=== PATIENT | female | born 1965 | race African-American/Black ===

== ENCOUNTER 2020-02-02 22:46 | Emergency (ER) | payer BC ==
--- OUTSIDE RECORDS SUMMARY | 2020-02-02 22:48 | XMS REPORT ---
:1965 Author Organization [employer] Care Team Providers Name Role Phone Bebeto Hamzah Provider Role Unavailable Allergies No Known Allergies Problems Problem Type Condition Code Onset Dates Condition Statu s Assessment Mixed hyperlipidemia E78.2 Active Problem History of kidney stones Z87.442 Act luís Assessment Subclinical hyperthyroidism E05.90 Active Assessment Type 2 diabetes mellitus without E11.9 Active complication, without long-term current use of insulin Problem Allergic rhinitis, unspecified J30.9 Active seasonality, unspecified trigger Problem Subclinical hyperthyroidism E05.90 Active Problem Adult BMI 31.0-31.9 kg/sq m Z68.31 Active Problem Type 2 diabetes mellitus without E11.9 Active complication, without long-term current use of insulin Problem Mixed hyperlipidemia E78.2 Active Problem Adult BMI 30.0-30.9 kg/sq m Z68.30 Active Problem HTN, goal below 130/80 I10 Activ e Medications No Known Medications Results No Known Results Summary Purpose [facility] [employer] [facility] Submission
--- OUTSIDE RECORDS SUMMARY | 2020-02-02 22:48 | XMS REPORT ---
:1965 Author Organization [employer]Works Care Team Providers Name Role Phone Beebto Hamzah Provider Role Unavailable Allergies, Adverse Reactions, Alerts Substance Reaction Event Type N.K.D.A. Info Not Available Non Drug Allergy Problems Problem Type Condition Code Onset Dates Condition Statu s Assessment Acute streptococcal pharyngitis J02.0 Active Problem History of kidney stones Z87.442 Act luís Assessment Laryngitis J04.0 Active Assessment Upper respiratory tract infection, J06.9 Active unspecified type Assessment Acute non-recurrent maxillary J01.00 Active sinusitis Problem Allergic rhinitis, unspecified J30.9 Active seasonality, unspecified trigger Problem Subclinical hyperthyroidism E05.90 Active Problem Adult BMI 31.0-31.9 kg/sq m Z68.31 Active Problem Type 2 diabetes mellitus without E11.9 Active complication, without long-term current use of insulin Problem Mixed hyperlipidemia E78.2 Active Problem Adult BMI 30.0-30.9 kg/sq m Z68.30 Active Problem HTN, goal below 130/80 I10 Activ e Medications Medication Code Code Instructions Start End Status Dosage System Date Date Amoxicillin-Pot [facility] 43162195684 875-125 MG Aug 08, Aug 18, Active 1 tablet Clavulanate Orally every 12 2018 2019 hrs Losartan [facility] 97356724748 100 MG Orally Active 1 tab let Potassium Once a day Jardiance [facility] 01959812136 25 MG Orally Sep 21, Active 1 tab let Once a day 2019 Januvia [facility] 24103661563 100 MG Orally Active 1 tabl et Once a day Atorvastatin ND 90918439640 40 MG Orally Active 1 tablet Calcium Once a day MetFORMIN HCl ER ND 10619497478 500 MG Orally Activ e 2 tablet twice a day with evening meal Results No Known Results Summary Purpose eClinicalWorks Submission
--- OUTSIDE RECORDS SUMMARY | 2020-02-02 22:48 | XMS REPORT ---
:1965 Author Organization [facility] t Address [address] [place] [address] Care Team Providers Name Role Phone Unavailable Unavailable Unavailable Problems Condition Condition Condition Status Onset Resolution Last Treatin g Comments Name Details Category Date Date Treatment Clinician Date History of History of Problem Active kidney kidney stones stones Type 2 Type 2 Problem Active diabetes diabetes mellitus mellitus without without complicatio complicatio n, without n, without long-term long-term current use current use of insulin of insulin Mixed Mixed Problem Active hyperlipide hyperlipide alma rosa alma rosa HTN, goal HTN, goal Problem Active below below 130/80 130/80 Allergic Allergic Problem Active rhinitis, rhinitis, unspecified unspecified seasonality seasonality , , unspecified unspecified trigger trigger Adult BMI Adult BMI Problem Active 30.0-30.9 30.0-30.9 kg/sq m kg/sq m Subclinical Subclinical Problem Active hyperthyroi hyperthyroi dism dism Adult BMI Adult BMI Problem Active 31.0-31.9 31.0-31.9 kg/sq m kg/sq m Abnormal Abnormal Problem Active laboratory laboratory test result test result Abnormal Abnormal Problem Active laboratory laboratory results for results for respiratory respiratory system system Enlarged Enlarged Problem Active thyroid thyroid gland gland Allergies, Adverse Reactions, Alerts This patient has no known allergies or adverse reactions. Medications Ordered Filled Start Stop Current Ordering Indication Dosage Frequency Signature Comments Components Medication Medication Date Date Medication? Clinician (SIG) Name Name Kacie Hester 0 Yes Hamzah 1 tablet 3-13 Tate 00:00: 00 Jardiance Jardiance 2017-10- No Hamzah TK 1 T PO 2-13 03-12 Tate QD 00:00: 00:00 00 :00 MetFORMIN MetFORMIN Yes Hamzah 2 tablet HCl ER HCl ER Tate with evening meal Atorvastati Atorvastati Yes Hamzah 1 table t n Calcium n Calcium Tate Losartan Losartan Yes Hamzah 1 tablet Potassium Potassium Tate Atenolol Atenolol Yes Hamzah TK 1 T PO Tate D Immunizations Ordered Immunization Name Filled Immunization Name Date Sta tus Comments TDAP > 7 Years-Adacel TDAP > 7 Years-Adacel 2019-01-18 Completed 00:00:00 Encounters Start End Encounter Admission Attending Care Care Encounter Date/Time Date/Time Type Type Clinicians Facility Department ID 2020-01-15 2020-01-15 [facility] [id number] 13:52:00 13:52:00 [facility] 2019-12-25 2019-12-25 [facility] [id number] 13:30:00 13:30:00 [facility] 2019-09-27 2019-09-27 [facility] [id number] 09:00:00 09:00:00 Today [facility] 2019-09-22 2019-09-22 [facility] [id number] 10:30:00 10:30:00 Today [facility] 2019-09-15 2019-09-15 [facility] [id number] 08:21:00 08:21:00 Today [facility] 2019-09-06 2019-09-06 [facility] [id number] 08:11:00 08:11:00 Today [facility] 2019-09-04 2019-09-04 [facility] [id number] 08:03:00 08:03:00 Today [facility] 2019-08-08 2019-08-08 [facility] [id number] 11:00:00 11:00:00 Today [facility] 2019-06-23 2019-06-23 [facility] [id number] 09:30:00 09:30:00 Today [facility] 2019-03-23 2019-03-23 [facility] [id number] 09:00:00 09:00:00 Today [facility] 2019-01-18 2019-01-18 [facility] [id number] 11:00:00 11:00:00 Today [facility] 2019-01-11 2019-01-11 [facility] [id number] 10:00:00 10:00:00 Today [facility] 2018-12-21 2018-12-21 [facility] [id number] 13:15:00 13:15:00 Today [facility] 2018-09-28 2018-09-28 [facility] [id number] 11:18:00 11:18:00 Today [facility] 2018-09-22 2018-09-22 [facility] [id number] 14:45:00 14:45:00 [facility]
--- OUTSIDE RECORDS SUMMARY | 2020-02-02 22:49 | XMS REPORT ---
:1965 Author Organization [employer]Works Care Team Providers Name Role Phone Hamzah Tate Provider Role Unavailable Allergies, Adverse Reactions, Alerts Substance Reaction Event Type N.K.D.A. Info Not Available Non Drug Allergy Problems Problem Type Condition Code Onset Dates Condition Statu s Problem History of kidney stones Z87.442 Act luís Problem HTN, goal below 130/80 I10 Activ e Problem Type 2 diabetes mellitus without E11.9 Active complication, without long-term current use of insulin Problem Abnormal laboratory results for R84.9 Active respiratory system Problem Enlarged thyroid gland E04.9 Activ e Problem Abnormal laboratory test result R89.9 Active Problem Subclinical hyperthyroidism E05.90 Active Problem Adult BMI 30.0-30.9 kg/sq m Z68.30 Active Problem Adult BMI 31.0-31.9 kg/sq m Z68.31 Active Problem Allergic rhinitis, unspecified J30.9 Active seasonality, unspecified trigger Assessment History of kidney stones Z87.442 Act luís Assessment HTN, goal below 130/80 I10 Activ e Assessment Adult BMI 31.0-31.9 kg/sq m Z68.31 Active Assessment Subclinical hyperthyroidism E05.90 Active Assessment Type 2 diabetes mellitus without E11.9 Active complication, without long-term current use of insulin Assessment Mixed hyperlipidemia E78.2 Active Assessment Enlarged thyroid gland E04.9 Activ e Problem Mixed hyperlipidemia E78.2 Active Medications Medication Code Code Instructions Start End Date Status Dosage System Date [facility] 61521217960 100 MG Orally Active 1 tabl et Once a day Losartan ND 59330006314 100 MG Orally Active 1 tab let Potassium Once a day MetFORMIN HCl ER ND 57469073598 500 MG Orally Activ e 2 tablet twice a day with evening meal Jardiance [facility] 86829242653 25 MG Orally March Active 1 tab let Once a day 2019 Atorvastatin ND 29800881016 40 MG Orally Active 1 tablet Calcium Once a day Results No Known Results Summary Purpose [employer]ClinicalWorks Submission
--- OUTSIDE RECORDS SUMMARY | 2020-02-02 22:49 | XMS REPORT ---
:1965 Author Organization [employer]ClinicalWorks Care Team Providers Name Role Phone Hamzah Tate Provider Role Unavailable Allergies No Known Allergies Problems Problem Type Condition Code Onset Dates Condition Statu s Problem Mixed hyperlipidemia E78.2 Active Problem Type 2 diabetes mellitus without E11.9 Active complication, without long-term current use of insulin Problem History of kidney stones Z87.442 Act luís Problem Abnormal laboratory results for R84.9 Active respiratory system Problem Adult BMI 31.0-31.9 kg/sq m Z68.31 Active Problem Abnormal laboratory test result R89.9 Active Problem Adult BMI 30.0-30.9 kg/sq m Z68.30 Active Problem HTN, goal below 130/80 I10 Activ e Problem Allergic rhinitis, unspecified J30.9 Active seasonality, unspecified trigger Problem Subclinical hyperthyroidism E05.90 Active Medications No Known Medications Results No Known Results Summary Purpose [employer]ClinicalWorks Submission
--- OUTSIDE RECORDS SUMMARY | 2020-02-02 22:49 | XMS REPORT | Summary of Care ---
:1965 Author Organization [facility] [place] [address] Care Team Providers Name Role Phone Hamzah Tate Primary Care Provider [phone] Reason for Visit Reason Comments Follow Up Swollen thyroid. Pt reports burning sensation at sight of swelling. Reccent snoring issues. Consult, Test & Treat (Routine) Status Reason Specialty Diagnoses / Referred By Referred To Procedures Contact Contact Authorized Endocrinology Diagnoses thyroid swollen Referral, Self Eloise Bonilla MD Procedures NEW PATIENT [address] [facility] [address] [place], [place] [address] Fax: Encounter Details Date Type Department Care Team Description [facility] ([facility] Tariq L [address] [facility] thyroid. Pt reports [facility] [address] burning sensation [place] [address] sight of swelling. [address] [facility] [phone] Reccent snoring [address], [address] issues. ) [place] [address] Allergies No Known Allergiesdocumented as of this encounter (statuses as of 11/08/2019) Medications Medication Sig Dispensed Refills Start Date End Date Status metformin Take 500 mg by 0 Activ e (GLUCOPHAGE-XR) 500 MG mouth. XR tablet Empagliflozin Take 25 mg by 0 Ac tive (JARDIANCE) 25 MG TABS mouth daily. Sitagliptin Phosphate Take 100 mg by 0 Active (JANUVIA) 100 MG TABS mouth daily. losartan (COZAAR) 100 MG Take 100 mg by 0 Active tablet mouth daily. atorvastatin (LIPITOR) Take 40 mg by 0 Active 40 MG tablet mouth daily. documented as of this encounter (statuses as of 11/08/2019) Active Problems Not on filedocumented as of this encounter (statuses as of 11/08/2019) Social History Tobacco Use Types Packs/Day Years Used Date Never Smoker Smokeless Tobacco: Never Used Alcohol Use Drinks/Week oz/Week Comments Yes Alcohol Habits Answer Date Recorded How often do you have a drink containing alcohol? Monthly or less 11/08/2019 How many drinks containing alcohol do you have on a 1 or 2 11/08/2019 typical day when you are drinking? How often do you have six or more drinks on one Never 11/08/2019 occasion? Sex Assigned at Date Recorded Not on file Job Start Date Occupation Industry Not on file Not on file Not on file Travel History Travel Start Travel End No recent travel history available. documented as of this encounter Last Filed Vital Signs Vital Sign Reading Time Taken Comments Blood Pressure 151/94 11/08/2019 9:21 AM [employer] Pulse 84 11/08/2019 9:21 AM [employer]PERATOR Temperature - - Respiratory Rate 16 11/08/2019 9:21 AM [employer]OMER [employer]ICATION OPERATOR Oxygen Saturation - - Inhaled Oxygen Concentration - - Weight 96.2 kg (212 lb) 11/08/2019 9:21 AM [employer]OMER [employer]ICATION OPERATOR Height 172.7 cm (5' 8") 11/08/2019 9:21 AM [employer]OMER [employer]ICATION OPERATOR Body Mass Index 32.23 11/08/2019 9:21 AM [employer] OPERATOR documented in this encounter Progress Notes Eloise Bonilla MD - 11/08/2019 9:30 AM CST Patient: Petra Santos Age: 54 y.o. Sex: female Date: 11/08/2019 Clinic: Thyroid Clinic Time: 9:17 AM Chief Complaint: Thyroid swelling Referred by Referral, Self HPI: 54 year old Afro greek female with H/o well controlled Type 2 DM (on metformin, Jardiance and Januvia, last A1c 7.3%), hyperlipidemia, hypertension, kidney stone and subclinical hyperthyroidismwith goitre, here for further evaluation for the same. In Nov last year, found to have suppressed TSH 0.006 with normal FT4, T3 uptake and FTI levels. T3 not checked. Repeated again in Sep and similar labs found. TrAB elevated to 7.89. US thyroid- enlargedheterogenous gland consistent with thyroiditis. No nodules noted. Symptom vise- off and on heat intolerance. Weight stable, no palpitations, no anxiety or diarrhea. Does have mild compressive symptoms- difficulty breathing on right side and dysphonia. No dysphagia orsticky sensation in neck as such. No watering /grittiness/ blurry vision/double vision in eyes. FH: mother and father with DM, brother with hyperthyroidism SH: Non smoker, non drinker PMH: as above Review of Systems: Constitutional: negative for weight loss. Positive for fatigue + Eyes: negative for visual disturbance Ears, nose, mouth, throat, and face: negative for voice change, hoarseness Respiratory: negative for Cough, chest pain, dyspnea Cardiovascular: negative for palpitations, lower extremity swelling Gastrointestinal: negative for dyspepsia, nausea, vomiting, abdominal pain, change in bowel habits Genitourinary:negative for frequency Musculoskeletal:negative for muscle weakness Neurological: negative for headache Behavioral/Psych: negative for behavioral problems, bipolar, depression Physical Exam: Vitals 11/08/2019 SYSTOLIC 151 DIASTOLIC 94 PULSE 84 RESPIRATIONS 16 WEIGHT 212 HEIGHT 5' 8" BODY MASS INDEX 32.23 BODY SURFACE AREA 2.15 Const: No acute distress. Eyes:PERRLA. Conjugate gaze. No watering or proptosis/diplopia or lid lag. Redness B/L + HEENT: 40 gm gland firm smooth L>R. No palpable nodules.No lymphadenopathy. CVS: S1 S2 with no murmers . No rubs or gallops. Tachycardia + Resp: B/L Equal breath sounds.Clear to Auscultation. No wheezes or rhonchi Abd: Bowel sounds present, Non-tender, Non distended. No organomegaly Neuro: 5/5 Proximal Muscle strength. 2+ DTRs at biceps.CN grossly intact.Sensations intact Extremities: No lower extremity pitting edema. No tremors. Psych: Normal affect and attention. 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 Mild eye ds. Plan: Check TSH, Ft4 and Total T3 levels Check CBC and LFTs Consider to start MMI 5 mg every other day to get TSH in normal range Discussed definitve treatment options- iodine vrs surgery, she is interested in iodine- risks and benefits explained in detail. Will call with results and decide final plan- MMI or iodine. She will think about it. F/U 4 weeks Eloise Bonilla MD Endocrinology, Diabetes, and Metabolism [facility] documented in this encounter Plan of Treatment Name Type Priority Associated Diagnoses Order S chedule TSH Lab Routine Hyperthyroidism Ordered: T4 FREE Lab Routine Hyperthyroidism Ordered: T3 Lab Routine Hyperthyroidism Ordered: CBC W/AUTO DIFF WITH PLATELETS Lab Routine Hyperthyro idism Ordered: 11/08/2019 HEPATIC FUNCTION PANEL Lab Routine Hyperthyroidism Or dered: 11/08/2019 Health Maintenance Due Date Last Done Comments COLON CANCER SCREENING: COLONOSCOPY 1965 MAMMOGRAM ANNUAL 1965 TETANUS SHOT (ADULT) 1978 HEPATITIS C SCREENING 1981 HIV SCREENING 1981 CERVICAL CANCER SCREENING 3 YEAR FOLLOW UP 1984 FLU VACCINE > 6 MONTHS 05/11/2019 documented as of this encounter Results Not on filedocumented in this encounter Visit Diagnoses Diagnosis Hyperthyroidism - Primary Thyrotoxicosis without mention of goiter or other cause, without mention of thyrotoxic crisis or storm documented in this encounter Insurance Payer Benefit Plan / Subscriber ID Effective Dates Phone Addre ss Type Group [facility] x[facility]xxx 2017-Presen [address] POS [employer] [facility] POS - [place] [phone] documented as of this encounter
--- OUTSIDE RECORDS SUMMARY | 2020-02-02 22:49 | XMS REPORT ---
:1965 Author Organization [employer]ClinicalWorks Care Team Providers Name Role Phone Bebeto Hamzah Provider Role Unavailable Allergies, Adverse Reactions, [...] goal below 130/80 I10 Activ e Assessment Tachycardia R00.0 Active Assessment Adult BMI 31.0-31.9 kg/sq m Z68.31 Active Assessment Subclinical hyperthyroidism E05.90 Active Assessment Type 2 diabetes mellitus without E11.9 Active complication, without long-term current use of insulin Assessment Mixed hyperlipidemia E78.2 Active Assessment Enlarged thyroid gland E04.9 Activ e Problem Mixed hyperlipidemia E78.2 Active Medications Medication Code Code Instructions Start End Status Dosage System Date [facility] 82494709266 100 MG Orally Active 1 tabl et Once a day Atorvastatin [facility] 50260007887 40 MG Orally Active 1 tablet Calcium Once a day MetFORMIN HCl ER ND 02444038897 500 MG Orally Activ e 2 tablet twice a day with evening meal Losartan ND 10705649883 100 MG Orally Active 1 tab let Potassium Once a day Atenolol [facility] 64267756913 25 MG Oral Active TK 1 T P O D Jardiance [facility] 08645807108 25 MG Oral Active TK 1 T PO QD Results No Known Results Summary Purpose [employer]ClinicalWorks Submission
--- OUTSIDE RECORDS SUMMARY | 2020-02-02 22:49 | XMS REPORT | Summary of Care ---
:1965 Author Organization [facility] [place] [address] Care Team Providers Name Role Phone Hamzah Tate Primary Care Provider [phone] Reason for Referral Radiology Services (Routine) Status Reason Specialty Diagnoses / Referred By Referred To Procedures Contact Contact E-Auth Not Radiology Diagnoses Hyperthyroidism Main location aware Arrive 15 min prior Eloise Bonilla MD Bc Nm Imaging Needed Procedures NM THERAPY ABLATION THYROID CANCER [address] [facility] [address] [facility], [address] [address] [address] [place], [place] Phone: [phone] Phone: Radiology Services (Routine) Status Reason Specialty Diagnoses / Referred By Referred To Procedures Contact Contact E-Auth Not Radiology Diagnoses Hyperthyroidism Main location aware Arrive 15 min prior NPO 2 hrs prior Eloise Bonilla MD Bc Nm Imaging Needed Procedures NM THYROID UPTAKE AND SCAN MULITPLE CHG THYROID UPTAKE W/BLOOD FLOW SNGLE/MULT KIKE WILLY MT IODINE I-123 SOD IODIDE ADITYA [address] [place], [place] [address] [place] Phone: [phone] Phone: Reason for Visit Reason Comments Follow Up hyperthyroidism Consult, Test & Treat (Routine) Status Reason Specialty Diagnoses / Referred By Referred To Procedures Contact Contact Authorized Endocrinology Diagnoses thyroid f/u Eloise Bonilla MD Gaba, Ruchi, MD Procedures ESTABLISHED OFFICE VISIT [address] [place], [place] [address] [place] [address] Phone: Fax: Encounter Details Date Type Department Care Team Description 11/23/2019 Office Visit [facility] Eloise Bonilla MD Follow Up Medicine [address] (hyperthyroidism) Endocrinology [address] [facility] [place] [address] 8th Floor; [address] [phone] [place] [address] Allergies No Known Allergiesdocumented as of this encounter (statuses as of 11/23/2019) Medications Medication Sig Dispensed Refills Start Date [...] 0 Active 40 MG tablet mouth daily. atenolol (TENORMIN) 25 Take 1 Tab by 30 Tab 4 11/23/2019 Active MG tablet mouth daily. documented as of this encounter (statuses as of 11/23/2019) Active Problems Not on filedocumented as of this encounter (statuses as of 11/23/2019) Social History Tobacco Use Types Packs/Day Years [...] Sign Reading Time Taken Comments Blood Pressure 122/74 11/23/2019 1:44 PM TELEPHONE [employer]INTENA[employer]CE [employer]CH[employer]IC Pulse 114 11/23/2019 1:44 PM TELEPHONE MAINTENANCE MECHANIC Temperature - - Respiratory Rate 18 11/23/2019 1:44 PM TELEPHONE MAINTENANCE MECHANIC Oxygen Saturation - - Inhaled Oxygen Concentration - - Weight 94.8 kg (209 lb) 11/23/2019 1:44 PM TELEPHONE MAINTENANCE MECHANIC Height 172.7 cm (5' 8") 11/23/2019 1:44 PM TELEPHONE MAINTENANCE MECHANIC Body Mass Index 31.78 11/23/2019 1:44 PM TELEPHONE MAINTENANCE MECHANIC documented in this encounter Progress Notes Eloise Bonilla MD - 11/23/2019 2:00 PM CST Patient: Petra Santos Age: 54 y.o. Sex: female Date: 11/23/2019 Clinic: Thyroid Clinic Time: 1:58 PM Chief Complaint: F/U Hyperthyroidism HPI: 54 year old Afro sudanese female with H/o well controlled Type 2 DM (on metformin, Jardiance and Januvia, last A1c 7.3%), hyperlipidemia, hypertension, kidney stone and subclinical hyperthyroidismwith goitre, last seen in clinic 11/08/2019 , here to discuss results and next steps. In Aug last year, found to have suppressed TSH 0.006 with normal FT4, T3 uptake and FTI levels. T3 not checked. Repeated again in Sep and similar labs found. TrAB elevated to 7.89. US thyroid- enlargedheterogenous gland consistent with thyroiditis. No nodules noted. Repeat labs at [facility]- overt hyperthyroidism with elevated FT4 1.91. Baseline CBC and LFTs normal. Symptom vise- off and on heat intolerance. Weight stable, no palpitations, no anxiety or diarrhea. Does have mild compressive symptoms- difficulty breathing on right side and dysphonia. No dysphagia or sticky sensation in neck as such. No watering [...] behavioral problems, bipolar, depression Physical Exam: Vitals 11/23/2019 SYSTOLIC 122 DIASTOLIC 74 PULSE 114 RESPIRATIONS 18 WEIGHT 209 HEIGHT 5' 8" BODY MASS INDEX 31.78 BODY SURFACE AREA 2.13 Const: No acute distress. Eyes:PERRLA. Conjugate gaze. [...] pink, No rash Laboratory, Radiographic, Cytopathologic Data Ref. Range 11/08/2019 09:49 TSH REFLEX Latest Ref Range: 0.400 - 4.100 UIU/ML <0.010 (L) FREE T4 Latest Ref Range: 0.80 - 1.90 NG/DL 1.93 (H) T3 TOTAL Latest Ref Range: 80 - 200 NG/DL 184 Diagnoses: Auto immune thyroid ds causing Hyperthyroidism + 40 gm goitre Clinically hyperthyroid, mild compressive symptoms. Mild eye ds. Plan: She prefers to do radioactive iodine treatment rather than MMI or surgery NM scan and then radioactive treatment. Risks and benefits explained at length. Will also start atenolol 12.5 mg PO daily at night, ok to titrate upto 25 mg PO daily to help with symptoms. F/U 4 weeks Eloise Bonilla MD Endocrinology, Diabetes, and Metabolism [facility] documented in this encounter Plan of Treatment Date Type Specialty Care Team Description 12/12/2019 Ancillary Procedure Radiology 12/12/2019 Ancillary Procedure Radiology 12/13/2019 Ancillary Procedure Radiology 12/20/2019 Ancillary Procedure Radiology 01/25/2020 Office Visit Endocrinology Eloise Bonilla MD [address] [place], [place] [address] [phone] Name Type Priority Associated Diagnoses Order S chedule NM THYROID UPTAKE AND Imaging Routine Hyperthyroidism Exp ected: 11/30/2019, SCAN MULITPLE Expires: 11/22 NM THERAPY ABLATION Imaging Routine Hyperthyroidism Expec joshua: 11/30/2019, THYROID CANCER Expires: 05/11 Health Maintenance Due Date Last Done Comments COLON CANCER SCREENING: COLONOSCOPY 1965 MAMMOGRAM ANNUAL 1965 TETANUS SHOT (ADULT) 1978 BMI FOLLOW UP PLAN 1981 HEPATITIS C SCREENING 1981 HIV SCREENING 1981 [...] Effective Dates Phone Addre ss Type Group [facility] [place] x[facility] [id number] POS BLUE SHIELD IN-AREA POS - [place] [phone] documented as of this encounter
--- OUTSIDE RECORDS SUMMARY | 2020-02-02 22:49 | XMS REPORT ---
[...] of kidney stones Z87.442 Act luís Assessment Abnormal laboratory test result R89.9 Active Assessment Subclinical hyperthyroidism E05.90 Active Problem Abnormal laboratory results for R84.9 Active [...]
--- OUTSIDE RECORDS SUMMARY | 2020-02-02 22:49 | XMS REPORT ---
[...] without long-term current use of insulin Assessment Enlarged thyroid gland E04.9 Activ e Problem Mixed hyperlipidemia E78.2 Active Problem Abnormal laboratory results for R84.9 Active respiratory system Problem Enlarged thyroid gland E04.9 Activ e Problem Abnormal laboratory test result R89.9 Active Problem Subclinical hyperthyroidism E05.90 Active Problem Adult BMI 30.0-30.9 kg/sq m Z68.30 Active Problem Adult BMI 31.0-31.9 kg/sq m Z68.31 Active Problem Allergic rhinitis, unspecified J30.9 Active seasonality, unspecified trigger Medications No Known Medications Results No Known Results Summary Purpose eClinicalWorks Submission
--- OUTSIDE RECORDS SUMMARY | 2020-02-02 22:49 | XMS REPORT ---
[...] insulin Problem Mixed hyperlipidemia E78.2 Active Problem Abnormal [...]
[2020-02-02] MEDS ORDERED: METHYLPREDNISOLONE 125 MG INJ ONE (23:45)
[2020-02-02] MEDS ORDERED: hydrOXYzine HCL 25 MG TAB ONE (23:46)
[2020-02-02] MEDS ORDERED: FAMOTIDINE 20 MG/2 ML VIAL IV ONE (23:46)
--- NOTE | 2020-02-03 00:21 | EDPHYS ---
Physician Documentation [facility] Name: Petra Santos Age: 54 yrs Sex: Female : 1965 Arrival Date: 02/02/2020 Time: 22:47 Bed 5 Private MD: Bebeto [facility] ED Physician Jareth Cowan HPI: 02/02 00:18 This 54 yrs old Black Female presents to ER via Ambulatory with complaints of Hives. kdr 00:27 The patient presents with itching, rash, that is diffuse. kdr Historical: - Allergies: 02/01 22:57 No Known Allergies; sg - Home Meds: 22:57 losartan 100 mg oral tab 1 tab once daily [Active]; atenolol 25 mg Oral tab 1 tab once sg daily [Active]; methimazole 5 mg Oral tab 1 tab once daily [Active]; Jardiance 10 mg oral tab 1 tab once daily [Active]; metformin 500 mg Oral tab 2 tabs 2 times per day [Active]; - PMHx: 22:57 Diabetes - NIDDM; Hypertension; sg - PSHx: 22:57 Cholecystectomy; ; Hysterectomy; Tonsillectomy; sg - Immunization history:: Adult Immunizations up to date. - Social history:: Smoking status: Patient denies any tobacco usage or history of. ROS: 02/02 00:27 Constitutional: Negative for fever, chills, and weight loss, Eyes: Negative for injury, kdr pain, redness, and discharge, ENT: Negative for injury, pain, and discharge, Neck: Negative for injury, pain, and swelling, Cardiovascular: Negative for chest pain, palpitations, and edema, Respiratory: Negative for shortness of breath, cough, wheezing, and pleuritic chest pain, Abdomen/GI: Negative for abdominal pain, nausea, vomiting, diarrhea, and constipation, Back: Negative for injury and pain, : Negative for injury, bleeding, discharge, and swelling, MS/Extremity: Negative for injury and deformity, Neuro: Negative for headache, weakness, numbness, tingling, and seizure activity. Psych: Negative for depression, anxiety, suicide ideation, homicidal ideation, and hallucinations, Allergy/Immunology: Negative for hives, rash, and allergies, Endocrine: Negative for neck swelling, polydipsia, polyuria, polyphagia, and marked weight changes, Hematologic/Lymphatic: Negative for swollen nodes, abnormal bleeding, and unusual bruising. Skin: Positive for rash, diffusely. Exam: 00:27 Constitutional: This is a well developed, well nourished patient who is awake, alert, kdr and in no acute distress. Head/Face: Normocephalic, atraumatic. Eyes: Pupils equal round and reactive to light, extra-ocular motions intact. Lids and lashes normal. Conjunctiva and sclera are non-icteric and not injected. Cornea within normal limits. Periorbital areas with no swelling, redness, or edema. Neck: Trachea midline, no thyromegaly or masses palpated, and no cervical lymphadenopathy. Supple, full range of motion without nuchal rigidity, or vertebral point tenderness. No Meningismus. Chest/axilla: Normal chest wall appearance and motion. Nontender with no deformity. No lesions are appreciated. Cardiovascular: Regular rate and rhythm with a normal S1 and S2. No gallops, murmurs, or rubs. Normal PMI, no JVD. No pulse deficits. Respiratory: Lungs have equal breath sounds bilaterally, clear to auscultation and percussion. No rales, rhonchi or wheezes noted. No increased work of breathing, no retractions or nasal flaring. Abdomen/GI: Soft, non-tender, with normal bowel sounds. No distension or tympany. No guarding or rebound. No evidence of tenderness throughout. Back: No spinal tenderness. No costovertebral tenderness. Full range of motion. MS/ Extremity: Pulses equal, no cyanosis. Neurovascular intact. Full, normal range of motion. Neuro: Awake and alert, GCS 15, oriented to person, place, time, and situation. Cranial nerves II-XII grossly intact. Motor strength 5/5 in all extremities. Sensory grossly intact. Cerebellar exam normal. Normal gait. Psych: Awake, alert, with orientation to person, place and time. Behavior, mood, and affect are within normal limits. 00:27 Skin: rash a mild rash is noted. Vital Signs: 02/01 22:56 BP 138 / 93; Pulse 95; Resp 20; Temp 97.4; Pulse Ox 99% on R/A; Weight 97.52 kg; Height vc 5 ft. 8 in. (172.72 cm); Pain 0/10; 02/02 00:00 BP 118 / 85; Pulse 79; Resp 18; Pulse Ox 98% on R/A; rv 02/01 22:56 Body Mass Index 32.69 (97.52 kg, 172.72 cm) vc MDM: 00:20 Patient medically screened. kdr 00:42 Data reviewed: vital signs, nurses notes, lab test result(s), radiologic studies. kdr Counseling: I had a detailed discussion with the patient and/or guardian regarding: the historical points, exam findings, and any diagnostic results supporting the discharge/admit diagnosis, lab results, radiology results, the need for outpatient follow up. Administered Medications: 02/01 23:46 Drug: Pepcid 20 mg Route: IVP; Site: right antecubital; vc 02/02 00:21 Follow up: Response: No adverse reaction vc 02/01 23:46 Drug: Atarax 50 mg Route: PO; vc 02/02 00:21 Follow up: Response: No adverse reaction vc 02/01 23:47 Drug: SOLU-Medrol 125 mg Route: IVP; Site: right antecubital; vc 02/02 00:22 Follow up: Response: No adverse reaction vc Disposition: 02/03/20 00:20 Discharged to Home. Impression: Acute allergic reaction. - Condition is Stable. - Discharge Instructions: Allergies, [id number]-Gqtb. - Prescriptions for Hydroxyzine HCl 25 mg Oral Tablet - take 1 tablet by ORAL route every 6 hours As needed; 16 tablet. Medrol (Jad) 4 mg Oral Tablets, Dose Pack - take 1 tablet by ORAL route as directed - follow package instructions; 1 packet. Pepcid 20 mg Oral Tablet - take 1 tablet by ORAL route every 12 hours; 20 tablet. - Medication Reconciliation Form, Thank You Letter form. - Follow up: Hamzah Tate, DO; When: 2 - 3 days; Reason: If symptoms return, Further diagnostic work-up, Recheck today's complaints, Continuance of care, Re-evaluation by your physician. - Problem is an ongoing problem. - Symptoms have improved. Signatures: Jaguar Griggs RN RN sg Jareth Cowan MD MD kdr Sarah Alarcon RN RN vc Corrections: (The following items were deleted from the chart) 00:42 00:20 02/03/2020 00:20 Discharged to Home. Impression: Acute allergic reaction. vc Condition is Stable. Forms are Medication Reconciliation Form, Thank You Letter, Antibiotic Education, Prescription Opioid Use. Follow up: Hamzah Tate; When: 2 - 3 days; Reason: If symptoms return, Further diagnostic work-up, Recheck today's complaints, Continuance of care, Re-evaluation by your physician. Problem is an ongoing problem. Symptoms have improved. kdr
--- NOTE | 2020-02-03 00:21 | ER ---
Nurse's Notes [facility] Name: Petra Santos Age: 54 yrs Sex: Female : 1965 Arrival Date: 02/02/2020 Time: 22:47 Bed 5 Private MD: Hamzah Tate Diagnosis: Acute allergic reaction Presentation: 02/01 22:53 Chief complaint: Patient states: Hives and itching on entire body that began two days sg ago, pt reports taking benadryl with the last dose at 1999 this evening, denies any new prescriptions, denies new soaps/detergents/body products, reports the itching has just gotten more severe this evening. Coronavirus screen: Proceed with normal triage. Ebola Screen: Patient negative for fever greater than or equal to 101.5 degrees Fahrenheit, and additional compatible Ebola Virus Disease symptoms Patient denies exposure to infectious person. Patient denies travel to an Ebola-affected area in the 21 days before illness onset. No symptoms or risks identified at this time. Onset: The symptoms/episode began/occurred yesterday, and became worse today. Anaphylaxis evaluation, no signs or symptoms of anaphylaxis were noted. Initial Sepsis Screen: Does the patient meet any 2 criteria? No. Patient's initial sepsis screen is negative. Does the patient have a suspected source of infection? No. Patient's initial sepsis screen is negative. Risk Assessment: Do you want to hurt yourself or someone else? Patient reports no desire to harm self or others. Onset of symptoms was February 02, 2020. Care prior to arrival: None. 22:53 Method Of Arrival: Ambulatory sg 22:53 Acuity: MARKIE 3 sg Triage Assessment: 23:00 General: Appears in no apparent distress. uncomfortable, Behavior is calm, cooperative, vc appropriate for age. Historical: - Allergies: 22:57 No Known Allergies; sg - Home Meds: 22:57 losartan 100 mg oral tab 1 tab once daily [Active]; atenolol 25 mg Oral tab 1 tab once sg daily [Active]; methimazole 5 mg Oral tab 1 tab once daily [Active]; Jardiance 10 mg oral tab 1 tab once daily [Active]; metformin 500 mg Oral tab 2 tabs 2 times per day [Active]; - PMHx: 22:57 Diabetes - NIDDM; Hypertension; sg - PSHx: 22:57 Cholecystectomy; ; Hysterectomy; Tonsillectomy; sg - Immunization history:: Adult Immunizations up to date. - Social history:: Smoking status: Patient denies any tobacco usage or history of. Screenin:59 Abuse screen: Denies threats or abuse. Nutritional screening: No deficits noted. vc Tuberculosis screening: No symptoms or risk factors identified. Fall Risk None identified. Assessment: 22:59 Pain: Denies pain. Respiratory: Airway is patent Respiratory effort is even, unlabored, vc Respiratory pattern is regular, symmetrical, Breath sounds are clear bilaterally. 23:00 General: Appears in no apparent distress. Behavior is calm, cooperative, appropriate vc for age. Neuro: Level of Consciousness is awake, alert, obeys commands, Oriented to person, place, time, situation. Cardiovascular: Capillary refill < 3 seconds Patient's skin is warm and dry. GI: No signs and/or symptoms were reported involving the gastrointestinal system. : No signs and/or symptoms were reported regarding the genitourinary system. EENT: No deficits noted. Derm: Rash noted that is itchy, urticaria, on generalized. Musculoskeletal: Circulation, motion, and sensation intact. Range of motion: intact in all extremities. Vital Signs: 22:56 BP 138 / 93; Pulse 95; Resp 20; Temp 97.4; Pulse Ox 99% on R/A; Weight 97.52 kg; Height vc 5 ft. 8 in. (172.72 cm); Pain 0/10; 02/02 00:00 BP 118 / 85; Pulse 79; Resp 18; Pulse Ox 98% on R/A; rv 02/01 22:56 Body Mass Index 32.69 (97.52 kg, 172.72 cm) vc ED Course: 02/01 22:47 Patient arrived in ED. ag3 22:55 Triage completed. sg 22:55 Sarah Alarcon RN is Primary Nurse. vc 22:55 Arm band placed on. sg 22:56 Jareth Cowan MD is Attending Physician. kdr 22:58 Hamzah Tate DO is Private Physician. sg 23:00 Patient has correct armband on for positive identification. Bed in low position. Call vc light in reach. Pulse ox on. NIBP on. 23:38 Inserted saline lock: 20 gauge in right antecubital area, using aseptic technique. vc 02/02 00:18 Hamzah Tate DO is Referral Physician. kdr 00:42 No provider procedures requiring assistance completed. IV discontinued, intact, vc bleeding controlled, No redness/swelling at site. Pressure dressing applied. Administered Medications: 02/01 23:46 Drug: Pepcid 20 mg Route: IVP; Site: right antecubital; vc 02/02 00:21 Follow up: Response: No adverse reaction vc 02/01 23:46 Drug: Atarax 50 mg Route: PO; vc 02/02 00:21 Follow up: Response: No adverse reaction vc 02/01 23:47 Drug: SOLU-Medrol 125 mg Route: IVP; Site: right antecubital; vc 02/02 00:22 Follow up: Response: No adverse reaction vc Outcome: 00:20 Discharge ordered by . kdr 00:42 Discharged to home ambulatory. vc 00:42 Condition: good 00:42 Discharge instructions given to patient, Instructed on discharge instructions, follow up and referral plans. medication usage, Demonstrated understanding of instructions, follow-up care, medications, Prescriptions given X 3. 00:42 Patient left the ED. vc Signatures: Jaguar Griggs RN Jareth Linn MD MD kdr Vicente, Ronaldo RN RN Clara Watts 3 Sarah Alarcon RN RN vc
[2020-02-03 01:13] VITALS: TEMP 97.4
[2020-02-03 01:14] VITALS: BP 118/85; O2SAT 98
== END 2020-02-03 00:42 | disposition home or self-care (01) ==
LOC: ER 22:46
DX: R21 Rash and other nonspecific skin eruption (principal); I10 Essential (primary) hypertension; E11.9 Type 2 diabetes mellitus without complications
CPT/HCPCS: 96375; 96374; 99284; J2930

== ENCOUNTER 2020-09-06 20:20 | Inpatient (IN) | payer BC ==
--- OUTSIDE RECORDS SUMMARY | 2020-09-06 20:22 | XMS REPORT | Continuity of Care Document ---
:1965 Author Organization [facility] t Address [address] [place] [address] Care Team Providers Name Role Phone Irene KIDD Attending Clinician Problems Condition Condition Condition Status Onset Resolution Last Treating Co mments Source Name Details Category Date Date Treatment Clinician Date History of History of Diagnosis Active [facility] Type 2 Type [address] [facility] diabetes diabetes [facility] - mellitus mellitus Memori a without without l complicati complicati Ou tpati on, on, ent without without Clinics long-term long-term current current use of use of insulin insulin Mixed Mixed Diagnosis Active [facility] hyperlipid hyperlipid Hanna kes - emia emia [facility] HTN, goal HTN, goal Problem Active [facility] below below [facility] - 130/80 130/80 [facility] Allergic Allergic Problem [facility] rhinitis, rhinitis, [facility] - unspecifie unspecifie Me moria d d l seasonalit seasonalit Ou tpati y, y, ent unspecifie unspecifie Cl inics d trigger d trigger Adult BMI Adult BMI Diagnosis Active [facility] 30.0-30.9 30.0-30.9 [facility] - kg/sq m kg/sq m [facility] Subclinica Subclinica Diagnosis Active [facility] - hyperthyro hyperthyro Me moria idism idism l [facility] Adult BMI Adult BMI Problem Active [facility] 31.0-31.9 31.0-31.9 [facility] - kg/sq m kg/sq m [facility] Abnormal Abnormal Problem [facility] Hanna kes - test test [facility] result result [facility] Abnormal Abnormal Problem Active [facility] Hanna kes - results results Memoria for for l respirator respirator Ou tpati y system y system ent Clinics Enlarged Enlarged Diagnosis Active [facility] thyroid thyroid [facility] gland gland [facility] Abnormal Abnormal Problem Active [facility] mammogram [facility] Bone spur Bone spur Diagnosis Active [facility] of left of left [facility] foot foot [facility] Left foot Left foot Diagnosis Active [facility] pain pain [facility] Tachycardi Tachycardi Diagnosis Active [facility] Graves' Graves' Diagnosis Active [facility] disease disease [facility] Allergies, Adverse Reactions, Alerts This patient has no known allergies or adverse reactions. Medications Ordered Filled Start Stop Current Ordering Indication Dosage Frequency Signature Comments Components Source Medication Medication Date Date Medication? Clinician (SIG) Name Name Jasonálvaromarianna Gomezdayne Yes Hamzah [address] 3-13 [facility] Jardiance Jardiance 2017-10- No Hamzah TK [address] [facility] 2-13 03-12 Tate QD [facility] - 00:00: 00:00 [facility] MetFORMIN MetFORMIN Yes Hamzah [address] [facility] HCl ER HCl ER Tate with [facility] - evening [facility] meal [facility] Atorvastati Atorvastati Yes Hamzah [address] [facility] n Calcium n Calcium Tate [facility] Losartan Losartan Yes Hamzah [address] Potassium Potassium Tate [facility] Atenolol Atenolol Yes Hamzah TK [address] [facility] D [facility] Losartan Losartan Yes Hamzah [address] Potassium Potassium Tate [facility] Methimazole Methimazole Yes Hamzah [address] [facility] Tate with food [facility] Kacie Hester Yes Hamzah [address] [facility] Immunizations Ordered Filled Immunization Date Status Comments Sour e Immunization Name Name TDAP > 7 TDAP > 7 2019-01-[address] [facility] - Years-Adacel Years-Adacel 00:00:00 [facility] Procedures This patient has no known procedures. Encounters Start End Encounter Admission Attending Care Care Encounter Source Date/Time Date/Time Type Type Clinicians Facility Department ID 2020-06-21 2020-06-21 [facility] [id number] [facility] 11:20:00 11:20:00 [facility] Medicine Outpati ent Clinics 2020-05-06 2020-05-06 [facility] [id number] [address] 10:35:00 10:35:00 [facility] Medicine Outpati ent Clinics 2020-04-23 2020-04-23 [facility] [id number] 13:40:00 13:40:00 [facility] Outpat[facility] Clinics 2020-04-22 2020-04-22 [facility] [id number] [address] 13:34:00 13:34:00 [facility] Medicine Outpati ent Clinics 2020-03-26 2020-03-26 [facility] [id number] [facility] [address] 14:00:00 14:00:00 [facility] Medicine Outpati ent Clinics 2020-03-14 2020-03-14 [facility] [id number] [address] 16:13:00 16:13:00 [facility] Medicine Outpati ent Clinics 2020-01-15 2020-01-15 [facility] [id number] [address] 13:52:00 13:52:00 [facility] Medicine Outpati ent Clinics 2019-12-25 2019-12-25 [facility] [id number] [address] 13:30:00 13:30:00 [facility] Medicine Outpati ent Clinics 2019-11-23 2019-11-23 Office Eloise Bonilla [facility] [id number] 13:40:01 14:25:13 Visit AMBULATOR [id number] 2019-11-08 2019-11-08 Office Eloise Bonilla [facility] [id number] 09:15:27 09:45:27 Visit Joshua [id number] 2019-09-27 2019-09-27 [facility] [id number] [address] 09:00:00 09:00:00 [place] [employer] [facility] [employer] [facility] Medicine Outpati ent Clinics 2019-09-22 2019-09-22 [facility] [id number] [address] 10:30:00 10:30:00 [place] [employer] [facility] [employer] [facility] Medicine Outpati ent Clinics 2019-09-15 2019-09-15 [facility] [id number] [address] 08:21:00 08:21:00 [place] [employer] [facility] Medicine l Medicine Outpati ent Clinics 2019-09-06 2019-09-06 [facility] [id number] [address] 08:11:00 08:11:00 [place] [employer] [facility] [employer] [facility] Medicine Outpati ent Clinics 2019-09-04 2019-09-04 [facility] [id number] 08:03:00 08:03:00 [place] [employer] [facility] Medicine Outpati ent Clinics 2019-08-08 2019-08-08 [facility] [id number] 11:00:00 11:00:00 t [place] [employer] [facility] [employer] [facility] Medicine Outpati ent Clinics 2019-06-23 2019-06-23 [facility] [id number] [address] 09:30:00 09:30:00 t [place] [employer] [facility] [employer] [facility] 2019-03-23 2019-03-23 [facility] [id number] 09:00:00 09:00:00 t [place] [employer] [facility] Medicine Outpati ent Clinics 2019-01-18 2019-01-18 [facility] [id number] 11:00:00 11:00:00 t [place] [employer] - [facility] Medicine Outpati ent Clinics 2019-01-11 2019-01-11 [facility] [id number] 10:00:00 10:00:00 t [employer] [facility] [employer] [facility] Medicine Outpati ent Clinics 2018-12-21 2018-12-21 [facility] [id number] 13:15:00 13:15:00 t [employer] [facility] [employer] [facility] Medicine Outpati ent Clinics 2018-09-28 2018-09-28 [facility] [id number] [facility] 11:18:00 11:18:00 t [employer] [facility] [employer] [facility] Medicine Outpati ent Clinics 2018-09-22 2018-09-22 [facility] [id number] 14:45:00 14:45:00 t [employer] [facility] [employer] [facility] Medicine Outpati ent Clinics Results This patient has no known results.
--- OUTSIDE RECORDS SUMMARY | 2020-09-06 20:22 | XMS REPORT ---
:1965 Author Organization [employer] Care Team Providers Name Role Phone Hamzah Tate Provider Role Unavailable Allergies, Adverse Reactions, Alerts Substance Reaction Event Type N.K.D.A. Info Not Available Non Drug Allergy Problems Problem Type Condition Code Onset Dates Condition Statu s Assessment Bone spur of left foot M77.52 Activ e Problem Type 2 diabetes mellitus without E11.9 Active complication, without long-term current use of insulin Assessment Left foot pain M79.672 Active Problem Mixed hyperlipidemia E78.2 Active Assessment Tachycardia R00.0 Active Problem History of kidney stones Z87.442 Act luís Problem Subclinical hyperthyroidism E05.90 Active Problem Adult BMI 30.0-30.9 kg/sq m Z68.30 Active Problem Graves' disease E05.00 Active Problem Abnormal laboratory test result R89.9 Active Assessment HTN, goal below 130/80 I10 Activ e Assessment History of kidney stones Z87.442 Act luís Problem Abnormal mammogram R92.8 Active Assessment Adult BMI 31.0-31.9 kg/sq m Z68.31 Active Problem Adult BMI 31.0-31.9 kg/sq m Z68.31 Active Problem Allergic rhinitis, unspecified J30.9 Active seasonality, unspecified trigger Problem Abnormal laboratory results for R84.9 Active respiratory system Problem Enlarged thyroid gland E04.9 Activ e Assessment Enlarged thyroid gland E04.9 Activ e Assessment Type 2 diabetes mellitus without E11.9 Active complication, without long-term current use of insulin Assessment Mixed hyperlipidemia E78.2 Active Assessment Adult BMI 30.0-30.9 kg/sq m Z68.30 Active Problem HTN, goal below 130/80 I10 Activ e Assessment Subclinical hyperthyroidism E05.90 Active Assessment Graves' disease E05.00 Active Medications Medication Code Code Instructions Start End Status Dosage System Date Date Jardiance [facility] 63278277280 25 MG Orally Active 1 tab let Once a day Losartan ND 00596952102 100 MG Orally Active 1 tab let Potassium Once a day Losartan ND 54881712412 100 MG Orally Active 1 tab let Potassium Once a day Methimazole [facility] 30259312470 10 MG Orally Active 1 t ablet Once a day with food Atorvastatin [facility] 44125103123 40 MG Orally Active 1 tablet Calcium Once a day Januvia [facility] 76965578912 100 MG Orally Active 1 tabl et Once a day Atenolol [facility] 08671082945 25 MG Oral Once Active TK 1 T PO a day D Jardiance [facility] 10229708621 25 MG Oral Once Active TK 1 T PO a day QD Januvia [facility] 51304529444 100 MG Orally Active 1 tabl et Once a day MetFORMIN HCl ER [facility] 75054210603 500 MG Orally Activ e 2 tablet twice a day with evening meal Results No Known Results Summary Purpose [employer] Submission
[2020-09-06 21:05] LABS: Absolute Lymphocytes (CBC) 0.7 K/uL (0.7-4.9); Basophils % 0.1 % (0-1.3); Hematocrit 41.2 % (36.0-45.0); Lymphocytes % 9.4 % (15.3-44.8); MPV 9.7 fL (7.6-11.3); Protime INR 1.01; RBC Red Blood Cell Count 4.59 M/uL (3.86-4.86)
[2020-09-06] MEDS ORDERED: ACETAMINOPHEN 500 MG TAB ONE (21:08)
[2020-09-06] MEDS ORDERED: CEFTRIAXONE/SWI 1gm 1 GM/10 ML SYR ONE (21:09)
[2020-09-06] MEDS ORDERED: NA CHLORIDE 0.9% 3,000 ML ONE (21:09)
[2020-09-06 21:21] LABS: ALT/SGPT 19 U/L (12-78); AST/SGOT 12 U/L (15-37); Albumin 3.9 g/dL (3.4-5.0); Alkaline Phosphatase 108 U/L (45-117); BUN Blood Urea Nitrogen 9 mg/dL (7-18); Bicarbonate 21 mmol/L (21-32); Bilirubin Direct < 0.1 mg/dL (0-0.2); Bilirubin Total 0.2 mg/dL (0.2-1.0); Glucose Level 163 mg/dL (74-106); Lipase 186 U/L (73-393); Magnesium 2.1 mg/dL (1.8-2.4); NT PRO-BNP 17 pg/mL (<125); Potassium 3.7 mmol/L (3.5-5.1); Sodium Level 140 mmol/L (136-145); Troponin (Emerg Dept Use Only) < 0.02 ng/mL (0.0-0.045)
--- NOTE | 2020-09-06 22:07 | RAD REPORT ---
EXAM DESCRIPTION: Murali Single View09/06/2020 9:17 pm CLINICAL HISTORY: Abdominal pain COMPARISON: 2011 FINDINGS: The lungs appear clear of acute infiltrate. The heart is normal size IMPRESSION: No acute abnormalities displayed
--- NOTE | 2020-09-06 22:12 | ER ---
Nurse's Notes [facility] Name: Petra Santos Age: 55 yrs Sex: Female : 1965 Arrival Date: 09/06/2020 Time: 20:24 Bed 19 Private MD: Diagnosis: Vomiting;Diarrhea, unspecified;Dehydration;Severe sepsis without septic shock;Type 2 diabetes mellitus Presentation: 09/06 20:33 Chief complaint: Patient states: pt reports N/V/D that started today, pt reports fever em and took Aleve today around 2 PM, pt denies belly pain, code sepsis called. Coronavirus screen: Client denies travel out of the [place] in the last 14 days. diarrhea, nausea, vomiting. Ebola Screen: Patient negative for fever greater than or equal to 101.5 degrees Fahrenheit, and additional compatible Ebola Virus Disease symptoms Patient denies exposure to infectious person. Patient denies travel to an Ebola-affected area in the 21 days before illness onset. No symptoms or risks identified at this time. Initial Sepsis Screen: Does the patient meet any 2 criteria? Temp <36.0*C (96.8*F)) or > 38.3*C (100.9*F). HR > 90 bpm. Yes Does the patient have a suspected source of infection? No. Patient's initial sepsis screen is negative. If YES to both, name of provider notified: Casey Golden MD. Risk Assessment: Do you want to hurt yourself or someone else? Patient reports no desire to harm self or others. Onset of symptoms was September 06, 2020. 20:33 Method Of Arrival: Ambulatory em 20:33 Acuity: MARKIE 2 em Historical: - Allergies: 20:37 No Known Allergies; em - PMHx: 20:37 Hypertension; Diabetes - NIDDM; em - PSHx: 20:37 Cholecystectomy; ; Hysterectomy; Tonsillectomy; em - Immunization history:: Adult Immunizations up to date. - Social history:: Smoking status: Patient denies any tobacco usage or history of. Screenin:35 Abuse screen: Denies threats or abuse. Denies injuries from another. Nutritional ca1 screening: No deficits noted. Tuberculosis screening: No symptoms or risk factors identified. Fall Risk IV access (20 points). Assessment: 20:35 General: Appears in no apparent distress. comfortable, Behavior is calm, cooperative, ca1 appropriate for age, Reports chills for fever for 12-24 hours, feeling ill for. Pain: Denies pain. Neuro: Level of Consciousness is awake, alert, obeys commands, Oriented to person, place, time, situation. Cardiovascular: Heart tones S1 S2 present Capillary refill < 3 seconds Patient's skin is warm and dry. Rhythm is sinus tachycardia. Respiratory: Airway is patent Respiratory effort is even, unlabored, Respiratory pattern is regular, symmetrical, Breath sounds are clear bilaterally. GI: Abdomen is round non-distended, Bowel sounds present X 4 quads. Abd is soft and non tender X 4 quads. Reports diarrhea, nausea, vomiting, since today. : No signs and/or symptoms were reported regarding the genitourinary system. EENT: No signs and/or symptoms were reported regarding the EENT system. Derm: Skin is intact, is healthy with good turgor, Skin is pink, warm \T\ dry. Musculoskeletal: Circulation, motion, and sensation intact. Capillary refill < 3 seconds. 21:30 Reassessment: Patient appears in no apparent distress at this time. Patient and/or ca1 family updated on plan of care and expected duration. Pain level reassessed. Patient is alert, oriented x 3, equal unlabored respirations, skin warm/dry/pink. 22:30 Reassessment: Patient appears in no apparent distress at this time. Patient and/or ca1 family updated on plan of care and expected duration. Pain level reassessed. Patient is alert, oriented x 3, equal unlabored respirations, skin warm/dry/pink. 23:30 Reassessment: Patient appears in no apparent distress at this time. Patient and/or ca1 family updated on plan of care and expected duration. Pain level reassessed. Patient is alert, oriented x 3, equal unlabored respirations, skin warm/dry/pink. 09/07 00:46 Reassessment: Patient appears in no apparent distress at this time. Patient and/or jb4 family updated on plan of care and expected duration. Pain level reassessed. Patient is alert, oriented x 3, equal unlabored respirations, skin warm/dry/pink. Vital Signs: 09/06 20:33 BP 115 / 78; Pulse 133; Resp 22; Temp 103.2(O); Pulse Ox 95% on R/A; Weight 97.52 kg em (R); Height 5 ft. 9 in. (175.26 cm); Pain 0/10; 21:30 BP 120 / 74; Pulse 116; Resp 19 S; Temp 102; Pulse Ox 98% on R/A; ca1 22:30 BP 116 / 69; Pulse 106; Resp 20; Temp 99.5(O); Pulse Ox 100% on R/A; ca1 23:30 BP 102 / 53; Pulse 106; Resp 16 S; Pulse Ox 100% on R/A; ca1 09/07 00:46 BP 114 / 74; Pulse 104; Resp 19; Temp 98.6(O); Pulse Ox 98% on R/A; jb4 09/06 20:33 Body Mass Index 31.75 (97.52 kg, 175.26 cm) em ED Course: 09/06 20:24 Patient arrived in ED. cf2 20:32 Magdalena Brownlee RN is Primary Nurse. ca1 20:33 Casey Golden MD is Attending Physician. lor 20:35 Patient has correct armband on for positive identification. Placed in gown. Bed in low ca1 position. Call light in reach. Side rails up X2. environmental monitoring specialist on. Pulse ox on. NIBP on. 20:36 Triage completed. em 20:37 Arm band placed on. em 20:45 Inserted saline lock: 20 gauge in right antecubital area, using aseptic technique. ca1 Blood collected. 20:45 Initial lab(s) drawn, by me, sent to lab. First set of blood cultures drawn by me. ca1 20:49 Second set of blood cultures drawn by lab staff. ca1 21:17 XRAY Chest (1 view) In Process Unspecified. EDMS 22:10 Jordan Rader MD is Hospitalizing Provider. lor 23:18 Stool Culture Sent. ca1 23:18 Fecal Leukocyte Stain Sent. ca1 23:18 Urine Culture Sent. ca1 23:51 No provider procedures requiring assistance completed. Patient admitted, IV remains in ca1 place. 09/07 00:03 Report given to CHACHA Kemp. ca1 00:43 CT Abd/Pelvis - IV Contrast Only In Process Unspecified. EDMS Administered Medications: 09/06 20:55 Drug: Tylenol 1000 mg Route: PO; em 23:20 Follow up: Response: No adverse reaction; Temperature is decreased ca1 20:57 Drug: Rocephin 1 grams Route: IV; Rate: per protocol; Site: right antecubital; em 21:10 Follow up: Response: No adverse reaction; IV Status: Completed infusion ca1 21:00 Drug: NS 0.9% (30 ml/kg) 30 ml/kg {Note: Dr. Golden wants 3 L NS bolus.} Route: IV; em Rate: bolus; Site: right antecubital; 23:30 Follow up: Response: No adverse reaction; IV Status: Completed infusion; IV Intake: ca1 3000ml 22:15 Drug: Motrin 800 mg Route: PO; ca1 23:21 Follow up: Response: No adverse reaction; Temperature is decreased ca1 22:16 Drug: Pepcid 20 mg Route: IVP; Site: right antecubital; ca1 23:21 Follow up: Response: No adverse reaction ca1 23:45 Drug: NS 0.9% 1000 ml Route: IV; Rate: 125 ml/hr; Site: right antecubital; ca1 23:49 Follow up: Response: No adverse reaction; IV Status: Infusion continued upon admission ca1 Intake: 23:30 IV: 3000ml; Total: 3000ml. ca1 Outcome: 22:11 Decision to Hospitalize by Provider. lor 09/07 01:07 Admitted to Med/surg accompanied by tech, via wheelchair, room 209, with chart, Report jb4 called to CHACHA De La Cruz Condition: stable Discharge instructions given to patient, Instructed on the need for admit, Demonstrated understanding of instructions. 01:08 Patient left the ED. jb4 Signatures: Dispatcher [employer] Casey Lerma MD MD cha Munoz, Edgar, RN RN em Bryson, James, RN RN jb4 Magdalena Brownlee RN RN ca1 Rasheed Bradford cf2 Corrections: (The following items were deleted from the chart) 09/06 22:11 21:30 BP 120 / 74; Pulse 116bpm; Resp 19bpm; Spontaneous; Pulse Ox 98% RA; ca1 ca1
--- NOTE | 2020-09-06 22:12 | EDPHYS ---
Physician Documentation [facility] Name: Petra Santos Age: 55 yrs Sex: Female : 1965 Arrival Date: 09/06/2020 Time: 20:24 Bed 19 Private MD: ED Physician Casey Golden HPI: 09/06 21:07 This 55 yrs old Black Female presents to ER via Ambulatory with complaints of lor Vomiting/Diarrhea. 21:07 The patient presents to the emergency department with nausea, vomiting, diarrhea, that lor is continuous. Onset: The symptoms/episode began/occurred this morning. Possible causes: unknown. The symptoms are aggravated by nothing. food , The symptoms are alleviated by nothing. Associated signs and symptoms: Pertinent positives: diarrhea, nausea, vomiting. Severity of symptoms: At their worst the symptoms were moderate in the emergency department the symptoms are unchanged. The patient has not experienced similar symptoms in the past. Historical: - Allergies: 20:37 No Known Allergies; em - PMHx: 20:37 Hypertension; Diabetes - NIDDM; em - PSHx: 20:37 Cholecystectomy; ; Hysterectomy; Tonsillectomy; em - Immunization history:: Adult Immunizations up to date. - Social history:: Smoking status: Patient denies any tobacco usage or history of. ROS: 21:08 Eyes: Negative for injury, pain, redness, and discharge, ENT: Negative for injury, lor pain, and discharge, Neck: Negative for injury, pain, and swelling, Cardiovascular: Negative for chest pain, palpitations, and edema, Respiratory: Negative for shortness of breath, cough, wheezing, and pleuritic chest pain, Back: Negative for injury and pain, : Negative for injury, bleeding, discharge, and swelling, MS/Extremity: Negative for injury and deformity, Skin: Negative for injury, rash, and discoloration, Neuro: Negative for headache, weakness, numbness, tingling, and seizure, Psych: Negative for depression, anxiety, suicide ideation, homicidal ideation, and hallucinations, Allergy/Immunology: Negative for hives, rash, and allergies, Endocrine: Negative for neck swelling, polydipsia, polyuria, polyphagia, and marked weight changes, Hematologic/Lymphatic: Negative for swollen nodes, abnormal bleeding, and unusual bruising. 21:08 Constitutional: Positive for body aches, chills, fatigue, fever, malaise. 21:08 Abdomen/GI: Positive for nausea and vomiting, diarrhea. Exam: 21:08 Head/Face: Normocephalic, atraumatic. Eyes: Pupils equal round and reactive to light, lor extra-ocular motions intact. Lids and lashes normal. Conjunctiva and sclera are non-icteric and not injected. Cornea within normal limits. Periorbital areas with no swelling, redness, or edema. ENT: Nares patent. No nasal discharge, no septal abnormalities noted. Tympanic membranes are normal and external auditory canals are clear. Oropharynx with no redness, swelling, or masses, exudates, or evidence of obstruction, uvula midline. Mucous membranes moist. Neck: Trachea midline, no thyromegaly or masses palpated, and no cervical lymphadenopathy. Supple, full range of motion without nuchal rigidity, or vertebral point tenderness. No Meningismus. Chest/axilla: Normal chest wall appearance and motion. Nontender with no deformity. No lesions are appreciated. Cardiovascular: Regular rate and rhythm with a normal S1 and S2. No gallops, murmurs, or rubs. Normal PMI, no JVD. No pulse deficits. Respiratory: Lungs have equal breath sounds bilaterally, clear to auscultation and percussion. No rales, rhonchi or wheezes noted. No increased work of breathing, no retractions or nasal flaring. Back: No spinal tenderness. No costovertebral tenderness. Full range of motion. Female : Normal external genitalia. Skin: Warm, dry with normal turgor. Normal color with no rashes, no lesions, and no evidence of cellulitis. MS/ Extremity: Pulses equal, no cyanosis. Neurovascular intact. Full, normal range of motion. Neuro: Awake and alert, GCS 15, oriented to person, place, time, and situation. Cranial nerves II-XII grossly intact. Motor strength 5/5 in all extremities. Sensory grossly intact. Cerebellar exam normal. Normal gait. Psych: Awake, alert, with orientation to person, place and time. Behavior, mood, and affect are within normal limits. 21:08 Constitutional: The patient appears febrile. 21:08 Abdomen/GI: Inspection: abdomen appears normal, Bowel sounds: normal, Palpation: abdomen is soft and non-tender, Liver: no appreciated palpable abnormalities, Hernia: not appreciated. Vital Signs: 20:33 BP 115 / 78; Pulse 133; Resp 22; Temp 103.2(O); Pulse Ox 95% on R/A; Weight 97.52 kg em (R); Height 5 ft. 9 in. (175.26 cm); Pain 0/10; 21:30 BP 120 / 74; Pulse 116; Resp 19 S; Temp 102; Pulse Ox 98% on R/A; ca1 22:30 BP 116 / 69; Pulse 106; Resp 20; Temp 99.5(O); Pulse Ox 100% on R/A; ca1 23:30 BP 102 / 53; Pulse 106; Resp 16 S; Pulse Ox 100% on R/A; ca1 09/07 00:46 BP 114 / 74; Pulse 104; Resp 19; Temp 98.6(O); Pulse Ox 98% on R/A; jb4 09/06 20:33 Body Mass Index 31.75 (97.52 kg, 175.26 cm) em MDM: 09/06 20:33 Patient medically screened. [facility] 21:09 Differential diagnosis: Nonspecific abd pain, cholecystitis, pancreatitis, viral lor gastroenteritis, gastroenteritis, viral Infection, bacterial infection, pneumonia gastroenteritis. Differential Diagnosis sepsis. Data reviewed: vital signs, nurses notes, lab test result(s), EKG, radiologic studies, plain films. Data interpreted: pvc monitor: rate is 133 beats/min, rhythm is regular, Pulse oximetry: is not applicable for this patient encounter. Test interpretation: by ED physician or midlevel provider: ECG, plain radiologic studies. Counseling: I had a detailed discussion with the patient and/or guardian regarding: the historical points, exam findings, and any diagnostic results supporting the discharge/admit diagnosis, lab results, radiology results. 09/06 20:51 Order name: Basic Metabolic Panel [facility] 09/06 20:51 Order name: CBC with Diff [facility] 09/06 20:51 Order name: LFT's lor 09/06 20:51 Order name: Magnesium; Complete Time: 21:28 [facility] 09/06 20:51 Order name: NT PRO-BNP; Complete Time: 21:28 [facility] 09/06 20:51 Order name: PT-INR; Complete Time: 21:28 [facility] 09/06 20:51 Order name: Troponin (emerg Dept Use Only); Complete Time: 21:28 [facility] 09/06 20:51 Order name: Lipase; Complete Time: 21:28 [facility] 09/06 20:51 Order name: Urine Culture [facility] 09/06 20:51 Order name: Lactate; Complete Time: 21:28 [facility] 09/06 20:51 Order name: Flu; Complete Time: 22:04 [facility] 09/06 20:51 Order name: Basic Metabolic Panel; Complete Time: 21:28 [facility] 09/06 20:51 Order name: CBC with Automated Diff; Complete Time: 21:28 [facility] 09/06 20:51 Order name: XRAY Chest (1 view); Complete Time: 23:30 [facility] 09/06 20:51 Order name: EKG; Complete Time: 20:52 [facility] 09/06 20:51 Order name: Liver (Hepatic) Function; Complete Time: 21:28 [facility] 09/06 20:59 Order name: Blood Culture Adult (2) [facility] 09/06 21:29 Order name: Stool Culture [facility] 09/06 21:29 Order name: Fecal Leukocyte Stain [facility] 09/06 22:16 Order name: SARS-COV-2 RT PCR; Complete Time: 23:30 [facility] 09/06 23:18 Order name: Urine Dipstick--Ancillary (enter results); Complete Time: 00:54 tt3 09/06 23:33 Order name: CT Abd/Pelvis - IV Contrast Only [facility] 09/07 00:12 Order name: Lactate Sepsis 2 HR Follow-up; Complete Time: 00:54 [facility] 09/06 20:51 Order name: Cardiac monitoring; Complete Time: 21:05 [facility] 09/06 20:51 Order name: EKG - Nurse/Tech; Complete Time: 21:05 [facility] 09/06 20:51 Order name: IV Saline Lock; Complete Time: 21:05 [facility] 09/06 20:51 Order name: Labs collected and sent; Complete Time: 21:05 [facility] 09/06 20:51 Order name: O2 Per Protocol; Complete Time: 21:06 [facility] 09/06 20:51 Order name: O2 Sat Monitoring; Complete Time: 21:06 [facility] 09/06 20:51 Order name: Urine Dipstick-Ancillary (obtain specimen); Complete Time: 23:18 [facility] Administered Medications: 20:55 Drug: Tylenol 1000 mg Route: PO; em 23:20 Follow up: Response: No adverse reaction; Temperature is decreased ca1 20:57 Drug: Rocephin 1 grams Route: IV; Rate: per protocol; Site: right antecubital; em 21:10 Follow up: Response: No adverse reaction; IV Status: Completed infusion ca1 21:00 Drug: NS 0.9% (30 ml/kg) 30 ml/kg {Note: Dr. Golden wants 3 L NS bolus.} Route: IV; em Rate: bolus; Site: right antecubital; 23:30 Follow up: Response: No adverse reaction; IV Status: Completed infusion; IV Intake: ca1 3000ml 22:15 Drug: Motrin 800 mg Route: PO; ca1 23:21 Follow up: Response: No adverse reaction; Temperature is decreased ca1 22:16 Drug: Pepcid 20 mg Route: IVP; Site: right antecubital; ca1 23:21 Follow up: Response: No adverse reaction ca1 23:45 Drug: NS 0.9% 1000 ml Route: IV; Rate: 125 ml/hr; Site: right antecubital; ca1 23:49 Follow up: Response: No adverse reaction; IV Status: Infusion continued upon admission ca1 Disposition: 09/06/20 22:11 Hospitalization ordered by Jordan Rader for Inpatient Admission. Preliminary diagnosis are Vomiting, Diarrhea, unspecified, Dehydration, Severe sepsis without septic shock, Type 2 diabetes mellitus. - Bed requested for Telemetry/MedSurg (Inpatient). - Status is Inpatient Admission. jb4 - Condition is Fair. - Problem is new. - Symptoms have improved. Signatures: Dispatcher [employer] EDKY Michelle Moreno RN RN mw Anderson, Corey, MD MD cha Munoz, Edgar RN RN Matthew Aquino PA PA [id number] Bryson, James, RN RN jb4 Magdalena Brownlee RN RN ca1 Corrections: (The following items were deleted from the chart) 21:18 20:52 CORONAVIRUS+MR.LAB.BRZ ordered. [facility] 09/07 00:58 09/06 22:11 Hospitalization Ordered by Jordan Rader MD for Observation. Preliminary diagnosis is Vomiting; Diarrhea, unspecified; Dehydration; Severe sepsis without septic shock; Type 2 diabetes mellitus. Bed requested for Telemetry/MedSurg (observation). Status is Observation. Condition is Fair. Problem is new. Symptoms have improved. [facility] 09/07 01:06 00:58 09/06/2020 22:11 Hospitalization Ordered by Jordan Rader MD for Observation. [facility] Preliminary diagnosis is Vomiting; Diarrhea, unspecified; Dehydration; Severe sepsis without septic shock; Type 2 diabetes mellitus. Bed requested for Telemetry/MedSurg (observation). Status is Observation. Condition is Fair. Problem is new. Symptoms have improved. mw 01:07 01:06 09/06/2020 22:11 Hospitalization Ordered by Jordan Rader MD for Inpatient mw Admission. Preliminary diagnosis is Vomiting; Diarrhea, unspecified; Dehydration; Severe sepsis without septic shock; Type 2 diabetes mellitus. Bed requested for Telemetry/MedSurg (Inpatient). Status is Inpatient Admission. Condition is Fair. Problem is new. Symptoms have improved. lor 01:08 01:07 09/06/2020 22:11 Hospitalization Ordered by Jordan Rader MD for Inpatient jb4 Admission. Preliminary diagnosis is Vomiting; Diarrhea, unspecified; Dehydration; Severe sepsis without septic shock; Type 2 diabetes mellitus. Bed requested for Telemetry/MedSurg (Inpatient). Status is Inpatient Admission. Condition is Fair. Problem is new. Symptoms have improved.
[2020-09-06] MEDS ORDERED: FAMOTIDINE 20 MG/2 ML VIAL IV ONE (22:27)
[2020-09-06] MEDS ORDERED: IBUPROFEN 400 MG TAB ONE (22:27)
[2020-09-06] MEDS ORDERED: NA CHLORIDE 0.9% 1,000 ML ONE (22:27)
[2020-09-06 23:45] LABS: Urine Blood NEGATIVE (NEG); Urine Glucose 2+ (NEG); Urine Protein NEGATIVE (NEG)
--- NOTE | 2020-09-07 01:19 | P.INFCA ---
Sepsis Focused Assessment - Focused Assessment Complete? Sepsis Focused Assessment Completed?: Yes - Sepsis Screen Result Severe Sepsis: Positive - Evaluation Current stage of sepsis: Severe sepsis - Vital Signs Reviewed: Yes Temperature: 98.6 F Heart rate: 104 Blood Pressure: 114/74 Respiratory Rate: 19 O2 Sat by Pulse Oximetry: 98 (RA) - Examination Date exam was performed: 09/07/20 Time exam was performed: 01:19 Heart: Irregular rhythm (Sinus Tachycardia ), S1, S2 Lungs: Clear bilaterally Peripheral pulses: 2+ Slightly diminished Peripheral pulse location: Radial Capillary refill: <2 Seconds Skin examination: Normal turgor
[2020-09-07 01:29] VITALS: BMI 34.2
[2020-09-07] MEDS ORDERED: GLUCAGON 1 MG/VIAL IM PRN (01:44)
[2020-09-07] MEDS ORDERED: D50W 25 GM/50 ML SYRINGE IV PRN (01:44)
[2020-09-07] MEDS: ACETAMINOPHEN 500 MG TAB PO PRN ×4 (02:12→22:07)
[2020-09-07] MEDS: METRONIDAZOLE 500mg IVPB 500 MG/100 ML BAG IV SCH ×3 (02:13→16:30)
[2020-09-07] MEDS: NA CHLORIDE 0.9% 1,000 ML IV SCH ×6 (02:14→23:18)
--- NOTE | 2020-09-07 02:39 | P.HP ---
Certification for Inpatient Patient admitted to: Inpatient With expected LOS: >2 Midnights Patient will require the following post-hospital care: None Practitioner: I am a practitioner with admitting privileges, knowledge of patient current condition, hospital course, and medical plan of care. Services: Services provided to patient in accordance with Admission requirements found in Title 42 Section 412.3 of the Code of Federal Regulations <Mikey Marie - Last Filed: 09/07/20 02:32> Patient History Date of Service: 09/07/20 Primary Care Provider: Dr. Tate Reason for admission: Severe Sepsis, Colitis History of Present Illness: This is a 55-year-old female that presented to the emergency room today for complaints of nausea, vomiting, diarrhea that started abruptly this morning. Patient was noted to have fever of 103.2 with a heart rate of 133 and a respiratory rate of 22 upon arrival to emergency room but with normal blood pressure of 115/78. Patient was worked up for sepsis at that time. Patient was found to have a lactate of 2.3 with a normal white cell count at 7.8 and no acute electrolyte findings. CT scan was completed along with chest x-ray and urine. CT of the abdomen and pelvis shows a ascending and transverse nonspecific colitis. Normal chest x-ray and no acute findings in the urine. Medicine was consulted for admission Home medications list reviewed: Yes - Past Medical/Surgical History Has patient received pneumonia vaccine in the past: No Diabetic: Yes -: -: hysterectomy -: Tonsillectomy -: Carpal Tunnel sherron -: Cholecysrectomy - Family History Father -: Heart disease, Diabetes Mother Notes: no abnormal hx - Social History Smoking Status: Never smoker Smoking therapy provided: No Alcohol use: Yes CD- Drugs: No Caffeine use: Yes Place of Residence: Home <Mikey Marie - Last Filed: 09/07/20 02:32> Date of Service: 09/07/20 <Jordan Rader - Last Filed: 09/07/20 09:47> Allergies No Known Allergies Allergy (Unverified 03/24/12 09:34) Review of Systems General: Fever, Malaise Eyes: Unremarkable ENT: Unremarkable Respiratory: Unremarkable Cardiovascular: Unremarkable Gastrointestinal: Nausea, Vomiting, Diarrhea Genitourinary: Unremarkable Musculoskeletal: Unremarkable Integumentary: Unremarkable Neurological: Unremarkable Lymphatics: Unremarkable <Mikey Marie - Last Filed: 09/07/20 02:32> Physical Examination - Vital Signs Temperature: 98.5 F Blood Pressure: 119/73 Pulse: 107 Respirations: 16 Pulse Ox (%): 97 - Physical Exam General: Alert, In no apparent distress, Oriented x3, Cooperative HEENT: PERRLA, Mucous membr. moist/pink, EOMI Neck: Supple, 2+ carotid pulse no bruit, JVD not distended, No Thyromegaly Respiratory: Clear to auscultation bilaterally, Normal air movement Cardiovascular: No edema, Normal pulses, Normal S1 S2, No gallops, No rubs, No murmurs, Irregular heart rate/rhythm (Tachycardic) Capillary refill: <2 Seconds Gastrointestinal: Normal bowel sounds, Soft and benign, Non-distended, No ascites, No tenderness, No masses, No rebound, No guarding Musculoskeletal: No clubbing, No swelling, No contractures, No erythema, No tenderness Integumentary: No rashes, No breakdown, No significant lesion, No tenderness/swelling, No erythema, No warmth, No cyanosis Neurological: Normal speech, Normal strength at 5/5 x4 extr, Normal tone, Sensation intact, Cranial nerves 3-12 intact, Normal affect Lymphatics: No axilla or inguinal lymphadenopathy - Studies Laboratory Data (last 24 hrs) 09/06/20 20:45: PT 11.9, INR 1.01 09/06/20 20:45: WBC 7.8, Hgb 14.1, Hct 41.2, Plt Count 145 L 09/06/20 20:45: Sodium 140, Potassium 3.7, BUN 9, Creatinine 0.94, Glucose 163 H, Magnesium 2.1, Total Bilirubin 0.2, AST 12 L, ALT 19, Alkaline Phosphatase 108, Lipase 186 Microbiology Data (last 24 hrs): 09/06/20 20:56 Nasopharnyx Influenza Type A Antigen Screen - Final 09/06/20 20:56 Nasopharnyx Influenza Type B Antigen Screen - Final <Mikey Marie - Last Filed: 09/07/20 02:32> - Studies Laboratory Data (last 24 hrs) 09/06/20 20:45: PT 11.9, INR 1.01 09/06/20 20:45: WBC 7.8, Hgb 14.1, Hct 41.2, Plt Count 145 L 09/06/20 20:45: Sodium 140, Potassium 3.7, BUN 9, Creatinine 0.94, Glucose 163 H, Magnesium 2.1, Total Bilirubin 0.2, AST 12 L, ALT 19, Alkaline Phosphatase 108, Lipase 186 Microbiology Data (last 24 hrs): 09/06/20 23:13 Stool Fecal Leukocyte Stain - Final 09/06/20 20:56 Nasopharnyx Influenza Type A Antigen Screen - Final 09/06/20 20:56 Nasopharnyx Influenza Type B Antigen Screen - Final <Jordan Rader - Last Filed: 09/07/20 09:47> Assessment and Plan - Problems (Diagnosis) (1) Severe sepsis Current Visit: Yes Status: Acute (2) Colitis Current Visit: Yes Status: Acute (3) Hypertension Current Visit: Yes Status: Chronic Qualifiers: Hypertension type: essential hypertension Qualified Code(s): I10 - Essential (primary) hypertension (4) Non-insulin dependent diabetes mellitus Current Visit: Yes Status: Chronic - Plan 1. Patient will be admitted to the telemetry floor. Vital signs will be rechecked throughout the night and throughout admission for hemodynamic stability to ensure they normalize. Patient will be given antipyretics for fever. 2. Patient placed on antibiotics for colitis. We will continue antibiotic therapy wall admitted and most likely will be sent home on antibiotics 3. We will continue to hydrate patient as patient does have severe sepsis 4. DVT prophylaxis 5. Blood sugars will be monitored with mild insulin scale at this time 6. Although patient is not hypertensive during this admission we will continue to monitor blood pressure and will treat blood pressure for systolic greater than 160 diastolic greater than 110 7. Reassess blood work daily Discharge Plan: Home Plan to discharge in: Greater than 2 days - Advance Directives Does patient have a Living Will: No Does patient have a Durable POA for Healthcare: No - Code Status/Comfort Care Code Status Assessed: Yes Code Status: Full Code Critical Care: Yes (30) Time Spent Managing Pts Care (In Minutes): 70 <Mikey Marie - Last Filed: 09/07/20 02:32> - Plan Plan of care discussed with Mikey Marie, and I agree with the management plan as noted above. <Jordan Rader - Last Filed: 09/07/20 09:47>
[2020-09-07] MEDS: INSULIN -REGULAR HUMAN 50 UNIT/0.5 ML ML SQ SCH ×4 (07:30→20:13)
[2020-09-07] MEDS: CIPROFLOXACIN 400mg IV 400 MG/200 ML BAG IV SCH ×2 (08:37→20:15)
[2020-09-07] MEDS: MORPHINE 2 MG/ML SYR IV PRN (08:45)
[2020-09-07] MEDS: ONDANSETRON 4 MG/2 ML VIAL IV PRN (08:50)
[2020-09-07 10:12] LABS: C.diff Antigen/Toxin Ag neg : Tox neg (NEG : NEG)
[2020-09-07] MEDS ORDERED: NA CHLORIDE 0.9% 500 ML IV ONE (14:50)
--- NOTE | 2020-09-07 15:50 | P.PN ---
Subjective Date of Service: 09/07/20 Primary Care Provider: Dr. Tate Chief Complaint: Severe Sepsis, Colitis Subjective: Worsening (Patient reports feeling okay this morning, the nausea/vomiting, continued with some diarrhea. [place] her pain was getting a little bit better. Re-examined in the afternoon, patient appears more uncomfortable, denies nausea/vomiting, febrile to 102. Feels slightly more bloated) Review of Systems 10-point ROS is otherwise unremarkable Physical Examination - Vital Signs Temperature: 99.3 F Blood Pressure: 114/73 Pulse: 110 Respirations: 18 Pulse Ox (%): 96 - Physical Exam General: Alert, Moderate distress HEENT: Sclerae nonicteric Respiratory: Clear to auscultation bilaterally Cardiovascular: Regular rate/rhythm, No murmurs Gastrointestinal: Other (soft, but with mild distention), Tenderness (diffuse, most significant in upper abdomen.), Rebound Musculoskeletal: No tenderness Integumentary: No rashes - Studies Laboratory Data (last 24 hrs) 09/06/20 20:45: PT 11.9, INR 1.01 09/06/20 20:45: WBC 7.8, Hgb 14.1, Hct 41.2, Plt Count 145 L 09/06/20 20:45: Sodium 140, Potassium 3.7, BUN 9, Creatinine 0.94, Glucose 163 H, Magnesium 2.1, Total Bilirubin 0.2, AST 12 L, ALT 19, Alkaline Phosphatase 108, Lipase 186 Microbiology Data (last 24 hrs): 09/06/20 23:13 Stool Fecal Leukocyte Stain - Final 09/06/20 20:56 Nasopharnyx Influenza Type A Antigen Screen - Final 09/06/20 20:56 Nasopharnyx Influenza Type B Antigen Screen - Final Assessment & Plan Physician Review Additional Text: Severe sepsis secondary to colitis Hypertension [id number] DM2 -continue IV Cipro and Flagyl, keep NPO, continue IV fluids. -given worsening of her exam, concern for developing peritonitis -consulted General Surgery, to see patient today -will recheck lactate -will consider repeating imaging dependent on patient's clinical status/exam -continue serial abdominal exams Dispo: patient's exam worsening and remains with high fevers, pending further evaluation Time Spent Managing Pts Care (In Minutes): 35
[2020-09-07] MEDS ORDERED: ENOXAPARIN 40 MG/0.4 ML SQ SCH (17:00)
--- NOTE | 2020-09-07 18:58 | CON ---
Date of Consultation: 09/07/2020 Diagnosis: Colitis. History Of Present Illness: This is the case of a 55-year-old person, yesterday was celebrating Than and was eating with a group of friends and then last night she developed abdominal pain and come to the ER immediately. The patient stated that after eating that food, the patient felt nauseou s, vomiting, and also have diarrhea. She does not remember having this before. She states she had a colonoscopy done in 2014 and she was told by the GI doctor not to have it done in 10 years since it was negative. No other family member sick at home, even though they were in the same [place]. She sta joshua nausea, vomiting, and diarrhea. She denied any melena, any hematochezia. Denies any shortness o f breath, any chest pain. Allergies: NONE. Past Medical History: Hypertension, diabetes. Past Surgical History: Include hysterectomy, tonsillectomy, cholecystectomy, and . Social History: She does not smoke. She does not drink alcohol. Review of Systems: See H and P. Physical Examination: General: The patient is awake, alert, no distress. HEENT: Pupils equal and reactive. Anicteric. Neck: Supple. Chest: Clear. Abdomen: Mild generalized tenderness on the right abdomen. No rebound tenderness at this moment. Pelvic: Deferred. Rectal: Deferred. Extremities: Good capillary refill. Laboratory Data: Blood work shows a WBC count of 7.8, hemoglobin of 14.1, and platelets of 145. INR is 1.01. Lactic acid 2.8, it come initially 2.3. UA showed blood negative, nitrite negative. CAT scan of the abdomen and pelvis, official report is still pending, although preliminary report shows e vidence of colitis in the ascending and transverse colon. No pneumatosis. Assessment: This is a 55-year-old patient with colitis after eating with a group of people yesterday for . The tried to give her some diet this morning. She did not improve, so I advised to be keep the patient n.p.o. We need bowel rest, hydration. She is currently on antibiotics, which call for Cipro and Flagyl. Bicarb was 21 with chloride 109, lipase 186. We will continue with sanjay l rest, IV hydration. She understands the options that we do not see any improvement and colitis det eriorate, then we might have to do a laparotomy. She understands the benefits, alternatives, and ris ks, which include, but not limited to infection, bleeding, damage to adjacent structures, negative ex ploration. She was advised the importance of being n.p.o. She want to get some liquid. I advised h er not to do so. We are going to set up for ice chips on her lips because she want to moist her lips . I will follow the patient with you. We can also obtain stool cultures. ABDIRASHID/RALPH Voice ID: [id number] Report ID: [id number]
[2020-09-08] MEDS: METRONIDAZOLE 500mg IVPB 500 MG/100 ML BAG IV SCH (01:08)
[2020-09-08] MEDS: ACETAMINOPHEN 500 MG TAB PO PRN ×3 (04:10→20:38)
[2020-09-08] MEDS: ONDANSETRON 4 MG/2 ML VIAL IV PRN ×2 (04:15→10:28)
[2020-09-08] MEDS: MORPHINE 2 MG/ML SYR IV PRN (04:15)
[2020-09-08 06:06] LABS: Absolute Lymphocytes (CBC) 0.9 K/uL (0.7-4.9); Basophils % 0.2 % (0-1.3); Hematocrit 35.1 % (36.0-45.0); Lymphocytes % 11.5 % (15.3-44.8); MPV 9.7 fL (7.6-11.3); RBC Red Blood Cell Count 3.85 M/uL (3.86-4.86)
[2020-09-08 06:16] LABS: ALT/SGPT 20 U/L (12-78); AST/SGOT 19 U/L (15-37); Alkaline Phosphatase 62 U/L (45-117); BUN Blood Urea Nitrogen 6 mg/dL (7-18); Bicarbonate 20 mmol/L (21-32); Bilirubin Direct < 0.1 mg/dL (0-0.2); Bilirubin Total 0.3 mg/dL (0.2-1.0); Glucose Level 154 mg/dL (74-106); Potassium 3.2 mmol/L (3.5-5.1); Sodium Level 138 mmol/L (136-145)
[2020-09-08 06:17] LABS: Albumin 2.6 g/dL (3.4-5.0); Lipase 123 U/L (73-393); Protein, Total 6.2 g/dL (6.4-8.2)
[2020-09-08] MEDS: INSULIN -REGULAR HUMAN 50 UNIT/0.5 ML ML SQ SCH ×3 (07:30→16:30)
[2020-09-08] MEDS ORDERED: MORPHINE 4 MG/ML SYR IV PRN (07:45)
[2020-09-08] MEDS: NA CHLORIDE 0.9% 1,000 ML IV SCH ×2 (09:44→17:44)
--- NOTE | 2020-09-08 10:12 | RAD REPORT ---
EXAM DESCRIPTION: CT - Abdomen Pelvis Wo Contrast - 09/08/2020 9:39 am CLINICAL HISTORY: worsening upper abdominal pain, colitis COMPARISON: Abdomen Pelvis W Contrast dated 09/07/2020 TECHNIQUE: Axial [address] imaging of the abdomen and pelvis was performed without IV contrast. No IV contrast was given because of allergy, abnormal renal function, patient refusal or physician re quest. No oral contrast administered. All CT scans are performed using dose optimization technique as appropriate and may include automated exposure control or mA/KV adjustment according to patient size. FINDINGS: No suspicious findings in the lung bases. The solid abdominal viscera show no changes from prior day imaging. Cholecystectomy clips are present with normal size biliary tree. Isodense renal masses and pyelonephritis cannot be excluded in the absence of IV contrast. The urina ry bladder is without significant finding. No new stomach or small bowel finding. No appendicitis findings. Wall thickening of the ascending and transverse colon have progressed from the prior day study. There is more stranding in the adjacent f at. A small amount of reactive free fluid has developed and pools in the dependent portion of the pel vis. No free air or pneumatosis. Findings remain most likely a nonspecific colitis. Typhlitis is poss ible if there is any supporting history. Ischemic bowel is unlikely. Patient has very little atherosc lerotic calcifications and no calcifications near the mesenteric artery origins. Nonspecific right lo wer abdomen and central mesenteric lymph nodes seen. No bulky lymphadenopathy. IMPRESSION: Worsening colitis findings from cecum through transverse colon. Reactive free fluid has developed but no free air, pneumatosis or surgically emergent finding. Appearance remains nonspecific colitis. Typhlitis is possible if there are is a supporting history. I schemic etiology is unlikely given the near absence of atherosclerotic calcifications.
[2020-09-08] MEDS: KCL 20 MEQ/100 mL IVPB 20 MEQ/100 ML BAG IV SCH ×2 (10:24→13:02)
[2020-09-08] MEDS: PIPER/TAZO/NS 3.375gm 3.375 GM/100 ML BAG IVPB SCH ×3 (10:27→18:48)
--- NOTE | 2020-09-08 12:16 | P.PN ---
Subjective Date of Service: 09/08/20 Primary Care Provider: Dr. Tate Chief Complaint: Severe Sepsis, Colitis Subjective: Worsening (The patient reports worse abdominal pain, difficult to get comfortable, continues with diarrhea. Denies nausea/vomiting. Continues to spike fevers) Review of Systems 10-point ROS is otherwise unremarkable Physical Examination - Vital Signs Temperature: 100.2 F Blood Pressure: 118/75 Pulse: 97 Respirations: 18 Pulse Ox (%): 99 - Physical Exam General: Alert, Moderate distress HEENT: Sclerae nonicteric Respiratory: Clear to auscultation bilaterally Cardiovascular: Regular rate/rhythm Gastrointestinal: Soft and benign, Tenderness (Severe, upper abdomen, positive rebound tenderness) Integumentary: No rashes Neurological: Normal speech, Normal affect - Studies Laboratory Data (last 24 hrs) 09/08/20 05:32: Magnesium 2.1 09/08/20 05:32: Sodium 138, Potassium 3.2 L, BUN 6 L, Creatinine 0.58, Glucose 154 H, Total Bilirubin 0.3, AST 19, ALT 20, Alkaline Phosphatase 62, Lipase 123 09/08/20 05:32: WBC 8.2, Hgb 11.7 L, Hct 35.1 L, Plt Count 135 L Microbiology Data (last 24 hrs): 09/06/20 23:13 Stool Fecal Leukocyte Stain - Final Assessment & Plan Physician Review Additional Text: Severe sepsis secondary to colitis Hypertension Hft-yfqfote-oestjvgod DM2 -worsening pain, patient having much difficulty getting comfortable -will switch Cipro and Flagyl to Zosyn. Continue NPO, continue IV fluids -will obtain CT abdomen/pelvis this morning for further evaluation, increased pain medication -general surgery was consulted, saw the patient yesterday -recheck lactate -continue serial abdominal exams Dispo: patient's exam worsening and remains with high fevers, pending CT abdomen/pelvis Anticipate discharge home in ~48-72hr Time Spent Managing Pts Care (In Minutes): 35
--- NOTE | 2020-09-08 12:42 | PN ---
Date of Progress Note: 09/08/2020 Diagnosis: Ascending colitis. Subjective: This is the case of a 55-year-old patient, comes to us with ascending colitis, unknown o rigin and that we suspect could be infectious. The patient states she feels better. She had a CAT s can today that shows persistent inflammation of the ascending and transverse colon, although she clai med better with less pain. She feels better with less pain. She is passing flatus. Abdomen, no per itonitis, although right-sided tenderness. Blood work shows WBC count of 8.2. Stool cultures still pending. Bicarb is 20. Glucose 149. CAT scan of the abdomen and pelvis discussed with the patient, interpreted by Dr. Carrizales as colitis from the cecum to transverse colon. The appearance remains no nspecific for colitis. Ischemic etiology is unlikely. Interpretation by radiologist. Plan: A 55-year-old patient with what it could be a bacterial colitis of unknown origin. Cultures s till pending. I believe we should get Infectious Disease doctor involved in the case. Also, a gastr oenterologist will be helpful. If this is deteriorated, then she may need emergent colon resection. She understands that. Keep the patient on bowel rest, IV hydration, and IV antibiotics. HM/MODL Voice ID: [id number] Report ID: [id number]
[2020-09-09] MEDS: PIPER/TAZO/NS 3.375gm 3.375 GM/100 ML BAG IVPB SCH ×4 (00:37→16:54)
[2020-09-09] MEDS: KCL 20 MEQ/100 mL IVPB 20 MEQ/100 ML BAG IV SCH ×2 (00:38→03:41)
[2020-09-09] MEDS: NA CHLORIDE 0.9% 1,000 ML IV SCH ×4 (00:39→17:44)
[2020-09-09 04:19] LABS: Absolute Lymphocytes (CBC) 1.5 K/uL (0.7-4.9); Basophils % 0.3 % (0-1.3); Hematocrit 34.7 % (36.0-45.0); Lymphocytes % 20.7 % (15.3-44.8); MPV 9.2 fL (7.6-11.3); RBC Red Blood Cell Count 3.84 M/uL (3.86-4.86)
[2020-09-09 04:34] LABS: ALT/SGPT 19 U/L (12-78); AST/SGOT 20 U/L (15-37); Albumin 2.7 g/dL (3.4-5.0); Alkaline Phosphatase 61 U/L (45-117); BUN Blood Urea Nitrogen 7 mg/dL (7-18); Bicarbonate 24 mmol/L (21-32); Bilirubin Total 0.4 mg/dL (0.2-1.0); Glucose Level 122 mg/dL (74-106); Magnesium 2.2 mg/dL (1.8-2.4); Potassium 3.7 mmol/L (3.5-5.1); Protein, Total 6.4 g/dL (6.4-8.2); Sodium Level 140 mmol/L (136-145)
[2020-09-09] MEDS: INSULIN -REGULAR HUMAN 50 UNIT/0.5 ML ML SQ SCH ×5 (06:00→21:00)
[2020-09-09] MEDS: ACETAMINOPHEN 500 MG TAB PO PRN (06:01)
--- NOTE | 2020-09-09 08:27 | P.PN ---
Subjective Date of Service: 09/09/20 Primary Care Provider: Dr. Tate Chief Complaint: Severe Sepsis, Colitis Subjective: Improving (overall feeling better; abdominal pain has improved, only with mild pain, no nausea/vomiting, feeling slightly hungry today febrile still last night) Review of Systems 10-point ROS is otherwise unremarkable Physical Examination - Vital Signs Temperature: 99.6 F Blood Pressure: 128/82 Pulse: 81 Respirations: 16 Pulse Ox (%): 97 - Physical Exam General: Alert, In no apparent distress HEENT: Sclerae nonicteric Respiratory: Clear to auscultation bilaterally, Normal air movement Cardiovascular: No edema, Regular rate/rhythm Gastrointestinal: Soft and benign, Non-distended, No rebound, No guarding, Tenderness (mild upper abdomen) Musculoskeletal: No tenderness Integumentary: No rashes Neurological: Normal speech, Normal affect - Studies Microbiology Data (last 24 hrs): 09/06/20 23:13 Stool Culture & Sensitivity - Final 09/06/20 23:13 Catheterized Urine [place] Count - Final <10,000 CFU/ML. 09/06/20 23:13 Catheterized Urine - Final MIXED JOVITA. Assessment & Plan Physician Review Additional Text: Severe sepsis secondary to colitis Hypertension Zjs-ljxaamj-xyskslokf DM2 -repeat CT abd/pelvis yesterday with slightly progressed colitis, no perforation -stool negative for c.diff, culture negative, negative fecal leukocytes -continue Zosyn, NPO, IVF for now -febrile last night, but clinically improving now -general surgery following; ID consulted -continue serial abdominal exams Dispo: anticipate dc home in the next 24-48hrs, needs to at least be afebrile x 24 hrs Time Spent Managing Pts Care (In Minutes): 35
--- NOTE | 2020-09-09 11:15 | RAD REPORT ---
EXAM DESCRIPTION: CT ABDOMEN AND PELVIS WITH CONTRAST CLINICAL HISTORY: ABD PAIN COMPARISON: None Available. TECHNIQUE: CT of the abdomen and pelvis performed following IV administration of iodinated contras t. FINDINGS: Lung Bases: The visualized lung bases are clear. Bones: Mild endplate spondylosis and facet arthropathy. Mild bilateral hip joint space narrowing and osteophytic spurring. Abdomen: Liver: The liver has normal size and density. No intrahepatic biliary dilatation. Gallbladder: Prior cholecystectomy. Spleen, Pancreas, and Adrenal Glands: The spleen, pancreas, and adrenal glands are unremarkable. Kidneys: No hydronephrosis or obstructing calculus. Small left renal cyst. Vasculature: Aortoiliac atherosclerosis. IVC is normal caliber. The portal vein is patent. The prox imal visceral and renal arteries are patent. Stomach: The stomach and duodenum have normal course. Other: No free intraperitoneal air. No free fluid or lymphadenopathy. Pelvis: Bladder: Urinary bladder is unremarkable. Bowel: No dilated loops of large or small bowel. Wall thickening of the ascending and transverse co mandi. Appendix: Normal appendix. Pelvis: Uterus is not enlarged. IMPRESSION: 1. Findings suggest acute nonspecific colitis involving the ascending and transverse col on. This exam was performed according to our departmental dose-optimization program, which includes autom ated exposure control, adjustment of the mA and/or kV according to patient size and/or use of iterati ve reconstruction technique. Electronically signed by: Jigar Norris 09/07/2020 12:58 AM MACHINE SIGN WRITER Due to temporary technical issues with the PACS/Fluency reporting system, reports are being signed by the in house radiologist without review as a courtesy to ensure prompt reporting. The interpreting r adiologist is fully responsible for the content of the report.
--- NOTE | 2020-09-09 12:22 | PN ---
Date of Progress Note: 09/09/2020 Diagnosis: Colitis. Subjective: The patient is feeling better. No shortness of breath. No chest pain. No abdominal pa in today. Abdomen is benign. She is passing flatus. Blood work last time was done. WBC count of 7 .2 and that was today. Hemoglobin is 11.8. Microbiology; stool culture shows no salmonella, no shig rehana, no Campylobacter. Assessment: A 55-year-old patient with colitis, clinically improving. We are going to try clear liq uid diet today and proceed accordingly and she was fully explained the importance of colonoscopies an d following up with her GI doctor as soon as possible. ABDIRASHID/RALPH Voice ID: [id number] Report ID: [id number]
--- NOTE | 2020-09-09 14:52 | CON ---
History Of Present Illness: This is a 55-year-old female. I was consulted for diarrhea, vomiting, a nd abdominal pain with fevers 3 days ago. The patient is doing much better today, was able to eat so me clear liquid food. Denies any other significant history of medical problems, except the patient h ad , hysterectomy, tonsillectomy, carpal tunnel surgery, and cholecystectomy. Currently stepan ng treated with Zosyn. See MAR for other medications. Past Medical History: As per HPI. Social History: Nonsmoker, nondrinker. Family History: Noncontributory. Medications: Zosyn. See MAR for other medications. Allergies: NO KNOWN DRUG ALLERGIES. Review of Systems: A 10-point review was performed. Physical Examination: General: This is a 55-year-old female, sitting in bed, not in any acute cardiopulmonary distress. Vital Signs: Temperature 98, pulse 57, respirations 17, blood pressure 133/83. HEENT: Unremarkable. Neck: Supple. Lungs: Basal crackles. Heart: S1, S2. Regular. Abdomen: Soft, nontender. Bowel sounds present. Extremities: No edema. Laboratory Data: WBC 7.2, hemoglobin 11.8, platelets are 140. Chemistry shows sodium 140, potassium 3.7, chloride 110, bicarb 24, BUN 7, creatinine 0.5, glucose 122. Albumin is 2.7. Chest x-ray done on 09/06 shows no acute abnormalities. Abdominal CT scan done on 09/08 shows the patient has worsen ing colitis finding from cecum through transverse colon. Reactive free fluid has developed, but no f ree air. Micro data shows fecal leukocytes negative. Fecal cultures are negative for Salmonella, Sh igella and Campylobacter. Blood cultures are done on 09/06, negative for growth. Assessment And Plan: Severe ascending and transverse colitis according to CT scan. The patient is d oing better on Zosyn. We will continue current treatment. Consider switching to Levaquin and Flagyl on discharge, total course of 2 weeks. Consider following up with GI team as outpatient for possibl e colonoscopy. Continue supportive care and hydration. We will follow the patient closely. The pat ient also moderate protein-calorie malnourishment. Also, has anemia and thrombocytopenia. Continue supportive care and we will follow the patient as needed. Thank you for consult. NF/MODL Voice ID: [id number] Report ID: [id number]
[2020-09-09] MEDS ORDERED: POTASSIUM CL SA 10 MEQ TAB PO ONE (18:00)
[2020-09-10] MEDS: ACETAMINOPHEN 500 MG TAB PO PRN (00:13)
[2020-09-10] MEDS: PIPER/TAZO/NS 3.375gm 3.375 GM/100 ML BAG IVPB SCH ×2 (00:16→08:52)
[2020-09-10] MEDS: NA CHLORIDE 0.9% 1,000 ML IV SCH ×2 (01:44→06:53)
[2020-09-10 03:00] VITALS: O2SAT 100
[2020-09-10 04:38] LABS: Absolute Lymphocytes (CBC) 1.9 K/uL (0.7-4.9); Basophils % 0.3 % (0-1.3); Hematocrit 34.8 % (36.0-45.0); Lymphocytes % 33.7 % (15.3-44.8); MPV 8.8 fL (7.6-11.3); RBC Red Blood Cell Count 3.91 M/uL (3.86-4.86)
[2020-09-10 04:47] LABS: BUN Blood Urea Nitrogen 5 mg/dL (7-18); Bicarbonate 25 mmol/L (21-32); Glucose Level 150 mg/dL (74-106); Magnesium 2.2 mg/dL (1.8-2.4); Potassium 3.8 mmol/L (3.5-5.1); Sodium Level 141 mmol/L (136-145)
[2020-09-10] MEDS: INSULIN -REGULAR HUMAN 50 UNIT/0.5 ML ML SQ SCH ×2 (07:30→11:30)
[2020-09-10] MEDS ORDERED: POTASSIUM 25 MEQ EFFERV TAB PO ONE (09:00)
--- NOTE | 2020-09-10 09:28 | P.DS ---
Admission Date: 09/08/20 Discharge Date: 09/10/20 Primary Care Provider: Dr. Tate Disposition: ROUTINE DISCHARGE Discharge Condition: FAIR Reason for Admission: Severe Sepsis, Colitis Consultations: Infectious disease - Problems (1) Colitis Current Visit: Yes Status: Acute (2) Severe sepsis Current Visit: Yes Status: Acute (3) Hypertension Current Visit: Yes Status: Chronic Qualifiers: Hypertension type: essential hypertension Qualified Code(s): I10 - Essential (primary) hypertension (4) Non-insulin dependent diabetes mellitus Current Visit: Yes Status: Chronic Brief History of Present Illness: 55-year-old woman with a history of diabetes mellitus type 2, presents to the emergency department with a complaint of nausea and vomiting, abdominal pain and fever. Workup in the ED revealed patient was septic and elevated lactate. CT abdomen and pelvis demonstrated ascending and transverse colitis. Patient was admitted for further management. Hospital Course: Patient was hydrated with IV fluid and treated with IV ciprofloxacin and Flagyl. Antibiotics later changed to IV Zosyn because her clinical condition worsened. The patient was seen by infectious disease-Dr. Ruiz. Patient responded to the IV Zosyn and clinically got better. Her abdominal pain, nausea and vomiting and fever resolved. Patient tolerated diet. She will be discharged 2 weeks of oral Flagyl and Cipro per infectious disease recommendation. She is also informed she will need colonoscopy within a couple of months. Vital Signs/Physical Exam: Temp Pulse Resp BP Pulse Ox 97.3 F 70 18 121/79 96 09/10/20 04:00 09/10/20 04:00 09/10/20 04:00 09/10/20 04:00 09/10/20 04:00 General: Alert, In no apparent distress HEENT: Mucous membr. moist/pink Neck: Supple Respiratory: Clear to auscultation bilaterally, Normal air movement Cardiovascular: No edema, Regular rate/rhythm, Normal S1 S2 Gastrointestinal: Normal bowel sounds, Soft and benign, Non-distended, No tenderness Musculoskeletal: No swelling, No tenderness Integumentary: No rashes Neurological: Other (Non focal.) Laboratory Data at Discharge: WBC 5.5 K/uL (4.3-10.9) D 09/10/20 04:08 Hgb 12.0 g/dL (12.0-15.0) 09/10/20 04:08 Hct 34.8 % (36.0-45.0) L 09/10/20 04:08 Plt Count 163 K/uL (152-406) 09/10/20 04:08 PT 11.9 SECONDS (9.5-12.5) 09/06/20 20:45 INR 1.01 09/06/20 20:45 Sodium 141 mmol/L (136-145) 09/10/20 04:08 Potassium 3.8 mmol/L (3.5-5.1) 09/10/20 04:08 BUN 5 mg/dL (7-18) L 09/10/20 04:08 Creatinine 0.55 mg/dL (0.55-1.3) 09/10/20 04:08 Glucose 150 mg/dL (74-106) H 09/10/20 04:08 Magnesium 2.2 mg/dL (1.8-2.4) 09/10/20 04:08 Total Bilirubin 0.4 mg/dL (0.2-1.0) 09/09/20 03:38 AST 20 U/L (15-37) 09/09/20 03:38 ALT 19 U/L (12-78) 09/09/20 03:38 Alkaline Phosphatase 61 U/L (45-117) 09/09/20 03:38 Lipase 123 U/L (73-393) 09/08/20 05:32 Home Medications: Atorvastatin Calcium [Lipitor] 40 mg PO BEDTIME 09/07/20 Empagliflozin [Jardiance] 25 mg PO DAILY 09/07/20 Losartan Potassium 100 mg PO DAILY 09/07/20 Metformin ER [Glucophage ER*] 500 mg PO DAILY 09/07/20 Methimazole [Tapazole] 10 mg PO DAILY 09/07/20 Sitagliptin Phosphate [Januvia*] 100 mg PO DAILY 09/07/20 Ciprofloxacin HCl [Cipro 500 MG Tablet] 500 mg PO BID #28 tab 09/10/20 metroNIDAZOLE [Flagyl] 500 mg PO Q8H #42 tablet 09/10/20 New Medications: Ciprofloxacin HCl [Cipro 500 MG Tablet] 500 mg PO BID #28 tab metroNIDAZOLE [Flagyl] 500 mg PO Q8H #42 tablet Diet: ADA Activity: Ad gael Followup: Hamzah Tate, DO [Primary Care Provider] - 1-2 Weeks Jp Jolly MD [ASSOCIATE-ACTIVE - CAN ADMIT] - (within 1 month) Time spent managing pt's care (in minutes): 36
--- NOTE | 2020-09-10 13:11 | PN ---
Subjective: Ms. Santos is a 55-year-old patient with history of colitis. We have started to give h er diet. She is starting to tolerate diet. Today, she is planned for discharge home. She was fully explained in the past the importance of following up with her spaghetti press helper. She states she melchor d a colonoscopy about 5 years ago. new findings and colonoscopy at a proper time I believ e is indicated. No spicy food, no greasy food until we find out basically or at least trying to find more etiology of her colitis. We will be happy to see the patient in a week in our office and also she should see her spaghetti press helper. ABDIRASHID/RALPH Voice ID: [id number] Report ID: [id number]
[2020-09-10 14:52] VITALS: BP 148/88; TEMP 97.3
== END 2020-09-10 13:26 | disposition home or self-care (01) | DRG 872 ==
LOC: ER 20:20 → 2ND 09-07 00:55 → OBSVTOIN 09-08 06:27
PROVIDERS: ADMIT Hospitalist; ATTEND Internal Medicine
DX: A41.9 Sepsis, unspecified organism (principal); E44.0 Moderate protein-calorie malnutrition; R65.20 Severe sepsis without septic shock; I10 Essential (primary) hypertension; K52.9 Noninfective gastroenteritis and colitis, unspecified; D64.9 Anemia, unspecified; E11.9 Type 2 diabetes mellitus without complications; D69.6 Thrombocytopenia, unspecified; Z90.49 Acquired absence of other specified parts of digestive tract; Z90.710 Acquired absence of both cervix and uterus; Z68.34 Body mass index [BMI] 34.0-34.9, adult; Z79.84 Long term (current) use of oral hypoglycemic drugs; Z79.899 Other long term (current) drug therapy; Z20.828 Contact with and (suspected) exposure to other viral communicable diseases
CPT/HCPCS: 36415; 71045; 74176; 74177; 80048; 80053; 80076; 81003; 82947; 83605; 83690; 83735; 83880; 84132; 84484; 85025; 85610; 87040; 87045; 87046; 87086; 87088; 87324; 87449; 87804; 89055; 93005; 96365; 96366; 96375; 99285; G0378; J0696; J0744; J2270; J2405; J2543; J3480; J7030; J7040; Q9967; U0003

== ENCOUNTER 2021-12-05 05:40 | Day surgery (SDC) | payer BC ==
--- NOTE | 2021-12-01 12:49 | RAD REPORT ---
EXAM DESCRIPTION: RAD - Chest Pa And Lat (2 Views) - 12/01/2021 11:59 am CLINICAL HISTORY: PRE OP FOR SURGERY COMPARISON: Portable August 2020 TECHNIQUE: Frontal and lateral views of the chest were obtained. FINDINGS: The lungs are clear. Heart size is normal and central vasculature is within normal limit s. No pleural effusion or pneumothorax seen. No acute bony finding noted. No aortic abnormality. No significant change from comparison study. IMPRESSION: No acute cardiopulmonary process.
[2021-12-01 13:07] LABS: Absolute Lymphocytes (CBC) 2.4 K/uL (0.7-4.9); Hematocrit 44.5 % (36.0-45.0); Lymphocytes % 48.2 % (15.3-44.8); MPV 9.3 fL (7.6-11.3); RBC Red Blood Cell Count 4.78 M/uL (3.86-4.86)
[2021-12-01 13:14] LABS: Protime INR 1.03
[2021-12-01 13:27] LABS: BUN Blood Urea Nitrogen 13 mg/dL (7-18); Bicarbonate 30 mmol/L (21-32); Glucose Level 94 mg/dL (74-106); Potassium 4.1 mmol/L (3.5-5.1); Sodium Level 137 mmol/L (136-145)
--- NOTE | 2021-12-02 16:11 | EKG ---
Test Date: 2021-12-01 Test Time: 11:33:12 Family Helper: SON MEASUREMENT RESULTS: Intervals: Rate: 62 NC: 196 QRSD: 90 QT: 442 QTc: 448 [place]: P: 35 NC: 196 QRS: 41 T: 24 INTERPRETIVE STATEMENTS: Normal sinus rhythm Normal ECG Compared to ECG 09/06/2020 20:59:56 Sinus tachycardia no longer present Electronically Signed On 12-02-21 16:10:43 MANAGER PEDIATRIC by Wiliam Null
[2021-12-05] MEDS ORDERED: CEFAZOLIN/SWI 2gm 2 GM/20 ML SYR ONE (05:55)
[2021-12-05] MEDS ORDERED: NA CHLORIDE 0.9% 1,000 ML ONE (05:55)
[2021-12-05] MEDS ORDERED: SODIUM BICARB 50 MEQ/50ML VIAL ONE (06:36)
[2021-12-05] MEDS ORDERED: MIDAZOLAM HCL 2 MG/2 ML INJ ONE (06:36)
[2021-12-05] MEDS ORDERED: dexAMETHasone 10 MG/ML VIAL ONE ×2 (06:36→07:41)
[2021-12-05] MEDS ORDERED: FENTANYL CITR 100 MCG/2 ML ONE (06:36)
[2021-12-05] MEDS ORDERED: LIDOCAINE 1% MPF 5 ML VIAL ONE (06:36)
[2021-12-05] MEDS ORDERED: ROPLVACAINE HCL 40 ML ONE (06:37)
[2021-12-05] MEDS ORDERED: EPINEPHRINE/PF 1 MG/ML AMP ONE (07:25)
[2021-12-05] MEDS ORDERED: propofoL 200 MG/20 ML VIAL IV ONE (07:41)
[2021-12-05] MEDS ORDERED: LIDOCAINE 2% MPF 5 ML VIAL ONE (07:41)
[2021-12-05] MEDS ORDERED: KETOROLAC 30 MG/ML INJ ONE (07:41)
[2021-12-05] MEDS ORDERED: ROCURONIUM 50 MG/5 ML VIAL IV ONE (07:41)
[2021-12-05] MEDS ORDERED: ONDANSETRON 4 MG/2 ML VIAL ONE (07:44)
[2021-12-05] MEDS ORDERED: Phenylephrine HCl 10 MG/ML 1 ML VIAL ONE (09:04)
--- NOTE | 2021-12-05 10:41 | P.BOP ---
Preoperative diagnosis: right rotator cuff tear, biceps tenosynovitis, impingement syndrome Postoperative diagnosis: same Primary procedure: right arthroscopic shoulder rotator cuff repair Secondary procedure: right shoulder arthroscopic biceps tenotomy Other procedure(s): right shoulder arthroscopic subacromial decompression Estimated blood loss: 10 cc Specimen: none Findings: see dictation Anesthesia: General Complications: None Implants: 1- 5.5 mm Arthrex corkscrew, 2- 4.75 mm Arthrex swivelocks Fluids & blood products: per anesthesia record Transferred to: Recovery Room Condition: Good
[2021-12-05 10:59] VITALS: TEMP 97.4
--- NOTE | 2021-12-05 11:46 | RAD REPORT ---
EXAM DESCRIPTION: RAD - Shoulder 1 View - 12/05/2021 11:20 am CLINICAL HISTORY: Right shoulder surgery FINDINGS: Frontal view of the right shoulder was obtained. Postsurgical changes are present. No fracture or dislocation is seen. Subchondral cysts and osteophytes involve the humerus Artifact overlies the right chest
[2021-12-05 14:33] VITALS: BP 112/75; O2SAT 97
--- NOTE | 2021-12-06 21:38 | OP ---
Date of Procedure: 12/05/2021 Surgeon: Blas Dupree MD Preoperative Diagnoses: 1.Right shoulder rotator cuff tear. 2.Right shoulder bicipital tenosynovitis. 3.Right shoulder impingement syndrome. Postoperative Diagnoses: 1.Right shoulder rotator cuff tear. 2.Right shoulder bicipital tenosynovitis. 3.Right shoulder impingement syndrome. Procedure Performed: 1.Right shoulder arthroscopic rotator cuff repair. 2.Right shoulder arthroscopic biceps tenotomy. 3.Right shoulder arthroscopic subacromial decompression. Anesthesia: General endotracheal. Fluids: Per Anesthesia record. Estimated Blood Loss: 10 cc. Complications: None. Implants: 1.One 5.5 mm Arthrex corkscrew. 2.Two 4.5 mm Arthrex SwiveLock. Indication For Procedure: Petra is a 56-year-old female, who presented to my clinic with signs and s ymptoms consistent with MRI findings consistent with a right shoulder retracted rotator cuff tear. T he patient had significant pain and difficulty with activities of daily living. I discussed with the patient given the significant retraction of the tear, the possibility of an irreparable tear, and sh e expressed understanding and elected to proceed with operative treatment. Description Of Procedure: After informed consent was obtained, the patient was identified in preoper ative holding area. The right upper extremity was marked. The patient underwent an interscalene blo ck to the right upper extremity performed by Anesthesia in the PACU prior to surgery. The patient wa s then brought to the operating room and transferred to the operating table in supine fashion, placed under general endotracheal anesthesia. She was then placed in the beach chair position with her ext remities well padded. The right upper extremity was then prepped and draped in usual sterile fashion . A time-out was initiated. The correct patient and procedure were confirmed and identified. The p atient did receive her preoperative prophylactic antibiotics. A standard posterior portal was create d after injecting the shoulder with 30 cc of normal saline to distend the capsule. The arthroscope w as brought via the posterior portal position using direct visualization. Anterior portal was created and a cannula was placed and diagnostic arthroscopy was performed. The patient was noted to have so me fraying of the biceps tendon and its anchor, and a biceps tenotomy was then performed. The superi or labrum was found to be intact as well as both anterior and posterior labrum. There were no loose bodies found within the axillary pouch. The patient was noted to have some fraying over the superior border of the subscapularis, but overall was intact. This was debrided using an arthroscopic shaver . The patient was noted to have a retracted supraspinatus tear with the tendon edge just lateral to the glenoid rim. The arthroscope was then brought into subacromial space, where a subacromial bursec dimitri was performed. Extra care was taken to the supraspinatus tear to debride any scar tissue superi joel and inferiorly. An elevator was then used to help elevate the supraspinatus off the superior lacy rder of the glenoid and glenoid neck to aid with mobilization of the tendon. The greater tuberosity was then debrided using arthroscopic shaver to create a bleeding bony bed to aid with healing. A pit uitary grasper was then brought in after a lateral portal was created and the tear was able to be red uced when tendon was pulled both laterally and anteriorly and second anterolateral portal was then cr eated given the tear pattern. Cinda cannula was then placed to aid with repair of the tendon. A st ab incision was made just lateral to the acromion and a 5.5 mm anchor was then placed in the greater tuberosity sutures. It was a double loaded anchor. The sutures were passed through the rotator cuff tear in an anterior to posterior fashion through the anterolateral portal. The sutures were then ti ed in a horizontal mattress fashion. There was reduction of the tear up to the tuberosity. The sutu res were then crisscross and 2 lateral row SwiveLock anchors were placed to increase surface area of the repair. The remaining sutures were then cut. Next, attention was taken to perform the subacromi al decompression given the fraying of the coracoacromial ligament. A radiofrequency ablator as well as an arthroscopic bur was then used to bur acromioplasty. Arthroscopic instruments were then remove d without complication. Wounds were then irrigated thoroughly with normal saline. The portals were approximated using a 3-0 Monocryl. Sterile dressings were applied. The patient was placed in a shou lder immobilizer, awakened, and transferred to the PACU in stable condition. Postoperative Plan: The patient will be nonweightbearing to her right upper extremity. She will fol low the large rotator cuff repair protocol beginning at 6-week postop. CV/MODL Voice ID: [id number] Report ID: [id number]
== END 2021-12-05 12:00 | disposition home or self-care (01) ==
LOC: OR 05:40
PROVIDERS: ATTEND Orthopaedic Surgery Sports Medicine
PROC: 0RNJ4ZZ Release Right Shoulder Joint, Percutaneous Endoscopic Approach (ICD-10-PCS; 2021-12-05)
PROC: 0LM14ZZ Reattachment of Right Shoulder Tendon, Percutaneous Endoscopic Approach (ICD-10-PCS; principal; 2021-12-05 08:00)
DX: S46.011A Strain of muscle(s) and tendon(s) of the rotator cuff of right shoulder, initial encounter (principal); M75.41 Impingement syndrome of right shoulder; M75.21 Bicipital tendinitis, right shoulder; Z20.822 Contact with and (suspected) exposure to COVID-19
CPT/HCPCS: 93005; 85025; 80048; 36415; 85610; 82947 ×2; 85730; 71046; 73020; 29827; 29826; U0002; J2704; J0171; J2370; J2250; J3010; J1100 ×2; J2795; J0690; J7030; J2405

== ENCOUNTER 2022-01-08 04:33 | Emergency (ER) | payer BC ==
--- OUTSIDE RECORDS SUMMARY | 2022-01-08 04:36 | XMS REPORT | Continuity of Care Document ---
:1965 Author Organization [facility] t Address [address] [place] [address] Care Team Providers Name Role Phone Reilly Tate Attending Clinician Unavailable Irene KIDD Attending Clinician Payers Payer Name Policy Type Policy Number Effective Date Expiration Date S ource Problems This patient has no known problems. Allergies, Adverse Reactions, Alerts This patient has no known allergies or adverse reactions. Social History Social Habit Start Date Stop Date Quantity Comments Source Exposure to Not sure [facility] SARS-CoV-2 (event) of Med icine Alcohol intake 2021-02-13 2021-02-13 Current drinker [facility] 00:00:00 00:00:00 of alcohol of Medicine (finding) Tobacco use and 2021-02-13 2021-02-13 Never used [facility] exposure 00:00:00 00:00:00 of Medicine History [facility] 2019-11-08 2019-11-08 2 [facility] [employer] ge Alcohol Frequency 00:00:00 00:00:00 of Medi cine History [facility] 2019-11-08 2019-11-08 1 [facility] [employer] jadiel Alcohol Std Drinks 00:00:00 00:00:00 of Med icine History [facility] 2019-11-08 2019-11-08 1 Gerard [employer] [facility] Alcohol Binge 00:00:00 00:00:00 of Medicine Sex [birth year] [facility] [employer] 00:00:00 00:00:00 of Medicine Smoking Status Start Date Stop Date Source Never smoker [facility] o f Medicine Medications Ordered Filled Start Stop Current Ordering Indication Dosage Frequency Signature Comments Components Source Medication Medication Date Date Medication? Clinician (SIG) Name Name metformin Yes 500mg Take 500 Owsley yanelis (GLUCOPHAGE 5-06 mg by Jennette -XR) 500 MG 15:38: mouth. of XR tablet 22 Medicin e Empaglifloz Yes 25mg Take 25 mg [facility] in 5-06 by mouth Jennette (ANDREADIANCE) 15:38: daily. of 25 MG TABS 22 Medicin e Sitagliptin Yes 100mg Take 100 [facility] Phosphate 5-06 mg by Jennette (LYNDAIA) 15:38: mouth of 100 MG TABS 22 daily. Medici n e losartan Yes 100mg Take 100 [facility] (COZAAR) 5-06 mg by Jennette 100 MG 15:38: mouth of tablet 22 daily. Medicin e atorvastati Yes 40mg Take 40 mg Gerard n (LIPITOR) 5-06 by mouth Rafaela ege 40 MG 15:38: daily. of tablet 22 Medicin e methimazole Yes 10mg Take 1 [facility] (TAPAZOLE) 4-02 Tablet by Rafaela ege 10 MG 00:00: mouth of tablet 00 daily. Medicin e metformin Yes 500mg Take 500 Owsley yanelis (GLUCOPHAGE 3-31 mg by Jennette -XR) 500 MG 13:44: mouth. of XR tablet 09 Medicin e Empaglifloz Yes 25mg Take 25 mg Gerard in 3-31 by mouth Jennette (JARDIANCE) 13:44: daily. of 25 MG TABS 09 Medicin e Sitagliptin Yes 100mg Take 100 [facility] Phosphate 3-31 mg by Jennette (JANUVIA) 13:44: mouth of 100 MG TABS 09 daily. Medici n e losartan 0 Yes 100mg Take 100 [facility] (COZAAR) 3-31 mg by Jennette 100 MG 13:44: mouth of tablet 09 daily. Medicin e atorvastati Yes 40mg Take 40 mg [facility] n (LIPITOR) 3-31 by mouth Rafaela ege 40 MG 13:44: daily. of tablet 09 Medicin e methimazole 2020-0 Yes TAKE 1 [facility] (TAPAZOLE) 9-25 TABLET BY Rafaela ege 10 MG 00:00: MOUTH of tablet 00 DAILY Medicin e methimazole 2020-0 Yes TAKE 1 [facility] (TAPAZOLE) 9-25 TABLET BY Rafaela ege 10 MG 00:00: MOUTH of tablet 00 DAILY Medicin e metformin 2020-0 Yes 500mg Take 500 Owsley yanelis (GLUCOPHAGE 2-13 mg by Jennette -XR) 500 MG 19:48: mouth. of XR tablet 23 Medicin e Empaglifloz 2020-0 Yes 25mg Take 25 mg Gerard in 2-13 by mouth Jennette ([facility]) 19:48: daily. of 25 MG TABS 23 Medicin e Sitagliptin 2020-0 Yes 100mg Take 100 [facility] Phosphate 2-13 mg by Jennette ([facility]) 19:48: mouth of 100 MG TABS 23 daily. Medici n e losartan 2020-0 Yes 100mg Take 100 [facility] (COZAAR) 2-13 mg by Jennette 100 MG 19:48: mouth of tablet 23 daily. Medicin e atorvastati 2020-0 Yes 40mg Take 40 mg Gerard n (LIPITOR) 2-13 by mouth Rafaela ege 40 MG 19:48: daily. of tablet 23 Medicin e atenolol 2020-0 Yes 25mg Take 1 Tab Owsley yanelis (TENORMIN) 2-13 by mouth Colle ge 25 MG 00:00: daily. of tablet 00 Medicin e atenolol 2020-0 Yes 25mg Take 1 Tab Owsley yanelis (TENORMIN) 2-13 by mouth Colle ge 25 MG 00:00: daily. of tablet 00 Medicin e atenolol 2020-0 Yes 25mg Take 1 Tab Owsley yanelis (TENORMIN) 2-13 by mouth Colle ge 25 MG 00:00: daily. of tablet 00 Medicin e Empaglifloz 2020-0 Yes 25mg Take 25 mg [facility] in 1-29 by mouth Jennette [facility] 15:21: daily. of 25 MG TABS 19 Medicin e Sitagliptin 2020-0 Yes 100mg Take 100 [facility] Phosphate 1-29 mg by Jennette ([facility]) 15:21: mouth of 100 MG TABS 19 daily. Medici n e losartan 2020-0 Yes 100mg Take 100 [facility] (COZAAR) 1-29 mg by Jennette 100 MG 15:21: mouth of tablet 19 daily. Medicin e atorvastati Yes 40mg Take 40 mg Gerard n (LIPITOR) 1-29 by mouth Rafaela ege 40 MG 15:21: daily. of tablet 19 Medicin e metformin Yes 500mg Take 500 Owsley yanelis (GLUCOPHAGE 1-29 mg by Jennette -XR) 500 MG 15:21: mouth. of XR tablet 19 Medicin e Januvia Octuvia Yes Hamzah [address] [facility]13 [facility] Jardiance Jardiance 2017-10- No Hamzah TK [address] [facility] 2-13 03-12 Tate QD [facility] - 00:00: 00:00 [facility] 00 :[facility] MetFORMIN MetFORMIN Yes Hamzah [address] [facility] HCl ER HCl ER Tate with [facility] - evening [facility]oria meal l [facility] Atorvastati Atorvastati Yes Hamzah [address] [facility] n Calcium n Calcium [facility] Losartan Losartan Yes Hamzah [address] Potassium Potassium [facility] Atenolol Atenolol Yes Hamzah TK [address] [facility] Losartan Losartan Yes Hamzah [address] Potassium Potassium [facility] Methimazole Methimazole Yes Hamzah [address] [facility] Tate with food [facility] Kacie Hester Yes Hamzah [address] [facility] Immunizations Ordered Filled Immunization Date Status Comments Sourc e Immunization Name Name TDAP > 7 TDAP > 7 2019-01-[address] [facility] - Years-Adacel Years-Adacel 00:00:00 [facility] Vital Signs Vital Name Observation Time Observation Value Comments Source Systolic blood 2021-02-13 15:34:00 120 mm[Hg] [facility] Medicine Diastolic blood 2021-02-13 15:34:00 78 mm[Hg] [facility] Medicine Heart rate 2021-02-13 15:34:00 80 /min [facility] C ollege of Medicine Respiratory rate 2021-02-13 15:34:00 18 /min [facility] Body height 2021-02-13 15:34:00 172.7 cm [facility] C ollege of Medicine Body weight 2021-02-13 15:34:00 99.791 kg [facility] C ollege of Medicine BMI 2021-02-13 15:34:00 33.45 kg/m2 [facility] C ollege of Medicine Systolic blood 2021-01-08 13:38:00 128 mm[Hg] [facility] Medicine Diastolic blood 2021-01-08 13:38:00 84 mm[Hg] [facility] Medicine Heart rate 2021-01-08 13:38:00 71 /min 02-100% [facility] of Medicine Body temperature 2021-01-08 13:38:00 36.83 Susan [facility] Body height 2021-01-08 13:38:00 172.7 cm [facility] C ollege of Medicine Body weight 2021-01-08 13:38:00 99.338 kg [facility] of Medicine BMI 2021-01-08 13:38:00 33.30 kg/m2 [facility] of Medicine Systolic blood 2019-11-23 19:44:00 122 mm[Hg] [facility] Medicine Diastolic blood 2019-11-23 19:44:00 74 mm[Hg] [facility] Medicine Heart rate 2019-11-23 19:44:00 114 /min [facility] of Medicine Respiratory rate 2019-11-23 19:44:00 18 /min [facility] Body height 2019-11-23 19:44:00 172.7 cm [facility] C [facility]lege of Medicine Body weight 2019-11-23 19:44:00 94.802 kg [facility] Medicine BMI 2019-11-23 19:44:00 31.78 kg/m2 [facility] of Medicine Systolic blood 2019-11-23 19:44:00 122 mm[Hg] [facility] pressure Medicine Diastolic blood 2019-11-23 19:44:00 74 mm[Hg] [facility] Medicine Heart rate 2019-11-23 19:44:00 114 /min [facility] Medicine Respiratory rate 2019-11-23 19:44:00 18 /min [facility] Body height 2019-11-23 19:44:00 172.7 cm [facility] Body weight 2019-11-23 19:44:00 94.802 kg [facility] BMI 2019-11-23 19:44:00 31.78 kg/m2 [facility] Systolic blood 2019-11-08 15:21:00 151 mm[Hg] [facility] Medicine Diastolic blood 2019-11-08 15:21:00 94 mm[Hg] [facility] Medicine Heart rate 2019-11-08 15:21:00 84 /min [facility] Medicine Respiratory rate 2019-11-08 15:21:00 16 /min [facility] Body height 2019-11-08 15:21:00 172.7 cm [facility] Body weight 2019-11-08 15:21:00 96.163 kg [facility] BMI 2019-11-08 15:21:00 32.23 [facility] Systolic blood 2019-11-08 15:21:00 151 mm[Hg] [facility] Medicine Diastolic blood 2019-11-08 15:21:00 94 mm[Hg] [facility] Medicine Heart rate 2019-11-08 15:21:00 84 /min [facility] Medicine Respiratory rate 2019-11-08 15:21:00 16 /min [facility] Body height 2019-11-08 15:21:00 172.7 cm [facility] Body weight 2019-11-08 15:21:00 96.163 kg [facility] Medicine BMI 2019-11-08 15:21:00 32.23 kg/m2 [facility] of Medicine Procedures This patient has no known procedures. Plan of Care Planned Activity Planned Date Details Comments Source Diagnostic Test 2021-02-20 US THYROID [code = Expected: [facility] Pending 00:00:00 [id number]] 02/20/2021, of Medicine Expires: 02/13/2022 Diagnostic Test 2021-02-07 TSH [code = 33223-0] Expected: [facility] Pending 00:00:00 02/07/2021, of Medicine Expires: 07/10/2021 Diagnostic Test 2021-02-07 T4 FREE [code = 3024-7] Expected: [facility] Pending 00:00:00 02/07/2021, of Medicine Expires: 07/10/2021 Diagnostic Test 2021-02-07 T3 [code = 3053-6] Expected: [facility] Pending 00:00:00 02/07/2021, of Medicine Expires: 07/10/2021 Diagnostic Test 2021-02-07 CBC W/O DIFF W PLT Expected: [facility] Pending 00:00:00 [code = 6690-2] 02/07/2021, of Medicine Expires: 07/10/2021 Diagnostic Test 2021-02-07 HEPATIC FUNCTION PANEL Expected: [facility] Pending 00:00:00 [code = 91425-7] 02/07/2021, of Medicine Expires: 07/10/2021 Diagnostic Test 2019-11-30 NM THERAPY ABLATION Expected: [facility] Pending 00:00:00 THYROID CANCER [code = 11/30/2019, of Sc izzy [id number]] Expires: 05/23/2021 Diagnostic Test 2019-11-30 NM THYROID UPTAKE AND Expected: [facility] Pending 00:00:00 SCAN MULITPLE [code = 11/30/2019, of [facility] she [id number]] Expires: 11/22/2020 Future Scheduled TETANUS SHOT (ADULT) [facility] Test [code = TETANUS SHOT of Medi cine (ADULT)] Future Scheduled HEPATITIS C SCREENING [facility] Test [code = HEPATITIS C of Medic ine SCREENING] Future Scheduled HIV SCREENING [code = [facility] Test HIV SCREENING] of Medicine Future Scheduled CERVICAL CANCER [facility] Test SCREENING 3 YEAR FOLLOW of M edicine UP [code = CERVICAL CANCER SCREENING 3 YEAR FOLLOW UP] Future Scheduled FLU VACCINE > 6 MONTHS [facility] Test [code = FLU VACCINE > 6 of M edicine MONTHS] Future Scheduled COLON CANCER SCREENING: [facility] Test COLONOSCOPY [code = of Medic ine COLON CANCER SCREENING: COLONOSCOPY] Future Scheduled MAMMOGRAM ANNUAL [code [facility] Test = MAMMOGRAM ANNUAL] of Medic ine Future Scheduled TETANUS SHOT (ADULT) [facility] Test [code = TETANUS SHOT of Medi cine (ADULT)] Future Scheduled BMI FOLLOW UP PLAN [employer] Test [code = BMI FOLLOW UP of Med icine PLAN] Future Scheduled HEPATITIS C SCREENING [employer] Test [code = HEPATITIS C of Medic ine SCREENING] Future Scheduled HIV SCREENING [code = [employer] [facility] HIV SCREENING] of Medicine Future Scheduled CERVICAL CANCER [facility] C ollege Test SCREENING 3 YEAR FOLLOW of M edicine UP [code = CERVICAL CANCER SCREENING 3 YEAR FOLLOW UP] Future Scheduled FLU VACCINE > 6 MONTHS [employer] Test [code = FLU VACCINE > 6 of M edicine MONTHS] Future Scheduled TSH [code = 38670-5] Ordered: Owsley yanelis [employer] Test 01/08/2021 of Medicine Future Scheduled T4 FREE [code = 3024-7] Ordered: [facility] Test 01/08/2021 of Medicine Future Scheduled T3 [code = 3053-6] Ordered: [employer] Test 01/08/2021 of Medicine Future Scheduled THYROTROPIN RECEPTOR,AB Ordered: [facility] Test [code = 48821-2] 01/08/2021 of Medicine Future Scheduled Screening for malignant [facility] Test neoplasm of colon of Medicin e (procedure) [code = 300340840] Future Scheduled Screening for malignant [facility] Test neoplasm of breast of Medici ne (procedure) [code = 580110885] Future Scheduled COVID-19 Vaccine (1) [facility] y[facility] Test [code = COVID-19 of Medicine Vaccine (1)] Future Scheduled BMI FOLLOW UP PLAN [facility] r College Test [code = BMI FOLLOW UP of Med icine PLAN] Future Scheduled Hepatitis C screening [employer] Test (procedure) [code = of Medic ine 552777706] Future Scheduled Human immunodeficiency [facility] Test virus screening of Medicine (procedure) [code = 254178790] Future Scheduled Screening for malignant [facility] Test neoplasm of cervix of Medici ne (procedure) [code = 740312224] Future Scheduled ZOSTER VACCINE (1 of 2) [facility] Test [code = ZOSTER VACCINE of Me dicine (1 of 2)] Future Scheduled FLU VACCINE > 6 MONTHS [employer] Test [code = FLU VACCINE > 6 of M edicine MONTHS] Future Scheduled TETANUS SHOT (ADULT) [facility] [employer] Test [code = TETANUS SHOT of Medi cine (ADULT)] Future Scheduled TSH [code = 26006-2] Ordered: Owsley yanelis [employer] Test 02/13/2021 of Medicine Future Scheduled T4 FREE [code = 3024-7] Ordered: [facility] Test 02/13/2021 of Medicine Future Scheduled T3 [code = 3053-6] Ordered: [employer] Test 02/13/2021 of Medicine Future Scheduled CBC W/AUTO DIFF WITH Ordered: Owsley yanelis [employer] Test PLATELETS [code = 02/13/2021 of Medicin e 91856-7] Future Scheduled HEPATIC FUNCTION PANEL Ordered: [facility] [employer] Test [code = 10002-9] 02/13/2021 of Medicine Future Scheduled Screening for malignant [facility] Test neoplasm of colon of Medicin e (procedure) [code = 891521485] Future Scheduled Screening for malignant [facility] Test neoplasm of breast of Medici ne (procedure) [code = 674596973] Future Scheduled COVID-19 Vaccine (1) [facility] Test [code = COVID-19 of Medicine Vaccine (1)] Future Scheduled BMI FOLLOW UP PLAN [employer] Test [code = BMI FOLLOW UP of Med icine PLAN] Future Scheduled Hepatitis C screening [facility] College Test (procedure) [code = of Medic ine 709713918] Future Scheduled Human immunodeficiency [employer] [facility] virus screening of Medicine (procedure) [code = 329863793] Future Scheduled Screening for malignant [facility] Test neoplasm of cervix of Medici ne (procedure) [code = 997638265] Future Scheduled ZOSTER VACCINE (1 of 2) [facility] Test [code = ZOSTER VACCINE of Me dicine (1 of 2)] Future Scheduled FLU VACCINE > 6 MONTHS [employer] Test [code = FLU VACCINE > 6 of M edicine MONTHS] Future Scheduled TETANUS SHOT (ADULT) [facility] [employer] Test [code = TETANUS SHOT of Medi cine (ADULT)] Future Scheduled TSH [code = 88188-5] Ordered: [facility] yanel[facility] [employer] Test 11/08/2019 of Medicine Future Scheduled T4 FREE [code = 3024-7] Ordered: [facility] Test 11/08/2019 of Medicine Future Scheduled T3 [code = 3053-6] Ordered: [employer] Test 11/08/2019 of Medicine Future Scheduled CBC W/AUTO DIFF WITH Ordered: Owsley [facility] Test PLATELETS [code = 11/08/2019 of Medicin e 51168-8] Future Scheduled HEPATIC FUNCTION PANEL Ordered: [facility] Test [code = 69918-7] 11/08/2019 of Medicine Future Scheduled COLON CANCER SCREENING: [facility] Test COLONOSCOPY [code = of Medic ine COLON CANCER SCREENING: COLONOSCOPY] Future Scheduled MAMMOGRAM ANNUAL [code [facility] Test = MAMMOGRAM ANNUAL] of Kari ine Encounters Start End Encounter Admission Attending Care Care Encounter Source Date/Time Date/Time Type Type Clinicians Facility Department ID 2021-11-18 Outpatient Tate, [facility] [id number] 08:20:00 [facility] 2021-11-05 Outpatient Tate, [facility] [id number] 14[facility]36:06 [facility] 2021-11-05 Outpatient Tate, [facility] [id number] 14:17:17 Hamzah 94302 [facility] 2021-11-05 Outpatient Tate, [facility] [id number] 14:14:45 Hamzah 54499 [facility] 2021-11-05 Outpatient Tate, [facility] [id number] 14:06:34 Hamzah 49782 [facility] 2021-11-05 Outpatient Tate, [facility] [id number] 12:55:42 Hamzah 39990 [facility] 2021-11-05 Outpatient Tate, [facility] [id number] 12:37:56 Hamzah 95860 [facility] 2021-11-05 Outpatient Tate, [facility] [id number] 12:13:40 Hamzah 70563 [facility] 2021-11-05 Outpatient Tate, [facility] [id number] 12:13:15 Hamzah 57402 [facility] 2021-11-05 Outpatient Tate, [facility]LMLC [facility] [id number] 11:45:08 Hamzah 18640 [facility] 2021-11-05 Outpatient Tate, STLMLC STLMLC [id number] 11:13:35 Hamzah 27334 [facility] 2021-12-23 2021-12-23 ambulatory [facility] [id number] [facility] 2021-12-12 2021-12-12 ambulatory [facility] [id number] [facility] 2021-12-09 2021-12-09 ambulatory [facility] [id number] [facility] 2021-12-09 2021-12-09 ambulatory [facility] [id number] [facility] 2021-12-04 2021-12-04 ambulatory [facility] [id number] [facility] 2021-11-18 2021-11-18 ambulatory [facility] [id number] [facility] 2021-11-18 2021-11-18 ambulatory [facility] [id number] [facility] 2021-11-13 2021-11-13 ambulatory [facility] [id number] [facility] 2021-11-04 2021-11-04 ambulatory [facility] [id number] [facility] 2021-10-29 2021-10-29 ambulatory [facility] [id number] [facility] 2021-10-27 2021-10-27 ambulatory [facility]ML[facility] [id number] [facility] 2021-10-27 2021-10-27 ambulatory [facility] [id number] [facility] 2021-09-09 2021-09-09 ambulatory [facility] [id number] [facility] 2021-09-02 2021-09-02 ambulatory [facility] [id number] [facility] 2021-08-07 2021-08-07 Outpatient [facility] [id number] [facility] 2021-06-04 2021-06-04 Outpatient [facility] [id number] [facility] 2021-05-29 2021-05-29 Outpatient [facility] [id number] [facility] 2021-05-14 2021-05-14 Outpatient [facility] [id number] [facility] 2021-02-13 2021-02-13 Office Irene, Eloise [facility] [id number] [facility] 10:34:01 11:04:01 Visit AMBULATOR [id number] College Y 0.2.7.2.686 of [id number] [facility] 310 e 2021-01-27 2021-01-27 Outpatient [facility] [id number] [facility] 2021-01-08 2021-01-08 Office Eloise Bonilla [facility] [id number] [facility] 08:06:55 08:36:55 Visit Joshua 350.1.13.21 Co llege 0.2.7.2.686 of [id number] [facility] rene 560 e 2020-12-19 2020-12-19 Outpatient [facility] [id number] [facility] 2020-12-19 2020-12-19 Outpatient [facility] [id number] [facility] 2020-11-29 2020-11-29 Outpatient [facility] [id number] [facility] 2020-11-12 2020-11-12 [facility] [id number] [facility] 2020-09-20 2020-09-20 Outpatient [facility] [id number] [facility] 2020-06-21 2020-06-21 [facility] [id number] 11:20:00 11:20:00 t [facility] - [facility] Family Medicine l Medicine Outpati ent Clinics 2020-05-06 2020-05-06 [facility] [id number] 10:35:00 10:35:00 t [facility] - [facility]Arm[facility] Family Medicine l Medicine Outpati ent Clinics 2020-04-23 2020-04-23 [facility] [id number] 13:40:00 13:40:00 [facility] Activehours s Estimize [facility] Family Medicine l Medicine Outpati ent Clinics 2020-04-22 2020-04-22 [facility] [id number] 13:34:00 13:34:00 t [facility] Yunait [facility] Family Medicine l Medicine Outpati ent Clinics 2020-03-26 2020-03-26 [facility] [id number] 14:00:00 14:00:[address] [place] [address] [place] [facility] - Drive [facility] Medicine Medicine Outpati ent Clinics 2020-03-14 2020-03-14 [facility] [id number] 16:13:00 16:13:00 [address] [place] [address] Luke [facility] - Drive [facility] Medicine Medicine Outpati ent Clinics 2020-01-15 2020-01-15 [facility] [id number] 13:52:00 13:52:00 [place] [address] Luke [place] - Drive [facility] Medicine Medicine Outpati ent Clinics 2019-12-25 2019-12-25 [facility] [id number] 13:30:00 13:30:00 [place] [address] Luke s - Drive [facility] 2019-11-23 2019-11-23 Office Eloise Bonilla [id number] 13:40:01 14:25:13 Visit AMBULATOR 350.1.13.21 Y 0.2.7.2.686 [id number] [facility] 2019-11-23 2019-11-23 Office Eloise Bonilla [id number] [facility] 13:40:01 14:25:13 Visit AMBULATOR 350.1.13.21 College Y 0.2.7.2.686 of [phone] [facility] 310 e 2019-11-08 2019-11-08 Office Eloise BonillaRajan [id number] 09:15:27 09:45:27 Visit Joshua [id number] 2019-11-08 2019-11-08 Office Eloise Bonilla [id number] [facility] 09:15:27 09:45:27 Visit Joshua [id number] Co llege [id number] of [phone] [facility] 560 e 2019-09-27 2019-09-27 [facility] [id number] [facility] 09:00:00 09:00:[address] [place] [address] [place] [address] - [facility] Family Medicine l Medicine Outpati ent Clinics 2019-09-22 2019-09-22 [facility] [id number] [facility] 10:30:00 10:30:[address] [place] - Drive [facility] Medicine l Medicine Outpati ent Clinics 2019-09-15 2019-09-15 [facility] [id number] [facility] 08:21:00 08:21:[address] [place] [address] [place] - Drive [facility] Family Medicine l Medicine Outpati ent Clinics 2019-09-06 2019-09-06 [facility] [id number] [facility] [address] 08:11:00 08:11:00 t [place] [employer] [address] [address] [place] - Drive [facility] Medicine l Medicine Outpati ent Clinics 2019-09-04 2019-09-04 [facility] [id number] [facility] 08:03:00 08:03:00 [place] [address] [place] - Drive [facility] Family Medicine l Medicine Outpati ent Clinics 2019-08-08 2019-08-08 [facility] [id number] [facility] 11:00:00 11:00:00 [place] [employer] [place] - Drive [facility] Medicine l Medicine Outpati ent Clinics 2019-06-23 2019-06-23 [facility] [id number] [facility] 09:30:00 09:30:00 [place] [employer] [address] [employer] [facility] Medicine l Medicine Outpati ent Clinics 2019-03-23 2019-03-23 [facility] [id number] [facility] 09:00:00 09:00:00 [place] [address] [place] - Drive [facility] Medicine l Medicine Outpati ent Clinics 2019-01-18 2019-01-18 [facility] [id number] [facility] 11:00:00 11:00:00 [place] [employer] [address] [employer] [facility] Medicine l Medicine Outpati ent Clinics 2019-01-11 2019-01-11 [facility] [id number] [facility] 10:00:00 10:00:[address] [place] [address] [place] - Drive [facility] Medicine l Medicine Outpati ent Clinics 2018-12-21 2018-12-21 [facility] [id number] [facility] 13:15:00 13:15:00 t [facility] Outpati ent Clinics 2018-09-28 2018-09-28 [facility] [id number] [facility] 11:18:00 11:18:00 t [facility] 2018-09-22 2018-09-22 [facility] [id number] [facility] 14:45:00 14:45:00 t [facility] Clin[facility] Results This patient has no known results.
[2022-01-08] MEDS ORDERED: METHYLPREDNISOLONE 125 MG INJ ONE (05:12)
[2022-01-08] MEDS ORDERED: KETOROLAC 30 MG/ML INJ ONE (05:12)
[2022-01-08] MEDS ORDERED: NA CHLORIDE 0.9% 500 ML ONE (05:13)
[2022-01-08 05:30] LABS: Absolute Lymphocytes (CBC) 2.2 K/uL (0.7-4.9); Hematocrit 41.6 % (36.0-45.0); Lymphocytes % 44.8 % (15.3-44.8); MPV 8.9 fL (7.6-11.3); RBC Red Blood Cell Count 4.53 M/uL (3.86-4.86)
[2022-01-08 05:41] LABS: ALT/SGPT 20 U/L (12-78); AST/SGOT 9 U/L (15-37); Albumin 4.1 g/dL (3.4-5.0); Alkaline Phosphatase 89 U/L (45-117); BUN Blood Urea Nitrogen 12 mg/dL (7-18); Bicarbonate 25 mmol/L (21-32); Bilirubin Total 0.2 mg/dL (0.2-1.0); Glucose Level 135 mg/dL (74-106); Potassium 4.1 mmol/L (3.5-5.1); Protein, Total 8.1 g/dL (6.4-8.2); Sodium Level 138 mmol/L (136-145); Uric Acid 4.4 mg/dL (2.6-6.0)
--- NOTE | 2022-01-08 05:55 | EDPHYS ---
Physician Documentation [facility] Name: Petra Santos Age: 56 yrs Sex: Female : 1965 Arrival Date: 01/08/2022 Time: 04:35 Bed 13 Private MD: ED Physician Casey Golden HPI: 01/08 04:58 This 56 yrs old Black Female presents to ER via Ambulatory with complaints of Arm Pain. lor 04:58 The patient or guardian complains of decreased range of motion, pain. The complaints lor affect the left wrist. Context: The problem was sustained at home, resulted from. Onset: The symptoms/episode began/occurred 3 day(s) ago. Treatment prior to arrival includes: no previous treatment. Modifying factors: The symptoms are alleviated by remaining still, the symptoms are aggravated by movement. Severity of symptoms: At their worst the symptoms were moderate, in the emergency department the symptoms are unchanged. The patient has not experienced similar symptoms in the past. Historical: - PMHx: 04:57 Diabetes - NIDDM; Hypertension; al4 - Immunization history:: Adult Immunizations up to date, Client reports receiving the 2nd dose of the Covid vaccine, Flu vaccine is up to date. - Family history:: not pertinent. - Social history:: Smoking status: Patient denies any tobacco usage or history of. ROS: 04:58 Constitutional: Negative for fever, chills, and weight loss, Eyes: Negative for injury, lor pain, redness, and discharge, ENT: Negative for injury, pain, and discharge, Neck: Negative for injury, pain, and swelling, Cardiovascular: Negative for chest pain, palpitations, and edema, Respiratory: Negative for shortness of breath, cough, wheezing, and pleuritic chest pain, Abdomen/GI: Negative for abdominal pain, nausea, vomiting, diarrhea, and constipation, Back: Negative for injury and pain, : Negative for injury, bleeding, discharge, and swelling, Skin: Negative for injury, rash, and discoloration, Neuro: Negative for headache, weakness, numbness, tingling, and seizure, Psych: Negative for depression, anxiety, suicide ideation, homicidal ideation, and hallucinations, Allergy/Immunology: Negative for hives, rash, and allergies, Endocrine: Negative for neck swelling, polydipsia, polyuria, polyphagia, and marked weight changes, Hematologic/Lymphatic: Negative for swollen nodes, abnormal bleeding, and unusual bruising. 04:58 MS/extremity: Positive for decreased range of motion, pain, swelling, tenderness, of the lateral aspect of left wrist, medial aspect of left wrist, dorsal aspect of left wrist and palmar aspect of left wrist. Exam: 04:58 Constitutional: This is a well developed, well nourished patient who is awake, alert, lor and in no acute distress. Head/Face: Normocephalic, atraumatic. Eyes: Pupils equal round and reactive to light, extra-ocular motions intact. Lids and lashes normal. Conjunctiva and sclera are non-icteric and not injected. Cornea within normal limits. Periorbital areas with no swelling, redness, or edema. ENT: Nares patent. No nasal discharge, no septal abnormalities noted. Tympanic membranes are normal and external auditory canals are clear. Oropharynx with no redness, swelling, or masses, exudates, or evidence of obstruction, uvula midline. Mucous membranes moist. Neck: Trachea midline, no thyromegaly or masses palpated, and no cervical lymphadenopathy. Supple, full range of motion without nuchal rigidity, or vertebral point tenderness. No Meningismus. Chest/axilla: Normal chest wall appearance and motion. Nontender with no deformity. No lesions are appreciated. Cardiovascular: Regular rate and rhythm with a normal S1 and S2. No gallops, murmurs, or rubs. Normal PMI, no JVD. No pulse deficits. Respiratory: Lungs have equal breath sounds bilaterally, clear to auscultation and percussion. No rales, rhonchi or wheezes noted. No increased work of breathing, no retractions or nasal flaring. Abdomen/GI: Soft, non-tender, with normal bowel sounds. No distension or tympany. No guarding or rebound. No evidence of tenderness throughout. Back: No spinal tenderness. No costovertebral tenderness. Full range of motion. Skin: Warm, dry with normal turgor. Normal color with no rashes, no lesions, and no evidence of cellulitis. Neuro: Awake and alert, GCS 15, oriented to person, place, time, and situation. Cranial nerves II-XII grossly intact. Motor strength 5/5 in all extremities. Sensory grossly intact. Cerebellar exam normal. Normal gait. Psych: Awake, alert, with orientation to person, place and time. Behavior, mood, and affect are within normal limits. 04:58 Musculoskeletal/extremity: Extremities: grossly normal except: noted in the lateral aspect of left wrist, medial aspect of left wrist, dorsal aspect of left wrist and palmar aspect of left wrist: decreased ROM, pain. Vital Signs: 04:53 BP 153 / 90; Pulse 74; Resp 16 S; Temp 98.5; Pulse Ox 99% on R/A; al4 06:16 BP 129 / 85; Pulse 74; Resp 16 S; Pulse Ox 96% on R/A; al4 MDM: 04:45 Patient medically screened. [facility] 05:02 Differential diagnosis: closed fracture, contusion, tendonitis. Data reviewed: vital lor signs, nurses notes, lab test result(s), radiologic studies, plain films. Data interpreted: youth nutritional monitor: rhythm is regular, Pulse oximetry: on room air is 99 %. Test interpretation: by ED physician or midlevel provider: plain radiologic studies. Counseling: I had a detailed discussion with the patient and/or guardian regarding: the historical points, exam findings, and any diagnostic results supporting the discharge/admit diagnosis, lab results, radiology results, the need for outpatient follow up, for definitive care, 01/08 04:58 Order name: CBC with Diff; Complete Time: 05:50 [facility] 01/08 04:58 Order name: Comprehensive Metabolic Panel; Complete Time: 05:50 [facility] 01/08 04:58 Order name: Uric Acid; Complete Time: 05:50 [facility] 01/08 04:58 Order name: Wrist Left (3 View) XRAY [facility] 01/08 04:58 Order name: Splint - Volar Wrist Splint: COCK UP; Complete Time: 05:26 [facility] 01/08 05:50 Order name: Ice pack; Complete Time: 06:04 [facility] Administered Medications: 05:18 Drug: SOLU-Medrol (methylPrednisoLONE) 125 mg Route: IVP; Site: right antecubital; al4 06:15 Follow up: Response: No adverse reaction al4 05:19 Drug: NS 0.9% 500 ml Route: IV; Rate: bolus; Site: right antecubital; al4 06:15 Follow up: IV Status: Completed infusion; IV Intake: 500ml al4 05:19 Drug: Ketorolac 30 mg Route: IVP; Site: right antecubital; al4 06:15 Follow up: Response: No adverse reaction al4 06:04 Drug: predniSONE 40 mg Route: PO; al4 06:15 Follow up: Response: No adverse reaction al4 Disposition Summary: 01/08/22 05:54 Discharge Ordered Location: Home [facility] Problem: new lor Symptoms: have improved lor Condition: Stable lor Diagnosis - Pain in left wrist - INFLAMATORY lor - Type 2 diabetes mellitus with hyperglycemia lor Followup: lor - With: Private Physician - When: 2 - 3 days - Reason: Recheck today's complaints, Continuance of care, Re-evaluation by your physician Followup: lor - With: Blas Dupree MD - When: 2 - 3 days - Reason: Recheck today's complaints, Re-evaluation by your physician Discharge Instructions: - Discharge Summary Sheet lor - Joint Pain lor - Arthritis lor - Musculoskeletal Pain lor - Wrist Pain, Adult lor - Blood Glucose Monitoring, Adult lor - Wrist Pain, Adult, [id number] lor - Arthritis, [id number] [facility] - How to Use Cold Therapy [facility] Forms: - Medication Reconciliation Form [facility] - Thank You Letter [facility] - Antibiotic Education [facility] - Prescription Opioid Use [facility] Prescriptions: - Diclofenac Sodium 75 mg Oral tablet,delayed release (DR/EC) - take 1 tablet by ORAL route 2 times per day; 14 tablet; Refills: 0, Product [facility] Selection Permitted - Prednisone 20 mg Oral Tablet - take 2 tablets by ORAL route once daily for 5 days; 10 tablet; Refills: 0, [facility] Product Selection Permitted - Tylenol-Codeine #3 300 mg-30 mg Oral - take 2 tablet by ORAL route every 6 hours; 20 tablet; Refills: 0, Product [facility] Selection Permitted Signatures: Dispatcher [employer] Casey Lerma MD MD cha Ledbetter, Alexis al4
--- NOTE | 2022-01-08 05:55 | ER ---
Nurse's Notes [facility] Name: Petra Santos Age: 56 yrs Sex: Female : 1965 Arrival Date: 01/08/2022 Time: 04:35 Bed 13 Private MD: Diagnosis: Pain in left wrist-INFLAMATORY ;Type 2 diabetes mellitus with hyperglycemia Presentation: 01/08 04:53 Chief complaint: Patient states: L wrist pain since yesterday. Coronavirus screen: al4 Vaccine status: Patient reports receiving the 2nd dose of the covid vaccine. moderna. Ebola Screen: No symptoms or risks identified at this time. Initial Sepsis Screen: Does the patient meet any 2 criteria? No. Patient's initial sepsis screen is negative. Does the patient have a suspected source of infection? No. Patient's initial sepsis screen is negative. Risk Assessment: Do you want to hurt yourself or someone else? Patient reports no desire to harm self or others. Onset of symptoms was January 07, 2022. 04:53 Method Of Arrival: Ambulatory al4 04:53 Acuity: MARKIE 3 al4 Triage Assessment: 04:57 General: Appears in no apparent distress. uncomfortable, Behavior is calm, cooperative. al4 Pain: Complains of pain in left wrist and left hand. Neuro: Level of Consciousness is awake, alert, obeys commands, Oriented to person, place, time, situation. Cardiovascular: Capillary refill < 3 seconds Patient's skin is warm and dry. Musculoskeletal: Circulation, motion, and sensation intact. Historical: - PMHx: 04:57 Diabetes - NIDDM; Hypertension; al4 - Immunization history:: Adult Immunizations up to date, Client reports receiving the 2nd dose of the Covid vaccine, Flu vaccine is up to date. - Family history:: not pertinent. - Social history:: Smoking status: Patient denies any tobacco usage or history of. Screenin:59 Abuse screen: Denies threats or abuse. Nutritional screening: No deficits noted. al4 Tuberculosis screening: No symptoms or risk factors identified. Fall Risk None identified. Assessment: 04:59 Reassessment: see triage assessment. al4 05:26 Reassessment: Splint applied by TIRSO Alaniz. al4 05:26 Reassessment: Patient is alert, oriented x 3, equal unlabored respirations, skin al4 warm/dry/pink. Patient states symptoms have improved. 06:15 Reassessment: Patient and/or family updated on plan of care and expected duration. Pain al4 level reassessed. Patient is alert, oriented x 3, equal unlabored respirations, skin warm/dry/pink. Patient states symptoms have improved. Vital Signs: 04:53 BP 153 / 90; Pulse 74; Resp 16 S; Temp 98.5; Pulse Ox 99% on R/A; al4 06:16 BP 129 / 85; Pulse 74; Resp 16 S; Pulse Ox 96% on R/A; al4 ED Course: 04:35 Patient arrived in ED. [email or web address] 04:39 Jose Richards is Primary Nurse. al4 04:45 Casey Golden MD is Attending Physician. lor 04:57 Triage completed. al4 04:57 Arm band placed on. al4 04:59 Patient has correct armband on for positive identification. Bed in low position. al4 05:16 Wrist Left (3 View) XRAY In Process Unspecified. EDMS 05:36 Inserted saline lock: 20 gauge in right ,using aseptic technique. by Lilian Grover RN Blood al4 collected. 05:53 Blas Dupree MD is Referral Physician. lor 06:15 No provider procedures requiring assistance completed. IV discontinued, intact, al4 bleeding controlled, No redness/swelling at site. Pressure dressing applied. Administered Medications: 05:18 Drug: SOLU-Medrol (methylPrednisoLONE) 125 mg Route: IVP; Site: right antecubital; al4 06:15 Follow up: Response: No adverse reaction al4 05:19 Drug: NS 0.9% 500 ml Route: IV; Rate: bolus; Site: right antecubital; al4 06:15 Follow up: IV Status: Completed infusion; IV Intake: 500ml al4 05:19 Drug: Ketorolac 30 mg Route: IVP; Site: right antecubital; al4 06:15 Follow up: Response: No adverse reaction al4 06:04 Drug: predniSONE 40 mg Route: PO; al4 06:15 Follow up: Response: No adverse reaction al4 Intake: 06:15 IV: 500ml; Total: 500ml. al4 Outcome: 05:54 Discharge ordered by . lor 06:15 Discharged to home ambulatory, with family. al4 06:15 Condition: stable 06:15 Discharge instructions given to patient, family, Instructed on discharge instructions, follow up and referral plans. medication usage, Demonstrated understanding of instructions, follow-up care, medications, Prescriptions given X 3. 06:17 Patient left the ED. al4 Signatures: Dispatcher [employer] EDMO Casey Golden MD MD cha Clark, Kasey [email or web address] Jose Richards al4 Corrections: (The following items were deleted from the chart) 06:17 06:15 Reassessment: Patient and/or family updated on plan of care and expected al4 duration. Pain level reassessed. Patient is alert, oriented x 3, equal unlabored respirations, skin warm/dry/pink. al4
[2022-01-08] MEDS ORDERED: predniSONE 20 MG TAB ONE (06:05)
[2022-01-08 06:32] VITALS: TEMP 98.5
[2022-01-08 06:33] VITALS: BP 129/85; O2SAT 96
--- NOTE | 2022-01-08 10:58 | RAD REPORT ---
EXAM DESCRIPTION: RAD - Wrist Left 3 View - 01/08/2022 5:14 am CLINICAL HISTORY: 56 years Female PAIN TECHNIQUE: Three x-ray views of the left wrist were performed on 01/08/2022 at 5:09 AM. COMPARISON: None FINDINGS: There is no evidence of fracture or dislocation. There are very mild degenerative changes of the first carpal metacarpal joint and intercarpal joints. No focal lytic or sclerotic bone lesions are seen. Bone mineralization is normal. No acute soft tissue abnormalities are identified. IMPRESSION: No evidence of acute osseous injury involving the left wrist. There are very mild degene rative changes of the left wrist. Electronically signed by: Alvina Salazar DO 01/08/2022 5:55 AM CDT Due to temporary technical issues with the PACS/Fluency reporting system, reports are being signed by the in house radiologist without review as a courtesy to ensure prompt reporting. The interpreting r adiologist is fully responsible for the content of the report.
== END 2022-01-08 06:17 | disposition home or self-care (01) ==
LOC: ER 04:33
DX: M25.532 Pain in left wrist (principal); E11.65 Type 2 diabetes mellitus with hyperglycemia; I10 Essential (primary) hypertension
CPT/HCPCS: 96361; 85025; 36415; 84550; 80053; 73110; 96375; 96374; 99284; J7512; J7040; J2930

== ENCOUNTER 2022-02-15 09:38 | Emergency (ER) | payer BC ==
--- OUTSIDE RECORDS SUMMARY | 2022-02-15 09:42 | XMS REPORT | Continuity of Care Document ---
:[address] [facility] t Address Formerly [facility] [place] [address] Care Team Providers Name Role Phone Reilly [...] Tobacco use and 2021-02-13 2021-02-13 Never used US PREVENTIVE MEDICINE llege exposure 00:00:00 00:00:00 of Medicine History [facility] 2019-11-08 2019-11-08 2 Gerard Radario ge Alcohol Frequency 00:00:00 00:00:00 of Medi cine History [facility] 2019-11-08 2019-11-08 1 [facility] Radario jadiel Alcohol Std Drinks 00:00:00 00:00:00 of Med icine History [facility] 2019-11-08 2019-11-08 1 [facility] Radario ge Alcohol Binge 00:00:00 00:00:00 of Medicine [birth year] [facility] [employer] 00:00:00 00:00:00 of Medicine Smoking Status Start Date Stop Date Source Never smoker [facility] o f Medicine Medications Ordered Filled Start Stop Current Ordering Indication Dosage Frequency Signature Comments Components Source Medication Medication Date Date Medication? Clinician (SIG) Name Name metformin Yes 500mg Take 500 [place] [facility] (GLUCOPHAGE 5-06 mg by Peterson -XR) 500 MG 15:38: mouth. of XR tablet 22 Medicin e Empaglifloz Yes 25mg Take 25 mg Gerard in 5-06 by mouth Peterson (ANDREADIANCE) 15:38: daily. of 25 MG TABS 22 Medicin e Sitagliptin Yes 100mg Take 100 [place] [facility] Phosphate 5-06 mg by Peterson (LYNDAIA) 15:38: mouth of 100 MG TABS 22 daily. Medici n e losartan Yes 100mg Take 100 [facility] (COZAAR) 5-06 mg by Peterson 100 MG 15:38: mouth of tablet 22 daily. Medicin e atorvastati Yes 40mg Take 40 mg [facility] n (LIPITOR) 5-06 by mouth Rafaela ege 40 MG 15:38: daily. of tablet 22 Medicin e methimazole Yes 10mg Take 1 [facility] or (TAPAZOLE) 4-02 Tablet by Rafaela ege 10 MG 00:00: mouth of tablet 00 daily. Medicin e metformin Yes 500mg Take 500 [place] yanelis (GLUCOPHAGE 3-31 mg by Peterson -XR) 500 MG 13:44: mouth. of XR tablet 09 Medicin e Empaglifloz Yes 25mg Take 25 mg [facility] in 3-31 by mouth Peterson (JARDIANCE) 13:44: daily. of 25 MG TABS 09 Medicin e Sitagliptin Yes 100mg Take 100 [facility] [place] Phosphate 3-31 mg by Peterson (JANUVIA) 13:44: mouth of 100 MG TABS 09 daily. Medici n e losartan 0 Yes 100mg Take 100 [facility] (COZAAR) 3-31 mg by Peterson 100 MG 13:44: mouth of tablet 09 daily. Medicin e atorvastati Yes 40mg Take 40 mg [facility] n (LIPITOR) 3-31 by mouth Rafaela ege [...] e metformin 2020-0 Yes 500mg Take 500 [place] yanelis (GLUCOPHAGE 2-13 mg by Peterson -XR) 500 MG 19:48: mouth. of XR tablet 23 Medicin e Empaglifloz 2020-0 Yes 25mg Take 25 mg Gerard in 2-13 by mouth Peterson ([facility]) 19:48: daily. of 25 MG TABS 23 Medicin e Sitagliptin 2020-0 Yes 100mg Take 100 [place] Phosphate 2-13 mg by Peterson ([facility]) 19:48: mouth of 100 MG TABS 23 daily. Medici n e losartan 2020-0 Yes 100mg Take 100 [facility] (COZAAR) 2-13 mg by Peterson 100 MG 19:48: mouth of tablet 23 daily. Medicin e atorvastati 2020-0 Yes 40mg Take 40 mg Gerard n (LIPITOR) 2-13 by mouth Rafaela ege 40 MG 19:48: daily. of tablet 23 Medicin e atenolol 2020-0 Yes 25mg Take 1 Tab [place] y[facility]elis (TENORMIN) 2-13 by mouth Colle ge 25 MG 00:00: daily. of tablet 00 Medicin e atenolol 2020-0 Yes 25mg Take 1 Tab [place] yanelis (TENORMIN) 2-13 by mouth Colle ge 25 MG 00:00: daily. of tablet 00 Medicin e atenolol 2020-0 Yes 25mg Take 1 Tab [place] yanelis (TENORMIN) 2-13 by mouth Colle ge 25 MG 00:00: daily. of tablet 00 Medicin e Empaglifloz 2020-0 Yes 25mg Take 25 mg [facility] in 1-29 by mouth Peterson ([facility] 15:21: daily. of 25 MG TABS 19 Medicin e Sitagliptin 2020-0 Yes 100mg Take 100 [place] Phosphate 1-29 mg by Peterson ([facility] 15:21: mouth of 100 MG TABS 19 daily. Medici n e losartan 2020-0 Yes 100mg Take 100 [facility] or (COZAAR) 1-29 mg by Peterson 100 MG 15:21: mouth of tablet 19 daily. Medicin e atorvastati 2019-0 Yes 40mg Take 40 mg Gerard n (LIPITOR) 1-29 by mouth Rafaela ege 40 MG 15:21: daily. of tablet 19 Medicin e metformin 2019-0 Yes 500mg Take 500 [place] yanelis (GLUCOPHAGE 1-29 mg by Peterson -XR) 500 MG 15:21: mouth. of XR tablet 19 Medicin e Januvia Januvia Yes Hamzah 1 tablet N PI:174 3-13 Tate [id number] 00:00: 00 Jardiance Jardiance 2017-10 2020- No Hamzah TK 1 T PO NPI:174 2-13 12 Tate QD [id number] 00:00: 00:00 00 :00 MetFORMIN MetFORMIN Yes Hamzah 2 tablet NPI:174 HCl ER HCl ER Tate with [id number] evening meal Atorvastati Atorvastati Yes Hamzah 1 tablet NPI:174 n Calcium n Calcium Tate 0485 879 Losartan Losartan Yes Hamzah 1 tablet N PI:174 Potassium Potassium Tate 0485 879 Atenolol Atenolol Yes Hamzah TK 1 T PO NPI:174 Tate D [id number] Losartan Losartan Yes Hamzah 1 tablet N PI:174 Potassium Potassium Tate 0485 879 Methimazole Methimazole Yes Hamzah 1 tablet NPI:174 Tate with food [id number] Jasonuvia Jasonuvia Yes Hamzah 1 tablet NPI :174 Tate [id number] Immunizations Ordered Immunization Filled Immunization Date Status Commen ts Source Name Name TDAP > 7 TDAP > 7 2019-01-18 Completed Years-Adacel Years-Adacel 00:00:00 Vital Signs Vital Name Observation Time Observation Value Comments Source Systolic blood 2021-02-13 15:34:00 120 mm[Hg] [facility] pressure Medicine Diastolic blood 2021-02-13 15:34:00 78 mm[Hg] [facility] Medicine Heart rate 2021-02-13 15:34:00 80 /min [facility] Respiratory rate 2021-02-13 15:34:00 18 /min [facility] Body height 2021-02-13 15:34:00 172.7 cm [facility] C ollege of Medicine Body weight 2021-02-13 15:34:00 99.791 kg [facility] C ollege of Medicine BMI 2021-02-13 15:34:00 33.45 kg/m2 [facility] C ollege of Medicine Systolic blood 2021-01-08 13:38:00 128 mm[Hg] [facility] pressure Medicine Diastolic blood 2021-01-08 13:38:00 84 mm[Hg] [facility] Medicine Heart rate 2021-01-08 13:38:00 71 /min 02-100% [facility] C ollege of Medicine Body temperature 2021-01-08 13:38:00 36.83 Susan [facility] Body height 2021-01-08 13:38:00 172.7 cm [facility] C ollege of Medicine Body weight 2021-01-08 13:38:00 99.338 kg [facility] C ollege of Medicine BMI 2021-01-08 13:38:00 33.30 kg/m2 [facility] C ollege of Medicine Systolic blood 2019-11-23 19:44:00 122 mm[Hg] [facility] pressure Medicine Diastolic blood 2019-11-23 19:44:00 74 mm[Hg] [facility] Medicine Heart rate 2019-11-23 19:44:00 114 /min [facility] C ollege of Medicine Respiratory rate 2019-11-23 19:44:00 18 /min [facility] Body height 2019-11-23 19:44:00 172.7 cm [facility] C ol[facility] of Medicine Body weight 2019-11-23 19:44:00 94.802 kg [facility] C ol[facility] of Medicine BMI 2019-11-23 19:44:00 31.78 kg/m2 [facility] C ollege of Medicine Systolic blood 2019-11-23 19:44:00 122 mm[Hg] [facility] of pressure Medicine Diastolic blood 2019-11-23 19:44:00 74 mm[Hg] [facility] pressure Medicine Heart rate 2019-11-23 19:44:00 114 /min [facility] C ollege of Medicine Respiratory rate 2019-11-23 19:44:00 18 /min [facility] Body height 2019-11-23 19:44:00 172.7 cm [facility] ollege of Medicine Body weight 2019-11-23 19:44:00 94.802 kg [facility] ollege of Medicine BMI 2019-11-23 19:44:00 31.78 kg/m2 [facility] ollege of Medicine Respiratory rate 2019-11-08 15:21:00 16 /min [facility] Body height 2019-11-08 15:21:00 172.7 cm [facility] ollege of Medicine Body weight 2019-11-08 15:21:00 96.163 kg [facility] ollege of Medicine BMI 2019-11-08 15:21:00 32.23 kg/m2 [facility] ollege of Medicine Systolic blood 2019-11-08 15:21:00 151 mm[Hg] [facility] pressure Medicine Diastolic blood 2019-11-08 15:21:00 94 mm[Hg] [facility] pressure Medicine Heart rate 2019-11-08 15:21:00 84 /min [facility] ollege of Medicine Respiratory rate 2019-11-08 15:21:00 16 /min [facility] Body height 2019-11-08 15:21:00 172.7 cm [facility] ollege of Medicine Body weight 2019-11-08 15:21:00 96.163 kg [facility] ollege of Medicine BMI 2019-11-08 15:21:00 32.23 kg/m2 [facility] ollege of Medicine Systolic blood 2019-11-08 15:21:00 151 mm[Hg] [facility] pressure Medicine Diastolic blood 2019-11-08 15:21:00 94 mm[Hg] [facility] Medicine Heart rate 2019-11-08 15:21:00 84 [facility] This patient has no known procedures. Plan of Care Planned Activity Planned Date Details Comments Source Diagnostic Test 2021-02-20 US THYROID [code = Expected: [facility] Pending 00:00:00 19493] 02/20/2021, of Medicine Expires: 02/13/2022 Diagnostic Test 2021-02-07 TSH [code = 61511-0] Expected: [facility] Pending 00:00:00 02/07/2021, of Medicine Expires: 07/10/2021 Diagnostic Test 2021-02-07 T4 FREE [code = 3024-7] Expected: [facility] Pending 00:00:00 02/07/2021, of Medicine Expires: 07/10/2021 Diagnostic Test 2021-02-07 T3 [code = 3053-6] Expected: [facility] Pending 00:00:00 02/07/2021, of Medicine Expires: 07/10/2021 Diagnostic Test 2021-02-07 CBC W/O DIFF W PLT Expected: [facility] Pending 00:00:00 [code = 6690-2] 02/07/2021, of Medicine Expires: 07/10/2021 Diagnostic Test 2021-02-07 HEPATIC FUNCTION PANEL Expected: [facility] Pending 00:00:00 [code = 20257-0] 02/07/2021, of Medicine Expires: 07/10/2021 Diagnostic Test 2019-11-30 NM THERAPY ABLATION Expected: [facility] Pending 00:00:00 THYROID CANCER [code = 11/30/2019, of S[place] dicine [address]12] Expires: 05/23/2021 Diagnostic Test 2019-11-30 NM THYROID UPTAKE AND Expected: [facility] Pending 00:00:00 SCAN MULITPLE [code = 11/30/2019, [place] [facility] [place] [address]] Expires: 11/22/2020 Future Scheduled TSH [code = 22157-9] Ordered: [facility] Test 02/13/2021 of [facility] Future Scheduled T4 FREE [code = 3024-7] Ordered: [facility] Test 02/13/2021 of Medicine Future Scheduled T3 [code = 3053-6] Ordered: [facility] r Peterson Test 02/13/2021 of Medicine Future Scheduled CBC W/AUTO DIFF WITH Ordered: [facility] Test PLATELETS [code = 02/13/2021 of Medicin e 15945-4] Future Scheduled HEPATIC FUNCTION PANEL Ordered: [facility] Test [code = 31734-9] 02/13/2021 of Medicine Future Scheduled Screening for malignant [facility] Test neoplasm of colon of Medicin e (procedure) [code = 803154023] Future Scheduled Screening for malignant [employer] Test neoplasm of breast of Medici ne (procedure) [code = 606170478] Future Scheduled COVID-19 Vaccine (1) [place] [facility] [employer] Test [code = COVID-19 of Medicine Vaccine (1)] Future Scheduled BMI FOLLOW UP PLAN [employer] Test [code = BMI FOLLOW UP of Med icine PLAN] Future Scheduled Hepatitis C screening [employer] Test (procedure) [code = of Medic ine 240607507] Future Scheduled Human immunodeficiency [facility] [employer] Test virus screening of Medicine (procedure) [code = 261701382] Future Scheduled Screening for malignant [facility] [employer] Test neoplasm of cervix of Medici ne (procedure) [code = 677951783] Future Scheduled ZOSTER VACCINE (1 of 2) [facility] Test [code = ZOSTER VACCINE of Me dicine (1 of 2)] Future Scheduled FLU VACCINE > 6 MONTHS [employer] Test [code = FLU VACCINE > 6 of M edicine MONTHS] Future Scheduled TETANUS SHOT (ADULT) [place] [employer] Test [code = TETANUS SHOT of Medi cine (ADULT)] Future Scheduled TSH [code = 78881-8] Ordered: [place] [facility] [employer] Test 11/08/2019 of Medicine Future Scheduled T4 FREE [code = 3024-7] Ordered: [facility] [employer] Test 11/08/2019 of Medicine Future Scheduled T3 [code = 3053-6] Ordered: [employer] Test 11/08/2019 of Medicine Future Scheduled CBC W/AUTO DIFF WITH Ordered: [place] [facility] [employer] Test PLATELETS [code = 11/08/2019 of Medicin e 39976-8] Future Scheduled HEPATIC FUNCTION PANEL Ordered: [employer] Test [code = 13835-1] 11/08/2019 of Medicine Future Scheduled COLON CANCER SCREENING: [facility] [employer] Test COLONOSCOPY [code = of Medic ine COLON CANCER SCREENING: COLONOSCOPY] Future Scheduled MAMMOGRAM ANNUAL [code [employer] Test = MAMMOGRAM ANNUAL] of Medic ine Future Scheduled TETANUS SHOT (ADULT) [place] [employer] Test [code = TETANUS SHOT of Medi cine (ADULT)] Future Scheduled HEPATITIS C SCREENING [employer] Test [code = HEPATITIS C of Medic ine SCREENING] Future Scheduled HIV SCREENING [code = [employer] Test HIV SCREENING] of Medicine Future Scheduled CERVICAL CANCER [facility] C ollege Test SCREENING 3 YEAR FOLLOW of M edicine UP [code = CERVICAL CANCER SCREENING 3 YEAR FOLLOW UP] Future Scheduled FLU VACCINE > 6 MONTHS [employer] Test [code = FLU VACCINE > 6 of M edicine MONTHS] Future Scheduled COLON CANCER SCREENING: [facility] [employer] Test COLONOSCOPY [code = of Medic ine COLON CANCER SCREENING: COLONOSCOPY] Future Scheduled MAMMOGRAM ANNUAL [code [facility] [employer] Test = MAMMOGRAM ANNUAL] of Medic ine Future Scheduled TETANUS SHOT (ADULT) [place] [employer] Test [code = TETANUS SHOT [...] SCREENING] of Medicine Future Scheduled CERVICAL CANCER [facility] C ollege Test SCREENING 3 YEAR FOLLOW of M edicine UP [code = CERVICAL CANCER SCREENING 3 YEAR FOLLOW UP] Future Scheduled FLU VACCINE > 6 MONTHS [employer] Test [code = FLU VACCINE > 6 of M edicine MONTHS] Future Scheduled TSH [code = 83975-5] Ordered: [place] [facility] Test 01/08/2021 of Medicine Future Scheduled T4 FREE [code = 3024-7] Ordered: [employer] Test 01/08/2021 of Medicine Future Scheduled T3 [code = 3053-6] Ordered: [employer] Test 01/08/2021 of Medicine Future Scheduled THYROTROPIN RECEPTOR,AB Ordered: [facility] Test [code = 14641-9] 01/08/2021 of Medicine Future Scheduled Screening for malignant [facility] [employer] Test neoplasm of colon of Medicin e (procedure) [code = 791545854] Future Scheduled Screening for malignant [employer] Test neoplasm of breast of Medici ne (procedure) [code = 194981736] Future Scheduled COVID-19 Vaccine (1) [place] [facility] Test [code = COVID-19 of Medicine Vaccine (1)] Future Scheduled BMI FOLLOW UP PLAN [employer] Test [code = BMI FOLLOW UP of Med icine PLAN] Future Scheduled Hepatitis C screening [employer] Test (procedure) [code = of Medic ine 814386559] Future Scheduled Human immunodeficiency [facility] Test virus screening of Medicine (procedure) [code = 386029641] Future Scheduled Screening for malignant [employer] Test neoplasm of cervix of Medici ne (procedure) [code = 038868455] Future Scheduled ZOSTER VACCINE (1 of 2) [facility] Test [code = ZOSTER VACCINE of Me dicine (1 of 2)] Future Scheduled FLU VACCINE > 6 MONTHS [facility] Test [code = FLU VACCINE > 6 of M edicine MONTHS] Future Scheduled TETANUS SHOT (ADULT) [facility] Test [code = TETANUS SHOT of Medi cine (ADULT)] Encounters Start End Encounter Admission Attending Care Care Encounter Source Date/Time Date/Time Type Type Clinicians Facility Department ID 2022-01-12 Outpatient Tate, STLMLC STLMLC [id number] NPI:174 11:26:00 Hamzah [id number] 2022-01-08 Outpatient Tate, STLMLC STLMLC [id number] NPI:174 14:36:01 Hamzah [id number] 2021-11-18 Outpatient Tate, STLMLC STLC [id number] NPI:174 08:20:00 Hamzah [id number] 2021-11-05 Outpatient Tate, STLMLC STLC [id number] NPI:174 14:36:06 Hamzah [id number] 2021-11-05 Outpatient Tate, STLMLC STLMLC [id number] NPI:174 14:17:17 Hamzah [id number] 2021-11-05 Outpatient Tate, STLMLC STLC [id number] NPI:174 14:14:45 Hamzah [id number] 2021-11-05 Outpatient Tate, STLMLC STLC [id number] NPI:174 14:06:34 Hamzah [id number] 2021-11-05 Outpatient Tate, STLMLC STLC [id number] NPI:174 12:55:42 Hamzah [id number] 2021-11-05 Outpatient Tate, STLMLC STLMLC [id number] NPI:174 12:37:56 Hamzah [id number] 2021-11-05 Outpatient Tate, STLMLC STLC [id number] NPI:174 12:13:40 Hamzah [id number] 2021-11-05 Outpatient Tate, STLMLC STLMLC [id number] NPI:174 12:13:15 Hamzah [id number] 2021-11-05 Outpatient Tate, STLMLC STLMLC [id number] NPI:174 11:45:08 [facility] [id number] 2021-11-05 Outpatient Tate, STLMLC STLMLC [id number] NPI:174 11:13:35 [facility] [id number] 2022-02-13 2022-02-13 ambulatory STLMLC STLMLC [id number] NPI:174 00:00:00 00:00:00 [id number] 2022-01-21 2022-01-21 ambulatory STLMLC STLMLC [id number] NPI:174 00:00:00 00:00:00 [id number] 2022-01-20 2022-01-20 ambulatory STLMLC STLMLC [id number] NPI:174 00:00:00 00:00:00 [id number] 2022-01-15 2022-01-15 ambulatory STLMLC STLMLC [id number] NPI:174 00:00:00 00:00:00 [id number] 2022-01-12 2022-01-12 ambulatory STLMLC STLMLC [id number] NPI:174 00:00:00 00:00:00 [id number] 2022-01-12 2022-01-12 ambulatory STLMLC STLMLC [id number] NPI:174 00:00:00 00:00:00 [id number] 2022-01-08 2022-01-08 ambulatory STLMLC STLMLC [id number] NPI:174 00:00:00 00:00:00 [id number] 2021-12-23 2021-12-23 ambulatory STLMLC STLMLC [id number] NPI:174 00:00:00 00:00:00 [id number] 2021-12-12 2021-12-12 ambulatory STLMLC STLMLC [id number] NPI:174 00:00:00 00:00:00 [id number] 2021-12-09 2021-12-09 ambulatory STLMLC STLMLC [id number] NPI:174 00:00:00 00:00:00 [id number] 2021-12-09 2021-12-09 ambulatory STLMLC STLMLC [id number] NPI:174 00:00:00 00:00:00 [id number] 2021-12-04 2021-12-04 ambulatory STLMLC STLMLC [id number] NPI:174 00:00:00 00:00:00 [id number] 2021-11-18 2021-11-18 ambulatory STLMLC STLMLC [id number] NPI:174 00:00:00 00:00:00 [id number] 2021-11-18 2021-11-18 ambulatory STLMLC STLMLC [id number] NPI:174 00:00:00 00:00:00 [id number] 2021-11-13 2021-11-13 ambulatory STLMLC STLMLC [id number] NPI:174 00:00:00 00:00:00 [id number] 2021-11-04 2021-11-04 ambulatory STLMLC STLMLC [id number] NPI:174 00:00:00 00:00:00 [id number] 2021-10-29 2021-10-29 ambulatory STLMLC STLMLC [id number] NPI:174 00:00:00 00:00:00 [id number] 2021-10-27 2021-10-27 ambulatory STLMLC STLMLC [id number] NPI:174 00:00:00 00:00:00 [id number] 2021-10-27 2021-10-27 ambulatory STLMLC STLMLC [id number] NPI:174 00:00:00 00:00:00 [id number] 2021-09-09 2021-09-09 ambulatory STLMLC STLMLC [id number] NPI:174 00:00:00 00:00:00 [id number] 2021-09-02 2021-09-02 ambulatory STLMLC STLMLC [id number] NPI:174 00:00:00 00:00:00 [id number] 2021-08-07 2021-08-07 Outpatient STLMLC STLMLC [id number] NPI:174 00:00:00 00:00:00 [id number] 2021-06-04 2021-06-04 Outpatient STLMLC STLMLC [id number] NPI:174 00:00:00 00:00:00 [id number] 2021-05-29 2021-05-29 Outpatient STLMLC STLMLC [id number] NPI:174 00:00:00 00:00:00 [id number] 2021-05-14 2021-05-14 Outpatient STLMLC STLMLC [id number] NPI:174 00:00:00 00:00:00 [id number] 2021-02-13 2021-02-13 Office Eloise Bonilla [facility] [id number] [facility] 10:34:01 11:04:01 Visit AMBULATOR 350.1.13.21 College Y 0.2.7.2.686 of [id number] [facility] 310 e 2021-01-27 2021-01-27 Outpatient STLMLC STLMLC [id number] NPI:174 00:00:00 00:00:00 [id number] 2021-01-08 2021-01-08 Office [facility] [id number] [facility] 08:06:55 08:36:55 Visit Joshua 350.1.13.21 Co llege 0.2.7.2.686 of [id number] [facility] 560 e 2020-12-19 2020-12-19 Outpatient STLMLC STLMLC [id number] NPI:174 00:00:00 00:00:00 [id number] 9 2020-12-19 2020-12-19 Outpatient STLMLC STLMLC [id number] NPI:174 00:00:00 00:00:00 [id number] 2020-11-29 2020-11-29 Outpatient STLMLC STLMLC [id number] NPI:174 00:00:00 00:00:00 [id number] 2020-11-12 2020-11-12 Outpatient STLMLC STLMLC [id number] NPI:174 00:00:00 00:00:00 [id number] 2020-09-20 2020-09-20 Outpatient STLMLC STLMLC [id number] NPI:174 00:00:00 00:00:00 [id number] 9 2020-06-21 2020-06-21 [facility] [id number] NPI:174 11:20:00 11:20:00 [employer] [address] [place] [address] Family Medicine Medicine 2020-05-06 2020-05-06 [facility] [id number] NPI:174 10:35:00 10:35:[address] [facility] Medicine 2020-04-23 2020-04-23 [facility] [id number] NPI:174 13:40:00 13:40:00 t [facility] [address] [facility] Medicine 2020-04-22 2020-04-22 [facility] [id number] NPI:174 13:34:00 13:34:[address] [facility] Medicine 2020-03-26 2020-03-26 [facility] [id number] NPI:174 14:00:00 14:00:[address] [facility] Medicine 2020-03-14 2020-03-14 [facility] [id number] NPI:174 16:13:00 16:13:[address] [facility] Medicine 2020-01-15 2020-01-15 [facility] [id number] NPI:174 13:52:00 13:52:[address] [facility] Medicine 2019-12-25 2019-12-25 [facility] [id number] NPI:174 13:30:00 13:30:[address] [facility] Medicine 2019-11-23 2019-11-23 Office Eloise Bonilla [id number] 13:40:01 14:25:13 Visit AMBULATOR 350.1.13.21 Y 0.2.7.2.686 [id number] [facility] 2019-11-23 2019-11-23 Office Eloise Bonilla [id number] [facility] 13:40:01 14:25:13 Visit AMBULATOR 350.1.13.21 College Y 0.2.7.2.686 of [id number] [facility] 310 e 2019-11-08 2019-11-08 Office [facility] [id number] 09:15:27 09:45:27 Visit Joshua 350.1.13.21 0.2.7.2.686 [id number] [facility] 2019-11-08 2019-11-08 Office Eloise Bonilla [facility] [id number] [facility] 09:15:27 09:45:27 Visit Joshua 350.1.13.21 Co llege 0.2.7.2.686 of [id number] [place] [address] e 2019-09-27 2019-09-27 [facility] [id number] NPI:174 09:00:00 09:00:[address] [facility] Medicine Medicine 2019-09-22 2019-09-22 [facility] [id number] NPI:174 10:30:00 10:30:[address] [facility] Medicine Medicine 2019-09-15 2019-09-15 Outpatient [id number] NPI:174 08:21:00 08:21:[address] [facility] 2019-09-06 2019-09-06 [id number] NPI:174 08:11:00 08:11:[address] [facility] Medicine 2019-09-04 2019-09-04 [facility] [id number] NPI:174 08:03:00 08:03:[address] [facility] Medicine 2019-08-08 2019-08-08 [id number] NPI:174 11:00:00 11:00:[address] [facility] 2019-06-23 2019-06-23 [facility] [id number] NPI:174 09:30:00 09:30:[address] [facility] Medicine 2019-03-23 2019-03-23 [facility] [id number] NPI:174 09:00:00 09:00:[address] [facility] Medicine Medicine 2019-01-18 2019-01-18 [facility] [id number] NPI:174 11:00:00 11:00:[address] [facility] 2019-01-11 2019-01-11 [facility] [id number] NPI:174 10:00:00 10:00:[address] [facility] 2018-12-21 2018-12-21 [facility] [id number] NPI:174 13:15:00 13:15:[address] [facility] 2018-09-28 2018-09-28 [id number] NPI:174 11:18:00 11:18:[address] [facility] 2018-09-22 2018-09-22 [facility] [id number] NPI:174 14:45:00 14:45:[address] [facility] Results This patient has no known results.
[2022-02-15] MEDS ORDERED: KETOROLAC 30 MG/ML INJ ONE (10:18)
[2022-02-15] MEDS ORDERED: FAMOTIDINE 20 MG/2 ML VIAL IV ONE (10:18)
[2022-02-15] MEDS ORDERED: METHYLPREDNISOLONE 125 MG INJ ONE (10:18)
[2022-02-15 10:27] LABS: Absolute Lymphocytes (CBC) 2.3 K/uL (0.7-4.9); Hematocrit 41.1 % (36.0-45.0); Lymphocytes % 51.7 % (15.3-44.8); MPV 9.2 fL (7.6-11.3); RBC Red Blood Cell Count 4.49 M/uL (3.86-4.86)
--- NOTE | 2022-02-15 10:45 | RAD REPORT ---
EXAM DESCRIPTION: RAD - Hand Right 3 View - 02/15/2022 10:32 am CLINICAL HISTORY: Right hand pain FINDINGS: No fracture or dislocation is seen. Mild to moderate arthritis first DIP joint consisting joint space narrowing and osteophytes. There do es appear to be small erosions present.
[2022-02-15 10:57] LABS: BUN Blood Urea Nitrogen 9 mg/dL (7-18); Bicarbonate 27 mmol/L (21-32); Glucose Level 140 mg/dL (74-106); Potassium 3.9 mmol/L (3.5-5.1); Sodium Level 138 mmol/L (136-145); Uric Acid 3.5 mg/dL (2.6-6.0)
--- NOTE | 2022-02-15 11:09 | EDPHYS ---
Physician Documentation [facility] Name: Petra Santos Age: 56 yrs Sex: Female : 1965 Arrival Date: 02/15/2022 Time: 09:41 Bed 11 Private MD: ED Physician Casey Golden HPI: 02/15 10:00 This 56 yrs old Black Female presents to ER via Ambulatory with complaints of Thumb pm1 Swelling. 10:00 The patient or guardian reports pain, swelling. The complaints affect the right thumb. pm1 Context: resulted from an unknown cause. Onset: The symptoms/episode began/occurred 1 week(s) ago. Modifying factors: The symptoms are alleviated by nothing, the symptoms are aggravated by nothing. Associated signs and symptoms: Pertinent negatives: cyanosis distally, decreased sensation distally, fever, numbness distally, tingling distally. Severity of symptoms: in the emergency department the symptoms are unchanged. Left wrist swelling a few years ago. The patient has not recently seen a physician. Historical: - Allergies: :57 No Known Allergies; ph - PMHx: 09:59 Diabetes - NIDDM; Hypertension; ph - Immunization history:: Adult Immunizations unknown. - Social history:: Smoking status: Patient denies any tobacco usage or history of. ROS: 10:00 Constitutional: Negative for fever, chills, and weight loss, Cardiovascular: Negative pm1 for chest pain, palpitations, and edema, Respiratory: Negative for shortness of breath, cough, wheezing, and pleuritic chest pain. 10:00 Skin: Negative for injury, rash, and discoloration, Neuro: Negative for headache, weakness, numbness, tingling, and seizure. 10:00 MS/extremity: Positive for pain, swelling, tenderness, of the right thumb. 10:00 All other systems are negative. Exam: 10:00 Constitutional: This is a well developed, well nourished patient who is awake, alert, pm1 and in no acute distress. Head/Face: Normocephalic, atraumatic. 10:00 MS/ Extremity: Pulses equal, no cyanosis. Neurovascular intact. Full, normal range of motion. 10:00 Eyes: Exam is negative for acute changes, Periorbital structures: no acute changes, Extraocular movements: no acute changes. 10:00 ENT: Exam is negative for acute changes, Mouth: no acute changes, Lips: normal, moist, Oral mucosa: normal, pink and intact, moist. 10:00 Cardiovascular: Exam negative for acute changes, Rate: normal, Rhythm: regular, Pulses: no pulse deficits are appreciated, Heart sounds: normal, normal S1and S2. 10:00 Respiratory: Exam negative for acute changes, respiratory distress, shortness of breath. 10:00 Musculoskeletal/extremity: Extremities: grossly normal except: noted in the Right 1st metacarpophalangeal joint and Right 1st DIP: swelling, tenderness, There is no evidence of deformity, ecchymosis, erythema. 10:00 Neuro: Exam negative for acute changes, Orientation: is normal, Mentation: is normal, Motor: moves all fours. Vital Signs: 09:49 BP 145 / 90; Pulse 82; Resp 16; Temp 97.5; Pulse Ox 96% on R/A; Weight 102.06 kg; ph Height 5 ft. 8 in. (172.72 cm); 09:49 Body Mass Index 34.21 (102.06 kg, 172.72 cm) ph MDM: 09:51 Patient medically screened. pm1 11:07 Data reviewed: vital signs. Data interpreted: Pulse oximetry: on room air is 96 %. pm1 Interpretation: normal. 11:07 Counseling: I had a detailed discussion with the patient and/or guardian regarding: the pm1 historical points, exam findings, and any diagnostic results supporting the discharge/admit diagnosis, lab results, radiology results, the need for outpatient follow up, to return to the emergency department if symptoms worsen or persist or if there are any questions or concerns that arise at home. 02/15 09:59 Order name: Uric Acid; Complete Time: 12:44 pm1 02/15 09:59 Order name: CBC with Diff; Complete Time: 10:37 pm1 02/15 09:59 Order name: BMP; Complete Time: 12:44 pm1 02/15 10:02 Order name: Hand Right 3 View XRAY; Complete Time: 10:55 pm1 Administered Medications: 10:11 Not Given (Other Intervention Used): SOLU-Medrol (methylPREDNISolone sodium succinate) ss 125 mg IM once 10:11 Not Given (Other Intervention Used): Ketorolac 60 mg IM once ss 10:11 Not Given (Other Intervention Used): Pepcid (famotidine) 20 mg PO once ss 10:18 Drug: SOLU-Medrol (methylPrednisoLONE) 125 mg Route: IVP; Site: left forearm; ss 10:59 Follow up: Response: No adverse reaction ph 10:20 Drug: Pepcid (famotidine) 20 mg Route: IVP; Site: left forearm; ss 10:59 Follow up: Response: No adverse reaction ph 10:22 Drug: Ketorolac 30 mg Route: IVP; Site: left forearm; ss 10:59 Follow up: Response: No adverse reaction ph Disposition Summary: 02/15/22 11:09 Discharge Ordered Location: Home pm1 Problem: new pm1 Symptoms: have improved pm1 Condition: Stable pm1 Diagnosis - Osteoarthritis of first carpometacarpal joint, unspecified pm1 Followup: pm1 - With: Emergency Department - When: As needed - Reason: Worsening of condition Followup: pm1 - With: Private Physician - When: 2 - 3 days - Reason: Recheck today's complaints, Continuance of care, Re-evaluation by your physician Discharge Instructions: - Discharge Summary Sheet pm1 - Osteoarthritis pm1 - Arthritis, [id number] pm1 Forms: - Medication Reconciliation Form pm1 - Thank You Letter pm1 - Antibiotic Education pm1 - Prescription Opioid Use pm1 Prescriptions: - Mobic 7.5 mg Oral Tablet - take 1 tablet by ORAL route once daily take with food; 20 tablet; Refills: 0, pm1 Product Selection Permitted - Medrol (Jad) 4 mg Oral Tablets, Dose Pack - take 1 tablet by ORAL route as directed - follow package instructions; 1 pm1 packet; Refills: 0, Product Selection Permitted Signatures: Dispatcher [employer] Hazel Sparks RN RN Rosa Luis RN RN Gilbert Bearden, HAIR SPINNING MACHINE OPERATOR HAIR SPINNING MACHINE OPERATOR pm1
--- NOTE | 2022-02-15 11:09 | ER ---
Nurse's Notes [facility] Name: Petra Santos Age: 56 yrs Sex: Female : 1965 Arrival Date: 02/15/2022 Time: 09:41 Bed 11 Private MD: Diagnosis: Osteoarthritis of first carpometacarpal joint, unspecified Presentation: 02/15 09:49 Chief complaint: Patient states: Right thumb pain and swelling x 1 week, denies injury. ph Coronavirus screen: Vaccine status: Patient reports receiving the 2nd dose of the covid vaccine. Ebola Screen: No symptoms or risks identified at this time. Initial Sepsis Screen: Does the patient meet any 2 criteria? No. Patient's initial sepsis screen is negative. Does the patient have a suspected source of infection? No. Patient's initial sepsis screen is negative. Risk Assessment: Do you want to hurt yourself or someone else? Patient reports no desire to harm self or others. 09:49 Method Of Arrival: Ambulatory ph 09:49 Acuity: MARKIE 3 ph Triage Assessment: 09:59 General: Appears in no apparent distress. Behavior is calm, cooperative, appropriate ph for age, Denies fever. Pain: Complains of pain in dorsal aspect of distal phalanx of right thumb and dorsal aspect of proximal phalanx of right thumb. Neuro: Level of Consciousness is awake, alert, obeys commands, Oriented to person, place, time, situation. Cardiovascular: Capillary refill < 3 seconds in bilateral fingers Patient's skin is warm and dry. Respiratory: Airway is patent Respiratory effort is even, unlabored. Derm: Skin is intact, is healthy with good turgor, Skin is pink, warm \T\ dry. Musculoskeletal: Circulation, motion, and sensation intact. Range of motion: intact in all extremities. Historical: - Allergies: 09:59 No Known Allergies; ph - PMHx: 09:59 Diabetes - NIDDM; Hypertension; ph - Immunization history:: Adult Immunizations unknown. - Social history:: Smoking status: Patient denies any tobacco usage or history of. Screenin:01 Abuse screen: Denies threats or abuse. Denies injuries from another. Nutritional ph screening: No deficits noted. Tuberculosis screening: No symptoms or risk factors identified. Fall Risk None identified. Assessment: 10:23 General: Appears in no apparent distress. Behavior is calm, cooperative. Pain: ss Complains of pain in dorsal aspect of proximal phalanx of right thumb and dorsal aspect of distal phalanx of right thumb Pain currently is 8 out of 10 on a pain scale. Quality of pain is described as aching, tender, Is continuous. Neuro: Chambers Agitation-Sedation Scale (RASS): 0 - Alert and Calm Level of Consciousness is awake, alert, obeys commands, Oriented to person, place, time, situation. Cardiovascular: Capillary refill < 3 seconds is brisk in bilateral. Respiratory: Airway is patent Respiratory effort is even, unlabored, Respiratory pattern is regular, symmetrical. EENT: Nares are clear. Derm: Skin is pink, warm \T\ dry. normal. Musculoskeletal: Swelling present in dorsal aspect of proximal phalanx of right thumb and dorsal aspect of distal phalanx of right thumb. 11:02 Reassessment: Patient appears in no apparent distress at this time. Patient and/or ss family updated on plan of care and expected duration. Pain level reassessed. Patient is alert, oriented x 3, equal unlabored respirations, skin warm/dry/pink. Pt reports that pain has decreased significantly Patient states feeling better. Patient states symptoms have improved. Vital Signs: 09:49 BP 145 / 90; Pulse 82; Resp 16; Temp 97.5; Pulse Ox 96% on R/A; Weight 102.06 kg; ph Height 5 ft. 8 in. (172.72 cm); 09:49 Body Mass Index 34.21 (102.06 kg, 172.72 cm) ph ED Course: 09:41 Patient arrived in ED. rg4 09:49 Rosa Mendez, CHACHA is Primary Nurse. ph 09:51 Gilbert Francisco NP is PHCP. pm1 09:51 Casey Golden MD is Attending Physician. pm1 09:51 Triage completed. ph 10:01 Arm band placed on. ph 10:02 Patient has correct armband on for positive identification. Bed in low position. Call ph light in reach. 10:16 Inserted saline lock: 22 gauge in left forearm, using aseptic technique. ,using aseptic ss technique. Insertion by Krystina Helms hemodialysis lab technician Blood collected. 10:34 Hand Right 3 View XRAY In Process Unspecified. EDMS 11:18 No provider procedures requiring assistance completed. ss 11:22 IV discontinued, intact, bleeding controlled, No redness/swelling at site. Pressure ss dressing applied. Administered Medications: 10:11 Not Given (Other Intervention Used): SOLU-Medrol (methylPREDNISolone sodium succinate) ss 125 mg IM once 10:11 Not Given (Other Intervention Used): Ketorolac 60 mg IM once ss 10:11 Not Given (Other Intervention Used): Pepcid (famotidine) 20 mg PO once ss 10:18 Drug: SOLU-Medrol (methylPrednisoLONE) 125 mg Route: IVP; Site: left forearm; ss 10:59 Follow up: Response: No adverse reaction ph 10:20 Drug: Pepcid (famotidine) 20 mg Route: IVP; Site: left forearm; ss 10:59 Follow up: Response: No adverse reaction ph 10:22 Drug: Ketorolac 30 mg Route: IVP; Site: left forearm; ss 10:59 Follow up: Response: No adverse reaction ph Outcome: 11:09 Discharge ordered by . pm1 11:18 Discharged to home ambulatory. ss 11:18 Condition: good 11:18 Discharge instructions given to patient, Instructed on discharge instructions, follow up and referral plans. medication usage, Demonstrated understanding of instructions, follow-up care, medications, Prescriptions given X 2. 11:22 Patient left the ED. Signatures: Dispatcher [employer] Hazel Sparks RN RN ss Hall, Patricia, RN RN ph Marinas, Patrick, MURIEL SLIDER ASSEMBLER pm1 Toyin Bills4
[2022-02-15 11:41] VITALS: BP 145/90; TEMP 97.5; O2SAT 96
== END 2022-02-15 11:22 | disposition home or self-care (01) ==
LOC: ER 09:38
DX: M18.9 Osteoarthritis of first carpometacarpal joint, unspecified (principal); E11.9 Type 2 diabetes mellitus without complications; I10 Essential (primary) hypertension
CPT/HCPCS: 85025; 80048; 36415; 84550; 73130; 96375; 96374; 99284; J2930; J3490

== ENCOUNTER 2022-09-04 05:32 | Emergency (ER) | payer BC ==
--- OUTSIDE RECORDS SUMMARY | 2022-09-04 05:38 | XMS REPORT | Continuity of Care Document ---
:1965 Author Organization [facility] t Address [facility] [place] [address] [place] [id number] Care Team Providers Name Role Phone Hamzah Tate Attending Clinician Unavailable Eloise Bonilla MD Attending Clinician Payers Payer Name Policy Type Policy Number Effective Date Expiration Date S andrew Blue Cross 6 [id number] 2017 Common Spiri t Blue Shield of 00:00:00 - [facility] Problems Condition Condition Condition Status Onset Resolution Last Treating Co mments Source Name Details Category Date Date Treatment Clinician Date [id number] Acute Problem Common right-side Spirit d low back - [facility] pain with [facility] sciatica [facility] [id number] Primary Problem Comm on osteoarthr Spirit itis of - [facility]I right [facility] [id number] Primary Problem Comm on osteoarthr Spirit itis of - [facility] right hand [facility] [id number] Type 2 Problem Common diabetes Spirit mellitus - [facility] without complicati [facility] on, Medical without Center long-term current use of insulin [id number] Mixed Problem Common hyperlipid Spirit emia - [facility] [id number] HTN, goal Problem Comm on below Spirit 130/80 - [facility] [id number] Adult BMI Problem Com mon 31.0-31.9 Spirit kg/sq [facility] [id number] History of Problem Co mmon kidney Spirit stones - [facility] [id number] Enlarged Problem Common thyroid Spirit gland - [facility] Abnormal Abnormal Problem Commo n laboratory laboratory Sp gurpreet results results - [facility] for for St respirator respirator Hanna kes y system y system [facility] [id number] Allergic Problem Commo n rhinitis, Spirit unspecifie - [facility] d St seasonalit [facility] y, Medical unspecifie Center d trigger [id number] 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 Social History Social Habit Start Date Stop Date Quantity Comments Source Exposure to Not sure [facility] SARS-CoV-2 (event) of Med icine History of Tobacco Common Spirit - Use [facility] Sex Assigned At Common Sp gurpreet - [facility] Alcohol intake 2021-02-13 2021-02-13 Current drinker [employer] 00:00:00 00:00:00 of alcohol of Medicine (finding) Tobacco use and 2021-02-13 2021-02-13 Never used [facility] exposure 00:00:00 00:00:00 of Medicine History [facility] 2019-11-08 2019-11-08 2 [facility] Alcohol Frequency 00:00:00 00:00:00 of Medi cine History [facility] 2019-11-08 2019-11-08 1 [facility] Alcohol Std Drinks 00:00:00 00:00:00 of Med icine History [facility] 2019-11-08 2019-11-08 1 [facility] Alcohol Binge 00:00:00 00:00:00 of Medicine Smoking Status Start Date Stop Date Source Never Smoker [facility] Medications Ordered Filled Start Stop Current Ordering Indication Dosage Frequency Signature Comments Components Source Medication Medication Date Date Medication? Clinician (SIG) Name Name Ozempic Ozempic 2021- No Ozempic 0.25 or 0.5 0.25 or 0.5 04-16 0.25 or MG/DOSE MG/DOSE 00:00: 00:00 0.5 00 :00 MG/DOSE Ozempic Ozempic 2021- No Ozempic 0.25 or 0.5 0.25 or 0.5 04-16 0.25 or MG/DOSE MG/DOSE 00:00: 00:00 0.5 00 :00 MG/DOSE Ozempic Ozempic 2021- No Ozempic 0.25 or 0.5 0.25 or 0.5 04-16 0.25 or MG/DOSE MG/DOSE 00:00: 00:00 0.5 00 :00 MG/DOSE Ozempic Ozempic 2021- No Ozempic 0.25 or 0.5 0.25 or 0.5 04-16 0.25 or MG/DOSE MG/DOSE 00:00: 00:00 0.5 00 :00 MG/DOSE HYDROcodone HYDROcodone No 1{table HYDROcodon -Acetaminop -Acetaminop 3-01 t_as_ne e-Acetamin hen 5-325 hen 5-325 00:00: eded} ophen MG MG 00 5-325 MG HYDROcodone HYDROcodone No 1{table QID HYDROcodon -Acetaminop -Acetaminop 3-01 t_as_ne e-Acetamin hen 5-325 hen 5-325 00:00: eded} ophen MG MG 00 5-325 MG HYDROcodone HYDROcodone No 1{table HYDROcodon -Acetaminop -Acetaminop 3-01 t_as_ne e-Acetamin hen 5-325 hen 5-325 00:00: eded} ophen MG MG 00 5-325 MG HYDROcodone HYDROcodone No 1{table QID HYDROcodon -Acetaminop -Acetaminop 3-01 t_as_ne e-Acetamin hen 5-325 hen 5-325 00:00: eded} ophen MG MG 00 5-325 MG HYDROcodone HYDROcodone No 1{table HYDROcodon -Acetaminop -Acetaminop 3-01 t_as_ne e-Acetamin hen 5-325 hen 5-325 00:00: eded} ophen MG MG 00 5-325 MG HYDROcodone HYDROcodone 2021-0 No 1{table QID HYDROcodon -Acetaminop -Acetaminop 3-01 t_as_ne e-Acetamin hen 5-325 hen 5-325 00:00: eded} ophen MG MG 00 5-325 MG HYDROcodone HYDROcodone 2021-0 No 1{table HYDROcodon -Acetaminop -Acetaminop 3-01 t_as_ne e-Acetamin hen 5-325 hen 5-325 00:00: eded} ophen MG MG 00 5-325 MG HYDROcodone HYDROcodone 2021-0 No 1{table QID HYDROcodon -Acetaminop -Acetaminop 3-01 t_as_ne e-Acetamin hen 5-325 hen 5-325 00:00: eded} ophen MG MG 00 5-325 MG HYDROcodone HYDROcodone 2021-0 No 1{table HYDROcodon -Acetaminop -Acetaminop 3-01 t_as_ne e-Acetamin hen 5-325 hen 5-325 00:00: eded} ophen MG MG 00 5-325 MG HYDROcodone HYDROcodone 2021-0 No 1{table QID HYDROcodon -Acetaminop -Acetaminop 3-01 t_as_ne e-Acetamin hen 5-325 hen 5-325 00:00: eded} ophen MG MG 00 5-325 MG HYDROcodone HYDROcodone 2021-0 No 1{table HYDROcodon -Acetaminop -Acetaminop 3-01 t_as_ne e-Acetamin hen 5-325 hen 5-325 00:00: eded} ophen MG MG 00 5-325 MG HYDROcodone HYDROcodone 2021-0 No 1{table QID HYDROcodon -Acetaminop -Acetaminop 3-01 t_as_ne e-Acetamin hen 5-325 hen 5-325 00:00: eded} ophen MG MG 00 5-325 MG HYDROcodone HYDROcodone 2021-0 No 1{table HYDROcodon -Acetaminop -Acetaminop 3-01 t_as_ne e-Acetamin hen 5-325 hen 5-325 00:00: eded} ophen MG MG 00 5-325 MG HYDROcodone HYDROcodone 2021-0 No 1{table QID HYDROcodon -Acetaminop -Acetaminop 3-01 t_as_ne e-Acetamin hen 5-325 hen 5-325 00:00: eded} ophen MG MG 00 5-325 MG HYDROcodone HYDROcodone 2021-0 No 1{table QID HYDROcodon -Acetaminop -Acetaminop 3-01 t_as_ne e-Acetamin hen 5-325 hen 5-325 00:00: eded} ophen MG MG 00 5-325 MG HYDROcodone HYDROcodone 2021-0 No 1{table HYDROcodon -Acetaminop -Acetaminop 3-01 t_as_ne e-Acetamin hen 5-325 hen 5-325 00:00: eded} ophen MG MG 00 5-325 MG HYDROcodone HYDROcodone 2021-0 No 1{table QID HYDROcodon -Acetaminop -Acetaminop 3-01 t_as_ne e-Acetamin hen 5-325 hen 5-325 00:00: eded} ophen MG MG 00 5-325 MG HYDROcodone HYDROcodone 2021-0 No 1{table HYDROcodon -Acetaminop -Acetaminop 3-01 t_as_ne e-Acetamin hen 5-325 hen 5-325 00:00: eded} ophen MG MG 00 5-325 MG HYDROcodone HYDROcodone 2021-0 No 1{table QID HYDROcodon -Acetaminop -Acetaminop 3-01 t_as_ne e-Acetamin hen 5-325 hen 5-325 00:00: eded} ophen MG MG 00 5-325 MG HYDROcodone HYDROcodone 2021-0 No 1{table HYDROcodon -Acetaminop -Acetaminop 3-01 t_as_ne e-Acetamin hen 5-325 hen 5-325 00:00: eded} ophen MG MG 00 5-325 MG HYDROcodone HYDROcodone 2021-0 No 1{table QID HYDROcodon -Acetaminop -Acetaminop 3-01 t_as_ne e-Acetamin hen 5-325 hen 5-325 00:00: eded} ophen MG MG 00 5-325 MG HYDROcodone HYDROcodone 2021-0 No 1{table HYDROcodon -Acetaminop -Acetaminop 3-01 t_as_ne e-Acetamin hen 5-325 hen 5-325 00:00: eded} ophen MG MG 00 5-325 MG HYDROcodone HYDROcodone 2021-0 No 1{table QID HYDROcodon -Acetaminop -Acetaminop 3-01 t_as_ne e-Acetamin hen 5-325 hen 5-325 00:00: eded} ophen MG MG 00 5-325 MG HYDROcodone HYDROcodone 2021-0 No 1{table HYDROcodon -Acetaminop -Acetaminop 3-01 t_as_ne e-Acetamin hen 5-325 hen 5-325 00:00: eded} ophen MG MG 00 5-325 MG HYDROcodone HYDROcodone 2021-0 No 1{table QID HYDROcodon -Acetaminop -Acetaminop 3-01 t_as_ne e-Acetamin hen 5-325 hen 5-325 00:00: eded} ophen MG MG 00 5-325 MG HYDROcodone HYDROcodone 2021-0 No 1{table HYDROcodon -Acetaminop -Acetaminop 3-01 t_as_ne e-Acetamin hen 5-325 hen 5-325 00:00: eded} ophen MG MG 00 5-325 MG HYDROcodone HYDROcodone 2021-0 No 1{table QID HYDROcodon -Acetaminop -Acetaminop 3-01 t_as_ne e-Acetamin hen 5-325 hen 5-325 00:00: eded} ophen MG MG 00 5-325 MG HYDROcodone HYDROcodone 2021-0 No 1{table HYDROcodon -Acetaminop -Acetaminop 3-01 t_as_ne e-Acetamin hen 5-325 hen 5-325 00:00: eded} ophen MG MG 00 5-325 MG HYDROcodone HYDROcodone 2021-0 No 1{table HYDROcodon -Acetaminop -Acetaminop 3-01 t_as_ne e-Acetamin hen 5-325 hen 5-325 00:00: eded} ophen MG MG 00 5-325 MG HYDROcodone HYDROcodone 2021-0 No 1{table QID HYDROcodon -Acetaminop -Acetaminop 3-01 t_as_ne e-Acetamin hen 5-325 hen 5-325 00:00: eded} ophen MG MG 00 5-325 MG HYDROcodone HYDROcodone 2021- No 1{table HYDROcodon -Acetaminop -Acetaminop 3-01 t_as_ne e-Acetamin hen 5-325 hen 5-325 00:00: eded} ophen MG MG 00 5-325 MG HYDROcodone HYDROcodone 2021-0 No 1{table QID HYDROcodon -Acetaminop -Acetaminop 3-01 t_as_ne e-Acetamin hen 5-325 hen 5-325 00:00: eded} ophen MG MG 00 5-325 MG HYDROcodone HYDROcodone 2021-0 No 1{table HYDROcodon -Acetaminop -Acetaminop 3-01 t_as_ne e-Acetamin hen 5-325 hen 5-325 00:00: eded} ophen MG MG 00 5-325 MG HYDROcodone HYDROcodone 2021-0 No 1{table QID HYDROcodon -Acetaminop -Acetaminop 3-01 t_as_ne e-Acetamin hen 5-325 hen 5-325 00:00: eded} ophen MG MG 00 5-325 MG HYDROcodone HYDROcodone 2021-0 No 1{table HYDROcodon -Acetaminop -Acetaminop 3-01 t_as_ne e-Acetamin hen 5-325 hen 5-325 00:00: eded} ophen MG MG 00 5-325 MG HYDROcodone HYDROcodone 2021-0 No 1{table QID HYDROcodon -Acetaminop -Acetaminop 3-01 t_as_ne e-Acetamin hen 5-325 hen 5-325 00:00: eded} ophen MG MG 00 5-325 MG HYDROcodone HYDROcodone 2021-0 No 1{table HYDROcodon -Acetaminop -Acetaminop 3-01 t_as_ne e-Acetamin hen 5-325 hen 5-325 00:00: eded} ophen MG MG 00 5-325 MG HYDROcodone HYDROcodone 2021-0 No 1{table QID HYDROcodon -Acetaminop -Acetaminop 3-01 t_as_ne e-Acetamin hen 5-325 hen 5-325 00:00: eded} ophen MG MG 00 5-325 MG HYDROcodone HYDROcodone 2021-0 No 1{table HYDROcodon -Acetaminop -Acetaminop 2-24 t_as_ne e-Acetamin hen 7.5-325 hen 7.5-325 00:00: eded} ophen MG MG 00 7.5-325 MG HYDROcodone HYDROcodone 2021-0 No 1{table HYDROcodon -Acetaminop -Acetaminop 2-24 t_as_ne e-Acetamin hen 7.5-325 hen 7.5-325 00:00: eded} ophen MG MG 00 7.5-325 MG HYDROcodone HYDROcodone 2021-0 No 1{table HYDROcodon -Acetaminop -Acetaminop 2-24 t_as_ne e-Acetamin hen 7.5-325 hen 7.5-325 00:00: eded} ophen MG MG 00 7.5-325 MG HYDROcodone HYDROcodone 2021-0 No 1{table HYDROcodon -Acetaminop -Acetaminop 2-24 t_as_ne e-Acetamin hen 7.5-325 hen 7.5-325 00:00: eded} ophen MG MG 00 7.5-325 MG HYDROcodone HYDROcodone 2021-0 No 1{table HYDROcodon -Acetaminop -Acetaminop 2-24 t_as_ne e-Acetamin hen 7.5-325 hen 7.5-325 00:00: eded} ophen MG MG 00 7.5-325 MG HYDROcodone HYDROcodone 2021-0 No 1{table HYDROcodon -Acetaminop -Acetaminop 2-24 t_as_ne e-Acetamin hen 7.5-325 hen 7.5-325 00:00: eded} ophen MG MG 00 7.5-325 MG HYDROcodone HYDROcodone 2021-0 No 1{table HYDROcodon -Acetaminop -Acetaminop 2-24 t_as_ne e-Acetamin hen 7.5-325 hen 7.5-325 00:00: eded} ophen MG MG 00 7.5-325 MG HYDROcodone HYDROcodone 2021-0 No 1{table HYDROcodon -Acetaminop -Acetaminop 2-24 t_as_ne e-Acetamin hen 7.5-325 hen 7.5-325 00:00: eded} ophen MG MG 00 7.5-325 MG HYDROcodone HYDROcodone 2021-0 No 1{table HYDROcodon -Acetaminop -Acetaminop 2-24 t_as_ne e-Acetamin hen 7.5-325 hen 7.5-325 00:00: eded} ophen MG MG 00 7.5-325 MG HYDROcodone HYDROcodone 0 No 1{table HYDROcodon -Acetaminop -Acetaminop 2-24 t_as_ne e-Acetamin hen 7.5-325 hen 7.5-325 00:00: eded} ophen MG MG 00 7.5-325 MG HYDROcodone HYDROcodone 0 No 1{table HYDROcodon -Acetaminop -Acetaminop 2-24 t_as_ne e-Acetamin hen 7.5-325 hen 7.5-325 00:00: eded} ophen MG MG 00 7.5-325 MG HYDROcodone HYDROcodone 0 No 1{table HYDROcodon -Acetaminop -Acetaminop 2-24 t_as_ne e-Acetamin hen 7.5-325 hen 7.5-325 00:00: eded} ophen MG MG 00 7.5-325 MG HYDROcodone HYDROcodone 2021-0 No 1{table HYDROcodon -Acetaminop -Acetaminop 2-24 t_as_ne e-Acetamin hen 7.5-325 hen 7.5-325 00:00: eded} ophen MG MG 00 7.5-325 MG HYDROcodone HYDROcodone 2021-0 No 1{table HYDROcodon -Acetaminop -Acetaminop 2-24 t_as_ne e-Acetamin hen 7.5-325 hen 7.5-325 00:00: eded} ophen MG MG 00 7.5-325 MG HYDROcodone HYDROcodone 2021-0 No 1{table HYDROcodon -Acetaminop -Acetaminop 2-24 t_as_ne e-Acetamin hen 7.5-325 hen 7.5-325 00:00: eded} ophen MG MG 00 7.5-325 MG HYDROcodone HYDROcodone 2021-0 No 1{table HYDROcodon -Acetaminop -Acetaminop 2-24 t_as_ne e-Acetamin hen 7.5-325 hen 7.5-325 00:00: eded} ophen MG MG 00 7.5-325 MG HYDROcodone HYDROcodone 2022-0 No 1{table HYDROcodon -Acetaminop -Acetaminop 2-24 t_as_ne e-Acetamin hen 7.5-325 hen 7.5-325 00:00: eded} ophen MG MG 00 7.5-325 MG HYDROcodone HYDROcodone No 1{table HYDROcodon -Acetaminop -Acetaminop 2-24 t_as_ne e-Acetamin hen 7.5-325 hen 7.5-325 00:00: eded} ophen MG MG 00 7.5-325 MG HYDROcodone HYDROcodone No 1{table HYDROcodon -Acetaminop -Acetaminop 2-24 t_as_ne e-Acetamin hen 7.5-325 hen 7.5-325 00:00: eded} ophen MG MG 00 7.5-325 MG HYDROcodone HYDROcodone No 1{table HYDROcodon -Acetaminop -Acetaminop 2-24 t_as_ne e-Acetamin hen 7.5-325 hen 7.5-325 00:00: eded} ophen MG MG 00 7.5-325 MG Kenalog Kenalog 2020-10 No 40mg Common (Triamcinol (Triamcinol 1-23 S pirit one) one) 00:00: - [facility]I 00 [facility] Bupivicaine Bupivicaine 2020-10 No 2.5mg Common [place] Warrington 1-23 Spirit 00:00: - CHI [facility] Kenalog Kenalog 2020-10 No 40mg Common (Triamcinol (Triamcinol 1-23 S pirit one) one) 00:00: - CHI 00 [facility] Bupivicaine Bupivicaine 2020-10 No 2.5mg Common [place] Warrington 1-23 Spirit 00:00: - CHI [facility] Kenalog Kenalog 2020-10 No 40mg Common (Triamcinol (Triamcinol 1-23 S pirit one) one) 00:00: - CHI [facility] Bupivicaine Bupivicaine 2020-10 No Common [place] Warrington 1-23 Spirit 00:00: - CHI [facility] Kenalog Kenalog 2020-10 No 40mg Common (Triamcinol (Triamcinol 1-23 S pirit one) one) 00:00: - CHI 00 [facility] Bupivicaine Bupivicaine 2020-10 No Common [place] Warrington 1-23 Spirit 00:00: - CHI 00 [facility] Sherly Kenalog 2020-10 No 40mg Common (Triamcinol (Triamcinol 1-23 S pirit one) one) 00:00: - CHI 00 [facility] Bupivicaine Bupivicaine 2020-10 No Common [place] Warrington 1-23 Spirit 00:00: - CHI 00 [facility] Sherly Kenalog 2020-10 No 40mg Common (Triamcinol (Triamcinol 1-23 S pirit one) one) 00:00: - CHI 00 [facility] Bupivicaine Bupivicaine 2020-10 No Common [place] 1-23 Spirit 00:00: - CHI 00 [facility] Sherly Correaalog 2020-10 No 40mg Common (Triamcinol (Triamcinol 1-23 S pirit one) one) 00:00: - CHI 00 [facility] Bupivicaine Bupivicaine 2020-10 No Common [place] 1-23 Spirit 00:00: - CHI 00 [facility] Sherly Kenpatti 2020-10 No 40mg Common (Triamcinol (Triamcinol 1-23 S pirit one) one) 00:00: - CHI 00 [facility] Bupivicaine Bupivicaine 2020-10 No Common [place] 1-23 Spirit 00:00: - CHI 00 [facility] Kenpatti Kenalog 2020-10 No 40mg Common (Triamcinol (Triamcinol 1-23 S pirit one) one) 00:00: - CHI 00 [facility] Bupivicaine Bupivicaine 2020-10 No Common [place] War[place] 1-23 Spirit 00:00: - CHI 00 [facility] Sherly Kenalog 2020-10 No 40mg Common (Triamcinol (Triamcinol 1-23 S pirit one) one) 00:00: - CHI 00 [facility] Bupivicaine Bupivicaine 2020-10 No 2.5mg Common [place] War[place] 1-23 Spirit 00:00: - CHI 00 [facility] Kenalog Kenalog 2020-10 No 40mg Common (Triamcinol (Triamcinol 1-23 S pirit one) one) 00:00: - CHI 00 [facility] Bupivicaine Bupivicaine 2020-10 No 2.5mg Common [place] 1-23 Spirit 00:00: - CHI 00 [facility] Kenalog Kenalog 2020-10 No 40mg Common (Triamcinol (Triamcinol 1-23 S pirit one) one) 00:00: - CHI 00 [facility] Bupivicaine Bupivicaine 2020-10 No 2.5mg Common [place] War[place] 1-23 Spirit 00:00: - CHI 00 [facility] Kenalog Kenalog 2020-10 No 40mg Common (Triamcinol (Triamcinol 1-23 S pirit one) one) 00:00: - CHI 00 [facility] Bupivicaine Bupivicaine 2020-10 No 2.5mg Common [place] War[place] 1-23 Spirit 00:00: - CHI 00 [facility] Kenalog Kenalog 2020-10 No 40mg Common (Triamcinol (Triamcinol 1-23 S pirit one) one) 00:00: - CHI 00 [facility] Bupivicaine Bupivicaine 2020-10 No 2.5mg Common [place] 1-23 Spirit 00:00: - CHI 00 [facility] Kenalog Kenalog 2020-10 No 40mg Common (Triamcinol (Triamcinol 1-23 S pirit one) one) 00:00: - CHI 00 [facility] Bupivicaine Bupivicaine 2020-10 No 2.5mg Common [place] 1-23 Spirit 00:00: - [facility]I 00 [facility] Kenalog Kenalog 2020-10 No 40mg Common (Triamcinol (Triamcinol 1-23 S pirit one) one) 00:00: - CHI 00 [facility] Bupivicaine Bupivicaine 2020-10 No 2.5mg Common [place] War[place] 1-23 Spirit 00:00: - CHI 00 [facility] Sherly Kenalog 2020-10 No 40mg Common (Triamcinol (Triamcinol 1-23 S pirit one) one) 00:00: - CHI 00 [facility] Bupivicaine Bupivicaine 2020-10 No 2.5mg Common [place] 1-23 Spirit 00:00: - CHI 00 [facility] Sherly Kenalog 2020-10 No 40mg Common (Triamcinol (Triamcinol 1-23 S pirit one) one) 00:00: - CHI 00 [facility] Bupivicaine Bupivicaine 2020-10 No 2.5mg Common [place] War[place] 1-23 Spirit 00:00: - CHI 00 [facility] Sherly Kenalog 2020-10 No 40mg Common (Triamcinol (Triamcinol 1-23 S pirit one) one) 00:00: - CHI 00 [facility] Bupivicaine Bupivicaine 2020-10 No 2.5mg Common [place] 1-23 Spirit 00:00: - CHI 00 [facility] Sherly Kenalog 2020-10 No 40mg Common (Triamcinol (Triamcinol 1-23 S pirit one) one) 00:00: - CHI 00 [facility] Bupivicaine Bupivicaine 2020-10 No 2.5mg Common [place] 1-23 Spirit 00:00: - CHI 00 [facility] Sherly Kenalog 2020-10 No 40mg Common (Triamcinol (Triamcinol 1-23 S pirit one) one) 00:00: - CHI 00 [facility] Bupivicaine Bupivicaine 2020-10 No 2.5mg Common [place] 1-23 Spirit 00:00: - CHI 00 [facility] Sherly Kenalog 0 No 40mg Common (Triamcinol (Triamcinol 8-04 S pirit one) one) 00:00: - CHI 00 [facility] Sherly Kenalog No 40mg Common (Triamcinol (Triamcinol 8-04 S pirit one) one) 00:00: - CHI 00 [facility] Sherly Kenalog 2021-0 No 40mg Common (Triamcinol (Triamcinol 8-04 S pirit one) one) 00:00: - CHI 00 [facility] Kenalog Kenalog 2020-0 No 40mg Common (Triamcinol (Triamcinol 8-04 S pirit one) one) 00:00: - CHI 00 [facility] Kenalog Kenalog 2020-0 No 40mg Common (Triamcinol (Triamcinol 8-04 S pirit one) one) 00:00: - CHI 00 [facility] Kenalog Kenalog 2020-0 No 40mg Common (Triamcinol (Triamcinol 8-04 S pirit one) one) 00:00: - CHI 00 [facility] Kenalog Kenalog 2020-0 No 40mg Common (Triamcinol (Triamcinol 8-04 S pirit one) one) 00:00: - CHI 00 [facility] Kenalog Kenalog 2020-0 No 40mg Common (Triamcinol (Triamcinol 8-04 S pirit one) one) 00:00: - CHI 00 [facility] Kenalog Kenalog 2020-0 No 40mg Common (Triamcinol (Triamcinol 8-04 S pirit one) one) 00:00: - [facility]I 00 [facility] Kenalog Kenalog 2020-0 No 40mg Common (Triamcinol (Triamcinol 8-04 S pirit one) one) 00:00: - CHI 00 [facility] Kenalog Kenalog 2020-0 No 40mg Common (Triamcinol (Triamcinol 8-04 S pirit one) one) 00:00: - [facility]I 00 [facility] Kenalog Kenalog 2020-0 No 40mg Common (Triamcinol (Triamcinol 8-04 S pirit one) one) 00:00: - CHI 00 [facility] Kenalog Kenalog 2020-0 No 40mg Common (Triamcinol (Triamcinol 8-04 S pirit one) one) 00:00: - [facility]I 00 [facility] Kenalog Kenalog 2020-0 No 40mg Common (Triamcinol (Triamcinol 8-04 S pirit one) one) 00:00: - [facility]I 00 [facility] Sherly Dubois 0 No 40mg Common (Triamcinol (Triamcinol 8-04 S pirit one) one) 00:00: - [facility]I 00 [facility] Sherly Dubois 0 No 40mg Common (Triamcinol (Triamcinol 8-04 S pirit one) one) 00:00: - CHI 00 [facility] Sherly Dubois 0 No 40mg Common (Triamcinol (Triamcinol 8-04 S pirit one) one) 00:00: - CHI 00 [facility] Sherly 0 No 40mg Common (Triamcinol (Triamcinol 8-04 S pirit one) one) 00:00: - CHI 00 [facility] Sherly 0 No 40mg Common (Triamcinol (Triamcinol 8-04 S pirit one) one) 00:00: - CHI 00 [facility] Sherly Dubois 0 No 40mg Common (Triamcinol (Triamcinol 8-04 S pirit one) one) 00:00: - [facility] 00 [facility] 0 No 40mg Common (Triamcinol (Triamcinol 8-04 S pirit one) one) 00:00: - [facility]I 00 [facility] metformin 0 Yes 500mg Take 500 [place] yanelis (GLUCOPHAGE 5-06 mg [facility] [employer] -XR) 500 MG 15:38: mouth. of XR tablet 22 Medicin e Empaglifloz Yes 25mg Take 25 mg Gerard in 5-06 by mouth [employer] (JARDIANCE) 15:38: daily. of 25 MG TABS 22 Medicin e Sitagliptin Yes 100mg Take 100 [place] Phosphate 5-06 mg by [employer] (JANUVIA) 15:38: mouth of 100 MG TABS 22 daily. Medici n e losartan Yes 100mg Take 100 [place] (COZAAR) 5-06 mg by [employer] 100 MG 15:38: mouth of tablet 22 daily. Medicin e atorvastati Yes 40mg Take 40 mg [facility] n (LIPITOR) 5-06 by mouth [place] e[facility] 40 MG 15:38: daily. of tablet 22 Medicin e methimazole Yes 10mg Take 1 [place] [facility] (TAPAZOLE) 4-02 Tablet by [place] [facility] 10 MG 00:00: mouth of tablet 00 daily. Medicin e metformin 0 Yes 500mg Take 500 [place] (GLUCOPHAGE 3-31 mg by [place] -XR) 500 MG 13:44: mouth. of XR tablet 09 Medicin e Empaglifloz 0 Yes 25mg Take 25 mg [facility] in 3-31 by mouth [place] ([facility] [place]) 13:44: daily. of 25 MG TABS 09 Medicin e Sitagliptin 0 Yes 100mg Take 100 [place] Phosphate 3-31 mg by [place] (JANUVOR) 13:44: mouth of 100 MG TABS 09 daily. Medici n e losartan 0 Yes 100mg Take 100 [place] (COZAAR) 3-31 mg by [place] 100 MG 13:44: mouth of tablet 09 daily. Medicin e atorvastati Yes 40mg Take 40 mg [facility] n (LIPITOR) 3-31 by mouth [place] [facility] 40 MG 13:44: daily. of tablet 09 Medicin e methimazole 2019-0 Yes TAKE 1 [place] [facility] (TAPAZOLE) 9-25 TABLET BY [place] [facility] 10 MG 00:00: MOUTH of tablet 00 DAILY Medicin e methimazole 2019-0 Yes TAKE 1 [place] [facility] (TAPAZOLE) 9-25 TABLET BY [place] [facility] 10 MG 00:00: MOUTH of tablet 00 DAILY Medicin e metformin 2019-0 Yes 500mg Take 500 [place] (GLUCOPHAGE 2-13 mg by [place] -XR) 500 MG 19:48: mouth. of XR tablet 23 Medicin e Empaglifloz 2020-0 Yes 25mg Take 25 mg [facility] in 2-13 by mouth [place] [facility] 19:48: daily. of 25 MG TABS 23 Medicin e Sitagliptin 2020-0 Yes 100mg Take 100 [place] Phosphate 2-13 mg by [place] (JANUVIA) 19:48: mouth of 100 MG TABS 23 daily. Medici n e losartan 2019-0 Yes 100mg Take 100 [place] (COZAAR) 2-13 mg by [place] 100 MG 19:48: mouth of tablet 23 daily. Medicin e atorvastati 2020-0 Yes 40mg Take 40 mg [place] n (LIPITOR) 2-13 by mouth [place] [facility] 40 MG 19:48: daily. of tablet 23 Medicin e atenolol 2020-0 Yes 25mg Take 1 Tab [place] [facility] (TENORMIN) 2-13 by mouth [facility] 25 MG 00:00: daily. of tablet 00 Medicin e atenolol 2020-0 Yes 25mg Take 1 Tab [place] [facility] (TENORMIN) 2-13 by mouth Colle [facility] 25 MG 00:00: daily. of tablet 00 Medicin e atenolol 2020-0 Yes 25mg Take 1 Tab [place] y[place] (TENORMIN) 2-13 by mouth Colle ge 25 MG 00:00: daily. of tablet 00 Medicin e Empaglifloz 2020-0 Yes 25mg Take 25 mg Gerard in 1-29 by mouth [facility] ([facility] 15:21: daily. of 25 MG TABS 19 Medicin e Sitagliptin 2020-0 Yes 100mg Take 100 [place] Phosphate 1-29 mg by [place] (KETAN) 15:21: mouth of 100 MG TABS 19 daily. Medici n e losartan 2020-0 Yes 100mg Take 100 [place] (COZAAR) 1-29 mg by [place] 100 MG 15:21: mouth of tablet 19 daily. Medicin e atorvastati 2020-0 Yes 40mg Take 40 mg Gerard n (LIPITOR) 1-29 by mouth Rafaela ege 40 MG 15:21: daily. of tablet 19 Medicin e metformin 2020-0 Yes 500mg Take 500 [place] [facility] (GLUCOPHAGE 1-29 mg by [place] -XR) 500 MG 15:21: mouth. of XR tablet 19 Medicin e Kenalog Kenalog 2018-10 No 40mg Common (Triamcinol (Triamcinol 0-29 S pirit one) one) 00:00: - [facility] 00 [facility] Kenalog Kenalog 2018-10 No 40mg Common (Triamcinol (Triamcinol 0-29 S pirit one) one) 00:00: - [facility] 00 [facility] Kenalog Kenalog 2018-10 No 40mg Common (Triamcinol (Triamcinol 0-29 S pirit one) one) 00:00: - [facility] 00 [facility] Ken[facility]- No 40mg Common (Triamcinol (Triamcinol 0-29 S pirit one) one) 00:00: - [facility] 00 [facility]- No 40mg Common (Triamcinol (Triamcinol 0-29 S pirit one) one) 00:00: - [facility] 00 [facility] 2018- No 40mg Common (Triamcinol (Triamcinol 0-29 S pirit one) one) 00:00: - [facility] 00 [facility] 2018- No 40mg Common (Triamcinol (Triamcinol 0-29 S pirit one) one) 00:00: - [facility] 00 [facility] Kenp[place] 2018- No 40mg Common (Triamcinol (Triamcinol 0-29 S pirit one) one) 00:00: - [facility] 00 [facility] 2018- No 40mg Common (Triamcinol (Triamcinol 0-29 S pirit one) one) 00:00: - [facility] 00 [facility] 2018- No 40mg Common (Triamcinol (Triamcinol 0-29 S pirit one) one) 00:00: - [facility] 00 [facility] Sherly Kenpatti 2018- No 40mg Common (Triamcinol (Triamcinol 0-29 S pirit one) one) 00:00: - [facility] 00 [facility] 2018- No 40mg Common (Triamcinol (Triamcinol 0-29 S pirit one) one) 00:00: - [facility] 00 [facility] 2018- No 40mg Common (Triamcinol (Triamcinol 0-29 S pirit one) one) 00:00: - [facility] 00 [facility] Kenalog 2018- No 40mg Common (Triamcinol (Triamcinol 0-29 S pirit one) one) 00:00: - [facility] 00 [facility] 2019-1 No 40mg Common (Triamcinol (Triamcinol 0-29 S pirit one) one) 00:00: - [facility] 00 [facility] Kenalog 2019-1 No 40mg Common (Triamcinol (Triamcinol 0-29 S pirit one) one) 00:00: - [facility] 00 [facility] Kenalog 2019-1 No 40mg Common (Triamcinol (Triamcinol 0-29 S pirit one) one) 00:00: - [facility] 00 [facility] Sher[place] Kenalog 2019-1 No 40mg Common (Triamcinol (Triamcinol 0-29 S pirit one) one) 00:00: - [facility] 00 [facility] Sherly Kenpatti 2019-1 No 40mg Common (Triamcinol (Triamcinol 0-29 S pirit one) one) 00:00: - [facility] 00 [facility] Sherly Kenpatti 2019-1 No 40mg Common (Triamcinol (Triamcinol 0-29 S pirit one) one) 00:00: - [facility] 00 [facility] Sherly Kenpatti 2019-1 No 40mg Common (Triamcinol (Triamcinol 0-29 S pirit one) one) 00:00: - [facility] 00 [facility] Kenpatti Kenpatti 2019-0 No 40mg Common (Triamcinol (Triamcinol 4-03 S pirit one) one) 00:00: - [facility] 00 [facility] [place] Kenalog 2019-0 No 40mg Common (Triamcinol (Triamcinol 4-03 S pirit one) one) 00:00: - [facility] 00 [facility] Kenalog Kenalog 2019-0 No 40mg Common (Triamcinol (Triamcinol 4-03 S pirit one) one) 00:00: - [facility] 00 [facility] [place] Kenalog 2019-0 No 40mg Common (Triamcinol (Triamcinol 4-03 S pirit one) one) 00:00: - [facility] 00 [facility] Ken[place] Kenalog 2019-0 No 40mg Common (Triamcinol (Triamcinol 4-03 S pirit one) one) 00:00: - [facility] 00 [facility] Kenalog Kenalog 2019-0 No 40mg Common (Triamcinol (Triamcinol 4-03 S pirit one) one) 00:00: - [facility] 00 [facility] Kenalog Kenalog 2019-0 No 40mg Common (Triamcinol (Triamcinol 4-03 S pirit one) one) 00:00: - [facility] 00 [facility] Kenalog Kenalog 2019-0 No 40mg Common (Triamcinol (Triamcinol 4-03 S pirit one) one) 00:00: - [facility] 00 [facility] Kenalog Kenalog 2019-0 No 40mg Common (Triamcinol (Triamcinol 4-03 S pirit one) one) 00:00: - [facility] 00 [facility] Kenalog Kenalog 2019-0 No 40mg Common (Triamcinol (Triamcinol 4-03 S pirit one) one) 00:00: - [facility] 00 [facility] Kenalog Kenalog 2019-0 No 40mg Common (Triamcinol (Triamcinol 4-03 S pirit one) one) 00:00: - [facility] 00 [facility] Kenalog Kenalog 2019-0 No 40mg Common (Triamcinol (Triamcinol 4-03 S pirit one) one) 00:00: - [facility] 00 [facility] Kenalog Kenalog 2019-0 No 40mg Common (Triamcinol (Triamcinol 4-03 S pirit one) one) 00:00: - [facility] 00 [facility] Kenalog Kenalog 2019-0 No 40mg Common (Triamcinol (Triamcinol 4-03 S pirit one) one) 00:00: - [facility] 00 [facility] Kenalog Kenalog 2019-0 No 40mg Common (Triamcinol (Triamcinol 4-03 S pirit one) one) 00:00: - [facility] 00 [facility] Kenalog Kenalog 2019-0 No 40mg Common (Triamcinol (Triamcinol 4-03 S pirit one) one) 00:00: - [facility] 00 [facility] Kenalog Kenalog 2019-0 No 40mg Common (Triamcinol (Triamcinol 4-03 S pirit one) one) 00:00: - [facility] 00 [facility] Kenalog Kenalog 2019-0 No 40mg Common (Triamcinol (Triamcinol 4-03 S pirit one) one) 00:00: - [facility] 00 [facility] Sunnyalog Kenalog 2019-0 No 40mg Common (Triamcinol (Triamcinol 4-03 S pirit one) one) 00:00: - [facility] 00 [facility] Kenalog Kenalog 2019-0 No 40mg Common (Triamcinol (Triamcinol 4-03 S pirit one) one) 00:00: - [facility] 00 [facility] Sherly Kenalog 2019-0 No 40mg Common (Triamcinol (Triamcinol 4-03 S pirit one) one) 00:00: - [facility] 00 [facility] Ketan Gomezdayne 0 Yes Hamzah 1 tablet C ommon 3-13 [facility] 00:00: - [facility] Jardiance Jardiance 2017-10 2020- No Hamzah TK 1 T PO Common 2-13 03-12 [facility] QD Spirit 00:00: 00:00 - [facility] 00 :00 [facility] MetFORMIN MetFORMIN Yes Hamzah 2 tablet Common HCl ER HCl ER [facility] with Spirit evening [facility] meal [facility] Atorvastati Atorvastati Yes Hamzah 1 tablet Common n Calcium n Calcium [facility] Losartan Losartan Yes Hamzah 1 tablet C ommon Potassium Potassium [facility] Atenolol Atenolol Yes Hamzah TK 1 T PO Common [facility] D [facility] Losartan Losartan Yes Hamzah 1 tablet C ommon Potassium Potassium [facility] Methimazole Methimazole Yes Hamzah 1 tablet Common Tate with food [facility] Jasonálvaromarianna Gomezálvaromarianna Yes Hamzah 1 tablet Com mon Tate [facility] Jardiance Jardiance No Jardiance 25 MG 25 MG 25 MG Atenolol 25 Atenolol 25 No QD Atenolol MG MG 25 MG Losartan Losartan No 1{table QD Losartan Potassium Potassium t} Potassium 100 MG 100 MG 100 MG Losartan Losartan No Losartan Potassium Potassium Potassium 100 MG 100 MG 100 MG metFORMIN metFORMIN No metFORMIN HCl ER 500 HCl ER 500 HCl ER 500 MG MG MG Atenolol 25 Atenolol 25 No QD Atenolol MG MG 25 MG methIMAzole methIMAzole No 1{table QD methIMAzol 10 MG 10 MG t_with_ e 10 MG food} metFORMIN metFORMIN No 2{table BID metFORMIN HCl ER 500 HCl ER 500 t_with_ HCl ER 500 MG MG evening MG _meal} Jardiance Jardiance No QD Jardiance 25 MG 25 MG 25 MG Januvia 100 Januvia 100 No 1{table QD Januvia MG MG t} 100 MG Atorvastati Atorvastati No 1{table QD Atorvastat n Calcium n Calcium t} in Calcium 40 MG 40 MG 40 MG Jardiance Jardiance No QD Jardiance 25 MG 25 MG 25 MG Losartan Losartan No Losartan Potassium Potassium Potassium 100 MG 100 MG 100 MG Jardiance Jardiance No Jardiance 25 MG 25 MG 25 MG metFORMIN metFORMIN No metFORMIN HCl ER 500 HCl ER 500 HCl ER 500 MG MG MG Januvia 100 Januvia 100 No 1{table QD Januvia MG MG t} 100 MG Losartan Losartan No 1{table QD Losartan Potassium Potassium t} Potassium 100 MG 100 MG 100 MG Atenolol 25 Atenolol 25 No QD Atenolol MG MG 25 MG metFORMIN metFORMIN No 2{table BID metFORMIN HCl ER 500 HCl ER 500 t_with_ HCl ER 500 MG MG evening MG _meal} Atorvastati Atorvastati No 1{table QD Atorvastat n Calcium n Calcium t} in Calcium 40 MG 40 MG 40 MG Atenolol 25 Atenolol 25 No QD Atenolol MG MG 25 MG methIMAzole methIMAzole No 1{table QD methIMAzol 10 MG 10 MG t_with_ e 10 MG food} methIMAzole methIMAzole No 1{table QD methIMAzol 10 MG 10 MG t_with_ e 10 MG food} Losartan Losartan No Losartan Potassium Potassium Potassium 100 MG 100 MG 100 MG Januvia 100 Januvia 100 No 1{table QD Januvia MG MG t} 100 MG metFORMIN metFORMIN No 2{table BID metFORMIN HCl ER 500 HCl ER 500 t_with_ HCl ER 500 MG MG evening MG _meal} Jardiance Jardiance No Jardiance 25 MG 25 MG 25 MG Atenolol 25 Atenolol 25 No QD Atenolol MG MG 25 MG Atorvastati Atorvastati No 1{table QD Atorvastat n Calcium n Calcium t} in Calcium 40 MG 40 MG 40 MG Atenolol 25 Atenolol 25 No QD Atenolol MG MG 25 MG Januvia 100 Januvia 100 No 1{table QD Januvia MG MG t} 100 MG metFORMIN metFORMIN No metFORMIN HCl ER 500 HCl ER 500 HCl ER 500 MG MG MG Losartan Losartan No 1{table QD Losartan Potassium Potassium t} Potassium 100 MG 100 MG 100 MG metFORMIN metFORMIN No metFORMIN HCl ER 500 HCl ER 500 HCl ER 500 MG MG MG Losartan Losartan No Losartan Potassium Potassium Potassium 100 MG 100 MG 100 MG Atorvastati Atorvastati No 1{table QD Atorvastat n Calcium n Calcium t} in Calcium 40 MG 40 MG 40 MG metFORMIN metFORMIN No 2{table BID metFORMIN HCl ER 500 HCl ER 500 t_with_ HCl ER 500 MG MG evening MG _meal} methIMAzole methIMAzole No 1{table QD methIMAzol 10 MG 10 MG t_with_ e 10 MG food} Januvia 100 Januvia 100 No 1{table QD Januvia MG MG t} 100 MG Jardiance Jardiance No Jardiance 25 MG 25 MG 25 MG Jardiance Jardiance No QD Jardiance 25 MG 25 MG 25 MG Losartan Losartan No 1{table QD Losartan Potassium Potassium t} Potassium 100 MG 100 MG 100 MG Atenolol 25 Atenolol 25 No QD Atenolol MG MG 25 MG Atenolol 25 Atenolol 25 No QD Atenolol MG MG 25 MG Januvia 100 Januvia 100 No 1{table QD Januvia MG MG t} 100 MG metFORMIN metFORMIN No metFORMIN HCl ER 500 HCl ER 500 HCl ER 500 MG MG MG Losartan Losartan No Losartan Potassium Potassium Potassium 100 MG 100 MG 100 MG Atorvastati Atorvastati No 1{table QD Atorvastat n Calcium n Calcium t} in Calcium 40 MG 40 MG 40 MG metFORMIN metFORMIN No 2{table BID metFORMIN HCl ER 500 HCl ER 500 t_with_ HCl ER 500 MG MG evening MG _meal} methIMAzole methIMAzole No 1{table QD methIMAzol 10 MG 10 MG t_with_ e 10 MG food} Januvia 100 Januvia 100 No 1{table QD Januvia MG MG t} 100 MG Jardiance Jardiance No Jardiance 25 MG 25 MG 25 MG Jardiance Jardiance No QD Jardiance 25 MG 25 MG 25 MG Losartan Losartan No 1{table QD Losartan Potassium Potassium t} Potassium 100 MG 100 MG 100 MG Atenolol 25 Atenolol 25 No QD Atenolol MG MG 25 MG Atenolol 25 Atenolol 25 No QD Atenolol MG MG 25 MG Januvia 100 Januvia 100 No 1{table QD Januvia MG MG t} 100 MG Jardiance Jardiance No Jardiance 25 MG 25 MG 25 MG Jardiance Jardiance No QD Jardiance 25 MG 25 MG 25 MG metFORMIN metFORMIN No 2{table BID metFORMIN HCl ER 500 HCl ER 500 t_with_ HCl ER 500 MG MG evening MG _meal} Atorvastati Atorvastati No 1{table QD Atorvastat n Calcium n Calcium t} in Calcium 40 MG 40 MG 40 MG Atenolol 25 Atenolol 25 No QD Atenolol MG MG 25 MG Januvia 100 Januvia 100 No 1{table QD Januvia MG MG t} 100 MG Januvia 100 Januvia 100 No 1{table QD Januvia MG MG t} 100 MG Losartan Losartan No Losartan Potassium Potassium Potassium 100 MG 100 MG 100 MG Atenolol 25 Atenolol 25 No QD Atenolol MG MG 25 MG methIMAzole methIMAzole No 1{table QD methIMAzol 10 MG 10 MG t_with_ e 10 MG food} Losartan Losartan No 1{table QD Losartan Potassium Potassium t} Potassium 100 MG 100 MG 100 MG metFORMIN metFORMIN No metFORMIN HCl ER 500 HCl ER 500 HCl ER 500 MG MG MG Jardiance Jardiance No Jardiance 25 MG 25 MG 25 MG Jardiance Jardiance No QD Jardiance 25 MG 25 MG 25 MG metFORMIN metFORMIN No 2{table BID metFORMIN HCl ER 500 HCl ER 500 t_with_ HCl ER 500 MG MG evening MG _meal} Atorvastati Atorvastati No 1{table QD Atorvastat n Calcium n Calcium t} in Calcium 40 MG 40 MG 40 MG Atenolol 25 Atenolol 25 No QD Atenolol MG MG 25 MG Januvia 100 Januvia 100 No 1{table QD Januvia MG MG t} 100 MG Januvia 100 Januvia 100 No 1{table QD Januvia MG MG t} 100 MG Losartan Losartan No Losartan Potassium Potassium Potassium 100 MG 100 MG 100 MG Atenolol 25 Atenolol 25 No QD Atenolol MG MG 25 MG methIMAzole methIMAzole No 1{table QD methIMAzol 10 MG 10 MG t_with_ e 10 MG food} Losartan Losartan No 1{table QD Losartan Potassium Potassium t} Potassium 100 MG 100 MG 100 MG metFORMIN metFORMIN No metFORMIN HCl ER 500 HCl ER 500 HCl ER 500 MG MG MG Jardiance Jardiance No Jardiance 25 MG 25 MG 25 MG Jardiance Jardiance No QD Jardiance 25 MG 25 MG 25 MG metFORMIN metFORMIN No 2{table BID metFORMIN HCl ER 500 HCl ER 500 t_with_ HCl ER 500 MG MG evening MG _meal} Atorvastati Atorvastati No 1{table QD Atorvastat n Calcium n Calcium t} in Calcium 40 MG 40 MG 40 MG Atenolol 25 Atenolol 25 No QD Atenolol MG MG 25 MG Januvia 100 Januvia 100 No 1{table QD Januvia MG MG t} 100 MG Januvia 100 Januvia 100 No 1{table QD Januvia MG MG t} 100 MG Losartan Losartan No Losartan Potassium Potassium Potassium 100 MG 100 MG 100 MG Atenolol 25 Atenolol 25 No QD Atenolol MG MG 25 MG methIMAzole methIMAzole No 1{table QD methIMAzol 10 MG 10 MG t_with_ e 10 MG food} Losartan Losartan No 1{table QD Losartan Potassium Potassium t} Potassium 100 MG 100 MG 100 MG metFORMIN metFORMIN No metFORMIN HCl ER 500 HCl ER 500 HCl ER 500 MG MG MG Jardiance Jardiance No Jardiance 25 MG 25 MG 25 MG Jardiance Jardiance No QD Jardiance 25 MG 25 MG 25 MG metFORMIN metFORMIN No 2{table BID metFORMIN HCl ER 500 HCl ER 500 t_with_ HCl ER 500 MG MG evening MG _meal} Atorvastati Atorvastati No 1{table QD Atorvastat n Calcium n Calcium t} in Calcium 40 MG 40 MG 40 MG Atenolol 25 Atenolol 25 No QD Atenolol MG MG 25 MG Januvia 100 Januvia 100 No 1{table QD Januvia MG MG t} 100 MG Januvia 100 Januvia 100 No 1{table QD Januvia MG MG t} 100 MG Losartan Losartan No Losartan Potassium Potassium Potassium 100 MG 100 MG 100 MG Atenolol 25 Atenolol 25 No QD Atenolol MG MG 25 MG methIMAzole methIMAzole No 1{table QD methIMAzol 10 MG 10 MG t_with_ e 10 MG food} Losartan Losartan No 1{table QD Losartan Potassium Potassium t} Potassium 100 MG 100 MG 100 MG metFORMIN metFORMIN No metFORMIN HCl ER 500 HCl ER 500 HCl ER 500 MG MG MG Januvia 100 Januvia 100 No 1{table QD Januvia MG MG t} 100 MG methIMAzole methIMAzole No 1{table QD methIMAzol 10 MG 10 MG t_with_ e 10 MG food} Atenolol 25 Atenolol 25 No QD Atenolol MG MG 25 MG Jardiance Jardiance No Jardiance 25 MG 25 MG 25 MG Losartan Losartan No 1{table QD Losartan Potassium Potassium t} Potassium 100 MG 100 MG 100 MG Losartan Losartan No Losartan Potassium Potassium Potassium 100 MG 100 MG 100 MG Atorvastati Atorvastati No 1{table QD Atorvastat n Calcium n Calcium t} in Calcium 40 MG 40 MG 40 MG Jardiance Jardiance No QD Jardiance 25 MG 25 MG 25 MG metFORMIN metFORMIN No metFORMIN HCl ER 500 HCl ER 500 HCl ER 500 MG MG MG metFORMIN metFORMIN No 2{table BID metFORMIN HCl ER 500 HCl ER 500 t_with_ HCl ER 500 MG MG evening MG _meal} Atenolol 25 Atenolol 25 No QD Atenolol MG MG 25 MG Januvia 100 Januvia 100 No 1{table QD Januvia MG MG t} 100 MG Januvia 100 Januvia 100 No 1{table QD Januvia MG MG t} 100 MG methIMAzole methIMAzole No 1{table QD methIMAzol 10 MG 10 MG t_with_ e 10 MG food} Atenolol 25 Atenolol 25 No QD Atenolol MG MG 25 MG Jardiance Jardiance No Jardiance 25 MG 25 MG 25 MG Losartan Losartan No 1{table QD Losartan Potassium Potassium t} Potassium 100 MG 100 MG 100 MG Losartan Losartan No Losartan Potassium Potassium Potassium 100 MG 100 MG 100 MG Atorvastati Atorvastati No 1{table QD Atorvastat n Calcium n Calcium t} in Calcium 40 MG 40 MG 40 MG Jardiance Jardiance No QD Jardiance 25 MG 25 MG 25 MG metFORMIN metFORMIN No metFORMIN HCl ER 500 HCl ER 500 HCl ER 500 MG MG MG metFORMIN metFORMIN No 2{table BID metFORMIN HCl ER 500 HCl ER 500 t_with_ HCl ER 500 MG MG evening MG _meal} Atenolol 25 Atenolol 25 No QD Atenolol MG MG 25 MG Januvia 100 Januvia 100 No 1{table QD Januvia MG MG t} 100 MG Januvia 100 Januvia 100 No 1{table QD Januvia MG MG t} 100 MG methIMAzole methIMAzole No 1{table QD methIMAzol 10 MG 10 MG t_with_ e 10 MG food} Atenolol 25 Atenolol 25 No QD Atenolol MG MG 25 MG Jardiance Jardiance No Jardiance 25 MG 25 MG 25 MG Losartan Losartan No 1{table QD Losartan Potassium Potassium t} Potassium 100 MG 100 MG 100 MG Losartan Losartan No Losartan Potassium Potassium Potassium 100 MG 100 MG 100 MG Atorvastati Atorvastati No 1{table QD Atorvastat n Calcium n Calcium t} in Calcium 40 MG 40 MG 40 MG Jardiance Jardiance No QD Jardiance 25 MG 25 MG 25 MG metFORMIN metFORMIN No metFORMIN HCl ER 500 HCl ER 500 HCl ER 500 MG MG MG metFORMIN metFORMIN No 2{table BID metFORMIN HCl ER 500 HCl ER 500 t_with_ HCl ER 500 MG MG evening MG _meal} Atenolol 25 Atenolol 25 No QD Atenolol MG MG 25 MG Januvia 100 Januvia 100 No 1{table QD Januvia MG MG t} 100 MG Losartan Losartan No Losartan Potassium Potassium Potassium 100 MG 100 MG 100 MG Jardiance Jardiance No QD Jardiance 25 MG 25 MG 25 MG Atenolol 25 Atenolol 25 No QD Atenolol MG MG 25 MG Januvia 100 Januvia 100 No 1{table QD Januvia MG MG t} 100 MG Jardiance Jardiance No Jardiance 25 MG 25 MG 25 MG methIMAzole methIMAzole No 1{table QD methIMAzol 10 MG 10 MG t_with_ e 10 MG food} Losartan Losartan No 1{table QD Losartan Potassium Potassium t} Potassium 100 MG 100 MG 100 MG metFORMIN metFORMIN No metFORMIN HCl ER 500 HCl ER 500 HCl ER 500 MG MG MG Atorvastati Atorvastati No 1{table QD Atorvastat n Calcium n Calcium t} in Calcium 40 MG 40 MG 40 MG Atenolol 25 Atenolol 25 No QD Atenolol MG MG 25 MG metFORMIN metFORMIN No 2{table BID metFORMIN HCl ER 500 HCl ER 500 t_with_ HCl ER 500 MG MG evening MG _meal} Januvia 100 Januvia 100 No 1{table QD Januvia MG MG t} 100 MG Atorvastati Atorvastati No 1{table QD Atorvastat n Calcium n Calcium t} in Calcium 40 MG 40 MG 40 MG Jardiance Jardiance No Jardiance 25 MG 25 MG 25 MG Jardiance Jardiance No QD Jardiance 25 MG 25 MG 25 MG metFORMIN metFORMIN No 2{table BID metFORMIN HCl ER 500 HCl ER 500 t_with_ HCl ER 500 MG MG evening MG _meal} Januvia 100 Januvia 100 No 1{table QD Januvia MG MG t} 100 MG metFORMIN metFORMIN No metFORMIN HCl ER 500 HCl ER 500 HCl ER 500 MG MG MG Atenolol 25 Atenolol 25 No QD Atenolol MG MG 25 MG Atenolol 25 Atenolol 25 No QD Atenolol MG MG 25 MG Losartan Losartan No 1{table QD Losartan Potassium Potassium t} Potassium 100 MG 100 MG 100 MG methIMAzole methIMAzole No 1{table QD methIMAzol 10 MG 10 MG t_with_ e 10 MG food} Losartan Losartan No Losartan Potassium Potassium Potassium 100 MG 100 MG 100 MG Januvia 100 Januvia 100 No 1{table QD Januvia MG MG t} 100 MG Atorvastati Atorvastati No 1{table QD Atorvastat n Calcium n Calcium t} in Calcium 40 MG 40 MG 40 MG Jardiance Jardiance No Jardiance 25 MG 25 MG 25 MG Jardiance Jardiance No QD Jardiance 25 MG 25 MG 25 MG metFORMIN metFORMIN No 2{table BID metFORMIN HCl ER 500 HCl ER 500 t_with_ HCl ER 500 MG MG evening MG _meal} Januvia 100 Januvia 100 No 1{table QD Januvia MG MG t} 100 MG metFORMIN metFORMIN No metFORMIN HCl ER 500 HCl ER 500 HCl ER 500 MG MG MG Atenolol 25 Atenolol 25 No QD Atenolol MG MG 25 MG Atenolol 25 Atenolol 25 No QD Atenolol MG MG 25 MG Losartan Losartan No 1{table QD Losartan Potassium Potassium t} Potassium 100 MG 100 MG 100 MG methIMAzole methIMAzole No 1{table QD methIMAzol 10 MG 10 MG t_with_ e 10 MG food} Losartan Losartan No Losartan Potassium Potassium Potassium 100 MG 100 MG 100 MG Januvia 100 Januvia 100 No 1{table QD Januvia MG MG t} 100 MG Atorvastati Atorvastati No 1{table QD Atorvastat n Calcium n Calcium t} in Calcium 40 MG 40 MG 40 MG Jardiance Jardiance No Jardiance 25 MG 25 MG 25 MG Jardiance Jardiance No QD Jardiance 25 MG 25 MG 25 MG metFORMIN metFORMIN No 2{table BID metFORMIN HCl ER 500 HCl ER 500 t_with_ HCl ER 500 MG MG evening MG _meal} Januvia 100 Januvia 100 No 1{table QD Januvia MG MG t} 100 MG metFORMIN metFORMIN No metFORMIN HCl ER 500 HCl ER 500 HCl ER 500 MG MG MG Atenolol 25 Atenolol 25 No QD Atenolol MG MG 25 MG Atenolol 25 Atenolol 25 No QD Atenolol MG MG 25 MG Losartan Losartan No 1{table QD Losartan Potassium Potassium t} Potassium 100 MG 100 MG 100 MG methIMAzole methIMAzole No 1{table QD methIMAzol 10 MG 10 MG t_with_ e 10 MG food} Losartan Losartan No Losartan Potassium Potassium Potassium 100 MG 100 MG 100 MG Januvia 100 Januvia 100 No 1{table QD Januvia MG MG t} 100 MG metFORMIN metFORMIN No 2{table BID metFORMIN HCl ER 500 HCl ER 500 t_with_ HCl ER 500 MG MG evening MG _meal} Januvia 100 Januvia 100 No 1{table QD Januvia MG MG t} 100 MG Januvia 100 Januvia 100 No 1{table QD Januvia MG MG t} 100 MG Jardiance Jardiance No QD Jardiance 25 MG 25 MG 25 MG metFORMIN metFORMIN No metFORMIN HCl ER 500 HCl ER 500 HCl ER 500 MG MG MG Atorvastati Atorvastati No 1{table QD Atorvastat n Calcium n Calcium t} in Calcium 40 MG 40 MG 40 MG Losartan Losartan No Losartan Potassium Potassium Potassium 100 MG 100 MG 100 MG Atenolol 25 Atenolol 25 No QD Atenolol MG MG 25 MG methIMAzole methIMAzole No 1{table QD methIMAzol 10 MG 10 MG t_with_ e 10 MG food} Losartan Losartan No 1{table QD Losartan Potassium Potassium t} Potassium 100 MG 100 MG 100 MG Atenolol 25 Atenolol 25 No QD Atenolol MG MG 25 MG Jardiance Jardiance No Jardiance 25 MG 25 MG 25 MG metFORMIN metFORMIN No 2{table BID metFORMIN HCl ER 500 HCl ER 500 t_with_ HCl ER 500 MG MG evening MG _meal} Januvia 100 Januvia 100 No 1{table QD Januvia MG MG t} 100 MG Januvia 100 Januvia 100 No 1{table QD Januvia MG MG t} 100 MG Jardiance Jardiance No QD Jardiance 25 MG 25 MG 25 MG metFORMIN metFORMIN No metFORMIN HCl ER 500 HCl ER 500 HCl ER 500 MG MG MG Atorvastati Atorvastati No 1{table QD Atorvastat n Calcium n Calcium t} in Calcium 40 MG 40 MG 40 MG Losartan Losartan No Losartan Potassium Potassium Potassium 100 MG 100 MG 100 MG Atenolol 25 Atenolol 25 No QD Atenolol MG MG 25 MG methIMAzole methIMAzole No 1{table QD methIMAzol 10 MG 10 MG t_with_ e 10 MG food} Losartan Losartan No 1{table QD Losartan Potassium Potassium t} Potassium 100 MG 100 MG 100 MG Atenolol 25 Atenolol 25 No QD Atenolol MG MG 25 MG Jardiance Jardiance No Jardiance 25 MG 25 MG 25 MG Januvia 100 Januvia 100 No 1{table QD Januvia MG MG t} 100 MG Losartan Losartan No 1{table QD Losartan Potassium Potassium t} Potassium 100 MG 100 MG 100 MG Atenolol 25 Atenolol 25 No QD Atenolol MG MG 25 MG methIMAzole methIMAzole No 1{table QD methIMAzol 10 MG 10 MG t_with_ e 10 MG food} Atorvastati Atorvastati No 1{table QD Atorvastat n Calcium n Calcium t} in Calcium 40 MG 40 MG 40 MG Atenolol 25 Atenolol 25 No QD Atenolol MG MG 25 MG metFORMIN metFORMIN No 2{table BID metFORMIN HCl ER 500 HCl ER 500 t_with_ HCl ER 500 MG MG evening MG _meal} Losartan Losartan No Losartan Potassium Potassium Potassium 100 MG 100 MG 100 MG Januvia 100 Januvia 100 No 1{table QD Januvia MG MG t} 100 MG Jardiance Jardiance No Jardiance 25 MG 25 MG 25 MG metFORMIN metFORMIN No metFORMIN HCl ER 500 HCl ER 500 HCl ER 500 MG MG MG Jardiance Jardiance No QD Jardiance 25 MG 25 MG 25 MG Januvia 100 Januvia 100 No 1{table QD Januvia MG MG t} 100 MG Losartan Losartan No 1{table QD Losartan Potassium Potassium t} Potassium 100 MG 100 MG 100 MG Atenolol 25 Atenolol 25 No QD Atenolol MG MG 25 MG methIMAzole methIMAzole No 1{table QD methIMAzol 10 MG 10 MG t_with_ e 10 MG food} Atorvastati Atorvastati No 1{table QD Atorvastat n Calcium n Calcium t} in Calcium 40 MG 40 MG 40 MG Atenolol 25 Atenolol 25 No QD Atenolol MG MG 25 MG metFORMIN metFORMIN No 2{table BID metFORMIN HCl ER 500 HCl ER 500 t_with_ HCl ER 500 MG MG evening MG _meal} Losartan Losartan No Losartan Potassium Potassium Potassium 100 MG 100 MG 100 MG Januvia 100 Januvia 100 No 1{table QD Januvia MG MG t} 100 MG Jardiance Jardiance No Jardiance 25 MG 25 MG 25 MG metFORMIN metFORMIN No metFORMIN HCl ER 500 HCl ER 500 HCl ER 500 MG MG MG Jardiance Jardiance No QD Jardiance 25 MG 25 MG 25 MG Januvia 100 Januvia 100 No 1{table QD Januvia MG MG t} 100 MG Losartan Losartan No 1{table QD Losartan Potassium Potassium t} Potassium 100 MG 100 MG 100 MG Atenolol 25 Atenolol 25 No QD Atenolol MG MG 25 MG methIMAzole methIMAzole No 1{table QD methIMAzol 10 MG 10 MG t_with_ e 10 MG food} Atorvastati Atorvastati No 1{table QD Atorvastat n Calcium n Calcium t} in Calcium 40 MG 40 MG 40 MG Atenolol 25 Atenolol 25 No QD Atenolol MG MG 25 MG metFORMIN metFORMIN No 2{table BID metFORMIN HCl ER 500 HCl ER 500 t_with_ HCl ER 500 MG MG evening MG _meal} Losartan Losartan No Losartan Potassium Potassium Potassium 100 MG 100 MG 100 MG Januvia 100 Januvia 100 No 1{table QD Januvia MG MG t} 100 MG Jardiance Jardiance No Jardiance 25 MG 25 MG 25 MG metFORMIN metFORMIN No metFORMIN HCl ER 500 HCl ER 500 HCl ER 500 MG MG MG Jardiance Jardiance No QD Jardiance 25 MG 25 MG 25 MG Januvia 100 Januvia 100 No 1{table QD Januvia MG MG t} 100 MG Losartan Losartan No 1{table QD Losartan Potassium Potassium t} Potassium 100 MG 100 MG 100 MG Atenolol 25 Atenolol 25 No QD Atenolol MG MG 25 MG methIMAzole methIMAzole No 1{table QD methIMAzol 10 MG 10 MG t_with_ e 10 MG food} Atorvastati Atorvastati No 1{table QD Atorvastat n Calcium n Calcium t} in Calcium 40 MG 40 MG 40 MG Atenolol 25 Atenolol 25 No QD Atenolol MG MG 25 MG metFORMIN metFORMIN No 2{table BID metFORMIN HCl ER 500 HCl ER 500 t_with_ HCl ER 500 MG MG evening MG _meal} Losartan Losartan No Losartan Potassium Potassium Potassium 100 MG 100 MG 100 MG Januvia 100 Januvia 100 No 1{table QD Januvia MG MG t} 100 MG Jardiance Jardiance No Jardiance 25 MG 25 MG 25 MG metFORMIN metFORMIN No metFORMIN HCl ER 500 HCl ER 500 HCl ER 500 MG MG MG Jardiance Jardiance No QD Jardiance 25 MG 25 MG 25 MG Januvia 100 Januvia 100 No 1{table QD Januvia MG MG t} 100 MG Losartan Losartan No 1{table QD Losartan Potassium Potassium t} Potassium 100 MG 100 MG 100 MG Atenolol 25 Atenolol 25 No QD Atenolol MG MG 25 MG methIMAzole methIMAzole No 1{table QD methIMAzol 10 MG 10 MG t_with_ e 10 MG food} Atorvastati Atorvastati No 1{table QD Atorvastat n Calcium n Calcium t} in Calcium 40 MG 40 MG 40 MG Atenolol 25 Atenolol 25 No QD Atenolol MG MG 25 MG metFORMIN metFORMIN No 2{table BID metFORMIN HCl ER 500 HCl ER 500 t_with_ HCl ER 500 MG MG evening MG _meal} Losartan Losartan No Losartan Potassium Potassium Potassium 100 MG 100 MG 100 MG Januvia 100 Januvia 100 No 1{table QD Januvia MG MG t} 100 MG Jardiance Jardiance No Jardiance 25 MG 25 MG 25 MG metFORMIN metFORMIN No metFORMIN HCl ER 500 HCl ER 500 HCl ER 500 MG MG MG Jardiance Jardiance No QD Jardiance 25 MG 25 MG 25 MG Januvia 100 Januvia 100 No 1{table QD Januvia MG MG t} 100 MG Losartan Losartan No 1{table QD Losartan Potassium Potassium t} Potassium 100 MG 100 MG 100 MG Atenolol 25 Atenolol 25 No QD Atenolol MG MG 25 MG methIMAzole methIMAzole No 1{table QD methIMAzol 10 MG 10 MG t_with_ e 10 MG food} Atorvastati Atorvastati No 1{table QD Atorvastat n Calcium n Calcium t} in Calcium 40 MG 40 MG 40 MG Atenolol 25 Atenolol 25 No QD Atenolol MG MG 25 MG metFORMIN metFORMIN No 2{table BID metFORMIN HCl ER 500 HCl ER 500 t_with_ HCl ER 500 MG MG evening MG _meal} Losartan Losartan No Losartan Potassium Potassium Potassium 100 MG 100 MG 100 MG Januvia 100 Januvia 100 No 1{table QD Januvia MG MG t} 100 MG Jardiance Jardiance No Jardiance 25 MG 25 MG 25 MG metFORMIN metFORMIN No metFORMIN HCl ER 500 HCl ER 500 HCl ER 500 MG MG MG Jardiance Jardiance No QD Jardiance 25 MG 25 MG 25 MG Januvia 100 Januvia 100 No 1{table QD Januvia MG MG t} 100 MG Losartan Losartan No 1{table QD Losartan Potassium Potassium t} Potassium 100 MG 100 MG 100 MG Atenolol 25 Atenolol 25 No QD Atenolol MG MG 25 MG methIMAzole methIMAzole No 1{table QD methIMAzol 10 MG 10 MG t_with_ e 10 MG food} Atorvastati Atorvastati No 1{table QD Atorvastat n Calcium n Calcium t} in Calcium 40 MG 40 MG 40 MG Atenolol 25 Atenolol 25 No QD Atenolol MG MG 25 MG metFORMIN metFORMIN No 2{table BID metFORMIN HCl ER 500 HCl ER 500 t_with_ HCl ER 500 MG MG evening MG _meal} Losartan Losartan No Losartan Potassium Potassium Potassium 100 MG 100 MG 100 MG Januvia 100 Januvia 100 No 1{table QD Januvia MG MG t} 100 MG Jardiance Jardiance No Jardiance 25 MG 25 MG 25 MG metFORMIN metFORMIN No metFORMIN HCl ER 500 HCl ER 500 HCl ER 500 MG MG MG Jardiance Jardiance No QD Jardiance 25 MG 25 MG 25 MG Atenolol 25 Atenolol 25 No QD Atenolol MG MG 25 MG Losartan Losartan No Losartan Potassium Potassium Potassium 100 MG 100 MG 100 MG Jardiance Jardiance No Jardiance 25 MG 25 MG 25 MG methIMAzole methIMAzole No 1{table QD methIMAzol 10 MG 10 MG t_with_ e 10 MG food} Atorvastati Atorvastati No 1{table QD Atorvastat n Calcium n Calcium t} in Calcium 40 MG 40 MG 40 MG Losartan Losartan No 1{table QD Losartan Potassium Potassium t} Potassium 100 MG 100 MG 100 MG Januvia 100 Januvia 100 No 1{table QD Januvia MG MG t} 100 MG metFORMIN metFORMIN No metFORMIN HCl ER 500 HCl ER 500 HCl ER 500 MG MG MG metFORMIN metFORMIN No 2{table BID metFORMIN HCl ER 500 HCl ER 500 t_with_ HCl ER 500 MG MG evening MG _meal} Januvia 100 Januvia 100 No 1{table QD Januvia MG MG t} 100 MG Atenolol 25 Atenolol 25 No QD Atenolol MG MG 25 MG Jardiance Jardiance No QD Jardiance 25 MG 25 MG 25 MG Jardiance Jardiance No Jardiance 25 MG 25 MG 25 MG Atenolol 25 Atenolol 25 No QD Atenolol MG MG 25 MG Losartan Losartan No 1{table QD Losartan Potassium Potassium t} Potassium 100 MG 100 MG 100 MG Losartan Losartan No Losartan Potassium Potassium Potassium 100 MG 100 MG 100 MG metFORMIN metFORMIN No metFORMIN HCl ER 500 HCl ER 500 HCl ER 500 MG MG MG Atenolol 25 Atenolol 25 No QD Atenolol MG MG 25 MG methIMAzole methIMAzole No 1{table QD methIMAzol 10 MG 10 MG t_with_ e 10 MG food} metFORMIN metFORMIN No 2{table BID metFORMIN HCl ER 500 HCl ER 500 t_with_ HCl ER 500 MG MG evening MG _meal} Jardiance Jardiance No QD Jardiance 25 MG 25 MG 25 MG Januvia 100 Januvia 100 No 1{table QD Januvia MG MG t} 100 MG Atorvastati Atorvastati No 1{table QD Atorvastat n Calcium n Calcium t} in Calcium 40 MG 40 MG 40 MG Jardiance Jardiance No Jardiance 25 MG 25 MG 25 MG Atenolol 25 Atenolol 25 No QD Atenolol MG MG 25 MG Losartan Losartan No 1{table QD Losartan Potassium Potassium t} Potassium 100 MG 100 MG 100 MG Losartan Losartan No Losartan Potassium Potassium Potassium 100 MG 100 MG 100 MG metFORMIN metFORMIN No metFORMIN HCl ER 500 HCl ER 500 HCl ER 500 MG MG MG Atenolol 25 Atenolol 25 No QD Atenolol MG MG 25 MG methIMAzole methIMAzole No 1{table QD methIMAzol 10 MG 10 MG t_with_ e 10 MG food} metFORMIN metFORMIN No 2{table BID metFORMIN HCl ER 500 HCl ER 500 t_with_ HCl ER 500 MG MG evening MG _meal} Jardiance Jardiance No QD Jardiance 25 MG 25 MG 25 MG Januvia 100 Januvia 100 No 1{table QD Januvia MG MG t} 100 MG Atorvastati Atorvastati No 1{table QD Atorvastat n Calcium n Calcium t} in Calcium 40 MG 40 MG 40 MG Jardiance Jardiance No Jardiance 25 MG 25 MG 25 MG Atenolol 25 Atenolol 25 No QD Atenolol MG MG 25 MG Losartan Losartan No 1{table QD Losartan Potassium Potassium t} Potassium 100 MG 100 MG 100 MG Losartan Losartan No Losartan Potassium Potassium Potassium 100 MG 100 MG 100 MG metFORMIN metFORMIN No metFORMIN HCl ER 500 HCl ER 500 HCl ER 500 MG MG MG Atenolol 25 Atenolol 25 No QD Atenolol MG MG 25 MG methIMAzole methIMAzole No 1{table QD methIMAzol 10 MG 10 MG t_with_ e 10 MG food} metFORMIN metFORMIN No 2{table BID metFORMIN HCl ER 500 HCl ER 500 t_with_ HCl ER 500 MG MG evening MG _meal} Jardiance Jardiance No QD Jardiance 25 MG 25 MG 25 MG Januvia 100 Januvia 100 No 1{table QD Januvia MG MG t} 100 MG Atorvastati Atorvastati No 1{table QD Atorvastat n Calcium n Calcium t} in Calcium 40 MG 40 MG 40 MG Jardiance Jardiance No QD Jardiance 25 MG 25 MG 25 MG Losartan Losartan No Losartan Potassium Potassium Potassium 100 MG 100 MG 100 MG Jardiance Jardiance No Jardiance 25 MG 25 MG 25 MG metFORMIN metFORMIN No metFORMIN HCl ER 500 HCl ER 500 HCl ER 500 MG MG MG Januvia 100 Januvia 100 No 1{table QD Januvia MG MG t} 100 MG Losartan Losartan No 1{table QD Losartan Potassium Potassium t} Potassium 100 MG 100 MG 100 MG Atenolol 25 Atenolol 25 No QD Atenolol MG MG 25 MG metFORMIN metFORMIN No 2{table BID metFORMIN HCl ER 500 HCl ER 500 t_with_ HCl ER 500 MG MG evening MG _meal} Atorvastati Atorvastati No 1{table QD Atorvastat n Calcium n Calcium t} in Calcium 40 MG 40 MG 40 MG Atenolol 25 Atenolol 25 No QD Atenolol MG MG 25 MG methIMAzole methIMAzole No 1{table QD methIMAzol 10 MG 10 MG t_with_ e 10 MG food} Immunizations Ordered Immunization Filled Immunization Date Status Commen ts Source Name Name Sherly Dubois 2021-05-14 [facility]one) 14:58:00 - [facility] Afluria single dose Afluria single dose 2020-06-19 [facility] 08:34:00 [facility] Afluria single dose Afluria single dose 2020-06-19 Completed [facility] 08:34:00 [facility] Afluria single dose Afluria single dose 2020-06-19 Completed [facility] 08:34:00 [facility] Afluria single dose Afluria single dose 2020-06-19 Completed [facility] 08:34:00 [facility] Afluria single dose Afluria single dose 2020-06-19 Completed [facility] 08:34:00 [facility] Afluria single dose Afluria single dose 2020-06-19 Completed [facility] 08:34:00 [facility] Afluria single dose Afluria single dose 2020-06-19 Completed [facility] 08:34:00 [facility] Afluria single dose Afluria single dose 2020-06-19 Completed [facility] 08:34:00 [facility] Afluria single dose Afluria single dose 2020-06-19 Completed [facility] 08:34:00 [facility] Afluria single dose Afluria single dose 2020-06-19 Completed [facility] 08:34:00 [facility] Afluria single dose Afluria single dose 2020-06-19 Completed [facility] 08:34:00 [facility] Afluria single dose Afluria single dose 2020-06-19 Completed [facility] 08:34:00 [facility] Afluria single dose Afluria single dose 2020-06-19 Completed [facility] 08:34:00 [facility] Afluria single dose Afluria single dose 2020-06-19 Completed [facility] 08:34:00 [facility] Afluria single dose Afluria single dose 2020-06-19 Completed [facility] 08:34:00 [facility] Afluria single dose Afluria single dose 2020-06-19 Completed [facility] 08:34:00 [facility] Afluria single dose Afluria single dose 2020-06-19 Completed [facility] 08:34:00 [facility] Afluria single dose Afluria single dose 2020-06-19 Completed [facility] 08:34:00 [facility] Afluria single dose Afluria single dose 2020-06-19 Completed [facility] 08:34:00 [facility] Afluria single dose Afluria single dose 2020-06-19 Completed [facility] 08:34:00 [facility] Afluria single dose Afluria single dose 2020-06-19 Completed [facility] 08:34:00 [facility] Afluria single dose Afluria single dose 2020-06-19 Completed [facility] 08:34:00 [facility] Afluria single dose Afluria single dose 2020-06-19 Completed [facility] 08:34:00 [facility] Afluria single dose Afluria single dose 2020-06-19 Completed [facility] 08:34:00 [facility] Afluria single dose Afluria single dose 2020-06-19 Completed [facility] 08:34:00 [facility] Afluria single dose Afluria single dose 2020-06-19 Completed [facility] 08:34:00 [facility] Afluria single dose Afluria single dose 2020-06-19 Completed [facility] 08:34:00 [facility] Afluria single dose Afluria single dose 2020-06-19 Completed [facility] 08:34:00 [facility] Afluria single dose Afluria single dose 2020-06-19 Completed [facility] 08:34:00 [facility] Afluria single dose Afluria single dose 2020-06-19 Completed [facility] 08:34:00 [facility] Kenalog Kenalog 2019-08-08 Completed [facility] (Triam[facility]one[facility] (Triamcinolone) 10:58:00 [facility] Adacel (Tdap) Adacel (Tdap) 2019-01-18 [facility] 10:[facility]00 [facility] Adacel (Tdap) Adacel (Tdap) 2019-01-18 [facility] 10:[facility]00 [facility] Adacel (Tdap) Adacel (Tdap) 2019-01-18 [facility]pleted [facility] 10:[facility]00 [facility] Adacel (Tdap) Adacel (Tdap) 2019-01-18 [facility]00 [facility] Adacel (Tdap) Adacel (Tdap) 2019-01-18 [facility] Adacel (Tdap) Adacel (Tdap) 2019-01-18 [facility]pleted [facility] 10:[facility] - [facility] Adacel (Tdap) Adacel (Tdap) 2019-01-18 [facility]pleted [facility] 10:[facility] - [facility] Adacel (Tdap) Adacel (Tdap) 2019-01-18 [facility] 10:[facility] - [facility] Adacel (Tdap) Adacel (Tdap) 2019-01-18 [facility]pleted [facility] 10:[facility] - [facility] Adacel (Tdap) Adacel (Tdap) 2019-01-18 [facility] 10:[facility] - [facility] Adacel (Tdap) Adacel (Tdap) 2019-01-18 [facility]pleted [facility] 10:55[facility]00 - [facility] Adacel (Tdap) Adacel (Tdap) 2019-01-18 [facility]pleted [facility] 10:55:00 - [facility] Adacel (Tdap) Adacel (Tdap) 2019-01-18 [facility]pleted [facility] 10:55[facility]00 - [facility] Adacel (Tdap) Adacel (Tdap) 2019-01-18 [facility]pleted [facility] 10:[facility] - [facility] Adacel (Tdap) Adacel (Tdap) 2019-01-18 [facility]pleted [facility] 10:55:00 - [facility] Adacel (Tdap) Adacel (Tdap) 2019-01-18 [facility]pleted [facility] 10:55:00 - [facility] Adacel (Tdap) Adacel (Tdap) 2019-01-18 [facility]pleted [facility] 10:[facility] - [facility] Adacel (Tdap) Adacel (Tdap) 2019-01-18 [facility] 10:55:00 - [facility] Adacel (Tdap) Adacel (Tdap) 2019-01-18 [facility]pleted [facility] 10:55:00 - [facility] Adacel (Tdap) Adacel (Tdap) 2019-01-18 [facility]pleted [facility] 10:[facility] - [facility] Adacel (Tdap) Adacel (Tdap) 2019-01-18 [facility]pleted [facility] 10:55:00 - [facility] Adacel (Tdap) Adacel (Tdap) 2019-01-18 [facility]pleted [facility] 10:55:00 - [facility] Adacel (Tdap) Adacel (Tdap) 2019-01-18 [facility] 10:55[facility]00 - [facility] Adacel (Tdap) Adacel (Tdap) 2019-01-18 [facility] 10:[facility]00 [facility] Adacel (Tdap) Adacel (Tdap) 2019-01-18 [facility]pleted [facility] 10:55:00 - [facility] Adacel (Tdap) Adacel (Tdap) 2019-01-18 [facility]pleted [facility] 10:55[facility]00 - [facility] Adacel (Tdap) Adacel (Tdap) 2019-01-18 [facility]pleted [facility] 10:55:00 - [facility] Adacel (Tdap) Adacel (Tdap) 2019-01-18 [facility]pleted [facility] 10:55:00 - [facility] Adacel (Tdap) Adacel (Tdap) 2019-01-18 [facility]pleted [facility] 10:55[facility]00 - [facility] Adacel (Tdap) Adacel (Tdap) 2019-01-18 [facility]pleted [facility] 10:55:00 - [facility] TDAP > 7 TDAP > 7 2019-01-18 Completed [facility] Years-Adacel Years-Adacel 00:00:00 - [facility] Kenalog Kenalog 2019-01-11 Completed [facility] (Triamcinolone) (Triamcinolone) 10:30:00 [facility] Vital Signs Vital Name Observation Time Observation Value Comments Source height 2022-07-20 08:00:00 68 [in_i] [facility] weight 2022-07-20 08:00:00 192.7 [lb_av] [facility] temperature 2022-07-20 08:00:00 97.2 [degF] [facility] bmi 2022-07-20 08:00:00 29.3 kg/m2 [facility] oximetry 2022-07-20 08:00:00 96 % [facility] respiratory rate 2022-07-20 08:00:00 17 /min [facility] on [facility] blood pressure 2022-07-20 08:00:00 127 mm[Hg] [facility] - systolic [facility] blood pressure 2022-07-20 08:00:00 78 mm[Hg] [facility] - diastolic [facility] height 2022-04-16 13:30:00 68 [in_i] [facility] weight 2022-04-16 13:30:00 209.4 [lb_av] [facility] temperature 2022-04-16 13:30:00 97.2 [degF] [facility] bmi 2022-04-16 13:30:00 31.84 kg/m2 [facility] oximetry 2022-04-16 13:30:00 95 % [facility] respiratory rate 2022-04-16 13:30:00 17 /min [facility] on [facility] blood pressure 2022-04-16 13:30:00 124 mm[Hg] [facility] - systolic [facility] blood pressure 2022-04-16 13:30:00 83 mm[Hg] [facility] - diastolic [facility] height 2022-03-12 14:15:00 68 [in_i] [facility] weight 2022-03-12 14:15:00 217 [lb_av] [facility] bmi 2022-03-12 14:15:00 32.99 kg/m2 [facility] blood pressure 2022-03-12 14:15:00 119 mm[Hg] [facility] - systolic [facility] blood pressure 2022-03-12 14:15:00 81 mm[Hg] [facility] - diastolic [facility] height 2022-01-12 10:40:00 68 [in_i] [facility] weight 2022-01-12 10:40:00 225.8 [lb_av] [facility] temperature 2022-01-12 10:40:00 97.3 [degF] [facility] bmi 2022-01-12 10:40:00 34.33 kg/m2 [facility] oximetry 2022-01-12 10:40:00 94 % [facility] respiratory rate 2022-01-12 10:40:00 18 /min [facility] on [facility] blood pressure 2022-01-12 10:40:00 131 mm[Hg] [facility] - systolic [facility] blood pressure 2022-01-12 10:40:00 80 mm[Hg] [facility] - diastolic [facility] height 2022-01-12 08:30:00 68 [in_i] [facility] weight 2022-01-12 08:30:00 217 [lb_av] [facility] temperature 2022-01-12 08:30:00 97.7 [degF] [facility] bmi 2022-01-12 08:30:00 32.99 kg/m2 [facility] blood pressure 2022-01-12 08:30:00 132 mm[Hg] [facility] - systolic [facility] blood pressure 2022-01-12 08:30:00 84 mm[Hg] [facility] - diastolic [facility] height 2021-12-23 10:00:00 68 [in_i] [facility] weight 2021-12-23 10:00:00 217 [lb_av] [facility] temperature 2021-12-23 10:00:00 97.5 [degF] [facility] bmi 2021-12-23 10:00:00 32.99 kg/m2 [facility] blood pressure 2021-12-23 10:00:00 120 mm[Hg] [facility] - systolic [facility] blood pressure 2021-12-23 10:00:00 78 mm[Hg] [facility] - diastolic [facility] height 2021-12-09 11:00:00 68 [in_i] [facility] weight 2021-12-09 11:00:00 217 [lb_av] [facility] temperature 2021-12-09 11:00:00 97.3 [degF] [facility] 2021-12-09 11:00:00 32.99 kg/m2 [facility] blood pressure 2021-12-09 11:00:00 124 mm[Hg] [facility] - systolic [facility] blood pressure 2021-12-09 11:00:00 74 mm[Hg] [facility] - diastolic [facility] height 2021-11-13 15:20:00 68 [in_i] [facility] weight 2021-11-13 15:20:00 217 [lb_av] [facility] temperature 2021-11-13 15:20:00 97.9 [degF] [facility] bmi 2021-11-13 15:20:00 32.99 kg/m2 [facility] blood pressure 2021-11-13 15:20:00 124 mm[Hg] [facility] - systolic [facility] blood pressure 2021-11-13 15:20:00 82 mm[Hg] [facility] - diastolic [facility] height 2021-10-27 08:30:00 68 [in_i] [facility] weight 2021-10-27 08:30:00 217 [lb_av] [facility] temperature 2021-10-27 08:30:00 97.2 [degF] [facility] bmi 2021-10-27 08:30:00 32.99 kg/m2 [facility] blood pressure 2021-10-27 08:30:00 126 mm[Hg] [facility] - systolic [facility] blood pressure 2021-10-27 08:30:00 82 mm[Hg] [facility] - diastolic [facility] height 2021-09-09 07:40:00 68 [in_i] [facility] weight 2021-09-09 07:40:00 217 [lb_av] [facility] temperature 2021-09-09 07:40:00 97.4 [degF] [facility] bmi 2021-09-09 07:40:00 32.99 kg/m2 [facility] blood pressure 2021-09-09 07:40:00 125 mm[Hg] [facility] - systolic [facility] blood pressure 2021-09-09 07:40:00 85 mm[Hg] [facility] - diastolic [facility] height 2021-09-02 14:30:00 68 [in_i] [facility] weight 2021-09-02 14:30:00 217 [lb_av] [facility] temperature 2021-09-02 14:30:00 98.0 [degF] [facility] bmi 2021-09-02 14:30:00 32.99 kg/m2 [facility] [facility] blood pressure 2021-09-02 14:30:00 124 mm[Hg] [facility] blood pressure 2021-09-02 14:30:00 84 mm[Hg] [facility] - diastolic [facility] Systolic blood 2021-02-13 15:34:00 120 mm[Hg] [facility] Medicine Diastolic blood 2021-02-13 15:34:00 78 mm[Hg] [facility] Medicine Heart rate 2021-02-13 15:34:00 80 /min [facility] Respiratory rate 2021-02-13 15:34:00 18 /min [facility] Body height 2021-02-13 15:34:00 172.7 cm [facility] Body weight 2021-02-13 15:34:00 99.791 kg [facility] BMI 2021-02-13 15:34:00 33.45 kg/m2 [facility] Systolic blood 2021-01-08 13:38:00 128 mm[Hg] [facility] Medicine Diastolic blood 2021-01-08 13:38:00 84 mm[Hg] [facility] Medicine Heart rate 2021-01-08 13:38:00 71 /min 02-100% [facility] Body temperature 2021-01-08 13:38:00 36.83 Susan [facility] Body height 2021-01-08 13:38:00 172.7 cm [facility] Body weight 2021-01-08 13:38:00 99.338 kg [facility] BMI 2021-01-08 13:38:00 33.30 kg/m2 [facility] Systolic blood 2019-11-23 19:44:00 122 mm[Hg] [facility] Medicine Diastolic blood 2019-11-23 19:44:00 74 mm[Hg] [facility] Medicine Heart rate 2019-11-23 19:44:00 114 /min [facility] Respiratory rate 2019-11-23 19:44:00 18 /min [facility] Body height 2019-11-23 19:44:00 172.7 cm [facility] Body weight 2019-11-23 19:44:00 94.802 kg [facility] BMI 2019-11-23 19:44:00 31.78 kg/m2 [facility] Systolic blood 2019-11-23 19:44:00 122 mm[Hg] [facility] pressure Medicine Diastolic blood 2019-11-23 19:44:00 74 mm[Hg] [facility] pressure Medicine Heart rate 2019-11-23 19:44:00 114 /min [facility] Respiratory rate 2019-11-23 19:44:00 18 /min [facility] Body height 2019-11-23 19:44:00 172.7 cm [facility] Body weight 2019-11-23 19:44:00 94.802 kg [facility] BMI 2019-11-23 19:44:00 31.78 kg/m2 [facility] Systolic blood 2019-11-08 15:21:00 151 mm[Hg] [facility] pressure Medicine Diastolic blood 2019-11-08 15:21:00 94 mm[Hg] [facility] Medicine Heart rate 2019-11-08 15:21:00 84 /min [facility] Respiratory rate 2019-11-08 15:21:00 16 /min [facility] Body height 2019-11-08 15:21:00 172.7 cm [facility] Body weight 2019-11-08 15:21:00 96.163 kg [facility] BMI 2019-11-08 15:21:00 32.23 kg/m2 [facility] Systolic blood 2019-11-08 15:21:00 151 mm[Hg] [facility] Medicine Diastolic blood 2019-11-08 15:21:00 94 mm[Hg] [facility] Medicine Heart rate 2019-11-08 15:21:00 84 /min [facility] Respiratory rate 2019-11-08 15:21:00 16 /min [facility] Body height 2019-11-08 15:21:00 172.7 cm [facility] Body weight 2019-11-08 15:21:00 96.163 kg [facility] BMI 2019-11-08 15:21:00 32.23 kg/m2 [facility] Procedures This patient has no known procedures. Plan of Care Planned Activity Planned Date Details Comments Source Diagnostic Test 2021-02-20 US THYROID [code = Expected: [facility] Pending 00:00:00 59127] 02/20/2021, of Medicine Expires: 02/13/2022 Diagnostic Test 2021-02-07 TSH [code = 92359-8] Expected: [facility] Pending 00:00:00 02/07/2021, of Medicine Expires: 07/10/2021 Diagnostic Test 2021-02-07 T4 FREE [code = 3024-7] Expected: [facility] Pending 00:00:00 02/07/2021, of Medicine Expires: 07/10/2021 Diagnostic Test 2021-02-07 T3 [code = 3053-6] Expected: [facility] Pending 00:00:00 02/07/2021, of Medicine Expires: 07/10/2021 Diagnostic Test 2021-02-07 CBC W/O DIFF W PLT Expected: [facility] Pending 00:00:00 [code = 6690-2] 02/07/2021, of Medicine Expires: 07/10/2021 Diagnostic Test 2021-02-07 HEPATIC FUNCTION PANEL Expected: [facility] Pending 00:00:00 [code = 57594-3] 02/07/2021, of Medicine Expires: 07/10/2021 Diagnostic Test 2019-11-30 NM THERAPY ABLATION Expected: [facility] Pending 00:00:00 THYROID CANCER [code = 11/30/2019, of Dc izzy 08723] Expires: 05/23/2021 Diagnostic Test 2019-11-30 NM THYROID UPTAKE AND Expected: [facility] Pending 00:00:00 SCAN MULITPLE [code = 11/30/2019, of Med icine 23550] Expires: 11/22/2020 Future Scheduled TETANUS SHOT (ADULT) [facility] Test [code = TETANUS SHOT of Medi cine (ADULT)] Future Scheduled HEPATITIS C SCREENING [facility] Test [code = HEPATITIS C of Medic ine SCREENING] Future Scheduled HIV SCREENING [code = [facility] Test HIV SCREENING] of Medicine Future Scheduled CERVICAL CANCER [facility] ollege Test SCREENING 3 YEAR FOLLOW of M edicine UP [code = CERVICAL CANCER SCREENING 3 YEAR FOLLOW UP] Future Scheduled FLU VACCINE > 6 MONTHS [employer] Test [code = FLU VACCINE > 6 of M edicine MONTHS] Future Scheduled COLON CANCER SCREENING: [facility] Test COLONOSCOPY [code = of Medic ine COLON CANCER SCREENING: COLONOSCOPY] Future Scheduled MAMMOGRAM ANNUAL [code [employer] Test = MAMMOGRAM ANNUAL] of Medic ine Future Scheduled TETANUS SHOT (ADULT) [employer] Test [code = TETANUS SHOT [...] SCREENING] of Medicine Future Scheduled CERVICAL CANCER [facility]lege Test SCREENING 3 YEAR FOLLOW of M edicine UP [code = CERVICAL CANCER SCREENING 3 YEAR FOLLOW UP] Future Scheduled FLU VACCINE > 6 MONTHS [employer] Test [code = FLU VACCINE > 6 of M edicine MONTHS] Future Scheduled TSH [code = 26830-4] Ordered: [employer] Test 01/08/2021 of Medicine Future Scheduled T4 FREE [code = 3024-7] Ordered: [facility] Test 01/08/2021 of Medicine Future Scheduled T3 [code = 3053-6] Ordered: [employer] Test 01/08/2021 of Medicine Future Scheduled THYROTROPIN RECEPTOR,AB Ordered: [employer] Test [code = 78869-5] 01/08/2021 of Medicine Future Scheduled Screening for malignant [facility] Test neoplasm of colon of Medicin e (procedure) [code = 801239562] Future Scheduled Screening for malignant [employer] Test neoplasm of breast of Medici ne (procedure) [code = 527941435] Future Scheduled COVID-19 Vaccine (1) [employer] Test [code = COVID-19 of Medicine Vaccine (1)] Future Scheduled BMI FOLLOW UP PLAN [employer] Test [code = BMI FOLLOW UP of Med icine PLAN] Future Scheduled Hepatitis C screening [employer] Test (procedure) [code = of Medic ine 580793683] Future Scheduled Human immunodeficiency [facility] [employer] Test virus screening of Medicine (procedure) [code = 019542222] Future Scheduled Screening for malignant [facility] [employer] Test neoplasm of cervix of Medici ne (procedure) [code = 083556679] Future Scheduled ZOSTER VACCINE (1 of 2) [facility] Test [code = ZOSTER VACCINE of Me dicine (1 of 2)] Future Scheduled FLU VACCINE > 6 MONTHS [employer] Test [code = FLU VACCINE > 6 of M edicine MONTHS] Future Scheduled TETANUS SHOT (ADULT) [employer] Test [code = TETANUS SHOT of Medi cine (ADULT)] Future Scheduled TSH [code = 18841-6] Ordered: [employer] Test 02/13/2021 of Medicine Future Scheduled T4 FREE [code = 3024-7] Ordered: [employer] Test 02/13/2021 of Medicine Future Scheduled T3 [code = 3053-6] Ordered: [employer] Test 02/13/2021 of Medicine Future Scheduled CBC W/AUTO DIFF WITH Ordered: [employer] Test PLATELETS [code = 02/13/2021 of Medicin e 17991-4] Future Scheduled HEPATIC FUNCTION PANEL Ordered: [employer] Test [code = 49849-9] 02/13/2021 of Medicine Future Scheduled Screening for malignant [facility] Test neoplasm of colon of Medicin e (procedure) [code = 862979269] Future Scheduled Screening for malignant [facility] Test neoplasm of breast of Medici ne (procedure) [code = 444230275] Future Scheduled COVID-19 Vaccine (1) [employer] Test [code = COVID-19 of Medicine Vaccine (1)] Future Scheduled BMI FOLLOW UP PLAN [employer] Test [code = BMI FOLLOW UP of Med icine PLAN] Future Scheduled Hepatitis C screening [facility] Test (procedure) [code = of Medic ine 347830305] Future Scheduled Human immunodeficiency B [facility] Test virus screening of Medicine (procedure) [code = 325853864] Future Scheduled Screening for malignant [facility] Test neoplasm of cervix of Medici ne (procedure) [code = 991308071] Future Scheduled ZOSTER VACCINE (1 of 2) [facility] Test [code = ZOSTER VACCINE of Me dicine (1 of 2)] Future Scheduled FLU VACCINE > 6 MONTHS [employer] Test [code = FLU VACCINE > 6 of M edicine MONTHS] Future Scheduled TETANUS SHOT (ADULT) [employer] Test [code = TETANUS SHOT of Medi cine (ADULT)] Future Scheduled TSH [code = 92452-9] Ordered: [employer] Test 11/08/2019 of Medicine Future Scheduled T4 FREE [code = 3024-7] Ordered: [employer] Test 11/08/2019 of Medicine Future Scheduled T3 [code = 3053-6] Ordered: [employer] Test 11/08/2019 of Medicine Future Scheduled CBC W/AUTO DIFF WITH Ordered: [employer] Test PLATELETS [code = 11/08/2019 of Kariin e 02913-0] Future Scheduled HEPATIC FUNCTION PANEL Ordered: [employer] Test [code = 19840-6] 11/08/2019 of Medicine Future Scheduled COLON CANCER SCREENING: [facility] Test COLONOSCOPY [code = of Kari ine COLON CANCER SCREENING: COLONOSCOPY] Future Scheduled MAMMOGRAM ANNUAL [code [employer] [facility] = MAMMOGRAM ANNUAL] of Kari watt Encounters Start End Encounter Admission Attending Care Care Encounter Source Date/Time Date/Time Type Type Clinicians Facility Department ID 2022-04-15 [facility] [id number] Common 15:53:00 [facility] 2022-03-13 Outpatient Tate, STLMLC ST[facility] [id number] Common 10:16:01 [facility] 2022-01-12 Outpatient Tate, STLMLC ST[facility] [id number] Common 11:26:00 [facility] 2022-01-08 Outpatient Tate, STLMLC ST[facility] [id number] Common 14:36:01 [facility] 2021-11-18 Outpatient Tate, STLMLC ST[facility] [id number] Common 08:20:00 [facility] 2021-11-05 Outpatient Tate, STLMLC ST[facility] [id number] Common 14:36:06 Hamz[facility] 2021-11-05 Outpatient Tate, STLMLC ST[facility] [id number] Common 14:17:17 [facility] 2021-11-05 Outpatient Tate, STLMLC ST[facility] [id number] Common 14:14:45 [facility] 2021-11-05 Outpatient Tate, STLMLC ST[facility] [id number] Common 14:06:34 Hamzah 86811 [facility] 2021-11-05 Outpatient Tate, STLMLC ST[facility] [id number] Common 12:55:42 Hamzah 54518 [facility] 2021-11-05 Outpatient Tate, STLMLC STL[facility]C [id number] Common 12:37:56 Hamzah 05606 [facility] 2021-11-05 Outpatient Tate, STLMLC ST[facility]C [id number] Common 12:13:40 Hamzah 66377 [facility] 2021-11-05 Outpatient Tate, STLMLC STLMLC [id number] Common 12:13:15 Hamzah 08491 [facility] 2021-11-05 Outpatient Tate, STLMLC STLMLC [id number] Common 11:45:08 Hamzah 94212 [facility] 2021-11-05 Outpatient Tate, STLMLC STLMLC [id number] Common 11:13:35 Hamzah 90666 [facility] 2022-07-20 2022-07-20 OFFICE STLMLC STLMLC [id number] Co mmon 00:00:00 00:00:00 VISIT [facility] PT - CHI LEVEL 4 [facility] 2022-07-09 2022-07-09 (TEL) STLMLC STLMLC [id number] Co mmon 00:00:00 00:00:00 [facility] 2022-06-23 2022-06-23 (TEL) STLMLC STLMLC [id number] Co mmon 00:00:00 00:00:00 [facility] 2022-04-16 2022-04-16 (WELLNESS) STLMLC STLMLC [id number] Common 00:00:00 00:00:[address] [facility] 2022-03-12 2022-03-12 OFFICE STLMLC STLMLC [id number] Co mmon 00:00:00 00:00:[address] [facility] ESTAB PT - CHI LEVEL 4 [facility] 2022-02-18 2022-02-18 (TEL) STLMLC STLMLC [id number] Co mmon 00:00:00 00:00:00 [facility] 2022-02-13 2022-02-13 (TEL) STLMLC STLMLC [id number] Co mmon 00:00:00 00:00:00 [facility] 2022-01-21 2022-01-21 (TEL) STLMLC STLMLC [id number] Co mmon 00:00:00 00:00:00 [facility] 2022-01-20 2022-01-20 (TEL) STLMLC STLMLC [id number] Co mmon 00:00:00 00:00:00 [facility] 2022-01-15 2022-01-15 (TEL) STLMLC STLMLC [id number] Co mmon 00:00:00 00:00:00 [facility] 2022-01-12 2022-01-12 OFFICE STLMLC STLMLC [id number] Co mmon 00:00:00 00:00:[address] [facility] 4 [facility] 2022-01-12 2022-01-12 NON-BILLAB STLMLC STLMLC [id number] Common 00:00:00 00:00:00 LE VISIT [facility] 2022-01-08 2022-01-08 (TEL) STLMLC STLMLC [id number] Co mmon 00:00:00 00:00:00 [facility] 2021-12-23 2021-12-23 NON-BILLAB STLMLC STLMLC [id number] Common 00:00:00 00:00:00 LE VISIT [facility] 2021-12-12 2021-12-12 (TEL) STLMLC STLMLC [id number] Co mmon 00:00:00 00:00:00 [facility] 2021-12-09 2021-12-09 (TEL) STLMLC STLMLC [id number] Co mmon 00:00:00 00:00:00 [facility] 2021-12-09 2021-12-09 NON-BILLAB STLMLC STLMLC [id number] Common 00:00:00 00:00:00 LE VISIT Spiri t [facility] 2021-12-04 2021-12-04 (TEL) STLMLC STLMLC [id number] Co mmon 00:00:00 00:00:00 [facility] 2021-11-18 2021-11-18 (TEL) STLMLC STLMLC [id number] Co mmon 00:00:00 00:00:00 [facility] 2021-11-18 2021-11-18 (TEL) STLMLC STLMLC [id number] Co mmon 00:00:00 00:00:00 [facility] 2021-11-13 2021-11-13 OFFICE STLMLC STLMLC [id number] Co mmon 00:00:00 00:00:00 VISIT [facility] PT - CHI LEVEL 4 [facility] 2021-11-04 2021-11-04 (TEL) STLMLC STLMLC [id number] Co mmon 00:00:00 00:00:00 [facility] 2021-10-29 2021-10-29 (TEL) STLMLC STLMLC [id number] Co mmon 00:00:00 00:00:00 [facility] 2021-10-27 2021-10-27 (TEL) STLMLC STLMLC [id number] Co mmon 00:00:00 00:00:00 [facility] 2021-10-27 2021-10-27 OFFICE STLMLC STLMLC [id number] Co mmon 00:00:00 00:00:00 VISIT [facility] PT - CHI LEVEL 4 [facility] 2021-09-09 2021-09-09 OFFICE STLMLC STLMLC [id number] Co mmon 00:00:00 00:00:[address] [facility] ESTAB PT - CHI LEVEL 4 [facility] 2021-09-02 2021-09-02 CONSULT - STLMLC STLMLC [id number] Common 00:00:00 00:00:00 OFFICE, L4 Spi rit [facility] 2021-08-07 2021-08-07 (TEL) STLMLC STLMLC [id number] Co mmon 00:00:00 00:00:00 [facility] 2021-06-04 2021-06-04 Outpatient STLMLC STLMLC [id number] Common 00:00:00 00:00:00 [facility] 2021-05-29 2021-05-29 Outpatient STLMLC STLMLC [id number] Common 00:00:00 00:00:00 [facility] 2021-05-14 2021-05-14 Outpatient STLMLC STLMLC [id number] Common 00:00:00 00:00:00 [facility] 2021-02-13 2021-02-13 Office Eloise Bonilla BC [id number] [facility] 10:34:01 11:04:01 Visit AMBULATOR 350.1.13.21 College Y 0.2.7.2.686 of [id number] [facility] 310 e 2021-01-27 2021-01-27 Outpatient STLMLC STLMLC [id number] Common 00:00:00 00:00:00 [facility] 2021-01-08 2021-01-08 Office [facility] Bon[facility] [id number] [facility] 08:06:55 08:36:55 Visit Joshua 350.1.13.21 Co llege 0.2.7.2.686 of [id number] [facility] 560 e 2020-12-19 2020-12-19 Outpatient STLMLC STLMLC [id number] Common 00:00:00 00:00:00 [facility] 2020-12-19 2020-12-19 Outpatient STLMLC STLMLC [id number] Common 00:00:00 00:00:00 [facility] 2020-11-29 2020-11-29 Outpatient STLMLC STLMLC [id number] Common 00:00:00 00:00:00 [facility] 2020-11-12 2020-11-12 Outpatient STLMLC STLMLC [id number] Common 00:00:00 00:00:00 [facility] 2020-09-20 2020-09-20 Outpatient STLMLC STLMLC [id number] Common 00:00:00 00:00:00 [facility] 2020-06-21 2020-06-21 [facility] [id number] Common 11:20:00 11:20:[address] [facility] 2020-05-06 2020-05-06 [facility] [id number] Common 10:35:00 10:35:[address] [facility] 2020-04-23 2020-04-23 [facility] [id number] Common 13:40:00 13:40:[address] [facility] [address] [facility] 2020-04-22 2020-04-22 [facility] [id number] Common 13:34:00 13:34:[address] [facility] 2020-03-26 2020-03-26 [facility] [id number] Common 14:00:00 14:00:[address] [facility] 2020-03-14 2020-03-14 [facility] [id number] Common 16:13:00 16:13:[address] [facility] 2020-01-15 2020-01-15 [facility] [id number] Common 13:52:00 13:52:[address] [facility] 2019-12-25 2019-12-25 [facility] [id number] Common 13:30:00 13:30:[address] [facility] 2019-11-23 2019-11-23 Office Eloise Bonilla [id number] 13:40:01 14:25:13 Visit AMBULATOR 350.1.13.21 Y 0.2.7.2.686 [id number] 2019-11-23 2019-11-23 Office Eloise Bonilla [facility] [id number] [facility] 13:40:01 14:25:13 Visit AMBULATOR 350.1.13.21 College Y 0.2.7.2.686 of [id number] [facility] 310 e 2019-11-08 2019-11-08 Office Eloise Bonilla [facility] [id number] 09:15:27 09:45:27 Visit Joshua 350.1.13.21 0.2.7.2.686 [id number] 2019-11-08 2019-11-08 Office Eloise Bonilla [facility] [id number] [facility] 09:15:27 09:45:27 Visit Joshua 350.1.13.21 Co llege 0.2.7.2.686 of [id number] [facility] 560 e 2019-09-27 2019-09-27 [facility] [id number] Common 09:00:00 09:00:[address] [facility] 2019-09-22 2019-09-22 [facility] [id number] Common 10:30:00 10:30:[address] [facility] 2019-09-15 2019-09-15 [facility] [id number] Common 08:21:00 08:21:[address] [facility] 2019-09-06 2019-09-06 [facility] [id number] Common 08:11:00 08:11:[address] [facility] 2019-09-04 2019-09-04 [facility] [id number] Common 08:03:00 08:03:[address] [facility] 2019-08-08 2019-08-08 [facility] [id number] Common 11:00:00 11:00:[address] [facility] 2019-06-23 2019-06-23 [facility] [id number] Common 09:30:00 09:30:[address] [facility] 2019-03-23 2019-03-23 [facility] [id number] Common 09:00:00 09:00:[address] [facility] 2019-01-18 2019-01-18 [facility] [id number] Common 11:00:00 11:00:[address] [facility] 2019-01-11 2019-01-11 [facility] [id number] Common 10:00:00 10:00:[address] [facility] 2018-12-21 2018-12-21 [facility] [id number] Common 13:15:00 13:15:[address] [facility] 2018-09-28 2018-09-28 [facility] [id number] Common 11:18:00 11:18:[address] [facility] 2018-09-22 2018-09-22 [facility] [id number] Common 14:45:00 14:45:[address] [facility] Results This patient has no known results.
--- NOTE | 2022-09-04 08:18 | ER ---
Nurse's Notes [facility] Name: Petra Santos Age: 57 yrs Sex: Female : 1965 Arrival Date: 09/04/2022 Time: 05:36 Bed 7 Private MD: Diagnosis: Pain in left knee;Unspecified symptoms and signs involving the musculoskeletal system-left calf Presentation: 09/04 05:50 Chief complaint: Patient states: "I have this burning sensation on the left leg that tw5 has been going on for the past three days, but last night it was so bad I could hardly sleep.". Coronavirus screen: Vaccine status: Patient reports receiving the 2nd dose of the covid vaccine. Moderna. Ebola Screen: Patient negative for fever greater than or equal to 101.5 degrees Fahrenheit, and additional compatible Ebola Virus Disease symptoms Patient denies exposure to infectious person. Patient denies travel to an Ebola-affected area in the 21 days before illness onset. Initial Sepsis Screen: Does the patient meet any 2 criteria? No. Patient's initial sepsis screen is negative. Does the patient have a suspected source of infection? No. Patient's initial sepsis screen is negative. Risk Assessment: Do you want to hurt yourself or someone else? Patient reports no desire to harm self or others. Onset of symptoms was September 01, 2022. 05:50 Method Of Arrival: Ambulatory tw5 05:50 Acuity: MARKIE 4 tw5 Triage Assessment: 05:52 General: Appears in no apparent distress. uncomfortable, Behavior is calm, cooperative, tw5 appropriate for age. Pain: Pain currently is 10 out of 10 on a pain scale. Musculoskeletal: Range of motion: intact in all extremities. Historical: - Allergies: 05:52 No Known Allergies; tw5 - Home Meds: 06:03 atenolol 25 mg Oral tab 1 tab once daily [Active]; atorvastatin Oral [Active]; pf1 Jardiance 10 mg Oral tab 1 tab once daily [Active]; losartan 100 mg Oral tab 1 tab once daily [Active]; metformin 500 mg Oral tab 2 tabs 2 times per day [Active]; methimazole 5 mg Oral tab 1 tab once daily [Active]; - PMHx: 05:51 Diabetes - NIDDM; Hypertension; tw5 - PSHx: 05:51 Total abdominal hysterectomy; section; Tonsillectomy; carpal tunnel repair; tw5 right shoulder surgery; - Immunization history:: Flu vaccine is up to date. - Social history:: Smoking status: Patient denies any tobacco usage or history of. - Family history:: not pertinent. - Hospitalizations: : No recent hospitalization is reported. Screenin:50 Abuse screen: Denies threats or abuse. pf1 05:50 Nutritional screening: No deficits noted. Tuberculosis screening: No symptoms or risk pf1 factors identified. Fall Risk None identified. Assessment: 05:50 General: Appears in no apparent distress. comfortable, well groomed, well developed, pf1 Behavior is calm, cooperative, appropriate for age, quiet. 05:50 Pain: Complains of pain in posterior aspect of left knee Pain radiates to back of left pf1 calf/leg and left foot Pain currently is 10 out of 10 on a pain scale. Pain began 2-3 days ago. Is continuous. Neuro: No deficits noted. Cardiovascular: No deficits noted. Respiratory: No deficits noted. GI: No deficits noted. : No deficits noted. EENT: No deficits noted. Derm: No deficits noted. Musculoskeletal: Circulation, motion, and sensation intact. Capillary refill. 07:00 Reassessment: RECD REPORT FROM [facility]. 57YO BF P/W BLE PAIN/EDEMA, DENIES TRAUMA. bp 07:26 Reassessment: US AT B/S. bp 09:30 Reassessment: PT DC HOME AMBULATORY. bp Vital Signs: 05:50 BP 146 / 89; Pulse 90; Resp 18; Temp 98.6; Pulse Ox 100% ; Weight 83.91 kg; Height 5 tw5 ft. 8 in. (172.72 cm); Pain 10/10; 06:00 BP 128 / 69; Pulse 69; Resp 20; Pulse Ox 97% ; pf1 07:00 BP 130 / 88; Pulse 74; Resp 16; Pulse Ox 97% ; bp 09:30 BP 134 / 9; Pulse 76; Resp 16; Pulse Ox 95% ; bp 05:50 Body Mass Index 28.13 (83.91 kg, 172.72 cm) tw5 ED Course: 05:36 Patient arrived in ED. ja2 05:37 Collins Rader MD is Attending Physician. rn 05:51 Triage completed. tw5 05:52 Arm band placed on Patient placed in an exam room. tw5 05:56 Angela herr, CHACHA is Primary Nurse. pf1 06:00 Bed in low position. Call light in reach. pf1 06:00 No provider procedures requiring assistance completed. pf1 07:12 Attending Physician role handed off by Collins Rader MD [facility] 07:12 Casey Golden MD is Attending Physician. lor 07:15 Primary Nurse role handed off by Angela herr, CHACHA bp 07:15 Dipak Marcus, CHACHA is Primary Nurse. bp 08:17 Jaguar Murillo MD is Referral Physician. lor 08:23 Knee Left 3 View XRAY In Process Unspecified. EDMS 08:45 Extremity Venous Uni Ltd US In Process Unspecified. EDMS 09:30 Patient did not have IV access during this emergency room visit. bp Administered Medications: 08:25 Drug: Motrin (ibuprofen) 600 mg Route: PO; bp 08:42 Follow up: Response: No adverse reaction bp 08:25 Drug: [place] (HYDROcodone-acetaminophen) (7.5 mg-325 mg) 1 tabs Route: PO; bp 08:42 Follow up: Response: No adverse reaction bp Medication: 05:50 VIS not applicable for this client. pf1 Outcome: 08:17 Discharge ordered by . lor 09:30 Discharged to home ambulatory. bp 09:30 Condition: stable 09:30 Discharge instructions given to patient, Instructed on discharge instructions, follow up and referral plans. Demonstrated understanding of instructions, follow-up care, Prescriptions given X 2. 09:47 Patient left the ED. bp Signatures: Dispatcher [employer] EDMA Casey Golden MD MD cha Nieto, Roman, MD MD rn Peltier, Brian, RN RN Kandi Braun Tiffany tw5 Angela herr, CHACHA RN pf1 Corrections: (The following items were deleted from the chart) 06:05 05:50 Pain: Complains of pain in posterior aspect of left knee Pain radiates to back of pf1 left calf/leg and left foot Pain currently is 10 out of 10 on a pain scale. pf1
--- NOTE | 2022-09-04 08:18 | EDPHYS ---
Physician Documentation [facility] Name: Petra Santos Age: 57 yrs Sex: Female : 1965 Arrival Date: 09/04/2022 Time: 05:36 Bed 7 Private MD: ED Physician Casey Golden HPI: 09/04 05:53 This 57 yrs old Black Female presents to ER via Ambulatory with complaints of Leg Pain. rn 05:53 The patient presents with pain, that is acute. The complaints affect the posterior rn aspect of left knee. Onset: The symptoms/episode began/occurred 3 day(s) ago. Modifying factors: The symptoms are alleviated by nothing. the symptoms are aggravated by bending knee. Severity of symptoms: At their worst the symptoms were moderate, in the emergency department the symptoms are unchanged. The patient has not experienced similar symptoms in the past. The patient has not recently seen a physician. Pt reports pain to back of left knee, began 3 days ago, radiates down towards foot. No trauma. No fever. + subjective swelling. No hx of DVT. . Historical: - Allergies: 05:52 No Known Allergies; tw5 - Home Meds: 06:03 atenolol 25 mg Oral tab 1 tab once daily [Active]; atorvastatin Oral [Active]; pf1 Jardiance 10 mg Oral tab 1 tab once daily [Active]; losartan 100 mg Oral tab 1 tab once daily [Active]; metformin 500 mg Oral tab 2 tabs 2 times per day [Active]; methimazole 5 mg Oral tab 1 tab once daily [Active]; - PMHx: 05:51 Diabetes - NIDDM; Hypertension; tw5 - PSHx: 05:51 Total abdominal hysterectomy; section; Tonsillectomy; carpal tunnel repair; tw5 right shoulder surgery; - Immunization history:: Flu vaccine is up to date. - Social history:: Smoking status: Patient denies any tobacco usage or history of. - Family history:: not pertinent. - Hospitalizations: : No recent hospitalization is reported. ROS: 05:53 Constitutional: Negative for fever, chills, and weight loss, Eyes: Negative for injury, rn pain, redness, and discharge, Neck: Negative for injury, pain, and swelling, Cardiovascular: Negative for chest pain, palpitations, and edema, Respiratory: Negative for shortness of breath, cough, wheezing, and pleuritic chest pain, Abdomen/GI: Negative for abdominal pain, nausea, vomiting, diarrhea, and constipation, Back: Negative for injury and pain, MS/Extremity: + left leg pain Skin: Negative for injury, rash, and discoloration, Neuro: Negative for headache, weakness, numbness, tingling, and seizure. Exam: 05:53 Constitutional: This is a well developed, well nourished patient who is awake, alert, rn and in no acute distress. Ambulatory to room from triage without assistance. Cardiovascular: Regular rate and rhythm. No pulse deficits. Respiratory: No increased work of breathing, no retractions or nasal flaring. Skin: Warm, dry with normal turgor. Normal color with no rashes, no lesions, and no evidence of cellulitis. MS/ Extremity: Pulses equal, no cyanosis. Neurovascular intact. Full, normal range of motion. Equal circumference. + mild tenderness posterior left knee Neuro: Awake and alert, GCS 15 Vital Signs: 05:50 BP 146 / 89; Pulse 90; Resp 18; Temp 98.6; Pulse Ox 100% ; Weight 83.91 kg; Height 5 tw5 ft. 8 in. (172.72 cm); Pain 10/10; 06:00 BP 128 / 69; Pulse 69; Resp 20; Pulse Ox 97% ; pf1 07:00 BP 130 / 88; Pulse 74; Resp 16; Pulse Ox 97% ; bp 09:30 BP 134 / 9; Pulse 76; Resp 16; Pulse Ox 95% ; bp 05:50 Body Mass Index 28.13 (83.91 kg, 172.72 cm) tw5 MDM: 05:37 Patient medically screened. rn 07:48 Differential diagnosis: contusion. Data reviewed: vital signs, nurses notes, radiologic lor studies, doppler. Data interpreted: quality assurance monitor final: not applicable for this patient encounter. rate is 74 beats/min, Pulse oximetry: on room air is 97 %. Test interpretation: by ED physician or midlevel provider:. Counseling: I had a detailed discussion with the patient and/or guardian regarding: the historical points, exam findings, and any diagnostic results supporting the discharge/admit diagnosis, radiology results, the need for outpatient follow up, for definitive care, a family practitioner, a orthopedic surgeon. 09/04 05:49 Order name: Extremity Venous Uni Ltd ; Complete Time: 04:07 rn 09/04 07:49 Order name: Knee Left 3 View XRAY; Complete Time: 04:07 lor Administered Medications: 08:25 Drug: Motrin (ibuprofen) 600 mg Route: PO; bp 08:42 Follow up: Response: No adverse reaction bp 08:25 Drug: [place] (HYDROcodone-acetaminophen) (7.5 mg-325 mg) 1 tabs Route: PO; bp 08:42 Follow up: Response: No adverse reaction bp Disposition Summary: 09/04/22 08:17 Discharge Ordered Location: Home lor Problem: new lor Symptoms: have improved lor Condition: Stable lor Diagnosis - Pain in left knee lor - Unspecified symptoms and signs involving the musculoskeletal system - left calf lor Followup: lor - With: Private Physician - When: 2 - 3 days - Reason: Recheck today's complaints, Continuance of care, Re-evaluation by your physician Followup: lor - With: - When: 2 - 3 days - Reason: Recheck today's complaints, Re-evaluation by your physician Discharge Instructions: - Discharge Summary Sheet lor - Joint Pain lor - How to Use a Knee Brace lor - Musculoskeletal Pain lor - Acute Knee Pain, Adult lor - How to Use Cold Therapy, [id number] lor - How to Use Cold Therapy lor Forms: - Medication Reconciliation Form lor - Thank You Letter lor - Antibiotic Education lor - Prescription Opioid Use lor Prescriptions: - Ibuprofen 600 mg Oral Tablet - take 1 tablet by ORAL route every 6 hours As needed take with food; 20 tablet; lor Refills: 0, Product Selection Permitted - Tylenol-Codeine #3 300 mg-30 mg Oral - take 2 tablet by ORAL route every 6 hours; 24 tablet; Refills: 0, Product lor Selection Permitted Signatures: Dispatcher [employer] Casey Lerma MD MD cha Nieto, Roman, MD MD rn Peltier, Brian RN Anne Geronimo tw5 Angela herr RN RN pf1 Corrections: (The following items were deleted from the chart) 08:18 08:17 Synovial cyst of popliteal space [[place]], left knee lor lor
[2022-09-04] MEDS ORDERED: HYDROCODONE/APAP 7.5/325 MG TAB ONE (08:28)
[2022-09-04] MEDS ORDERED: IBUPROFEN 400 MG TAB ONE (08:29)
--- NOTE | 2022-09-04 08:55 | RAD REPORT ---
EXAM DESCRIPTION: USExtremity Venous Uni Ltd09/04/2022 8:43 am CLINICAL HISTORY: left leg pain COMPARISON: 2017 FINDINGS: Left common femoral, superficial femoral, popliteal and posterior tibial veins are compre ssible and demonstrate augmentation. Doppler demonstrates good flow. Grayscale, color and spectral analysis performed on all vessels IMPRESSION: No evidence of deep venous thrombosis involving the left lower extremity.
--- NOTE | 2022-09-04 09:11 | RAD REPORT ---
EXAM DESCRIPTION: RAD - Knee Left 3 View - 09/04/2022 8:21 am CLINICAL HISTORY: Left knee pain FINDINGS: No fracture or dislocation is seen. Moderate osteoarthritis medial compartment consisting joint space narrowing and osteophytes. Patella femoral compartment is also involved
[2022-09-04 09:54] VITALS: TEMP 98.6
[2022-09-04 09:58] VITALS: BP 134/9; O2SAT 95
== END 2022-09-04 09:47 | disposition home or self-care (01) ==
LOC: ER 05:32
DX: R29.91 Unspecified symptoms and signs involving the musculoskeletal system (principal)
CPT/HCPCS: 93971; 99283

== ENCOUNTER 2022-12-27 20:58 | Emergency (ER) | payer BC ==
--- OUTSIDE RECORDS SUMMARY | 2022-12-27 21:07 | XMS REPORT | Continuity of Care Document ---
:1965 Author Organization [facility] t Address [address] [facility] [address] [place] [id number] Care Team Providers Name Role Phone Gume Tate Attending Clinician Unavailable Eloise Bonilla MD Attending Clinician GUME TATE Admitting Clinician Unavailable Payers Payer Name Policy Type Policy Number Effective Date Expiration Date S andrew Blue Cross 6 [id number] 2017 Common Spiri t Blue Shield of 00:00:00 - [facility] Problems Condition Condition Condition Status Onset Resolution Last Treating Co mments Source Name Details Category Date Date Treatment Clinician Date [id number] Graves' Problem Commo n disease [facility] Abnormal Abnormal Problem Commo n mammogram mammogram Spir it - [facility] [id number] Acute Problem Common right-side Spirit d low back - [facility]I pain with [facility] right[facility]side [facility] [id number] Primary Problem Comm on osteoarthr Spirit itis of - CHI right shoulder [facility] [id number] Primary Problem Comm on osteoarthr Spirit itis of - CHI right hand [facility] [id number] Type 2 Problem Common diabetes Spirit mellitus - [facility]I without St complicati [facility] on, Medical without Center long-term current use of insulin [id number] Mixed Problem Common hyperlipid Spirit emia - [facility] [id number] HTN, goal Problem Comm on below Spirit 130/80 - [facility] [id number] Adult BMI Problem Com mon 31.0-31.9 Spirit kg/sq m - [facility] [id number] History of Problem Co mmon kidney Spirit stones - [facility] [id number] Enlarged Problem Common thyroid Spirit gland - [facility] Abnormal Abnormal Problem Commo n laboratory laboratory Sp gurpreet results results - [facility] for for St respirator respirator Hanna kes y system y system Medica l Center [id number] Allergic Problem Commo n rhinitis, Spirit unspecifie - [facility]I d [facility], Medical unspecifie Center d trigger [id number] 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 Social History Social Habit Start Date Stop Date Quantity Comments Source History of Tobacco Common Spirit - Use [facility] Sex Assigned At Common Sp gurpreet - [facility] Exposure to Not sure [facility] e SARS-CoV-2 (event) of Med icine Alcohol intake 2021-02-13 2021-02-13 Current drinker [facility] Scarosso [place] 00:00:00 00:00:00 of alcohol of Medicine (finding) Tobacco use and 2021-02-13 2021-02-13 Never used [employer] [facility] exposure 00:00:00 00:00:00 of Medicine History [facility] 2019-11-08 2019-11-08 2 [facility] M-DISC Alcohol Frequency 00:00:00 00:00:00 of Medi cine History [facility] 2019-11-08 2019-11-08 1 [facility] Siminars Alcohol Std Drinks 00:00:00 00:00:00 of Med icine History [facility] 2019-11-08 2019-11-08 1 [facility] Alcohol Binge 00:00:00 00:00:00 of Medicine Smoking Status Start Date Stop Date Source Never Smoker [facility] Medications Ordered Filled Start Stop Current Ordering Indication Dosage Frequency Signature Comments Components Source Medication Medication Date Date Medication? Clinician (SIG) Name Name Ozempic (1 Ozempic (1 2022-0 2022- No Ozempic (1 MG/DOSE) 4 MG/DOSE) 4 1-30 04-30 MG/DOSE) 4 MG/3ML MG/3ML 00:00: 00:00 MG/3ML 00 :00 Ozempic Ozempic 0 2021- No Ozempic 0.25 or 0.5 0.25 or 0.5 04-16 10-05 0.25 or MG/DOSE MG/DOSE 00:00: 00:00 0.5 00 :00 MG/DOSE Ozempic Ozempic 0 2021- No Ozempic 0.25 or 0.5 0.25 or 0.5 04-16 10-05 0.25 or MG/DOSE MG/DOSE 00:00: 00:00 0.5 00 :00 MG/DOSE Ozempic Ozempic 0 2021- No Ozempic 0.25 or 0.5 0.25 or 0.5 04-16 10-05 0.25 or MG/DOSE MG/DOSE 00:00: 00:00 0.5 00 :00 MG/DOSE Ozempic Ozempic 2021- No Ozempic 0.25 or 0.5 0.25 or 0.5 04-16 10-05 0.25 or MG/DOSE MG/DOSE 00:00: 00:00 0.5 00 :00 MG/DOSE HYDROcodone HYDROcodone 0 No 1{table HYDROcodon -Acetaminop -Acetaminop 3-01 t_as_ne e-Acetamin hen 5-325 hen 5-325 00:00: eded} ophen MG MG 00 5-325 MG HYDROcodone HYDROcodone 0 No 1{table QID HYDROcodon -Acetaminop -Acetaminop 3-01 t_as_ne e-Acetamin hen 5-325 hen 5-325 00:00: eded} ophen MG MG 00 5-325 MG HYDROcodone HYDROcodone 0 No 1{table HYDROcodon -Acetaminop -Acetaminop 3-01 t_as_ne [...] MG MG 00 5-325 MG HYDROcodone HYDROcodone 0 No 1{table HYDROcodon [...] pirit one) one) 00:00: - CHI 00 [facility] Bupivicaine Bupivicaine 2020-10 No 2.5mg Common Eunice Eunice 1-23 Spirit 00:00: - CHI 00 [facility] Kenalog Kenalog 2020-10 No 40mg Common (Triamcinol (Triamcinol 1-23 S pirit one) one) 00:00: - CHI 00 [facility] Bupivicaine Bupivicaine 2020-10 No 2.5mg Common Eunice Eunice 1-23 Spirit 00:00: - CHI 00 [facility] Kenalog Kenalog 2020-10 No 40mg Common (Triamcinol (Triamcinol 1-23 S pirit one) one) 00:00: - CHI 00 [facility] Bupivicaine Bupivicaine 2020-10 No Common Eunice Eunice 1-23 Spirit 00:00: - CHI 00 [facility] Kenalog Kenalog 2020-10 No 40mg Common (Triamcinol (Triamcinol 1-23 S pirit one) one) 00:00: - CHI 00 [facility] Bupivicaine Bupivicaine 2020-10 No Common Eunice Eunice 1-23 Spirit 00:00: - CHI 00 [facility] Kenalog Kenalog 2020-10 No 40mg Common (Triamcinol (Triamcinol 1-23 S pirit one) one) 00:00: - CHI 00 [facility] Bupivicaine Bupivicaine 2020-10 No Common Eunice Eunice 1-23 Spirit 00:00: - CHI 00 [facility] Kenalog Kenalog 2020-10 No 40mg Common (Triamcinol (Triamcinol 1-23 S pirit one) one) 00:00: - CHI 00 [facility] Bupivicaine Bupivicaine 2020-10 No Common Eunice Eunice 1-23 Spirit 00:00: - CHI 00 [facility] Kenalog Kenalog 2020-10 No 40mg Common (Triamcinol (Triamcinol 1-23 S pirit one) one) 00:00: - CHI 00 [facility] Bupivicaine Bupivicaine 2020-10 No Common Eunice Eunice 1-23 Spirit 00:00: - CHI 00 [facility] Sherly Kenalog 2020-10 No 40mg Common (Triamcinol (Triamcinol 1-23 S pirit one) one) 00:00: - CHI 00 [facility] Bupivicaine Bupivicaine 2020-10 No Common Eunice Eunice 1-23 Spirit 00:00: - CHI 00 [facility] Sherly Kenalog 2020-10 No 40mg Common (Triamcinol (Triamcinol 1-23 S pirit one) one) 00:00: - CHI 00 [facility] Bupivicaine Bupivicaine 2020-10 No Common Eunice Eunice 1-23 Spirit 00:00: - CHI 00 [facility] Sherly Dubois 2020-10 No 40mg Common (Triamcinol (Triamcinol 1-23 S pirit one) one) 00:00: - CHI 00 [facility] Bupivicaine Bupivicaine 2020-10 No 2.5mg Common Eunice Eunice 1-23 Spirit 00:00: - CHI 00 [facility] Sherly Kenpatti 2020-10 No 40mg Common (Triamcinol (Triamcinol 1-23 S pirit one) one) 00:00: - CHI 00 [facility] Bupivicaine Bupivicaine 2020-10 No 2.5mg Common Eunice Eunice 1-23 Spirit 00:00: - CHI 00 [facility] Sherly Kenalog 2020-10 No 40mg Common (Triamcinol (Triamcinol 1-23 S pirit one) one) 00:00: - CHI 00 [facility] Bupivicaine Bupivicaine 2020-10 No 2.5mg Common Eunice Eunice 1-23 Spirit 00:00: - CHI 00 [facility] Sherly Kenalog 2020-10 No 40mg Common (Triamcinol (Triamcinol 1-23 S pirit one) one) 00:00: - CHI 00 [facility] Bupivicaine Bupivicaine 2021-1 No 2.5mg Common Eunice Eunice 1-23 Spirit 00:00: - CHI 00 [facility] Kenalog Kenalog 2020-10 No 40mg Common (Triamcinol (Triamcinol 1-23 S pirit one) one) 00:00: - CHI 00 [facility] Bupivicaine Bupivicaine 2020- No 2.5mg Common Eunice Eunice 1-23 Spirit 00:00: - CHI 00 [facility] Kenalog Kenalog 2020-10 No 40mg Common (Triamcinol (Triamcinol 1-23 S pirit one) one) 00:00: - CHI 00 [facility] Bupivicaine Bupivicaine 2020-10 No 2.5mg Common Eunice Eunice 1-23 Spirit 00:00: - CHI 00 [facility] Kenalog Kenalog 2020-10 No 40mg Common (Triamcinol (Triamcinol 1-23 S pirit one) one) 00:00: - CHI 00 [facility] Bupivicaine Bupivicaine 2020-10 No 2.5mg Common Eunice Eunice 1-23 Spirit 00:00: - CHI 00 [facility] Kenalog Kenalog 2020-10 No 40mg Common (Triamcinol (Triamcinol 1-23 S pirit one) one) 00:00: - CHI 00 [facility] Bupivicaine Bupivicaine 2020- No 2.5mg Common Eunice Eunice 1-23 Spirit 00:00: - CHI 00 [facility] Kenalog Kenalog 2020-10 No 40mg Common (Triamcinol (Triamcinol 1-23 S pirit one) one) 00:00: - CHI 00 [facility] Bupivicaine Bupivicaine 2020- No 2.5mg Common Eunice Eunice 1-23 Spirit 00:00: - CHI 00 [facility] Kenalog Kenalog 2020-10 No 40mg Common (Triamcinol (Triamcinol 1-23 S pirit one) one) 00:00: - CHI 00 [facility] Bupivicaine Bupivicaine 2020-10 No 2.5mg Common Eunice Eunice 1-23 Spirit 00:00: - CHI 00 [facility] Kenalog Kenalog 2020-10 No 40mg Common (Triamcinol (Triamcinol 1-23 S pirit one) one) 00:00: - CHI 00 [facility] Bupivicaine Bupivicaine 2020-10 No 2.5mg Common Eunice Eunice 1-23 Spirit 00:00: - CHI 00 [facility] Kenpatti Kenalog 2020-10 No 40mg Common (Triamcinol (Triamcinol 1-23 S pirit one) one) 00:00: - CHI 00 [facility] Bupivicaine Bupivicaine 2020-10 No 2.5mg Common Eunice Eunice 1-23 Spirit 00:00: - CHI 00 [facility] Kenpatti Kenalog 2020-10 No 40mg Common (Triamcinol (Triamcinol 1-23 S pirit one) one) 00:00: - CHI 00 [facility] Bupivicaine Bupivicaine 2020-10 No 2.5mg Common Eunice Eunice 1-23 Spirit 00:00: - CHI 00 [facility] Sherly Kenalog 0 No 40mg Common (Triamcinol (Triamcinol 8-04 S pirit one) one) 00:00: - CHI 00 [facility] Sherly Kenpatti 0 No 40mg Common (Triamcinol (Triamcinol 8-04 S pirit one) one) 00:00: - CHI 00 [facility] Sherly Kenalog 0 No 40mg Common (Triamcinol (Triamcinol 8-04 S pirit one) one) 00:00: - CHI 00 [facility] Kenpatti Kenalog 0 No 40mg Common (Triamcinol (Triamcinol 8-04 S pirit one) one) 00:00: - CHI 00 [facility] Kenpatti Kenalog 2020-0 No 40mg Common (Triamcinol (Triamcinol 8-04 S pirit one) one) 00:00: - CHI 00 [facility] Kenpatti Kenalog 2020-0 No 40mg Common (Triamcinol (Triamcinol 8-04 S pirit one) one) 00:00: - CHI 00 [facility] Kenalog Kenalog 2020-0 No 40mg Common (Triamcinol (Triamcinol 8-04 S pirit one) one) 00:00: - CHI 00 [facility] Kenalog Kenalog 2020-0 No 40mg Common (Triamcinol (Triamcinol 8-04 S pirit one) one) 00:00: - CHI 00 [facility] Kenalog Kenalog 2020-0 No 40mg Common (Triamcinol (Triamcinol 8-04 S pirit one) one) 00:00: - CHI 00 [facility] Kenalog Kenalog 2020-0 No 40mg Common (Triamcinol (Triamcinol 8-04 S pirit one) one) 00:00: - CHI 00 [facility] Kenalog Kenalog 2020-0 No 40mg Common (Triamcinol (Triamcinol 8-04 S pirit one) one) 00:00: - CHI 00 [facility] Kenalog Kenalog 2020-0 No 40mg Common (Triamcinol (Triamcinol 8-04 S pirit one) one) 00:00: - CHI 00 [facility] Kenalog Kenalog 2020-0 No 40mg Common (Triamcinol (Triamcinol 8-04 S pirit one) one) 00:00: - CHI 00 [facility] Kenalog Kenalog 2020-0 No 40mg Common (Triamcinol (Triamcinol 8-04 S pirit one) one) 00:00: - CHI 00 [facility] Kenalog Kenalog 2020-0 No 40mg Common (Triamcinol (Triamcinol 8-04 S pirit one) one) 00:00: - CHI 00 [facility] Kenalog Kenalog 2020-0 No 40mg Common (Triamcinol (Triamcinol 8-04 S pirit one) one) 00:00: - CHI 00 [facility] Kenalog Kenalog 2020-0 No 40mg Common (Triamcinol (Triamcinol 8-04 S pirit one) one) 00:00: - CHI 00 [facility] Kenalog Kenalog 2020-0 No 40mg Common (Triamcinol (Triamcinol 8-04 S pirit one) one) 00:00: - CHI 00 [facility] Sherly Correaalog 2020-0 No 40mg Common (Triamcinol (Triamcinol 8-04 S pirit one) one) 00:00: - CHI 00 [facility] Sherly Correaalog 2020-0 No 40mg Common (Triamcinol (Triamcinol 8-04 S pirit one) one) 00:00: - CHI 00 [facility] Sherly Correaalog 2020-0 No 40mg Common (Triamcinol (Triamcinol 8-04 S pirit one) one) 00:00: - CHI 00 [facility] Sherly Dubois 0 No 40mg Common (Triamcinol (Triamcinol 8-04 S pirit one) one) 00:00: - CHI [facility] metformin Yes 500mg Take 500 [place] yanelis (GLUCOPHAGE 5-06 mg by [place] -XR) 500 MG 15:38: mouth. of XR tablet 22 Medicin e Empaglifloz Yes 25mg Take 25 mg [facility] in 5-06 by mouth College (STAS) 15:38: daily. of 25 MG TABS 22 Medicin e Sitagliptin Yes 100mg Take 100 [place] Phosphate 5-06 mg by [place] (JANUVIA) 15:38: mouth of 100 MG TABS 22 daily. Medici n e losartan Yes 100mg Take 100 [place] (COZAAR) 5-06 mg by [place] 100 MG 15:38: mouth of tablet 22 daily. Medicin e atorvastati Yes 40mg Take 40 mg Gerard n (LIPITOR) 5-06 by mouth Rafaela ege 40 MG 15:38: daily. of tablet 22 Medicin e methimazole Yes 10mg Take 1 [place] [facility] (TAPAZOLE) 4-02 Tablet by Rafaela ege 10 MG 00:00: mouth of tablet 00 daily. Medicin e metformin Yes 500mg Take 500 [place] yanelis (GLUCOPHAGE 3-31 mg by [place] -XR) 500 MG 13:44: mouth. of XR tablet 09 Medicin e Empaglifloz 2021-0 Yes 25mg Take 25 mg Gerard in 3-31 by mouth [place] ([facility]) 13:44: daily. of 25 MG TABS 09 Medicin e Sitagliptin 2020-0 Yes 100mg Take 100 B aylor Phosphate 3-31 mg by [place] ([facility]) 13:44: mouth of 100 MG TABS 09 daily. Medici n e losartan 2020-0 Yes 100mg Take 100 [place] (COZAAR) 3-31 mg by [place] 100 MG 13:44: mouth of tablet 09 daily. Medicin e atorvastati 2020-0 Yes 40mg Take 40 mg [facility] n (LIPITOR) 3-31 by mouth Rafaela ege [...] e metformin 2020-0 Yes 500mg Take 500 [place] yanelis (GLUCOPHAGE 2-13 mg by [place] -XR) 500 MG 19:48: mouth. of XR tablet 23 Medicin e Empaglifloz 2020-0 Yes 25mg Take 25 mg [facility] in 2-13 by mouth [place] ([facility]) 19:48: daily. of 25 MG TABS 23 Medicin e Sitagliptin 2020-0 Yes 100mg Take 100 B [place] Phosphate 2-13 mg by [place] ([facility]) 19:48: mouth of 100 MG TABS 23 daily. Medici n e losartan 2020-0 Yes 100mg Take 100 [place] (COZAAR) 2-13 mg by [place] 100 MG 19:48: mouth of tablet 23 daily. Medicin e atorvastati 2020-0 Yes 40mg Take 40 mg Gerard n (LIPITOR) 2-13 by mouth Rafaela ege 40 MG 19:48: daily. of tablet 23 Medicin e atenolol 2020-0 Yes 25mg Take 1 Tab [place] yanelis (TENORMIN) 2-13 by mouth Colle ge 25 MG 00:00: daily. of tablet 00 Medicin e atenolol 2020-0 Yes 25mg Take 1 Tab [place] yanelis (TENORMIN) 2-13 by mouth Colle ge 25 MG 00:00: daily. of tablet 00 Medicin e atenolol 2020-0 Yes 25mg Take 1 Tab [place] yanelis (TENORMIN) 2-13 by mouth Colle ge 25 MG 00:00: daily. of tablet 00 Medicin e Empaglifloz 2020-0 Yes 25mg Take 25 mg [facility] in 1-29 by mouth [place] (JARDIANCE) 15:21: daily. of 25 MG TABS 19 Medicin e Sitagliptin 2020-0 Yes 100mg Take 100 B [place] Phosphate 1-29 mg by College (JANUVIA) 15:21: mouth of 100 MG TABS 19 daily. Medici n e losartan 2020-0 Yes 100mg Take 100 [place] (COZAAR) 1-29 mg by [place] 100 MG 15:21: mouth of tablet 19 daily. Medicin e atorvastati 2020-0 Yes 40mg Take 40 mg Gerard n (LIPITOR) 1-29 by mouth Rafaela ege 40 MG 15:21: daily. of tablet 19 Medicin e metformin 2020-0 Yes 500mg Take 500 [place] yanelis (GLUCOPHAGE 1-29 mg by [place] -XR) 500 MG 15:21: mouth. of XR tablet 19 Medicin e [facility] No 40mg Common (Triamcinol (Triamcinol 0-29 S pirit one) one) 00:00: - [facility]I 00 [facility] No 40mg Common (Triamcinol (Triamcinol 0-29 S pirit one) one) 00:00: - CHI [facility]10 No 40mg Common (Triamcinol (Triamcinol 0-29 S pirit one) one) 00:00: - CHI 00 [facility] 2018-10 No 40mg Common (Triamcinol (Triamcinol 0-29 S pirit one) one) 00:00: - CHI [facility] 2018-10 No 40mg Common (Triamcinol (Triamcinol 0-29 S pirit one) one) 00:00: - CHI [facility] 2018-10 No 40mg Common (Triamcinol (Triamcinol 0-29 S pirit one) one) 00:00: - CHI 00 [facility] Sherly Kenalog 2019- No 40mg Common (Triamcinol (Triamcinol 0-29 S pirit one) one) 00:00: - CHI 00 [facility] Sherly Kenalog 2018- No 40mg Common (Triamcinol (Triamcinol 0-29 S pirit one) one) 00:00: - CHI 00 [facility] 2018- No 40mg Common (Triamcinol (Triamcinol 0-29 S pirit one) one) 00:00: - CHI 00 [facility] Kenpatti 2018- No 40mg Common (Triamcinol (Triamcinol 0-29 S pirit one) one) 00:00: - CHI 00 [facility] Kenpatti 2018- No 40mg Common (Triamcinol (Triamcinol 0-29 S pirit one) one) 00:00: - CHI 00 [facility] Sherly Kenpatti 2018- No 40mg Common (Triamcinol (Triamcinol 0-29 S pirit one) one) 00:00: - CHI 00 [facility] Kenpatti 2018- No 40mg Common (Triamcinol (Triamcinol 0-29 S pirit one) one) 00:00: - CHI 00 [facility] Sherly Kenpatti 2019- No 40mg Common (Triamcinol (Triamcinol 0-29 S pirit one) one) 00:00: - CHI 00 [facility] Kenpatti Kenalog 2019- No 40mg Common (Triamcinol (Triamcinol 0-29 S pirit one) one) 00:00: - CHI 00 [facility] Kenpatti 2019- No 40mg Common (Triamcinol (Triamcinol 0-29 S pirit one) one) 00:00: - CHI 00 [facility] Kenalog 2019- No 40mg Common (Triamcinol (Triamcinol 0-29 S pirit one) one) 00:00: - CHI 00 [facility] Kenalog 2019-1 No 40mg Common (Triamcinol (Triamcinol 0-29 S pirit one) one) 00:00: - CHI 00 [facility] Kenpatti Kenalog 2019-1 No 40mg Common (Triamcinol (Triamcinol 0-29 S pirit one) one) 00:00: - CHI 00 [facility] Kenpatti Kenalog 2019-1 No 40mg Common (Triamcinol (Triamcinol 0-29 S pirit one) one) 00:00: - CHI 00 [facility] Sherly Kenalog 2019-1 No 40mg Common (Triamcinol (Triamcinol 0-29 S pirit one) one) 00:00: - CHI 00 [facility] Kenpatti Kenpatti 2019-1 No 40mg Common (Triamcinol (Triamcinol 0-29 S pirit one) one) 00:00: - CHI 00 [facility] Kenpatti Kenpatti 2019-0 No 40mg Common (Triamcinol (Triamcinol 4-03 S pirit one) one) 00:00: - CHI 00 [facility] Kenpatti Kenpatti 2019-0 No 40mg Common (Triamcinol (Triamcinol 4-03 S pirit one) one) 00:00: - CHI 00 [facility] Kenpatti Kenpatti 2019-0 No 40mg Common (Triamcinol (Triamcinol 4-03 S pirit one) one) 00:00: - CHI 00 [facility] Kenpatti Kenalog 2019-0 No 40mg Common (Triamcinol (Triamcinol 4-03 S pirit one) one) 00:00: - CHI 00 [facility] Kenpatti Kenalog 2019-0 No 40mg Common (Triamcinol (Triamcinol 4-03 S pirit one) one) 00:00: - CHI 00 [facility] Kenpatti Kenalog 2019-0 No 40mg Common (Triamcinol (Triamcinol 4-03 S pirit one) one) 00:00: - CHI 00 [facility] Kenpatti Kenalog 2019-0 No 40mg Common (Triamcinol (Triamcinol 4-03 S pirit one) one) 00:00: - CHI 00 [facility] Kenalog Kenalog 2019-0 No 40mg Common (Triamcinol (Triamcinol 4-03 S pirit one) one) 00:00: - CHI 00 [facility] Kenalog Kenalog 2019-0 No 40mg Common (Triamcinol (Triamcinol 4-03 S pirit one) one) 00:00: - CHI 00 [facility] Kenalog Kenalog 2019-0 No 40mg Common (Triamcinol (Triamcinol 4-03 S pirit one) one) 00:00: - CHI 00 [facility] Kenalog Kenalog 2019-0 No 40mg Common (Triamcinol (Triamcinol 4-03 S pirit one) one) 00:00: - CHI 00 [facility] Kenalog Kenalog 2019-0 No 40mg Common (Triamcinol (Triamcinol 4-03 S pirit one) one) 00:00: - CHI 00 [facility] Kenalog Kenalog 2019-0 No 40mg Common (Triamcinol (Triamcinol 4-03 S pirit one) one) 00:00: - CHI 00 [facility] Kenalog Kenalog 2019-0 No 40mg Common (Triamcinol (Triamcinol 4-03 S pirit one) one) 00:00: - CHI 00 [facility] Kenalog Kenalog 2019-0 No 40mg Common (Triamcinol (Triamcinol 4-03 S pirit one) one) 00:00: - CHI 00 [facility] Kenalog Kenalog 2019-0 No 40mg Common (Triamcinol (Triamcinol 4-03 S pirit one) one) 00:00: - CHI 00 [facility] Kenalog Kenalog 2019-0 No 40mg Common (Triamcinol (Triamcinol 4-03 S pirit one) one) 00:00: - CHI 00 [facility] Kenalog Kenalog 2019-0 No 40mg Common (Triamcinol (Triamcinol 4-03 S pirit one) one) 00:00: - CHI 00 [facility] Kenalog Kenalog 2019-0 No 40mg Common (Triamcinol (Triamcinol 4-03 S pirit one) one) 00:00: - [facility]I 00 [facility] 2019[facility]0 No 40mg Common (Triamcinol (Triamcinol 4-03 S pirit one) one) 00:00: - CHI 00 [facility] 2019-0 No 40mg Common (Triamcinol (Triamcinol 4-03 S pirit one) one) 00:00: - CHI 00 [facility] 2019-0 No 40mg Common (Triamcinol (Triamcinol 4-03 S pirit one) one) 00:00: - CHI 00 [facility] Kacie Gomezálvaromarianna 2019-0 Yes Gume 1 tablet C ommon 3-13 Tate [facility] 00:00: - CHI 00 [facility] Jardiance Jardiance 2017- 2020- No Gume TK 1 T PO Common 2-13 03-12 Tate QD Spirit 00:00: 00:00 - CHI 00 :00 [facility] MetFORMIN MetFORMIN Yes Gume 2 tablet Common HCl ER HCl ER Tate with Spirit evening - CHI meal [facility] Atorvastati Atorvastati Yes Gume 1 tablet Common n Calcium n Calcium Tate Spir [facility] Losartan Losartan Yes Gume 1 tablet C ommon Potassium Potassium Tate Spir [facility] Atenolol Atenolol Yes Gume TK 1 T PO Common Tate D [facility] Losartan Losartan Yes Gume 1 tablet C ommon Potassium Potassium Tate Spir [facility] Methimazole Methimazole Yes Gume 1 tablet Common Tate with food [facility] Kacie Hester Yes Gume 1 tablet Com mon Tate [facility] Jardiance Jardiance No Jardiance 25 [...] 10 MG t_with_ e 10 MG food} Jardiance Jardiance No Jardiance 25 MG 25 MG 25 MG Atorvastati Atorvastati No 1{table [...] 500 HCl ER 500 MG MG MG methIMAzole methIMAzole No 1{table QD methIMAzol 10 MG 10 MG t_with_ e 10 MG food} Losartan Losartan No Losartan Potassium Potassium Potassium 100 MG 100 MG 100 MG Immunizations Ordered Immunization Filled Immunization Date Status Commen ts Source Name Name Sherly Dubois 2021-05-14 Completed [facility] (Triamcinolone) (Triamcinolone) 14:58:00 [facility] Afluria single dose Afluria single dose 2020-06-19 Completed [facility] 08:34:00 [facility] Afluria single dose Afluria single dose 2020-06-19 Completed [facility] 08:34:00 [facility] Afluria single dose Afluria single dose 2020-06-19 Completed [facility] 08:34:00 [facility] Afluria single dose Afluria single dose 2020-06-19 Completed [facility] 08:34:00 [facility] Afluria single dose Afluria single dose 2020-06-19 Completed [facility] 08:34:00 [facility] Afluria single dose Afluria single dose 2020-06-19 Completed [facility] 08:34:00 [facility] Afluria single dose Afluria single dose 2020-06-19 Completed [facility] 08:34:00 [facility] Afluria single dose Afluria single dose 2020-06-19 Completed [facility] 08:34:00 [facility] Afluria single dose Afluria single dose 2020-06-19 Completed [facility] 08:34:00 [facility] Afluria single dose Afluria single dose 2020-06-19 Completed [facility] 08:34:00 [facility] Afluria single dose Afluria single dose 2020-06-19 Completed [facility] 08:34:00 [facility] Afluria single dose Afluria single dose 2020-06-19 Completed [facility] 08:34:00 [facility] Afluria single dose Afluria single dose 2020-06-19 Completed [facility] 08:34:00 [facility] Afluria single dose Afluria single dose 2020-06-19 Completed [facility] 08:34:00 [facility] Afluria single dose Afluria single dose 2020-06-19 Completed [facility] 08:34:00 [facility] Afluria single dose Afluria single dose 2020-06-19 Completed [facility] 08:34:00 [facility] Afluria single dose Afluria single dose 2020-06-19 Completed [facility] 08:34:00 [facility] Afluria single dose Afluria single dose 2020-06-19 Completed [facility] 08:34:00 [facility] Afluria single dose Afluria single dose 2020-06-19 Completed [facility] 08:34:00 [facility] Afluria single dose Afluria single dose 2020-06-19 Completed [facility] 08:34:00 [facility] Afluria single dose Afluria single dose 2020-06-19 Completed [facility] 08:34:00 [facility] Afluria single dose Afluria single dose 2020-06-19 Completed [facility] 08:34:00 [facility] Afluria single dose Afluria single dose 2020-06-19 Completed [facility] 08:34:00 [facility] Afluria single dose Afluria single dose 2020-06-19 Completed [facility] 08:34:00 [facility] Afluria single dose Afluria single dose 2020-06-19 Completed [facility] 08:34:00 [facility] Afluria single dose Afluria single dose 2020-06-19 Completed [facility] 08:34:00 [facility] Afluria single dose Afluria single dose 2020-06-19 Completed [facility] 08:34:00 [facility] Afluria single dose Afluria single dose 2020-06-19 Completed [facility] 08:34:00 [facility] Afluria single dose Afluria single dose 2020-06-19 Completed [facility] 08:34:00 [facility] Afluria single dose Afluria single dose 2020-06-19 Completed [facility] 08:34:00 - [facility] Afluria single dose Afluria single dose 2020-06-19 Completed [facility] 08:34:00 - [facility] Kenalog Kenalog 2019-08-08 Completed [facility] (Triamcinolone) (Triamcinolone) 10:58:00 - [facility] Adacel (Tdap) Adacel (Tdap) 2019-01-18 [facility]pleted [facility] 10:[facility] - [facility] Adacel (Tdap) Adacel (Tdap) 2019-01-18 Completed [facility] 10:[facility]00 - [facility] Adacel (Tdap) Adacel (Tdap) 2019-01-18 [facility]pleted [facility] 10:[facility]00 [facility] Adacel (Tdap) Adacel (Tdap) 2019-01-18 [facility]pleted [facility] 10:[facility]00 - [facility] Adacel (Tdap) Adacel (Tdap) 2019-01-18 [facility]pleted [facility] 10:[facility]00 - [facility] Adacel (Tdap) Adacel (Tdap) 2019-01-18 [facility]pleted [facility] 10:[facility]00 - [facility] Adacel (Tdap) Adacel (Tdap) 2019-01-18 [facility]pleted [facility] 10:[facility]00 [facility] Adacel (Tdap) Adacel (Tdap) 2019-01-18 Completed [facility] 10:[facility]00 - [facility] Adacel (Tdap) Adacel (Tdap) 2019-01-18 Completed [facility] 10:55[facility]00 - [facility] Adacel (Tdap) Adacel (Tdap) 2019-01-18 [facility]pleted [facility] 10:[facility]00 [facility] Adacel (Tdap) Adacel (Tdap) 2019-01-18 [facility]pleted [facility] 10:[facility]00 [facility] Adacel (Tdap) Adacel (Tdap) 2019-01-18 Completed [facility] 10:[facility]00 - [facility] Adacel (Tdap) Adacel (Tdap) 2019-01-18 Completed [facility] 10:55[facility]00 - [facility] Adacel (Tdap) Adacel (Tdap) 2019-01-18 [facility]pleted [facility] 10:[facility]00 - [facility] Adacel (Tdap) Adacel (Tdap) 2019-01-18 [facility]pleted [facility] 10:[facility]00 - [facility] Adacel (Tdap) Adacel (Tdap) 2019-01-18 [facility]pleted [facility] 10:[facility]00 - [facility] Adacel (Tdap) Adacel (Tdap) 2019-01-18 Completed [facility] 10:[facility]00 - [facility] Adacel (Tdap) Adacel (Tdap) 2019-01-18 [facility]pleted [facility] 10:[facility]00 - [facility] Adacel (Tdap) Adacel (Tdap) 2019-01-18 [facility]pleted [facility] 10:55[facility]00 - [facility] Adacel (Tdap) Adacel (Tdap) 2019-01-18 Completed [facility] 10:55[facility]00 - [facility] Adacel (Tdap) Adacel (Tdap) 2019-01-18 Completed [facility] 10:55[facility]00 - [facility] Adacel (Tdap) Adacel (Tdap) 2019-01-18 Completed [facility] 10:55[facility]00 - [facility] Adacel (Tdap) Adacel (Tdap) 2019-01-18 Completed [facility] 10:55[facility]00 - [facility] Adacel (Tdap) Adacel (Tdap) 2019-01-18 Completed [facility] 10:55[facility]00 - [facility] Adacel (Tdap) Adacel (Tdap) 2019-01-18 Completed [facility] 10:55[facility]00 - [facility] Adacel (Tdap) Adacel (Tdap) 2019-01-18 Completed [facility] 10:55[facility]00 - [facility] Adacel (Tdap) Adacel (Tdap) 2019-01-18 Completed [facility] 10:55[facility]00 - [facility] Adacel (Tdap) Adacel (Tdap) 2019-01-18 Completed [facility] 10:55[facility]00 - [facility] Adacel (Tdap) Adacel (Tdap) 2019-01-18 Completed [facility] 10:55[facility]00 - [facility] Adacel (Tdap) Adacel (Tdap) 2019-01-18 Completed [facility] 10:55[facility]00 - [facility] Adacel (Tdap) Adacel (Tdap) 2019-01-18 Completed [facility] 10:[facility] - [facility] TDAP > 7 TDAP > 7 2019-01-18 Completed [facility] Years-Adacel Years-Adacel 00:00:00 - [facility] Kenalog Kenalog 2019-01-11 Completed [facility] (Triamcinolone) (Triamcinolone) 10:30:00 [facility] Vital Signs Vital Name Observation Time Observation Value Comments Source height 2022-11-09 10:50:00 68 [facility]in_i[facility]22-[facility]-09 10:50:00 185 [lb_av] [facility] temperature 2022-11-09 10:50:00 98 [degF] [facility] bmi 2022-11-09 10:50:00 28.13 kg/m2 [facility] blood pressure 2022-11-09 10:50:00 125 mm[Hg] [facility] - systolic [facility] blood pressure 2022-11-09 10:50:00 72 mm[Hg] [facility] - diastolic [facility] height 2022-07-20 08:00:00 68 [in_i] [facility] weight 2022-07-20 08:00:00 192.7 [lb_av] [facility] - [facility] temperature 2022-07-20 08:00:00 97.2 [degF] [facility] bmi 2022-07-20 08:00:00 29.3 kg/m2 [facility] oximetry 2022-07-20 08:00:00 96 % [facility] respiratory rate 2022-07-20 08:00:00 17 /min Comm on [facility] blood pressure 2022-07-20 08:00:00 127 mm[Hg] [facility] - systolic [facility] blood pressure 2022-07-20 08:00:00 78 mm[Hg] [facility] - diastolic [facility] height 2022-04-16 13:30:00 68 [in_i] [facility] weight 2022-04-16 13:30:00 209.4 [lb_av] [facility] temperature 2022-04-16 13:30:00 97.2 [degF] [facility] bmi 2022-04-16 13:30:00 31.84 kg/m2 [facility] oximetry 2022-04-16 13:30:00 95 % [facility] respiratory rate 2022-04-16 13:30:00 17 /min Comm on [facility] blood pressure 2022-04-16 13:30:00 124 mm[Hg] [facility] - systolic [facility] blood pressure 2022-04-16 13:30:00 83 mm[Hg] [facility] - diastolic [facility] height 2022-03-12 14:15:00 68 [in_i] [facility] weight 2022-03-12 14:15:00 217 [lb_av] [facility] bmi 2022-03-12 14:15:00 32.99 kg/m2 [facility] blood pressure 2022-03-12 14:15:00 119 mm[Hg] [facility] - systolic [facility] blood pressure 2022-03-12 14:15:00 81 mm[Hg] [facility] - diastolic [facility] height 2022-01-12 10:40:00 68 [in_i] [facility] weight 2022-01-12 10:40:00 225.8 [lb_av] [facility] - [facility] temperature 2022-01-12 10:40:00 97.3 [degF] [facility] bmi 2022-01-12 10:40:00 34.33 kg/m2 [facility] oximetry 2022-01-12 10:40:00 94 % [facility] respiratory rate 2022-01-12 10:40:00 18 /min [facility] on [facility] blood pressure 2022-01-12 10:40:00 131 mm[Hg] [facility] - systolic [facility] blood pressure 2022-01-12 10:40:00 80 mm[Hg] [facility] - diastolic [facility] height 2022-01-12 08:30:00 68 [in_i] Common [facility] weight 2022-01-12 08:30:00 217 [lb_av] [facility] temperature 2022-01-12 08:30:00 97.7 [degF] Common [facility] bmi 2022-01-12 08:30:00 32.99 kg/m2 [facility] blood pressure 2022-01-12 08:30:00 132 mm[Hg] Common [facility] - systolic [facility] blood pressure 2022-01-12 08:30:00 84 mm[Hg] [facility] - diastolic [facility] height 2021-12-23 10:00:00 68 [in_i] Common [facility] weight 2021-12-23 10:00:00 217 [lb_av] [facility] temperature 2021-12-23 10:00:00 97.5 [degF] [facility] bmi 2021-12-23 10:00:00 32.99 kg/m2 [facility] blood pressure 2021-12-23 10:00:00 120 mm[Hg] [facility] - systolic [facility] blood pressure 2021-12-23 10:00:00 78 mm[Hg] [facility] - diastolic [facility] height 2021-12-09 11:00:00 68 [in_i] [facility] weight 2021-12-09 11:00:00 217 [lb_av] [facility] temperature 2021-12-09 11:00:00 97.3 [degF] [facility] bmi 2021-12-09 11:00:00 32.99 kg/m2 [facility] blood pressure 2021-12-09 11:00:00 124 mm[Hg] [facility] - systolic [facility] blood pressure 2021-12-09 11:00:00 74 mm[Hg] [facility] - diastolic [facility] height 2021-11-13 15:20:00 68 [in_i] [facility] weight 2021-11-13 15:20:00 217 [lb_av] [facility] temperature 2021-11-13 15:20:00 97.9 [degF] [facility] bmi 2021-11-13 15:20:00 32.99 kg/m2 [facility] blood pressure 2021-11-13 15:20:00 124 mm[Hg] [facility] - systolic [facility] blood pressure 2021-11-13 15:20:00 82 mm[Hg] [facility] - diastolic [facility] height 2021-10-27 08:30:00 68 [in_i] [facility] weight 2021-10-27 08:30:00 217 [lb_av] [facility] temperature 2021-10-27 08:30:00 97.2 [degF] [facility] bmi 2021-10-27 08:30:00 32.99 kg/m2 [facility] blood pressure 2021-10-27 08:30:00 126 mm[Hg] [facility] - systolic [facility] blood pressure 2021-10-27 08:30:00 82 mm[Hg] [facility] - diastolic [facility] height 2021-09-09 07:40:00 68 [in_i] [facility] weight 2021-09-09 07:40:00 217 [lb_av] [facility] temperature 2021-09-09 07:40:00 97.4 [degF] [facility] bmi 2021-09-09 07:40:00 32.99 kg/m2 [facility] blood pressure 2021-09-09 07:40:00 125 mm[Hg] [facility] - systolic [facility] blood pressure 2021-09-09 07:40:00 85 mm[Hg] [facility] - diastolic [facility] height 2021-09-02 14:30:00 68 [in_i] [facility] weight 2021-09-02 14:30:00 217 [lb_av] [facility] temperature 2021-09-02 14:30:00 98.0 [degF] [facility] bmi 2021-09-02 14:30:00 32.99 kg/m2 [facility] blood pressure 2021-09-02 14:30:00 124 mm[Hg] [facility] - systolic [facility] blood pressure 2021-09-02 14:30:00 84 mm[Hg] [facility] - diastolic [facility] Systolic blood 2021-02-13 15:34:00 120 mm[Hg] [facility] Medicine Diastolic blood 2021-02-13 15:34:00 78 mm[Hg] [facility] Medicine Heart rate 2021-02-13 15:34:00 80 /min [facility] Respiratory rate 2021-02-13 15:34:00 18 /min [facility] Body height 2021-02-13 15:34:00 172.7 cm [facility] [employer] Body weight 2021-02-13 15:34:00 99.791 kg [facility] [employer] BMI 2021-02-13 15:34:00 33.45 kg/m2 [facility] [employer] Systolic blood 2021-01-08 13:38:00 128 mm[Hg] [facility] pressure Medicine Diastolic blood 2021-01-08 13:38:00 84 mm[Hg] [facility] Medicine Heart rate 2021-01-08 13:38:00 71 /min 02-100% [facility] [employer] Body temperature 2021-01-08 13:38:00 36.83 Susan [facility] Body height 2021-01-08 13:38:00 172.7 cm [facility] [employer] Body weight 2021-01-08 13:38:[address] 99.[address] [facility] BMI 2021-01-08 13:38:00 33.30 kg/m2 [facility] [employer] Systolic blood 2019-11-23 19:44:00 122 mm[Hg] [facility] pressure Medicine Diastolic blood 2019-11-23 19:44:00 74 mm[Hg] [facility] pressure Medicine Heart rate 2019-11-23 19:44:00 114 /min [facility] [employer] Respiratory rate 2019-11-23 19:44:00 18 /min [facility] Body height 2019-11-23 19:44:00 172.7 cm [facility] [employer] Body weight 2019-11-23 19:44:00 94.802 kg [facility] [employer] [facility] [employer] BMI 2019-11-23 19:44:00 31.78 kg/m2 [facility] [employer] [facility] [employer] Systolic blood 2019-11-23 19:44:00 122 mm[Hg] [facility] of pressure Medicine Diastolic blood 2019-11-23 19:44:00 74 mm[Hg] [facility] pressure Medicine Heart rate 2019-11-23 19:44:00 114 /min [facility] [employer] Respiratory rate 2019-11-23 19:44:00 18 /min [facility] Body height 2019-11-23 19:44:00 172.7 cm [facility] [employer] [facility] [employer] Body weight 2019-11-23 19:44:00 94.802 kg [facility] BMI 2019-11-23 19:44:00 31.78 kg/m2 [facility] Systolic blood 2019-11-08 15:21:00 151 mm[Hg] [facility] pressure Medicine Diastolic blood 2019-11-08 15:21:00 94 mm[Hg] [facility] pressure Medicine Heart rate 2019-11-08 15:21:00 84 /min [facility] Respiratory rate 2019-11-08 15:21:00 16 /min [facility] Body height 2019-11-08 15:21:00 172.7 cm [facility] [employer] [facility] Body weight 2019-11-08 15:21:00 96.163 kg [facility] BMI 2019-11-08 15:21:00 32.23 kg/m2 [facility] Systolic blood 2019-11-08 15:21:00 151 mm[Hg] [facility] Medicine Diastolic blood 2019-11-08 15:21:00 94 mm[Hg] [facility] Medicine Heart rate 2019-11-08 15:21:00 84 /min [facility] [employer] [facility] Respiratory rate 2019-11-08 15:21:00 16 /min [facility] Body height 2019-11-08 15:21:00 172.7 cm [facility] [employer] [facility] [employer] Body weight 2019-11-08 15:21:00 96.163 kg [facility] BMI 2019-11-08 15:21:00 32.23 kg/m2 [facility] Procedures This patient has no known procedures. Plan of Care Planned Activity Planned Date Details Comments Source Diagnostic Test 2021-02-20 US THYROID [code = Expected: [facility] Pending 00:00:00 [id number]] 02/20/2021, of Medicine Expires: 02/13/2022 Diagnostic Test 2021-02-07 TSH [code = 31870-1] Expected: [facility] Pending 00:00:00 02/07/2021, of Medicine Expires: 07/10/2021 Diagnostic Test 2021-02-07 T4 FREE [code = 3024-7] Expected: [facility] Pending 00:00:00 02/07/2021, of Medicine Expires: 07/10/2021 Diagnostic Test 2021-02-07 T3 [code = 3053-6] Expected: [facility] Pending 00:00:00 02/07/2021, of Medicine Expires: 07/10/2021 Diagnostic Test 2021-02-07 CBC W/O DIFF W PLT Expected: [facility] Pending 00:00:00 [code = 6690-2] 02/07/2021, of Medicine Expires: 07/10/2021 Diagnostic Test 2021-02-07 HEPATIC FUNCTION PANEL Expected: [facility] Pending 00:00:00 [code = 46281-8] 02/07/2021, Medicine Expires: 07/10/2021 Diagnostic Test 2019-11-30 NM THERAPY ABLATION Expected: [facility] Pending 00:00:00 THYROID CANCER [code = 11/30/2019, of [place] 87463] Expires: 05/23/2021 Diagnostic Test 2019-11-30 NM THYROID UPTAKE AND Expected: [facility] Pending 00:00:00 SCAN MULITPLE [code = 11/30/2019, of Med icine 34330] Expires: 11/22/2020 Future Scheduled TETANUS SHOT (ADULT) [facility] Test [code = TETANUS SHOT of Medi cine (ADULT)] Future Scheduled HEPATITIS C SCREENING [facility] Test [code = HEPATITIS C of Medic ine SCREENING] Future Scheduled HIV SCREENING [code = [facility] Test HIV SCREENING] of Medicine Future Scheduled CERVICAL CANCER [facility] ollege Test SCREENING 3 YEAR FOLLOW of edicine UP [code = CERVICAL CANCER SCREENING 3 YEAR FOLLOW UP] Future Scheduled FLU VACCINE > 6 MONTHS B [facility] Test [code = FLU VACCINE > 6 of M edicine MONTHS] Future Scheduled COLON CANCER SCREENING: [facility] Test COLONOSCOPY [code = of Medic ine COLON CANCER SCREENING: COLONOSCOPY] Future Scheduled MAMMOGRAM ANNUAL [code B [facility] Test = MAMMOGRAM ANNUAL] of Medic ine Future Scheduled TETANUS SHOT (ADULT) [employer] Test [code = TETANUS SHOT [...] SCREENING] of Medicine Future Scheduled CERVICAL CANCER [facility] C ollege Test SCREENING 3 YEAR FOLLOW of M edicine UP [code = CERVICAL CANCER SCREENING 3 YEAR FOLLOW UP] Future Scheduled FLU VACCINE > 6 MONTHS [employer] Test [code = FLU VACCINE > 6 of M edicine MONTHS] Future Scheduled TSH [code = 66214-6] Ordered: [employer] Test 01/08/2021 of Medicine Future Scheduled T4 FREE [code = 3024-7] Ordered: [employer] Test 01/08/2021 of Medicine Future Scheduled T3 [code = 3053-6] Ordered: [employer] Test 01/08/2021 of Medicine Future Scheduled THYROTROPIN RECEPTOR,AB Ordered: [facility] College Test [code = 06041-5] 01/08/2021 of Medicine Future Scheduled Screening for malignant [facility] College Test neoplasm of colon of Medicin e (procedure) [code = 287071751] Future Scheduled Screening for malignant [facility] College Test neoplasm of breast of Medici ne (procedure) [code = 012829447] Future Scheduled COVID-19 Vaccine (1) [employer] Test [code = COVID-19 of Medicine Vaccine (1)] Future Scheduled BMI FOLLOW UP PLAN [employer] Test [code = BMI FOLLOW UP of Med icine PLAN] Future Scheduled Hepatitis C screening [employer] Test (procedure) [code = of Medic ine 119955951] Future Scheduled Human immunodeficiency [facility] [employer] Test virus screening of Medicine (procedure) [code = 180407801] Future Scheduled Screening for malignant [facility] Test neoplasm of cervix of Medici ne (procedure) [code = 282663194] Future Scheduled ZOSTER VACCINE (1 of 2) [facility] College Test [code = ZOSTER VACCINE of Me dicine (1 of 2)] Future Scheduled FLU VACCINE > 6 MONTHS [employer] Test [code = FLU VACCINE > 6 of M edicine MONTHS] Future Scheduled TETANUS SHOT (ADULT) [employer] Test [code = TETANUS SHOT of Medi cine (ADULT)] Future Scheduled TSH [code = 35639-2] Ordered: [employer] Test 02/13/2021 of Medicine Future Scheduled T4 FREE [code = 3024-7] Ordered: [facility] Test 02/13/2021 of Medicine Future Scheduled T3 [code = 3053-6] Ordered: [employer] Test 02/13/2021 of Medicine Future Scheduled CBC W/AUTO DIFF WITH Ordered: [employer] Test PLATELETS [code = 02/13/2021 of Medicin e 65334-3] Future Scheduled HEPATIC FUNCTION PANEL Ordered: [employer] Test [code = 36879-0] 02/13/2021 of Medicine Future Scheduled Screening for malignant [facility] Test neoplasm of colon of Medicin e (procedure) [code = 993772650] Future Scheduled Screening for malignant [facility] Test neoplasm of breast of Medici ne (procedure) [code = 489897258] Future Scheduled COVID-19 Vaccine (1) [employer] Test [code = COVID-19 of Medicine Vaccine (1)] Future Scheduled BMI FOLLOW UP PLAN [employer] Test [code = BMI FOLLOW UP of Med icine PLAN] Future Scheduled Hepatitis C screening [employer] Test (procedure) [code = of Medic ine 342878281] Future Scheduled Human immunodeficiency [employer] Test virus screening of Medicine (procedure) [code = 195066027] Future Scheduled Screening for malignant [facility] Test neoplasm of cervix of Medici ne (procedure) [code = 420667301] Future Scheduled ZOSTER VACCINE (1 of 2) [facility] College Test [code = ZOSTER VACCINE of Me dicine (1 of 2)] Future Scheduled FLU VACCINE > 6 MONTHS [employer] Test [code = FLU VACCINE > 6 of M edicine MONTHS] Future Scheduled TETANUS SHOT (ADULT) [employer] Test [code = TETANUS SHOT of Medi cine (ADULT)] Future Scheduled TSH [code = 08287-3] Ordered: [employer] Test 11/08/2019 of Medicine Future Scheduled T4 FREE [code = 3024-7] Ordered: [employer] 11/08/2019 of Medicine Future Scheduled T3 [code = 3053-6] Ordered: [employer] 11/08/2019 of Medicine Future Scheduled CBC W/AUTO DIFF WITH Ordered: [employer] PLATELETS [code = 11/08/2019 of Medicin e 82684-3] Future Scheduled HEPATIC FUNCTION PANEL Ordered: [employer] [code = 10045-8] 11/08/2019 of Medicine Future Scheduled COLON CANCER SCREENING: [employer] COLONOSCOPY [code = of Medic ine COLON CANCER SCREENING: COLONOSCOPY] Future Scheduled MAMMOGRAM ANNUAL [code [employer] = MAMMOGRAM ANNUAL] of Medic ine Encounters Start End Encounter Admission Attending Care Care Encounter Source Date/Time Date/Time Type Type Clinicians Facility Department ID 2022-12-08 Outpatient Tate, STLMLC STLMLC [id number] Common 10:10:00 Gume [id number] [facility] 2022-11-05 Outpatient Tate, STLMLC STLMLC [id number] Common 11:22:00 Gume [facility] 2022-04-15 Outpatient Tate, STLMLC STLMLC [id number] Common 15:53:00 Gume [facility] 2022-03-13 Outpatient Tate, STLMLC STLMLC [id number] Common 10:16:01 Gume [facility] 2022-01-12 Outpatient Tate, STLMLC STLMLC [id number] Common 11:26:00 Gume [facility] 2022-01-08 Outpatient Tate, STLMLC STLMLC [id number] Common 14:36:01 Gume [facility] 2021-11-18 Outpatient Tate, STLMLC STLMLC [id number] Common 08:20:00 Gume [facility] 2021-11-05 Outpatient Tate, STLMLC STLMLC [id number] Common 14:36:06 Gume [facility] 2021-11-05 Outpatient Atte, STLMLC STLMLC [id number] Common 14:17:17 Gume [facility] 2021-11-05 Outpatient Tate, STLMLC STLMLC [id number] Common 14:14:45 Gume [facility] 2021-11-05 Outpatient Tate, STLMLC STLMLC [id number] Common 14:06:34 Gume [id number] [facility] 2021-11-05 Outpatient Tate, STLMLC STLMLC [id number] Common 12:55:42 Gume [id number] [facility] 2021-11-05 Outpatient Tate, STLMLC STLMLC [id number] Common 12:37:56 Gume [id number] [facility] 2021-11-05 Outpatient Tate, STLMLC STLMLC [id number] Common 12:13:40 Gume [id number] [facility] 2021-11-05 Outpatient Tate, STLMLC STLMLC [id number] Common 12:13:15 Gume [id number] [facility] 2021-11-05 Outpatient Tate, STLMLC STLMLC [id number] Common 11:45:08 Gume [id number] [facility] 2021-11-05 Outpatient Tate, STLMLC STLMLC [id number] Common 11:13:35 Gume [id number] [facility] 2022-11-09 2022-11-09 OFFICE STLMLC STLMLC [id number] Co mmon 00:00:00 00:00:00 VISIT [facility] ESTAB PT - CHI LEVEL 4 [facility] 2022-07-20 2022-07-20 OFFICE STLMLC STLMLC [id number] Co mmon 00:00:00 00:00:00 VISIT [facility] ESTAB PT - CHI LEVEL 4 [facility] 2022-07-09 2022-07-09 (TEL) STLMLC STLMLC [id number] Co mmon 00:00:00 00:00:00 [facility] 2022-06-23 2022-06-23 (TEL) STLMLC STLMLC [id number] Co mmon 00:00:00 00:00:00 [facility] 2022-04-16 2022-04-16 (WELLNESS) STLMLC STLMLC [id number] Common 00:00:00 00:00:00 [facility] 2022-03-12 2022-03-12 OFFICE STLMLC STLMLC [id number] Co mmon 00:00:00 00:00:00 VISIT [facility] PT - CHI LEVEL 4 [facility] 2022-02-18 2022-02-18 (TEL) STLMLC STLMLC [id number] Co mmon 00:00:00 00:00:00 [facility] 2022-02-13 2022-02-13 (TEL) STLMLC STLMLC [id number] Co mmon 00:00:00 00:00:00 [facility] 2022-01-21 2022-01-21 (TEL) STLMLC STLMLC [id number] Co mmon 00:00:00 00:00:00 [facility] 2022-01-20 2022-01-20 (TEL) STLMLC STLMLC [id number] Co mmon 00:00:00 00:00:00 [facility] 2022-01-15 2022-01-15 (TEL) STLMLC STLMLC [id number] Co mmon 00:00:00 00:00:00 [facility] 2022-01-12 2022-01-12 OFFICE STLMLC STLMLC [id number] Co mmon 00:00:00 00:00:00 VISIT [facility] PT - [facility] LEVEL 4 [facility] 2022-01-12 2022-01-12 NON-BILLAB STLMLC STLMLC [id number] Common 00:00:00 00:00:00 LE VISIT [facility] 2022-01-08 2022-01-08 (TEL) STLMLC STLMLC [id number] Co mmon 00:00:00 00:00:00 [facility] 2021-12-23 2021-12-23 NON-BILLAB STLMLC STLMLC [id number] Common 00:00:00 00:00:00 LE VISIT [facility] 2021-12-12 2021-12-12 (TEL) STLMLC STLMLC [id number] Co mmon 00:00:00 00:00:00 [facility] 2021-12-09 2021-12-09 (TEL) STLMLC STLMLC [id number] Co mmon 00:00:00 00:00:00 [facility] 2021-12-09 2021-12-09 NON-BILLAB STLMLC STLMLC [id number] Common 00:00:00 00:00:00 [facility] 2021-12-04 2021-12-04 (TEL) STLMLC STLMLC [id number] Co mmon 00:00:00 00:00:00 [facility] 2021-11-18 2021-11-18 (TEL) STLMLC STLMLC [id number] Co mmon 00:00:00 00:00:00 [facility] 2021-11-18 2021-11-18 (TEL) STLMLC STLMLC [id number] Co mmon 00:00:00 00:00:00 [facility] 2021-11-13 2021-11-13 OFFICE STLMLC STLMLC [id number] Co mmon 00:00:00 00:00:00 VISIT [facility] PT - CHI LEVEL 4 [facility] 2021-11-04 2021-11-04 (TEL) STLMLC STLMLC [id number] Co mmon 00:00:00 00:00:00 [facility] 2021-10-29 2021-10-29 (TEL) STLMLC STLMLC [id number] Co mmon 00:00:00 00:00:00 [facility] 2021-10-27 2021-10-27 (TEL) STLMLC STLMLC [id number] Co mmon 00:00:00 00:00:00 [facility] 2021-10-27 2021-10-27 OFFICE STLMLC STLMLC [id number] Co mmon 00:00:00 00:00:00 VISIT [facility] PT - CHI LEVEL 4 [facility] 2021-09-09 2021-09-09 OFFICE STLMLC STLMLC [id number] Co mmon 00:00:00 00:00:00 VISIT [facility] PT - CHI LEVEL 4 [facility] 2021-09-02 2021-09-02 CONSULT - STLMLC STLMLC [id number] Common 00:00:00 00:00:00 OFFICE, L4 Spi [facility] 2021-08-07 2021-08-07 (TEL) STLMLC STLMLC [id number] Co mmon 00:00:00 00:00:00 [facility] 2021-06-04 2021-06-04 Outpatient STLMLC STLMLC [id number] Common 00:00:00 00:00:00 [facility] 2021-05-29 2021-05-29 Outpatient STLMLC STLMLC [id number] Common 00:00:00 00:00:00 [facility] 2021-05-14 2021-05-14 Outpatient STLMLC STLMLC [id number] Common 00:00:00 00:00:00 [facility] 2021-02-13 2021-02-13 Office Eloise Bonilla BCM [id number] [facility] 10:34:01 11:04:01 Visit AMBULATOR 350.1.13.21 College Y 0.2.7.2.686 of [id number] [facility] rene 310 e 2021-01-27 2021-01-27 Outpatient STLMLC STLMLC [id number] Common 00:00:00 00:00:00 [facility] 2021-01-08 2021-01-08 Office [facility] [id number] [facility] 08:06:55 08:36:55 Visit Joshua 350.1.13.21 Co llege 0.2.7.2.686 of [id number] [facility] rene 560 e 2020-12-19 2020-12-19 Outpatient STLMLC STLMLC [id number] Common 00:00:00 00:00:00 [facility] 2020-12-19 2020-12-19 Outpatient STLMLC STLMLC [id number] Common 00:00:00 00:00:00 [facility] 2020-11-29 2020-11-29 Outpatient STLMLC STLMLC [id number] Common 00:00:00 00:00:00 [facility] 2020-11-12 2020-11-12 Outpatient STLMLC STLMLC [id number] Common 00:00:00 00:00:00 [facility] 2020-09-20 2020-09-20 Outpatient STLMLC STLMLC [id number] Common 00:00:00 00:00:00 [facility] 2020-06-21 2020-06-21 [facility] [id number] Common 11:20:00 11:20:00 [place] [address] [facility] 2020-05-06 2020-05-06 [facility] [id number] Common 10:35:00 10:35:00 [place] [address] [facility] 2020-04-23 2020-04-23 [facility] [id number] Common 13:40:00 13:40:[address] [facility] 2020-04-22 2020-04-22 [facility] [id number] Common 13:34:00 13:34:00 [place] [address] [facility] 2020-03-26 2020-03-26 [facility] [id number] Common 14:00:00 14:00:00 [place] [address] [facility] 2020-03-14 2020-03-14 [facility] [id number] Common 16:13:00 16:13:00 [place] [address] [facility] 2020-01-15 2020-01-15 [facility] [id number] Common 13:52:00 13:52:00 [place] [address] [facility] 2019-12-25 2019-12-25 [facility] [id number] Common 13:30:00 13:30:00 [place] [address] [facility] 2019-11-23 2019-11-23 Office Irene, Eloise BC [id number] 13:40:01 14:25:13 Visit AMBULATOR 350.1.13.21 Y 0.2.7.2.686 [id number] 2019-11-23 2019-11-23 Office Eloise Bonilla BC [id number] [facility] 13:40:01 14:25:13 Visit AMBULATOR 350.1.13.21 College Y 0.2.7.2.686 of [id number] [facility] 310 e 2019-11-08 2019-11-08 Office Irene, Eloise BSC [id number] 09:15:27 09:45:27 Visit Joshua 350.1.13.21 0.2.7.2.686 [id number] 2019-11-08 2019-11-08 Office Eloise Bonilla BSC [id number] [facility] 09:15:27 09:45:27 Visit Joshua 350.1.13.21 Co llege 0.2.7.2.686 of [id number] [facility] 560 e 2019-09-27 2019-09-27 [facility] [id number] Common 09:00:00 09:00:00 [place] [address] [facility] 2019-09-22 2019-09-22 [facility] [id number] Common 10:30:00 10:30:00 [place] [address] [facility] 2019-09-15 2019-09-15 [facility] [id number] Common 08:21:00 08:21:00 [place] [address] [facility] 2019-09-06 2019-09-06 [facility] [id number] Common 08:11:00 08:11:00 [place] [address] [facility] 2019-09-04 2019-09-04 [facility] [id number] Common 08:03:00 08:03:00 [place] [address] [facility] 2019-08-08 2019-08-08 [facility] [id number] Common 11:00:00 11:00:00 [place] [address] [facility] 2019-06-23 2019-06-23 [facility] [id number] Common 09:30:00 09:30:00 [place] [address] [facility] 2019-03-23 2019-03-23 [facility] [id number] Common 09:00:00 09:00:00 [place] [address] [facility] 2019-01-18 2019-01-18 [facility] [id number] Common 11:00:00 11:00:00 [place] [address] [facility] 2019-01-11 2019-01-11 [facility] [id number] Common 10:00:00 10:00:00 [place] [address] [facility] 2018-12-21 2018-12-21 [facility] [id number] Common 13:15:00 13:15:00 [place] [address] [facility] 2018-09-28 2018-09-28 [facility] [id number] Common 11:18:00 11:18:00 [place] [address] [facility] 2018-09-22 2018-09-22 [facility] [id number] Common 14:45:00 14:45:00 [place] [address] [facility] Results This patient has no known results.
[2022-12-27 22:14] LABS: Absolute Lymphocytes (CBC) 0.7 K/uL (0.7-4.9); Hematocrit 42.6 % (36.0-45.0); Lymphocytes % 13.2 % (15.3-44.8); MCV 92.5 fL (80-100); MPV 8.2 fL (7.6-11.3); RBC Red Blood Cell Count 4.61 M/uL (3.86-4.86)
[2022-12-27] MEDS ORDERED: FENTANYL CITR 100 MCG/2 ML ONE (22:14)
[2022-12-27] MEDS ORDERED: ONDANSETRON 4 MG/2 ML VIAL ONE (22:14)
[2022-12-27] MEDS ORDERED: NA CHLORIDE 0.9% 1,000 ML ONE (22:15)
[2022-12-27] MEDS ORDERED: FAMOTIDINE 20 MG/2 ML VIAL IV ONE (22:15)
[2022-12-27 22:25] LABS: Urine Blood Negative (Negative); Urine Glucose 2+ (Negative); Urine Protein Negative (Negative); Urine Specific Gravity 1.015 (1.005-1.030); Urine pH 7.5 (5.0-7.0)
[2022-12-27 22:30] LABS: Urine Bacteria <20 /HPF (<20)
[2022-12-27 22:31] LABS: Albumin 3.6 g/dL (3.4-5.0); Bilirubin Total 0.5 mg/dL (0.2-1.0); Potassium 3.9 mEq/L (3.5-5.1); Protein, Total 7.2 g/dL (6.4-8.2)
[2022-12-27 22:49] LABS: SARS-COV-2 RT PCR NEGATIVE (NEGATIVE)
--- NOTE | 2022-12-28 00:22 | ER ---
Nurse's Notes [facility] Name: Petra Santos Age: 57 yrs Sex: Female : 1965 Arrival Date: 12/27/2022 Time: 21:01 Bed 4 Private MD: Diagnosis: Constipation;Abdominal pain, unspecified;Nausea Presentation: 12/27 21:14 Chief complaint: Patient states: "My stomach really hurts and I have a headache. I as6 tried to manage it at home but the pain is too much". Coronavirus screen: At this time, the client does not indicate any symptoms associated with coronavirus-19. Ebola Screen: No symptoms or risks identified at this time. Initial Sepsis Screen: Does the patient meet any 2 criteria? No. Patient's initial sepsis screen is negative. Does the patient have a suspected source of infection? No. Patient's initial sepsis screen is negative. Risk Assessment: Do you want to hurt yourself or someone else? Patient reports no desire to harm self or others. Onset of symptoms was December 27, 2022. 21:14 Method Of Arrival: Ambulatory as6 21:14 Acuity: MARKIE 3 as6 Historical: - Allergies: 21:18 No Known Allergies; as6 - PMHx: 21:18 Diabetes - NIDDM; Hypertension; Hypothyroidism; Hypercholesterolemia; as6 - PSHx: 21:18 carpal tunnel repair; section; right shoulder surgery; Tonsillectomy; Total as6 abdominal hysterectomy; - Immunization history:: Client reports receiving the 2nd dose of the Covid vaccine, moderna. - Social history:: Smoking status: Patient denies any tobacco usage or history of. Screenin:56 [facility] ED Fall Risk Assessment (Adult) History of falling in the last 3 months, jb4 including since admission No falls in past 3 months (0 pts) Confusion or Disorientation No (0 pts) Score/Fall Risk Level 0 - 2 = Low Risk Oriented to surroundings, Maintained a safe environment. Abuse screen: Denies threats or abuse. Nutritional screening: No deficits noted. Tuberculosis screening: No symptoms or risk factors identified. Assessment: 21:55 General: Appears in no apparent distress. uncomfortable, Behavior is calm, cooperative, jb4 appropriate for age. Pain: Complains of pain in right upper quadrant and left upper quadrant Pain does not radiate. Pain currently is 9 out of 10 on a pain scale. Neuro: Level of Consciousness is awake, alert, obeys commands, Oriented to person, place, time, situation. Cardiovascular: Patient's skin is warm and dry. Respiratory: Airway is patent Respiratory effort is even, unlabored, Respiratory pattern is regular, symmetrical. GI: Abdomen is flat, non-distended, Reports upper abdominal pain, nausea. : No signs and/or symptoms were reported regarding the genitourinary system. EENT: No signs and/or symptoms were reported regarding the EENT system. Derm: Skin is intact, Skin is dry, Skin is normal, Skin temperature is warm. Musculoskeletal: Circulation, motion, and sensation intact. Range of motion: intact in all extremities. 21:55 GI: Bowel sounds present X 4 quads. Abd is soft Abdomen is tender to palpation in left pf1 upper quadrant and right upper quadrant. 23:00 Reassessment: Patient appears in no apparent distress at this time. Patient and/or pf1 family updated on plan of care and expected duration. Pain level reassessed. Patient is alert, oriented x 3, equal unlabored respirations, skin warm/dry/pink. Patient states feeling better. Patient states symptoms have improved. 12/28 00:18 Reassessment: Patient appears in no apparent distress at this time. Patient and/or jb4 family updated on plan of care and expected duration. Pain level reassessed. Patient is alert, oriented x 3, equal unlabored respirations, skin warm/dry/pink. Vital Signs: 12/27 21:14 BP 102 / 79; Pulse 113; Resp 18 S; Temp 98.8(O); Pulse Ox 100% on R/A; Weight 80.74 kg as6 (R); Height 5 ft. 8 in. (R); Pain 9/10; 22:00 BP 105 / 79; Pulse 94; Resp 16; Pulse Ox 99% on R/A; Pain 7/10; pf1 23:00 BP 114 / 72; Pulse 91; Resp 16; Pulse Ox 99% on R/A; Pain 7/10; pf1 12/28 00:00 BP 106 / 63; Pulse 94; Resp 16; Pulse Ox 97% on R/A; jb4 12/27 21:14 Body Mass Index 27.06 (80.74 kg, 172.72 cm) as6 12/27 21:14 Pain Scale: Adult as6 22:00 Pain Scale: Adult pf1 23:00 Pain Scale: Adult pf1 ED Course: 12/27 21:01 Patient arrived in ED. jj6 21:07 Casey Frazier PA is PHCP. cp 21:07 Eduardo Calderón DO is Attending Physician. cp 21:18 Triage completed. as6 21:19 Arm band placed on. as6 21:56 Patient has correct armband on for positive identification. Bed in low position. Call jb4 light in reach. Side rails up X 1. Client placed on continuous cardiac and pulse oximetry monitoring. NIBP monitoring applied. 22:00 No provider procedures requiring assistance completed. Inserted saline lock: 22 gauge pf1 in right antecubital area, using aseptic technique. Blood collected. 22:26 Angela herr, CHACHA is Primary Nurse. pf1 23:02 CT Abd/Pelvis - IV Contrast Only In Process Unspecified. EDMS 12/28 00:19 Jp Jolly MD is Referral Physician. cp 00:30 IV discontinued, intact, bleeding controlled, No redness/swelling at site. Pressure pf1 dressing applied. Administered Medications: 12/27 22:05 Drug: Famotidine IVP 20 mg Route: IVP; Site: right antecubital; pf1 23:00 Follow up: Response: No adverse reaction; Marked relief of symptoms pf1 22:05 Drug: Ondansetron IVP 4 mg Route: IVP; Site: right antecubital; pf1 23:01 Follow up: Response: No adverse reaction; Marked relief of symptoms; Nausea is decreasedpf1 22:05 Drug: fentaNYL (PF) IVP 25 mcg Route: IVP; Site: right antecubital; pf1 23:00 Follow up: Response: No adverse reaction; Marked relief of symptoms; Pain is decreased; pf1 RASS: Alert and Calm (0) 22:25 Drug: NS 0.9% IV 500 ml Route: IV; Rate: bolus; Site: right antecubital; pf1 22:55 Follow up: Response: No adverse reaction; Marked relief of symptoms; IV Status: pf1 Completed infusion; IV Intake: 500ml 22:55 Drug: NS 0.9% IV 500 ml Route: IV; Rate: 125 ml/hr; Site: right antecubital; pf1 12/28 00:23 Follow up: Response: No adverse reaction; Marked relief of symptoms; IV Status: pf1 Completed infusion; IV Intake: 200ml Medication: 00:33 VIS not applicable for this client. pf1 Intake: 12/27 22:55 IV: 500ml; Total: 500ml. pf1 12/28 00:23 IV: 200ml; Total: 700ml. pf1 Outcome: 00:21 Discharge ordered by MD. cp 00:33 Discharged to home ambulatory, with family. pf1 00:33 Condition: improved 00:33 Discharge instructions given to patient, Instructed on discharge instructions, follow up and referral plans. Demonstrated understanding of instructions, follow-up care, medications, Prescriptions given X 2. 00:34 Patient left the ED. pf1 Signatures: Dispatcher [employer] EDMS Casey Frazier PA PA cp Bryson, James, RN RN jb4 Lyndsey Irving Ashby, RN RN as6 Angela herr RN RN pf1
--- NOTE | 2022-12-28 00:22 | EDPHYS ---
Physician Documentation [facility] Name: Petra Santos Age: 57 yrs Sex: Female : 1965 Arrival Date: 12/27/2022 Time: 21:01 Bed 4 Private MD: ED Physician Eduardo Calderón HPI: 12/27 22:00 This 57 yrs old Black Female presents to ER via Ambulatory with complaints of Abdominal cp Pain, Nausea, Headache. 22:00 The patient presents with abdominal pain in the upper abdomen. cp 22:00 Onset: The symptoms/episode began/occurred today. cp 22:00 Associated signs and symptoms: Pertinent positives: nausea, Pertinent negatives: cp anorexia, blood in stools, chest pain, diarrhea, dysuria, fever, hematuria, vomiting. The symptoms are described as constant. Severity of pain: in the emergency department the pain is unchanged despite home interventions. 12/28 00:10 Patient c/o constipation and reports small bowel movement 2 days ago. cp Historical: - Allergies: 12/27 21:18 No Known Allergies; as6 - PMHx: 21:18 Diabetes - NIDDM; Hypertension; Hypothyroidism; Hypercholesterolemia; as6 - PSHx: 21:18 carpal tunnel repair; section; right shoulder surgery; Tonsillectomy; Total as6 abdominal hysterectomy; - Immunization history:: Client reports receiving the 2nd dose of the Covid vaccine, moderna. - Social history:: Smoking status: Patient denies any tobacco usage or history of. ROS: 22:05 Constitutional: Negative for body aches, chills, fever, poor PO intake. cp 22:05 Cardiovascular: Negative for chest pain, edema, palpitations. cp 22:05 Eyes: Negative for injury, pain, redness, and discharge. cp 22:05 ENT: Negative for drainage from ear(s), ear pain, sore throat, difficulty swallowing, difficulty handling secretions. 22:05 Respiratory: Negative for cough, shortness of breath, wheezing. 22:05 Abdomen/GI: Positive for abdominal pain, nausea, Negative for vomiting, diarrhea, black/tarry stool, rectal bleeding. 22:05 Back: Positive for pain at rest, pain with movement. 22:05 Neuro: Positive for headache, Negative for altered mental status, numbness, weakness. 22:05 All other systems are negative. Exam: 22:20 Constitutional: The patient appears in no acute distress, alert, awake, cp non-diaphoretic, non-toxic, well developed, well nourished, in obvious pain, uncomfortable. 22:20 Head/Face: Normocephalic, atraumatic. cp 22:20 Eyes: Periorbital structures: appear normal, Conjunctiva: normal, no exudate, no injection, Sclera: no appreciated abnormality, Lids and lashes: appear normal, bilaterally. 22:20 ENT: External ear(s): are unremarkable, Nose: is normal, Mouth: Lips: moist, Oral mucosa: moist, Posterior pharynx: is normal, airway is patent, no erythema, no exudate. 22:20 Chest/axilla: Inspection: normal. 22:20 Cardiovascular: Rate: tachycardic, Rhythm: regular, Edema: is not appreciated, JVD: is not appreciated. 22:20 Respiratory: the patient does not display signs of respiratory distress, Respirations: normal, no use of accessory muscles, no retractions, labored breathing, is not present, Breath sounds: are clear throughout, no decreased breath sounds, no stridor, no wheezing. 22:20 Abdomen/GI: Inspection: abdomen appears normal, Bowel sounds: active, all quadrants, Palpation: soft, in all quadrants, severe abdominal tenderness, in the epigastric area, umbilical area, right upper quadrant and left upper quadrant, rebound tenderness, is not appreciated, voluntary guarding. 22:20 Back: CVA tenderness, is absent. 22:20 Neuro: Orientation: to person, place \T\ time. Mentation: is normal, Motor: moves all fours, strength is normal, Sensation: is normal, Gait: is steady. Vital Signs: 21:14 BP 102 / 79; Pulse 113; Resp 18 S; Temp 98.8(O); Pulse Ox 100% on R/A; Weight 80.74 kg as6 (R); Height 5 ft. 8 in. (R); Pain 9/10; 22:00 BP 105 / 79; Pulse 94; Resp 16; Pulse Ox 99% on R/A; Pain 7/10; pf1 23:00 BP 114 / 72; Pulse 91; Resp 16; Pulse Ox 99% on R/A; Pain 7/10; pf1 12/28 00:00 BP 106 / 63; Pulse 94; Resp 16; Pulse Ox 97% on R/A; jb4 12/27 21:14 Body Mass Index 27.06 (80.74 kg, 172.72 cm) as6 12/27 21:14 Pain Scale: Adult as6 22:00 Pain Scale: Adult pf1 23:00 Pain Scale: Adult pf1 MDM: 12/27 21:23 Patient medically screened. cp 22:00 Differential diagnosis: appendicitis, bowel obstruction, cholecystitis, Cholelithiasis, cp non-specific abd pain, pancreatitis, Pyelonephritis, Ureterolithiasis, urinary tract infection. 12/28 00:20 Data reviewed: vital signs, nurses notes, lab test result(s), radiologic studies, CT cp scan. 00:20 Consideration of Admission/Observation Escalation of care including cp admission/observation considered. I considered the following discharge prescriptions or medication management in the emergency department Medications were administered in the Emergency Department. See MAR. Care significantly affected by the following chronic conditions: Diabetes, Hypertension. Counseling: I had a detailed discussion with the patient and/or guardian regarding: the historical points, exam findings, and any diagnostic results supporting the discharge/admit diagnosis, lab results, radiology results, the need for outpatient follow up, a floor hand, to return to the emergency department if symptoms worsen or persist or if there are any questions or concerns that arise at home. Response to treatment: the patient's symptoms have markedly improved after treatment, and as a result, I will discharge patient. Special discussion: Based on the patient's Hx, exam, and Dx evaluation, there is no indication for emergent surgery or inpatient Tx. It is understood by the patient/guardian that if the Sx's persist or worsen they need to return immediately for re-evaluation. 12/27 21:51 Order name: COVID-19/FLU A+B; Complete Time: 23:08 cp 12/27 21:51 Order name: CBC with Diff; Complete Time: 23:08 cp 12/27 23:09 Interpretation: Normal except: NETO% 81.7; LYM% 13.2. cp 12/27 21:51 Order name: CMP; Complete Time: 23:08 cp 12/27 21:51 Order name: Lipase; Complete Time: 23:08 cp 12/27 21:51 Order name: Urine Microscopic Only; Complete Time: 23:08 cp 12/27 23:09 Interpretation: Normal except: UWBC 20-50; URBC 5-10. cp 12/27 22:25 Order name: Urine Dipstick-Ancillary; Complete Time: 23:08 EDMS 12/27 22:36 Order name: Urine Culture EDMS 12/27 21:51 Order name: CT Abd/Pelvis - IV Contrast Only cp 12/27 21:51 Order name: IV Saline Lock; Complete Time: 22:02 cp 12/27 21:51 Order name: Labs collected and sent; Complete Time: 22:24 cp 12/27 21:51 Order name: Urine Dipstick-Ancillary (obtain specimen); Complete Time: 22:24 cp Administered Medications: 12/27 22:05 Drug: Famotidine IVP 20 mg Route: IVP; Site: right antecubital; pf1 23:00 Follow up: Response: No adverse reaction; Marked relief of symptoms pf1 22:05 Drug: Ondansetron IVP 4 mg Route: IVP; Site: right antecubital; pf1 23:01 Follow up: Response: No adverse reaction; Marked relief of symptoms; Nausea is decreasedpf1 22:05 Drug: fentaNYL (PF) IVP 25 mcg Route: IVP; Site: right antecubital; pf1 23:00 Follow up: Response: No adverse reaction; Marked relief of symptoms; Pain is decreased; pf1 RASS: Alert and Calm (0) 22:25 Drug: NS 0.9% IV 500 ml Route: IV; Rate: bolus; Site: right antecubital; pf1 22:55 Follow up: Response: No adverse reaction; Marked relief of symptoms; IV Status: pf1 Completed infusion; IV Intake: 500ml 22:55 Drug: NS 0.9% IV 500 ml Route: IV; Rate: 125 ml/hr; Site: right antecubital; pf1 12/28 00:23 Follow up: Response: No adverse reaction; Marked relief of symptoms; IV Status: pf1 Completed infusion; IV Intake: 200ml Disposition: 03:44 Co-signature as Attending Physician, Eduardo MCLAIN was immediately available on-site ms3 in the Emergency Department for consultation in the care of the patient. Disposition Summary: 12/28/22 00:21 Discharge Ordered Location: Home cp Problem: new cp Symptoms: have improved cp Condition: Stable cp Diagnosis - Constipation cp - Abdominal pain, unspecified cp - Nausea cp Followup: cp - With: Jp Jolly MD - When: 2 - 3 days - Reason: Recheck today's complaints Discharge Instructions: - Discharge Summary Sheet cp - Abdominal Pain, Adult cp - Constipation, Adult cp - Nausea, Adult cp Forms: - Medication Reconciliation Form cp - Thank You Letter cp - Antibiotic Education cp - Prescription Opioid Use cp Prescriptions: - Miralax 17 gram Oral powder in packet - take 1 packet by ORAL route daily As needed; 14 packet; Refills: 0, Product cp Selection Permitted - Zofran 4 mg Oral Tablet - take 1 tablet by ORAL route every 12 hours As needed; 20 tablet; Refills: 0, cp Product Selection Permitted Signatures: Dispatcher [employer] EDMS Casey Frazier PA PA cp Sims, Marcus, DO DO ms3 Duaen Chun, RN RN as6 Angela herr RN RN pf1
[2022-12-28 06:31] VITALS: TEMP 98.8
[2022-12-28 06:35] VITALS: BP 106/63; O2SAT 97
--- NOTE | 2022-12-28 11:17 | RAD REPORT ---
EXAM DESCRIPTION: CT scan of the abdomen and pelvis CLINICAL HISTORY: Right upper quadrant pain. TECHNIQUE: CT scan of the abdomen and pelvis was performed with intravenous contrast. 5 mm axial courtney ges were obtained along with coronal and sagittal reformatted images. COMPARISON: 09/08/2020. DOSE OPTIMIZATION: This facility uses dose optimization techniques as appropriate to perform exams, including at least one of the following techniques: 1. Automated exposure control. 2. Adjustment of the mA and/or kV according to patient size (this includes techniques or standardized protocols for targeted exams where dose is matched to the indication/reason for exam, i.e. extremiti es or head). 3. Use of iterative reconstructive technique. FINDINGS: Lung Bases: No active disease. Liver: There is diffuse fatty liver infiltration. There is mild intrahepatic and extrahepatic bile di latation secondary to previous cholecystectomy. Spleen: Normal. Pancreas: Normal. Gallbladder: Surgically absent. Adrenal Glands: Normal. Kidneys: There is a cortical cyst in the left kidney measuring 1.3 cm. Retroperitoneal Structures: There is mild left-sided disease about the abdominal aorta and iliac carrillo sunil. Bowel Survey: The stomach is mildly distended with gas and fluid. There are multiple mildly distended small bowel with air-fluid levels demonstrated . The appendix is unremarkable and best demonstrated on coronal image numbers 80-84 of series 202. There is moderately severe diffuse distention of the colon. The ascending colon contains liquefied st ool and gas. There is increased stool within the transverse descending colon. Findings are suggestive of gastroenteritis or diarrhea and constipation. Uterus and Adnexa: Absent. Urinary Bladder: Normal. Peritoneal Cavity: Normal. Mesenteric Structures: Normal. Abdominal Wall: No hernia. Bony Structures: No suspicious lesions. IMPRESSION: 1. Findings suggestive of gastroenteritis with diarrhea and constipation. 2. Diffuse fatty liver infiltration. Electronically signed by: Roc Vogt MD 12/27/2022 11:19 PM CDT Due to temporary technical issues with the PACS/Fluency reporting system, reports are being signed by the in house radiologists without review as a courtesy to insure prompt reporting. The interpreting radiologist is fully responsible for the content of the report.
== END 2022-12-28 00:34 | disposition home or self-care (01) ==
LOC: ER 20:58
DX: K59.00 Constipation, unspecified (principal); R11.0 Nausea; Z20.822 Contact with and (suspected) exposure to COVID-19; I10 Essential (primary) hypertension
CPT/HCPCS: 87088; 85025; 87086; 36415; 83690; 80053; 0240U; 74177; Q9967; J3010; J2405; J7030; 81003; 81015

== ENCOUNTER 2025-06-04 07:12 | Day surgery (SDC) | payer BC ==
[2025-06-01 15:54] LABS: Absolute Lymphocytes (CBC) 2.6 K/uL (0.7-4.9); Hematocrit 41.2 % (36.0-45.0); Hemoglobin 14.0 g/dL (12.0-15.0); MCH 30.6 pg (27.0-35.0); MCHC 33.9 g/dL (32.0-36.0); MCV 90.3 fL (80-100); MPV 9.4 fL (7.6-11.3); Nucleated RBC Absolute Count 0.0 (0-0); Nucleated Red Blood Cells % 0.1 % (0-0); RBC Red Blood Cell Count 4.56 M/uL (3.86-4.86); White Blood Count 5.00 thou/uL (4.3-10.9)
[2025-06-01 16:07] LABS: Anion Gap 6.0 mEq/L (5.0-15.0); BUN Blood Urea Nitrogen 20.0 mg/dL (7-18); Glucose Level 100.0 mg/dL (74-106); Potassium 4.0 mEq/L (3.5-5.1)
[2025-06-04] MEDS: NA CHLORIDE 0.9% 1,000 ML ONE (07:40)
[2025-06-04] MEDS ORDERED: LIDOCAINE 1% MPF 30 ML VIAL ONE (08:19)
[2025-06-04 10:22] VITALS: BP 120/75; TEMP 96.8; O2SAT 100
== END 2025-06-04 10:07 | disposition home or self-care (01) ==
LOC: OR 07:12
PROVIDERS: ATTEND Surgery
PROC: 0DBN8ZX Excision of Sigmoid Colon, Via Natural or Artificial Opening Endoscopic, Diagnostic (ICD-10-PCS; principal; 2025-06-04 08:30)
DX: Z12.11 Encounter for screening for malignant neoplasm of colon (principal); K64.4 Residual hemorrhoidal skin tags; K64.8 Other hemorrhoids; K63.5 Polyp of colon; Z86.0100 Personal history of colon polyps, unspecified
CPT/HCPCS: 45384; 93005; 85025; 80048; 36415; 82947; 88305; J2704 ×2; J2003; J7030